=== PATIENT | male | born 1950 | race Caucasian/White ===

== ENCOUNTER 2021-12-19 10:13 | Emergency (ER) | payer MEDICARE, OTHER, SELFPAY ==
[2021-12-19 10:14] VITALS: BP 177/104; PULSE 63; RESP 18; TEMP 36.2; O2SAT 100; BMI 36.9
--- NOTE | 2021-12-19 10:24 | RAD_ITS ---
STUDY: X-RAY - RIGHT HAND REASON FOR EXAM: Male, 71 years old. Dogbite to the fifth metacarpal region. TECHNIQUE: 3 view(s) of the hand. COMPARISON: None. FINDINGS: Normal radiocarpal articulation. Normal distal radioulnar joint. Normal visualized carpal bones. Normal carpal articulations Normal carpometacarpal articulation of the thumb. Normal second through fifth carpometacarpal joints. Normal metacarpi. Normal metacarpophalangeal joint of the thumb. Normal interphalangeal joint of the thumb. Normal proximal and distal phalanges of the thumb. Normal metacarpophalangeal joints of the second through fifth fingers. Normal proximal and distal interphalangeal joints of the second through fifth fingers. Normal phalanges of the second through fifth fingers. Soft tissue laceration. No radiopaque foreign body seen. RAD/Hand Min 3 Views IMPRESSION: Soft tissue laceration. No radiopaque foreign bodies Electronically Signed: Mikael Fabian MD at 11:00 EDT ,
--- NOTE | 2021-12-19 10:25 | EX.ED.GENINJ ---
HPI History of Present Illness Chief Complaint: Bite Informant: patient Onset/Context/Timing Onset: Today Mechanism/Context: Work Related (Dog bite to right hand) Current Severity: Mild Maximum Severity: Mild Narrative Narrative: Patient present secondary to dog bite to his right hand. 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 He was at a home today and was bit by the tenants dog on the right hand. He is right-hand dominant. He is unsure of his last tetanus update. PFSH PFS Medical History High cholesterol Hypertension Home Medications amoxicillin-pot clavulanate 1 tab PO BID #14 tab 12/19/21 [Rx Last Taken Unknown] Allergy/AdvReac Type Severity Reaction Status Date / Time No Known Allergies Allergy Verified 12/19/21 10:16 Surgical History Hx of cataract surgery Social History Smoking Status: Never smoker ROS ROS ED Constitutional Constitutional ED: Denies chills or fever(s) Eyes Eyes: Denies change in vision ENT ENT ED: Denies rhinorrhea or sore throat Cardiovascular Cardiovascular: Denies chest pain Respiratory/Chest Respiratory/Chest: Denies cough or dyspnea Gastrointestinal Gastrointestinal: Denies abdominal pain or vomiting Musculoskeletal Musculoskeletal: Reports arthralgias Integumentary Reports other Details: Dog bite to right hand Neurologic Neurologic: Denies paresthesias or weakness Hematologic/Lymphatic Hematologic/Lymphatic: Denies easy bleeding or easy bruising Allergic/Immunologic Allergic/Immunologic ED: Denies urticaria EXAM Physical Exam Const Vital Signs: 12/19/21 10:14 Temperature 97.1 F L Temperature Source Temporal Pulse Rate 63 Respiratory Rate 18 Blood Pressure 177/104 H Blood Pressure Mean 128 Pulse Ox 100 Oxygen Delivery Method Room Air Positive well nourished and well developed General Appearance ED: well developed HEENT atraumatic Eyes PERRL and EOMs intact bilaterally Neck full ROM Chest Wall inspection of chest normal and palpation of chest normal Resp normal respiratory effort and clear to auscultation bilaterally Cardio regular rhythm Rate: regular rate GI non-tender Palpation: soft Back/Spine normal to inspection Extremity Extremity Narrative: Patient has laceration to the right hand from dog bite. There is a 3 cm laceration around the MTP joint of the fifth finger. There is a branching 2 cm laceration off of this. Bleeding is well controlled. He has full range of motion of all digits. Good cap refill and sensation distally. Neuro oriented x3, moves all extremities and no sensory deficits noted Sensorium / Orientation: alert Motor Exam: strength 5/5 throughout Psych mental status grossly normal Skin Skin Narrative: Hand laceration as noted above. MDM MDM MDM Narrative Medical decision making narrative: Tetanus update provided. Patient given p.o. Augmentin. Right hand x-ray ordered. Radiography Diagnostic Testing: Clinical Impression(s) from Imaging Studies Hand X-Ray 12/19/21 10:24 IMPRESSION: Soft tissue laceration. No radiopaque foreign bodies Electronically Signed: Mikael Fabian MD at 11:00 EDT , Treatment and Re-Evaluation Narrative: Right hand x-ray per my interpretation reveals no radiopaque foreign body. No bony abnormality. Right hand laceration loosely repaired with 5 simple interrupted 5-0 sutures. 7 cc 1% lidocaine is used locally. Wound is thoroughly cleansed and irrigated. Patient is to have sutures removed in 1 week. Prescription for Augmentin will be sent to the pharmacy for him. Discharge Plan Triage Chief Complaint: Bite ED Provider: Daksha Corley Dx/Rx/DC Orders Clinical Impression: Dog bite, Laceration of right hand Instructions: ED Dog Bite, ED Laceration, Hand: All Closures Prescriptions: New amoxicillin-pot clavulanate 875-125 mg tablet 1 tab PO BID Qty: 14 RF: 0 Primary Care Provider: Logan Aquino Referrals: Logan Aquino MD [Primary Care Provider] - 7 Days for suture removal Disposition Disposition: Home, Self Care
[2021-12-19] MEDS: Amox/Clavulanate 875 MG Tablet PO (10:42)
[2021-12-19] MEDS: Lidocaine 1% (20 ml mdv) 20 ML Vial INFILT (10:42)
[2021-12-19] MEDS: Diphth,Pertuss(Acell),Tet Vac 0.5 ML Vial IM (10:43)
== END 2021-12-19 12:01 | disposition home or self-care (01) ==
PROVIDERS: Emergency Provider Emergency Medicine; PCP Internal Medicine; Visit Provider Emergency Medicine
DX: S61.411A Laceration without foreign body of right hand, initial encounter (principal); W54.0XXA Bitten by dog, initial encounter; Y92.009 Unspecified place in unspecified non-institutional (private) residence as the place of occurrence of the external cause; Y99.0 Civilian activity done for income or pay; Z23 Encounter for immunization; E78.00 Pure hypercholesterolemia, unspecified; I10 Essential (primary) hypertension
CPT/HCPCS: 12002; 73130; 90715; 99283

== ENCOUNTER → 2023-07-05 | Outpatient (CLI) | payer MEDICARE, SELFPAY ==
--- NOTE | 2023-07-05 14:58 | STRESSREP ---
Stress Test Report Pharmacologic myocardial perfusion stress test. 73-year-old man with a history of chest pain and shortness of breath Resting EKG demonstrates sinus rhythm with a rate of 62 bpm. Resting blood pressure is 148/92 mmHg. 0.4 mg of regadenoson was infused per usual protocol followed by rapid intravenous saline flush injection. Continuous EKG monitoring was performed. The maximum heart rate was 82 bpm which was 56% of max impacted heart rate the maximum workload was 1 metabolic equivalent. At rest there were no ST or T wave changes noted to suggest ischemia and at peak infusion nonspecific ST changes were noted which did not meet the criteria for ischemia. No clinical angina is noted. The final blood pressure was 158/100 mmHg. Myocardial perfusion protocol. 15.0 mCi of technetium 99m sestamibi was injected at rest. 0.4 mg of regadenoson was infused per usual protocol. At peak infusion 45.0 mCi of technetium 99m sestamibi was injected stress images were obtained stress and rest images were reconstructed and compared in the short axis vertical long and horizontal long axis. Gated images were also obtained. Perfusion SPECT analysis: Review of the stress images demonstrate normal uptake of tracer noted in all areas of the myocardium. The resting images similar demonstrated normal uptake of tracer noted in all areas of the myocardium. No areas of reversibility are noted to suggest ischemia and no previous infarct is noted. Gated SPECT analysis: The gated ejection fraction is 69%. Conclusion: Normal pharmacologic myocardial perfusion stress test. Preserved ejection fraction.
== END | disposition home or self-care (01) ==
PROVIDERS: PCP Internal Medicine; Referring Provider Nurse Practitioner; Visit Provider Nurse Practitioner
DX: R94.31 Abnormal electrocardiogram [ECG] [EKG] (principal); R06.02 Shortness of breath; R07.9 Chest pain, unspecified
CPT/HCPCS: 78452; 93017; A9500; A4216; J2785

== ENCOUNTER → 2023-07-24 | Outpatient (CLI) | payer MEDICARE, SELFPAY ==
--- NOTE | 2023-07-24 10:33 | RAD_ITS ---
INDICATION: chest pain EXAMINATION/TECHNIQUE: X-RAY - XR Chest 2 Views COMPARISON: No relevant prior comparison study available FINDINGS: LINES/DEVICES: None. LUNGS: No consolidation, edema or effusion. No pneumothorax. MEDIASTINUM AND CARDIOVASCULAR STRUCTURES: Borderline cardiac silhouette. Tortuosity of the thoracic aorta. BONES AND SOFT TISSUES: Mild degenerative changes and mild dextroscoliosis of the thoracic spine. RAD/Chest PA and Lateral IMPRESSION: No radiographic evidence of acute cardiopulmonary disease. Electronically Signed: Jarvis Velasquez MD at 10:47 EST ,
[2023-07-24 11:09] LABS: Absolute Neutrophil Count 4.7 X10^3/uL (2.0-7.7); Basophil# 0.08 X10^3/uL; Eosinophil# 0.29 X10^3/uL; Eosinophils% 3.7 % (0-5); Hemoglobin 14.9 g/dL (13.0-16.5); Lymphocyte % 22.8 % (19-41); Mean Corp Hgb Conc 33.1 g/dL (32-36); Mean Corpuscular Hgb 33.1 pg (27.0-32.0); Mean Platelet Vol. 9.1 fl (6.2-12.0); Monocyte# 0.99 X10^3/uL; Monocyte% 12.5 % (0-10); NRBC Flagged by Analyzer 0 % (0-5); Neutrophil # 4.72 X10^3/uL (2.7-7.7); Neutrophil % 59.6 % (47-70); Platelet Count 233 K/mm3 (150-450); RBC Distribution Width CV 13.7 % (11.6-14.6); RBC Distribution Width SD 50.2 fl (35.1-43.9); White Blood Count 7.9 K/mm3 (4.4-11.0)
[2023-07-24 12:04] LABS: Anion Gap 3 (5-15); BUN 13 mg/dL (7-18); BUN/Creat Ratio 10.7 RATIO (10-20); Calcium,Total 9.1 mg/dL (8.5-10.1); Chloride 110 mmol/L (98-107); Creatinine, Serum 1.21 mg/dL (0.70-1.30); EST Glomerular Filtration Rate 62 mL/min (>60); Est Glom Filt Rate - Afr Amer 75 mL/min (>60); Glucose 116 mg/dL (74-106); Potassium 3.9 mmol/L (3.5-5.1); Sodium Level 141 mmol/L (136-145)
== END | disposition home or self-care (01) ==
LOC: RAD 10:31
PROVIDERS: PCP Internal Medicine; Referring Provider Internal Medicine Cardiovascular Disease; Visit Provider Internal Medicine Cardiovascular Disease
DX: R06.02 Shortness of breath (principal); R07.9 Chest pain, unspecified; I10 Essential (primary) hypertension
CPT/HCPCS: 36415; 71046; 80048; 85025

== ENCOUNTER 2023-08-02 13:48 | Observation (INO) | payer MEDICARE, SELFPAY ==
[2023-08-01 09:13] VITALS: BMI 41.0
--- OUTSIDE RECORDS SUMMARY | 2023-08-02 09:35 | XMS RPT_ITS | CCD ---
Author Name Unknown Address [address] [place] [address] Organization [facility] Care Team Providers Care Trains Dispatcher Supervisor Name Role Phone Miles AGUILERA, Logan Figueredo Primary Care Provider [phone] LOGAN VALDES Primary Care Unavailable KARYNA CORONA Referring Unavailable ANALIA REIS Attending Unavailable MILES, LOGAN Figueredo Primary Care Unavailable TESTRAKEFOUZIA Referring Unavailable TESTRAKE, FOUZIA Attending Unavailable TESTSATINDER, FOUZIA Attending Unavailable MILES, LOGAN Figueredo Primary Care Unavailable MILES, LOGAN Figueredo Primary Care Unavailable MILES, LOGAN Figueredo Referring Unavailable VALDES, LOGAN Figueredo Attending Unavailable MILES, LOGAN Figueredo Primary Care Unavailable LOGAN VALDES Referring Unavailable TESTRAKE, FOUZIA Attending Unavailable MILES, LOGAN Figueredo Primary Care Unavailable MILES, LOGAN Figueredo Referring Unavailable VALDES, LOGAN Figueredo Primary Care Unavailable TESTRAKE, FOUZIA Referring Unavailable JL HART Attending Unavailable OLDERCODI Referring Unavailable MILES, LOGAN Figueredo Primary Care Unavailable MILES, LOGAN Figueredo Primary Care Unavailable KARYNA CORONA Referring Unavailable OLDER, CODI Attending Unavailable MILES, LOGAN Figueredo Primary Care Unavailable VALDES, LOGAN Figueredo Primary Care Unavailable KARYNA CORONA Referring Unavailable MILES, LOGAN Figueredo Primary Care Unavailable TESTRAJIM, FOUZAI Attending Unavailable MILES, LOGAN Figueredo Primary Care Unavailable GUS SILVA Attending Unavailable OLDER, CODI Attending Unavailable VALDES, LOGAN Figueredo Primary Care Unavailable OLDERCODI Attending Unavailable MILES, LOGAN Figueredo Primary Care Unavailable VALDES, LOGAN Figueredo Primary Care Unavailable KARYNA CORONA Referring Unavailable KARYNA CORONA Attending Unavailable VALDES, LOGAN Figueredo Primary Care Unavailable KARYNA CORONA Attending Unavailable GUS SILVA Referring Unavailable VALDES, MARIA L Primary Care Unavailable KARYNA CORONA Attending Unavailable KARYNA CORONA Referring Unavailable OLDER, CODI Attending Unavailable VALDES, MARIA L Primary Care Unavailable OLDER, CODI Referring Unavailable VALDES, MARIA L Primary Care Unavailable VALDES, MARIA L Primary Care Unavailable JL HART Attending Unavailable LAYNE SILVA Referring Unavailable VALDES, MARIA L Primary Care Unavailable JL HART Referring Unavailable LAYNE SILVA Attending Unavailable OLDER, CODI Referring Unavailable VALDES, MARIA L Primary Care Unavailable Medications Current Medications Medication Drug Class(es) Dates Sig (Normalized) Sig (Original) cephalexin 500 mg oral capsule (1 source) Cephalosporin Antibacterial Start: 11-07-2022 End: 11-14-2022 take 1 capsule by mouth three times daily cephALEXin (KEFLEX) 500 mg capsule Take 1 capsule by mouth three times daily for 7 days. 21 capsule 0 11/07/2022 11/14/2022 Active Completed/Discontinued Medications Medication Drug Class(es) Dates Sig (Normalized) Sig (Original) atorvastatin 10 mg oral tablet (20 sources) HMG-CoA Reductase Inhibitor Start: 05-02-2021 End: 06-29-2022 take 1 tablet by mouth once daily at bedtime for hyperlipidemia atorvastatin (LIPITOR) 10 mg tablet Indications: Hyperlipidemia, unspecified hyperlipidemia type Take 1 tablet by mouth daily at bedtime. For cholesterol. 90 tablet 3 06/29/2022 Active Problems Active Problems Problem Classification Problem Date Documented Da te Episodic/Chronic Alcohol-related disorders (20 sources) Alcohol abuse; Translations: [Alcohol abuse, uncomplicated] Onset: 04-03-2012 04-03-2012 Chronic Chronic ulcer of skin (2 sources) Non-pressure chronic ulcer of unspecified part of unspecified lower leg with unspecified severity; Translations: [Non-pressure chronic ulcer of other part of left lower leg limited to breakdown of skin] Onset: 11-30-2022 Chronic Disorders of lipid metabolism (20 sources) Hyperlipidemia; Translations: [Hyperlipidemia, unspecified] Onset: 06-03-2017 06-03-2017 Chronic Essential hypertension (20 sources) Essential hypertension; Translations: [Essential (primary) hypertension] Onset: 04-21-2016 05-13-2019 Chronic Immunizations and screening for infectious disease (1 source) Needs influenza immunization; Translations: [Encounter for immunization] 04-01-2023 Episodic Malaise and fatigue (2 sources) Fatigue; Translations: [Other fatigue] Onset: 05-24-2023 05-24-2023 Episodic Mycoses (5 sources) Onychomycosis; Translations: [Tinea unguium] Episodic Nonspecific chest pain (4 sources) Chest pain; Translations: [Other chest pain] Onset: 05-24-2023 Episodic Open wounds of extremities (1 source) Dog bite of hand; Translations: [Open bite of right hand, subsequent encounter] Episodic Other aftercare (1 source) Removal of sutures done; Translations: [Encounter for removal of sutures] Episodic Other and unspecified benign neoplasm (5 sources) History of polyp of colon; Translations: [Personal history of colonic polyps] Episodic Other and unspecified benign neoplasm (1 source) Tubular adenoma ; Translations: [Benign neoplasm, unspecified site] Episodic Other circulatory disease (3 sources) Abnormal peripheral pulse; Translations: [Other specified symptoms and signs involving the circulatory and respiratory systems] Episodic Other circulatory disease (1 source) Thready pulse; Translations: [Other specified symptoms and signs involving the circulatory and respiratory systems] 01-29-2023 Episodic Other connective tissue disease (5 sources) Pain of toe of left foot; Translations: [Pain in left toe(s)] Episodic Other connective tissue disease (5 sources) Pain of toe of right foot; Translations: [Pain in right toe(s)] Episodic Other diseases of veins and lymphatics (14 sources) Chronic peripheral venous hypertension; Translations: [Chronic venous hypertension (idiopathic) with ulcer of unspecified lower extremity] Onset: 11-30-2022 Chronic Other diseases of veins and lymphatics (2 sources) Chronic acquired lymphedema; Translations: [Lymphedema, not elsewhere classified] 01-29-2023 Chronic Other diseases of veins and lymphatics (1 source) Lymphedema, not elsewhere classified; Translations: [Secondary lymphedema] Onset: 06-12-2023 Chronic Other diseases of veins and lymphatics (1 source) Chronic venous hypertension (idiopathic) with ulcer of unspecified lower extremity; Translations: [Chronic venous hypertension w ulceration (HCC)] Onset: 11-30-2022 Chronic Other diseases of veins and lymphatics (4 sources) Vascular insufficiency; Translations: [Venous insufficiency (chronic) (peripheral)] Episodic Other diseases of veins and lymphatics (3 sources) Ulcer of lower extremity; Translations: [Venous insufficiency (chronic) (peripheral)] Episodic Other diseases of veins and lymphatics (4 sources) Venous insufficiency (chronic) (peripheral); Translations: [Venous (peripheral) insufficiency, unspecified] Onset: 01-29-2023 01-29-2023 Episodic Other diseases of veins and lymphatics (1 source) Peripheral venous insufficiency; Translations: [Venous insufficiency (chronic) (peripheral)] 05-23-2023 Episodic Other ear and sense organ disorders (1 source) Impacted cerumen of bilateral ears; Translations: [Impacted cerumen, bilateral] Episodic Other lower respiratory disease (2 sources) Dyspnea; Translations: [Shortness of breath] 05-24-2023 Episodic Other lower respiratory disease (1 source) Shortness of breath; Translations: [Shortness of breath] Onset: 05-24-2023 Episodic Other nutritional; endocrine; and metabolic disorders (20 sources) Body mass index 40+ - severely obese; Translations: [Morbid (severe) obesity due to excess calories] Onset: 08-01-2010 11-13-2017 Chronic Other nutritional; endocrine; and metabolic disorders (20 sources) Body mass index 30+ - obesity; Translations: [Body mass index (BMI) 39.0-39.9, adult] Onset: 11-03-2015 11-03-2015 Chronic Other nutritional; endocrine; and metabolic disorders (1 source) Morbid (severe) obesity due to excess calories; Translations: [Obesity, Class III, BMI 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) (HCC)] Onset: 11-13-2017 Chronic Other screening for suspected conditions (not mental disorders or infectious disease) (2 sources) Patient encounter status; Translations: [Encounter for screening for malignant neoplasm of colon] Episodic Other upper respiratory disease (20 sources) Chronic rhinitis; Translations: [Chronic rhinitis] Onset: 08-01-2010 08-01-2010 Chronic Peripheral and visceral atherosclerosis (1 source) Peripheral vascular disease, unspecified; Translations: [Peripheral vascular disease, unspecified] Chronic Residual codes; unclassified (20 sources) Obstructive sleep apnea syndrome; Translations: [Obstructive sleep apnea (adult) (pediatric)] Onset: 08-01-2010 08-02-2021 Chronic Residual codes; unclassified (1 source) Edema, generalized; Translations: [Generalized edema] Episodic Skin and subcutaneous tissue infections (1 source) Cellulitis of left lower limb; Translations: [Cellulitis of left lower limb] Episodic Past or Other Problems Problem Classification Problem Date Documented Da te Episodic/Chronic Alcohol-related disorders (20 sources) 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; Translations: [Alcohol use, unspecified with alcohol-induced sleep disorder] Onset: 05-15-2018 05-15-2018 Episodic Diabetes mellitus without complication (20 sources) Impaired fasting glycemia; Translations: [Impaired fasting glucose] Onset: 12-03-2017 12-03-2017 Episodic Other and unspecified benign neoplasm (20 sources) Benign neoplasm of colon; Translations: [Benign neoplasm of colon, unspecified] Onset: 10-25-2010 10-25-2010 Episodic Other and unspecified benign neoplasm (1 source) Benign neoplasm, unspecified site; Translations: [Tubular adenoma] Onset: 07-11-2022 Episodic Other and unspecified benign neoplasm (3 sources) Personal history of colonic polyps; Translations: [History of colonic polyps] Onset: 07-02-2022 Episodic Other circulatory disease (1 source) Other specified symptoms and signs involving the circulatory and respiratory systems; Translations: [Diminished pulse] Onset: 02-27-2023 Episodic Other nervous system disorders (20 sources) Paresthesia of foot ; Translations: [Anesthesia of skin] Onset: 06-22-2021 06-22-2021 Episodic Other skin disorders (20 sources) Nail deformity; Translations: [Other nail disorders] Onset: 06-22-2021 06-22-2021 Episodic Other upper respiratory disease (20 sources) Congestion of nasal sinus; Translations: [Nasal congestion] Onset: 07-09-2018 07-09-2018 Episodic Residual codes; unclassified (20 sources) Edema; Translations: [Edema, unspecified] Onset: 08-27-2016 08-27-2016 Episodic Residual codes; unclassified (1 source) Edema, unspecified; Translations: [Edema, unspecified type] Onset: 08-27-2016 Episodic Varicose veins of lower extremity (3 sources) Varicose veins of bilateral lower limbs; Translations: [Asymptomatic varicose veins of bilateral lower extremities] Onset: 02-27-2023 Episodic Results Test Name Value Interpretation Reference Range Facil ity Vital Signs Date Time Vital Sign Value Performing Clinician Regulo alcala 05-24-2023 08:35-0500 Body temperature 98.2 [degF] Codi Older NURSES EDUCATOR.KNOCKOUT MACHINE OPERATOR Work Phone: [facility] 05-24-2023 08:35-0500 Body weight 141.52 kg Codi Older NURSES EDUCATOR.KNOCKOUT MACHINE OPERATOR Work Phone: [facility] 05-24-2023 08:35-0500 Diastolic blood pressure 82 mm[Hg] Codi Older NURSES EDUCATOR.KNOCKOUT MACHINE OPERATOR Work Phone: [facility] 05-24-2023 08:35-0500 Heart rate 126 /min Codi Older NURSES EDUCATOR.KNOCKOUT MACHINE OPERATOR Work Phone: [facility] 05-24-2023 08:35-0500 Respiratory rate 18 /min Codi Older NURSES EDUCATOR.KNOCKOUT MACHINE OPERATOR Work Phone: [facility] 05-24-2023 08:35-0500 SaO2% (BldA) [Mass fraction] 97 % Codi Older NURSES EDUCATOR.KNOCKOUT MACHINE OPERATOR Work Phone: [facility] 05-24-2023 08:35-0500 Systolic blood pressure 158 mm[Hg] Codi Older NURSES EDUCATOR.KNOCKOUT MACHINE OPERATOR Work Phone: [facility] 05-21-2023 10:18-0500 Diastolic blood pressure 98 mm[Hg] Karyna Corona DO Work Phone: [facility] 05-21-2023 10:18-0500 Heart rate 77 /min Karyna Corona DO Work Phone: [facility] 05-21-2023 10:18-0500 SaO2% (BldA) [Mass fraction] 97 % Karyna Corona DO Work Phone: [facility] 05-21-2023 10:18-0500 Systolic blood pressure 152 mm[Hg] Karyna Corona DO Work Phone: [facility] 04-01-2023 12:36-0400 Body height 182.9 cm Codi Older NURSES EDUCATOR.KNOCKOUT MACHINE OPERATOR Work Phone: [facility] 04-01-2023 12:36-0400 Body temperature 97.7 [degF] Codi Older NURSES EDUCATOR.KNOCKOUT MACHINE OPERATOR Work Phone: [facility] 04-01-2023 12:36-0400 Body weight 136.94 kg Codi Older NURSES EDUCATOR.KNOCKOUT MACHINE OPERATOR Work Phone: [facility] 04-01-2023 12:36-0400 Diastolic blood pressure 84 mm[Hg] Codi Older NURSES EDUCATOR.KNOCKOUT MACHINE OPERATOR Work Phone: [facility] 04-01-2023 12:36-0400 Heart rate 76 /min Codi Older NURSES EDUCATOR.KNOCKOUT MACHINE OPERATOR Work Phone: [facility] 04-01-2023 12:36-0400 SaO2% (BldA) [Mass fraction] 99 % Codi Older NURSES EDUCATOR.KNOCKOUT MACHINE OPERATOR Work Phone: [facility] 04-01-2023 12:36-0400 Systolic blood pressure 124 mm[Hg] Codi Older NURSES EDUCATOR.KNOCKOUT MACHINE OPERATOR Work Phone: [facility] 01-29-2023 08:36-0400 Diastolic blood pressure 78 mm[Hg] Karyna Corona DO Work Phone: [facility] 01-29-2023 08:36-0400 Heart rate 68 /min Karyna Corona DO Work Phone: [facility] 01-29-2023 08:36-0400 SaO2% (BldA) [Mass fraction] 97 % Karyna Corona DO Work Phone: [facility] 01-29-2023 08:36-0400 Systolic blood pressure 120 mm[Hg] Kayrna Corona DO Work Phone: [facility] 12-12-2022 10:03-0400 Body weight 137.44 kg Gus Ricardo NURSES EDUCATOR.KNOCKOUT MACHINE OPERATOR Work Phone: [facility] 12-12-2022 10:03-0400 Diastolic blood pressure 72 mm[Hg] Gus Ricardo NURSES EDUCATOR.KNOCKOUT MACHINE OPERATOR Work Phone: [facility] 12-12-2022 10:03-0400 Heart rate 71 /min Gus Garciar NURSES EDUCATOR.KNOCKOUT MACHINE OPERATOR Work Phone: [facility] 12-12-2022 10:03-0400 SaO2% (BldA) [Mass fraction] 98 % Gus Garciar NURSES EDUCATOR.KNOCKOUT MACHINE OPERATOR Work Phone: [facility] 12-12-2022 10:03-0400 Systolic blood pressure 108 mm[Hg] Gus Garciar NURSES EDUCATOR.KNOCKOUT MACHINE OPERATOR Work Phone: [facility] 11-07-2022 07:51-0400 Body weight 137.89 kg Codi Older NURSES EDUCATOR.KNOCKOUT MACHINE OPERATOR Work Phone: [facility] 11-07-2022 07:51-0400 Diastolic blood pressure 85 mm[Hg] Codi Older NURSES EDUCATOR.KNOCKOUT MACHINE OPERATOR Work Phone: [facility] 11-07-2022 07:51-0400 Heart rate 68 /min Codi Older NURSES EDUCATOR.KNOCKOUT MACHINE OPERATOR Work Phone: [facility] 11-07-2022 07:51-0400 Respiratory rate 18 /min Codi Older NURSES EDUCATOR.KNOCKOUT MACHINE OPERATOR Work Phone: [facility] 11-07-2022 07:51-0400 Systolic blood pressure 142 mm[Hg] Codi Older NURSES EDUCATOR.KNOCKOUT MACHINE OPERATOR Work Phone: [facility] 10-31-2022 09:03-0400 Body temperature 97.59 [degF] Codi Older NURSES EDUCATOR.KNOCKOUT MACHINE OPERATOR Work Phone: [facility] 10-31-2022 09:03-0400 Body weight 137.44 kg Codi Older NURSES EDUCATOR.KNOCKOUT MACHINE OPERATOR Work Phone: [facility] 10-31-2022 09:03-0400 Diastolic blood pressure 72 mm[Hg] Codi Older NURSES EDUCATOR.KNOCKOUT MACHINE OPERATOR Work Phone: [facility] 10-31-2022 09:03-0400 Heart rate 82 /min Codi Older NURSES EDUCATOR.KNOCKOUT MACHINE OPERATOR Work Phone: [facility] 10-31-2022 09:03-0400 Respiratory rate 20 /min Codi Older NURSES EDUCATOR.KNOCKOUT MACHINE OPERATOR Work Phone: [facility] 10-31-2022 09:03-0400 SaO2% (BldA) [Mass fraction] 96 % Codi Older NURSES EDUCATOR.KNOCKOUT MACHINE OPERATOR Work Phone: [facility] 10-31-2022 09:03-0400 Systolic blood pressure 132 mm[Hg] Codi Older NURSES EDUCATOR.KNOCKOUT MACHINE OPERATOR Work Phone: [facility] 09-20-2022 08:34-0500 Diastolic blood pressure 77 mm[Hg] Logan Valdes MD Work Phone: [facility] 09-20-2022 08:34-0500 Heart rate 73 /min Logan Valdes MD Work Phone: [facility] 09-20-2022 08:34-0500 Systolic blood pressure 136 mm[Hg] Logan Valdes MD Work Phone: [facility] 09-20-2022 08:30-0500 Body weight 140.62 kg Logan Valdes MD Work Phone: [facility] 09-20-2022 08:30-0500 Respiratory rate 24 /min Logan Valdes MD Work Phone: [facility] 07-02-2022 11:00-0500 Diastolic blood pressure 90 mm[Hg] Jl Hart MD Work Phone: [facility] 07-02-2022 11:00-0500 Heart rate 63 /min Jl Hart MD Work Phone: [facility] 07-02-2022 11:00-0500 SaO2% (BldA) [Mass fraction] 96 % Jl Hart MD Work Phone: [facility] 07-02-2022 11:00-0500 Systolic blood pressure 188 mm[Hg] Jl Hart MD Work Phone: [facility] 07-02-2022 10:50-0500 Respiratory rate 16 /min Jl Hart MD Work Phone: [facility] 07-02-2022 09:20-0500 Body temperature 98.1 [degF] Jl Hart MD Work Phone: [facility] 04-11-2022 08:32-0400 Body height 185.4 cm Layne Ricardo PA-C Work Phone: [facility] 04-11-2022 08:32-0400 Body temperature 97.81 [degF] Layne [place] PA-C Work Phone: [facility] 04-11-2022 08:32-0400 Body weight 137.98 kg Layne [place] PA-C Work Phone: [facility] 04-11-2022 08:32-0400 Diastolic blood pressure 82 mm[Hg] Layne [place] PA-C Work Phone: [facility] 04-11-2022 08:32-0400 Heart rate 78 /min Layne [place] PA-C Work Phone: [facility] 04-11-2022 08:32-0400 SaO2% (BldA) [Mass fraction] 100 % Layne [place] PA-C Work Phone: [facility] 04-11-2022 08:32-0400 Systolic blood pressure 134 mm[Hg] Layne Douglas[place] PA-C Work Phone: [facility] 03-23-2022 09:09-0400 Diastolic blood pressure 80 mm[Hg] Logan Valdes MD Work Phone: [facility] 03-23-2022 09:09-0400 Systolic blood pressure 132 mm[Hg] Logan Valdes MD Work Phone: [facility] 03-23-2022 08:37-0400 Body weight 140.16 kg Logan Valdes MD Work Phone: [facility] 03-23-2022 08:37-0400 Heart rate 64 /min Logan Valdes MD Work Phone: [facility] 03-23-2022 08:37-0400 Respiratory rate 18 /min Logan Valdes MD Work Phone: [facility] 03-23-2022 08:37-0400 SaO2% (BldA) [Mass fraction] 97 % Logan Valdes MD Work Phone: [facility] 01-26-2022 09:36-0400 Body weight 139.25 kg La Tannhof NURSES EDUCATOR.KNOCKOUT MACHINE OPERATOR Work Phone: [facility] 01-26-2022 09:36-0400 Diastolic blood pressure 92 mm[Hg] La Tannhof NURSES EDUCATOR.KNOCKOUT MACHINE OPERATOR Work Phone: [facility] 01-26-2022 09:36-0400 Heart rate 60 /min La Tannhof NURSES EDUCATOR.KNOCKOUT MACHINE OPERATOR Work Phone: [facility] 01-26-2022 09:36-0400 Respiratory rate 20 /min La Tannhof NURSES EDUCATOR.KNOCKOUT MACHINE OPERATOR Work Phone: [facility] 01-26-2022 09:36-0400 SaO2% (BldA) [Mass fraction] 100 % La Tannhof NURSES EDUCATOR.KNOCKOUT MACHINE OPERATOR Work Phone: [facility] 01-26-2022 09:36-0400 Systolic blood pressure 132 mm[Hg] La Tannhof NURSES EDUCATOR.KNOCKOUT MACHINE OPERATOR Work Phone: [facility] 12-27-2021 08:19-0400 Body weight 135.63 kg Codi Older NURSES EDUCATOR.KNOCKOUT MACHINE OPERATOR Work Phone: [facility] 12-27-2021 08:19-0400 Diastolic blood pressure 72 mm[Hg] Codi Older NURSES EDUCATOR.KNOCKOUT MACHINE OPERATOR Work Phone: [facility] 12-27-2021 08:19-0400 Heart rate 88 /min Codi Older NURSES EDUCATOR.KNOCKOUT MACHINE OPERATOR Work Phone: [facility] 12-27-2021 08:19-0400 Respiratory rate 20 /min Codi Older NURSES EDUCATOR.KNOCKOUT MACHINE OPERATOR Work Phone: [facility] 12-27-2021 08:19-0400 Systolic blood pressure 108 mm[Hg] Codi Older NURSES EDUCATOR.KNOCKOUT MACHINE OPERATOR Work Phone: [facility] Encounters Encounter Date Encounter Type Care Provider Facility Start: 06-12-2023 End: 06-12-2023 ambulatory MARIA L MILES Facility:[facility] Start: 06-11-2023 End: 06-11-2023 ambulatory LOGAN Figueredo MILES Facility:[facility] Start: 06-11-2023 End: 06-11-2023 Patient encounter procedure Fouzia Smith Work Phone: Podiatry Procedures Date Procedure Procedure Detail Performing Clinician Start: 05-24-2023 Ecg routine ecg w/le ast 12 lds i&r only [facility] Provider Start: 04-01-2023 INFLUENZA VACCINE, P RSV FREE, AGE 65+ YR, HIGH DOSE, QUADRIVALENT (FLUZONE HIGH-DOSE) Codi Older NURSES EDUCATOR.KNOCKOUT MACHINE OPERATOR Work Phone: Start: 09-18-2022 Lipid 1996 panel - S mima or Plasma Codi Older NURSES EDUCATOR.KNOCKOUT MACHINE OPERATOR Work Phone: Start: 07-02-2022 Level iv surg pathol ogy gross&microscopic exam Jl Hart MD Work Phone: Start: 07-02-2022 Colonoscopy flx dx w /collj spec when pfrmd Layne Silva PA-C Work Phone: Start: 07-02-2022 Colonoscopy Logan Doe MD Work Phone: Start: 03-23-2022 Adult depression scr eening assessment Logan Valdes MD Work Phone: Start: 12-22-2020 Adult depression scr eening assessment Fouzia Smith Work Phone: Start: 09-24-2016 Colonoscopy Fouzia Bernal Work Phone: Plan of Treatment Date Care Activity Detail Author Start: 12-20-2031 Urine microalbumin profile [facility] Start: 09-19-2027 Lipid 1996 panel - S mima or Plasma Lipid Screening [facility] Start: 09-19-2027 LIPID SCREEN LIPID SCREEN [facility] Start: 05-24-2026 Diabetes Screening Diabetes Screenin g [facility] Start: 03-31-2026 LIPID SCREEN LIPID SCREEN [facility] Start: 09-18-2025 DIABETES SCREEN DIABETES SCREEN [facility] Start: 09-18-2025 Diabetes Screening Diabetes Screenin g [facility] Start: 07-02-2025 Colonoscopy COLONOSCOPY [facility] Start: 07-02-2025 COLORECTAL CANCER SCREENING COLORECTAL CANCER SCREENING [facility] Start: 06-19-2024 DIABETES SCREEN DIABETES SCREEN [facility] Start: 05-24-2024 Annual PCP Team [employer] richard Disease Visit Annual PCP Team Chronic Disease Visit [facility] Start: 04-01-2024 Annual PCP Team [employer] Operator richard Disease Visit Annual PCP Team Chronic Disease Visit [facility] Start: 04-01-2024 Shingrix Vaccine (1 of 2) Bahena grix Vaccine (1 of 2) [facility] Immunizations Immunization Date Immunization Notes Care Provider Sara baeza 04-01-2023 influenza (HD-IIV4) vaccine, age 65+ yr, high dose, quadrivalent, PF (FLUZONE HIGH-DOSE) Codi Older NURSES EDUCATOR.[facility] Work Phone: [facility] Work Phone: 05-28-2022 influenza (HD-IIV4) vaccine, age 65+ yr, high dose, quadrivalent, PF (FLUZONE HIGH-DOSE) Gus Ricardo NURSES EDUCATOR.KNOCKOUT MACHINE OPERATOR Work Phone: [facility] Work Phone: 12-19-2021 tetanus toxoid, redu shaggy diphtheria toxoid, and acellular pertussis vaccine, adsorbed Codi Older NURSES EDUCATOR.[facility] Work Phone: [facility] Work Phone: 05-02-2021 influenza, high-dose , quadrivalent vaccine (FLUZONE HIGH DOSE QUADRIVALENT) Fouzia Smith Work Phone: [facility] Work Phone: 04-25-2020 influenza, high-dose , quadrivalent vaccine (FLUZONE HIGH DOSE QUADRIVALENT) Fouzia Smith Work Phone: [facility] Work Phone: 05-08-2019 influenza, high dose seasonal, preservative-free Fouzia Smith Work Phone: [facility] 05-23-2018 influenza, high dose seasonal, preservative-free Fouzia Smith Work Phone: [facility] Work Phone: 06-03-2017 influenza, high dose seasonal, preservative-free Fouzia Smith Work Phone: [facility] 08-27-2016 pneumococcal polysaccharide vaccine, 23 valent Fouzia Smith Work Phone: [facility] 08-10-2015 pneumococcal conjuga te vaccine, 13 valent Fouzia Smith Work Phone: [facility] 07-28-2012 influenza virus vacc ine, unspecified formulation Fouzia Smith Work Phone: [facility] Work Phone: 08-01-2010 influenza virus vacc ine, unspecified formulation Fouziaryan Smith Work Phone: [facility] 08-01-2010 tetanus toxoid, redu shaggy diphtheria toxoid, and acellular pertussis vaccine, adsorbed Fouziaryan Smith Work Phone: [facility] Payers Date Payer Category Payer Unknown [id number] 2019 Medicare [id number] 2019 Unknown MMO MMO MEDICARE SUPPLEMENT [id number] 2019-Present [phone] [address] [place] [address] Indemnity [id number] 2019 Unknown [id number] 2014 Medicare MEDICARE MEDICAR E A AND B [id number] 2014-Present [phone] [address] [address] [place] [address] Medicare [id number] 2014 Medicare [id number] 2014 Medicare [id number] Social History Date Type Detail Facility Start: 08-01-2010 End: 03-23-2022 Tobacco smoking status NHIS Ex-smoker [facility] Work Phone: Start: 09-20-2021 End: 07-02-2022 Alcohol intake Current drinker of alcohol (finding) [facility] Start: 12-22-2020 History SDOH Alcohol Frequency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 of colon (wit hout mention of hemorrhage) 10/25/2010 05/24/2016 Hypertension 09/08/2010 08/27/2016 BP (high blood pressure) 08/01/2010 documented as of this encounter (statuses as of 03/05/2023) [facility]-2016 History of Past illness Narrative* Problem Noted Date Diagnosed Date Resolved Date Mild cognitive impairment 11/03/2015 Hyperlipidemia 07/21/2015 11/03/2015 BMI 40.0-44.9, adult 04/05/2014 016 Diverticulosis of colon (wit hout mention of hemorrhage) 10/25/2010 05/24/2016 Hypertension 09/08/2010 08/27/2016 BP (high blood pressure) 08/01/2010 documented as of this encounter (statuses as of 03/21/2023) [address]21-2016 History of Past illness Narrative* Problem Noted Date Diagnosed Date Resolved Date Mild cognitive impairment 11/03/2015 Hyperlipidemia 07/21/2015 11/03/2015 BMI 40.0-44.9, adult 04/05/2014 016 Diverticulosis of colon (wit hout mention of hemorrhage) 10/25/2010 05/24/2016 Hypertension 09/08/2010 08/27/2016 BP (high blood pressure) 08/01/2010 documented as of this encounter (statuses as of 03/21/2023) [facility]-2016 History of Past illness Narrative* Problem Noted Date Diagnosed Date Resolved Date Mild cognitive impairment 11/03/2015 Hyperlipidemia 07/21/2015 11/03/2015 BMI 40.0-44.9, adult 04/05/2014 016 Diverticulosis of colon (wit hout mention of hemorrhage) 10/25/2010 05/24/2016 Hypertension 09/08/2010 08/27/2016 BP (high blood pressure) 08/01/2010 documented as of this encounter (statuses as of 04/01/2023) [facility]-2016 History of Past illness Narrative* Problem Noted Date Diagnosed Date Resolved Date Mild cognitive impairment 11/03/2015 Hyperlipidemia 07/21/2015 11/03/2015 BMI 40.0-44.9, adult 04/05/2014 016 Diverticulosis of colon (wit hout mention of hemorrhage) 10/25/2010 05/24/2016 Hypertension 09/08/2010 08/27/2016 BP (high blood pressure) 08/01/2010 documented as of this encounter (statuses as of 05/19/2023) [address]21-2016 History of Past illness Narrative* Problem Noted Date Diagnosed Date Resolved Date Mild cognitive impairment 11/03/2015 Hyperlipidemia 07/21/2015 11/03/2015 BMI 40.0-44.9, adult 04/05/2014 016 Diverticulosis of colon (wit hout mention of hemorrhage) 10/25/2010 05/24/2016 Hypertension 09/08/2010 08/27/2016 BP (high blood pressure) 08/01/2010 documented as of this encounter (statuses as of 05/23/2023) [address]21-2016 History of Past illness Narrative* Problem Noted Date Diagnosed Date Resolved Date Mild cognitive impairment 11/03/2015 Hyperlipidemia 07/21/2015 11/03/2015 BMI 40.0-44.9, adult 04/05/2014 016 Diverticulosis of colon (wit hout mention of hemorrhage) 10/25/2010 05/24/2016 Hypertension 09/08/2010 08/27/2016 BP (high blood pressure) 08/01/2010 documented as of this encounter (statuses as of 05/24/2023) [place] [address]-21-2016 History of Past illness Narrative* Problem Noted Date Diagnosed Date Resolved Date Mild cognitive impairment 11/03/2015 Hyperlipidemia 07/21/2015 11/03/2015 BMI 40.0-44.9, adult 04/05/2014 016 Diverticulosis of colon (wit hout mention of hemorrhage) 10/25/2010 05/24/2016 Hypertension 09/08/2010 08/27/2016 BP (high blood pressure) 08/01/2010 documented as of this encounter (statuses as of 05/24/2023) [address]21-2016 History of Past illness Narrative* Problem Noted Date Diagnosed Date Resolved Date Mild cognitive impairment 11/03/2015 Hyperlipidemia 07/21/2015 11/03/2015 BMI 40.0-44.9, adult 04/05/2014 016 Diverticulosis of colon (wit hout mention of hemorrhage) 10/25/2010 05/24/2016 Hypertension 09/08/2010 08/27/2016 BP (high blood pressure) 08/01/2010 documented as of this encounter (statuses as of 05/30/2023) [address]21-2016 History of Past illness Narrative* Problem Noted Date Diagnosed Date Resolved Date Mild cognitive impairment 11/03/2015 Hyperlipidemia 07/21/2015 11/03/2015 BMI 40.0-44.9, adult 04/05/2014 016 Diverticulosis of colon (wit hout mention of hemorrhage) 10/25/2010 05/24/2016 Hypertension 09/08/2010 08/27/2016 BP (high blood pressure) 08/01/2010 documented as of this encounter (statuses as of 06/11/2023) [address]21-2016 History of Past illness Narrative* Problem Noted Date Diagnosed Date Resolved Date Mild cognitive impairment 11/03/2015 Hyperlipidemia 07/21/2015 11/03/2015 BMI 40.0-44.9, adult 04/05/2014 016 Diverticulosis of colon (wit hout mention of hemorrhage) 10/25/2010 05/24/2016 Hypertension 09/08/2010 08/27/2016 BP (high blood pressure) 08/01/2010 documented as of this encounter (statuses as of 06/11/2023) [facility] Diagnosis Onychomycosis- Primary Dermatophytosis of nail Pain in toe of left foot Pain in limb Pain in toe of right foot Pain in limb [facility] Diagnosis Dog bite of right hand, subsequent encounter- Primary Visit for suture removal Encounter for removal of sutures [facility] Diagnosis Cellulitis of left lower extremity- Primary Cellulitis and abscess of leg, except foot Other chest pain [facility] Diagnosis Essential hypertension with goal blood pressure less than 130/80 [facility] Diagnosis Onychomycosis- Primary Dermatophytosis of nail Pain in toe of left foot Pain in limb Pain in toe of right foot Pain in limb Diminished pulses in lower extremity Other symptoms involving cardiovascular system Chronic venous hypertension w ulceration (HCC) Chronic venous hypertension with ulcer [facility] Diagnosis Venous insufficiency- Primary Unspecified venous (peripheral) insufficiency [facility] Diagnosis Essential hypertension with goal blood pressure less than 130/80- Primary Edema, unspecified type Hyperlipidemia, unspecified hyperlipidemia type Impaired fasting glucose ALEX (obstructive sleep apnea) not using CPAP Obstructive sleep apnea (adult) (pediatric) Benign neoplasm of colon, unspecified part of colon [facility]* Diagnosis Generalized edema- Primary Edema [facility] Diagnosis History of colonic polyps- Primary Personal history of colonic polyps Benign neoplasm of colon, unspecified part of colon Encounter for screening for malignant neoplasm of colon Special screening for malignant neoplasms, colon [facility] Diagnosis Essential hypertension with goal blood pressure less than 130/80 [facility]* Diagnosis Onychomycosis- Primary Dermatophytosis of nail Pain in toe of left foot Pain in limb Pain in toe of right foot Pain in limb Diminished pulses in lower extremity Other symptoms involving cardiovascular system [facility] Diagnosis History of colon polyps- Primary Personal history of colonic polyps [facility] Diagnosis Hyperlipidemia, unspecified hyperlipidemia type [facility] Diagnosis Tubular adenoma- Primary Benign neoplasm of unspecified site History of colonic polyps Personal history of colonic polyps [facility] Diagnosis Impaired fasting glucose- Primary Hyperlipidemia, unspecified hyperlipidemia type [facility]* Diagnosis BMI 39.0-39.9,adult- Primary Body Mass Index 39.0-39.9, adult Essential hypertension with goal blood pressure less than 130/80 Edema, unspecified type Impaired fasting glucose Hyperlipidemia, unspecified hyperlipidemia type Bilateral impacted cerumen Impacted cerumen [facility]* Diagnosis Venous stasis ulcer of other part of left lower leg limited to breakdown of skin without varicose veins (HCC)- Primary [facility]* Diagnosis Venous insufficiency- Primary Unspecified venous (peripheral) insufficiency Venous stasis ulcer of other part of left lower leg limited to breakdown of skin without varicose veins (HCC) [facility]* Diagnosis Venous insufficiency- Primary Unspecified venous (peripheral) insufficiency PAD (peripheral artery disease) (HCC) Peripheral vascular disease, unspecified Edema, unspecified type Venous stasis ulcer of other part of left lower leg limited to breakdown of skin without varicose veins (HCC) Varicose veins of both lower extremities, unspecified whether complicated Essential hypertension with goal blood pressure less than 130/80 [facility]* Diagnosis Secondary lymphedema- Primary Other lymphedema Edema, unspecified type Varicose veins of both lower extremities, unspecified whether complicated Venous insufficiency Unspecified venous (peripheral) insufficiency Venous stasis ulcer of other part of left lower leg limited to breakdown of skin without varicose veins (HCC) Diminished pulse Other symptoms involving cardiovascular system Chronic venous hypertension w ulceration (HCC) Chronic venous hypertension with ulcer Obesity, Class III, BMI 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) (HCC) Morbid obesity [facility]* Diagnosis Onychomycosis- Primary Dermatophytosis of nail Pain in toe of left foot Pain in limb Pain in toe of right foot Pain in limb [facility]* Diagnosis Essential hypertension with goal blood pressure less than 130/80 [facility]* Diagnosis Medicare annual wellness visit, subsequent- Primary Routine general medical examination at a health care facility Essential hypertension with goal blood pressure less than 130/80 Need for influenza vaccination Need for prophylactic vaccination and inoculation against influenza [facility]* Diagnosis Personal history of colonic polyps- Primary History of colon polyps Personal history of colonic polyps [facility]* Diagnosis Secondary lymphedema- Primary Other lymphedema Venous (peripheral) insufficiency Unspecified venous (peripheral) insufficiency [facility]* Diagnosis Shortness of breath- Primary Chest pain, unspecified type Fatigue, unspecified type [facility] Diagnosis Chest pain, unspecified type- Primary Shortness of breath Abnormal EKG Nonspecific abnormal electrocardiogram (ECG) (EKG) documented in this encounter [facility] note* Diagnosis Onychomycosis- Primary Dermatophytosis of nail Pain in toe of left foot Pain in limb Pain in toe of right foot Pain in limb Diminished pulses in lower extremity Other symptoms involving cardiovascular system documented in this encounter [facility] for referral (narrative)* Outpatient Procedure (Routine) - Authorized Specialty Diagnoses / Procedures Referred By Contac t Referred To Contact [facility] Diagnoses History of colon polyps Procedures COLONOSCOPY SCREENING COLONOSCOPY FLX DX W/COLLJ SPEC WHEN PFRMD Layne Silva PA-C [address] [place] [address] [facility] Disease [place] [id number] Referral ID Status Reason Start Date Expiration Date Visits Requested Visits Authorized [id number] Authorized Auto-Generat ed Referral 04/11/2022 04/11/2023 1 1 [facility] for referral (narrative)* Outpatient Procedure (Routine) - Authorized Specialty Diagnoses / Procedures [facility] Diagnoses Diminished pulse Procedures PVR ANK PRESS PAUL VAS LAB NON-INVAS PHYSIOLOGIC STD EXTREMITY ART 2 LEVEL Karyna Corona DO [address] [place] [address] [facility] [place] [address] Referral ID Status Reason Start Date Expiration Date Visits Requested Visits Authorized [id number] Authorized Auto-Generat ed Referral 01/29/2023 01/29/2024 1 1 * Outpatient Procedure (Routine) - Authorized Specialty Diagnoses / Procedures [facility] Diagnoses Varicose veins of both lower extremities, unspecified whether complicated Procedures US VENOUS INCOMPETENCY PAUL VAS LAB DUP-SCAN XTR VEINS COMPLETE BILATERAL STUDY Karyna Corona DO [address] [place] [address] [facility] [place] [place] [phone] Referral ID Status Reason Start Date Expiration Date Visits Requested Visits Authorized [id number] Authorized Auto-Generat ed Referral 01/29/2023 01/29/2024 1 1 [facility] for referral (narrative)* Outpatient Procedure (Routine) - Closed Specialty Diagnoses / Procedures Referred By Contac t Referred To Contact [facility] Diagnoses History of colon polyps Procedures COLONOSCOPY SCREENING COLONOSCOPY FLX DX W/COLLJ SPEC WHEN PFRMD Layne Silva PA-C [address] [place] [address] [place] [phone] Referral ID Status Reason Start Date Expiration Date V isits Requested Visits Authorized [id number] Closed Auto-Generate d Referral 04/11/2022 04/11/2023 1 1 [facility] for referral (narrative)* Diagnostic Procedure Only (Routine) - Pending Review Specialty Diagnoses / Procedures Referred By Contac t Referred To Contact [facility] Diagnoses Chest pain, unspecified type Shortness of breath Procedures NM CARDIAC PERF STRESS/EXERCISE MYOCARDIAL SPECT MULTIPLE STUDIES Codi Larkin APRN.CNP [address] [place] [address] [facility] [address] [place] [phone] Referral ID Status Reason Start Date Expiration Date Visits Requested Visits Authorized [id number] Pending Review Auto-Generat ed Referral 3 06/22/2024 1 1 * Outpatient Procedure (Routine) - Authorized Specialty Diagnoses / Procedures Referred By Contac t Referred To Contact [facility] Diagnoses Chest pain, unspecified type Shortness of breath Procedures ECHO ECHO TTHRC R-T 2D W/WOM-MODE COMPL SPEC&COLR D Codi Larkin APRN.KNOCKOUT MACHINE OPERATOR [address] [place] [address] [facility] [address] [place] [address] Referral ID Status Reason Start Date Expiration Date Visits Requested Visits Authorized [id number] Authorized Auto-Generat ed Referral 3 05/23/2024 1 1 * Outpatient Procedure (Routine) - Pending Review Specialty Diagnoses / Procedures Referred By Contac t Referred To Contact [facility] Diagnoses Chest pain, unspecified type Shortness of breath Procedures ECG COMPLETE ECG ROUTINE ECG W/LEAST 12 LDS W/I&R Codi Larkin APRN.KNOCKOUT MACHINE OPERATOR [address] [place] [address] [facility] [place] [address] [place] [id number] Referral ID Status Reason Start Date Expiration Date Visits Requested Visits Authorized [id number] Pending Review Auto-Generat ed Referral 3 05/23/2024 1 1 [facility] for referral (narrative)* Diagnostic Procedure Only (Routine) - Pending Review Specialty Diagnoses / Procedures Referred By Contac t Referred To Contact [facility] FUN[facility] Diagnoses Chest pain, unspecified type Shortness of breath Abnormal EKG Procedures NM CARDIAC PERF STRESS/PHARM MYOCARDIAL SPECT MULTIPLE STUDIES Codi Larkin APRN.KNOCKOUT MACHINE OPERATOR [address] [place] [address] [facility] [address] [place] [phone] Referral ID Status Reason Start Date Expiration Date Visits Requested Visits Authorized [id number] Pending Review Auto-Generat ed Referral 3 07/09/2024 1 1 [facility] for visit Narrative* Outpatient Procedure (Routine) - Closed Specialty Diagnoses / Procedures Referred By Contac t Referred To Contact [facility] Diagnoses History of colon polyps Procedures COLONOSCOPY SCREENING COLONOSCOPY FLX DX W/COLLJ SPEC WHEN PFRMD Layne Silva PA-C [address] [facility] 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 Advance Directive(s) 09/24/2016 7:59 AM Reason for Referral Specialty Diagnoses / Procedures Referred By Contac t Referred To Contact General Surgery Diagnoses Benign neoplasm of colon, unspecified part of colon Procedures CONSULT TO GENERAL SURGERY OFFICE/OUTPATIENT [facility] 60-74 MINUTES Logan Valdes MD [address] [place] [address] Referral ID Status Reason Start Date Expiration Date Visits Requested Visits Authorized [id number] Authorized PCP Requested Referral 03/23/2022 03/23/2023 1 1 Specialty Diagnoses / Procedures Referred By Contac t Referred To Contact Vascular Medicine Diagnoses Edema, unspecified type Varicose veins of both lower extremities, unspecified whether complicated Venous insufficiency Venous stasis ulcer of other part of left lower leg limited to breakdown of skin without varicose veins (HCC) Procedures CONSULT TO VASCULAR MEDICINE OFFICE/OUTPATIENT [facility] 60-74 MINUTES Gus Silva APRN.KNOCKOUT MACHINE OPERATOR [address] [place] [address] Referral ID Status Reason Start Date Expiration Date Visits Requested Visits Authorized [id number] Authorized PCP Requested Referral 12/12/2022 12/12/2023 1 1 Specialty Diagnoses / Procedures Referred By Contac t Referred To Contact [facility] Diagnoses Secondary lymphedema Procedures CONSULT TO LYMPHEDEMA THERAPY OFFICE/OUTPATIENT [facility] 60-74 MINUTES Karyna Corona, DO [address] [place] [address] [facility] [address] [place] [address] Referral ID Status Reason Start Date Expiration Date Visits Requested Visits Authorized [id number] Authorized Auto-Generat ed Referral 05/21/2023 05/20/2024 1 1 Medications Administered Section Inactive Administered Medications - up to 3 most recent administrations Medication Order MAR Action Action Date Dose Rate Site diphenhydrAMINE 12.5-50 mg injection (BENADRYL) 12.5-50 mg, INTRAVENOUS, DIRECTED, Starting on Sat07/02/22 at 1000, Until Sat07/02/22 at 1359, DOSING DIRECTED BY PHYSICIAN FOR PROCEDURAL SEDATION ONLY, Intraprocedure Given 07/02/2022 9:57 AM EST 50 mg fentaNYL 50 mcg/mL 25-100 mcg injection (SUBLIMAZE) 25-100 mcg, INTRAVENOUS, DIRECTED, Starting on Sat07/02/22 at 1000, Until Sat07/02/22 at 1359, DOSING DIRECTED BY PHYSICIAN FOR PROCEDURAL SEDATION ONLY, Intraprocedure Given 07/02/2022 10:08 AM EST 50 mcg Additional Source Comments (unrecognized sect ion and content) No Status Records FoundNo Status Records Found INFORMATION SOURCE (unrecogn ized section and content) DATE CREATED AUTHOR AUTHOR'S ORGANIZ ATION 06/15/[address] [facility] Source Comments (unrecognize d section and content) In the event this informatio n is protected by the Federal Confidentiality of Alcohol and Drug Abuse Patient Records regulations: The Federal rules restrict any use of the information to criminally investigate or prosecute any alcohol or drug abuse patient.[facility] the event this information is protected by the Federal Confidentiality of Alcohol and Drug Abuse Patient Records regulations: The Federal rules restrict any use of the information to criminally investigate or prosecute any alcohol or drug abuse patient.[facility]ighIn the event this information is protected by the Federal Confidentiality of Alcohol and Drug Abuse Patient Records regulations: The Federal rules restrict any use of the information to criminally investigate or prosecute any alcohol or drug abuse patient.[facility]ighIn the event this information is protected by the Federal Confidentiality of Alcohol and Drug Abuse Patient Records regulations: The Federal rules restrict any use of the information to criminally investigate or prosecute any alcohol or drug abuse patient.[facility]ighIn the event this information is protected by the Federal Confidentiality of Alcohol and Drug Abuse Patient Records regulations: The Federal rules restrict any use of the information to criminally investigate or prosecute any alcohol or drug abuse patient.[facility]ighIn the event this information is protected by the Federal Confidentiality of Alcohol and Drug Abuse Patient Records regulations: The Federal rules restrict any use of the information to criminally investigate or prosecute any alcohol or drug abuse patient.[facility]ighIn the event this information is protected by the Federal Confidentiality of Alcohol and Drug Abuse Patient Records regulations: The Federal rules restrict any use of the information to criminally investigate or prosecute any alcohol or drug abuse patient.[facility]ighIn the event this information is protected by the Federal Confidentiality of Alcohol and Drug Abuse Patient Records regulations: The Federal rules restrict any use of the information to criminally investigate or prosecute any alcohol or drug abuse patient.[facility]ighIn the event this information is protected by the Federal Confidentiality of Alcohol and Drug Abuse Patient Records regulations: The Federal rules restrict any use of the information to criminally investigate or prosecute any alcohol or drug abuse patient.[facility]ighIn the event this information is protected by the Federal Confidentiality of Alcohol and Drug Abuse Patient Records regulations: The Federal rules restrict any use of the information to criminally investigate or prosecute any alcohol or drug abuse patient.[facility]ighIn the event this information is protected by the Federal Confidentiality of Alcohol and Drug Abuse Patient Records regulations: The Federal rules restrict any use of the information to criminally investigate or prosecute any alcohol or drug abuse patient.[facility]ighIn the event this information is protected by the Federal Confidentiality of Alcohol and Drug Abuse Patient Records regulations: The Federal rules restrict any use of the information to criminally investigate or prosecute any alcohol or drug abuse patient.[facility]ighIn the event this information is protected by the Federal Confidentiality of Alcohol and Drug Abuse Patient Records regulations: The Federal rules restrict any use of the information to criminally investigate or prosecute any alcohol or drug abuse patient.[facility]ighIn the event this information is protected by the Federal Confidentiality of Alcohol and Drug Abuse Patient Records regulations: The Federal rules restrict any use of the information to criminally investigate or prosecute any alcohol or drug abuse patient.[facility]ighIn the event this information is protected by the Federal Confidentiality of Alcohol and Drug Abuse Patient Records regulations: The Federal rules restrict any use of the information to criminally investigate or prosecute any alcohol or drug abuse patient.[facility]ighIn the event this information is protected by the Federal Confidentiality of Alcohol and Drug Abuse Patient Records regulations: The Federal rules restrict any use of the information to criminally investigate or prosecute any alcohol or drug abuse patient.[facility]ighIn the event this information is protected by the Federal Confidentiality of Alcohol and Drug Abuse Patient Records regulations: The Federal rules restrict any use of the information to criminally investigate or prosecute any alcohol or drug abuse patient.[facility]ighIn the event this information is protected by the Federal Confidentiality of Alcohol and Drug Abuse Patient Records regulations: The Federal rules restrict any use of the information to criminally investigate or prosecute any alcohol or drug abuse patient.[facility]ighIn the event this information is protected by the Federal Confidentiality of Alcohol and Drug Abuse Patient Records regulations: The Federal rules restrict any use of the information to criminally investigate or prosecute any alcohol or drug abuse patient.[facility]ighIn the event this information is protected by the Federal Confidentiality of Alcohol and Drug Abuse Patient Records regulations: The Federal rules restrict any use of the information to criminally investigate or prosecute any alcohol or drug abuse patient.[facility]ighIn the event this information is protected by the Federal Confidentiality of Alcohol and Drug Abuse Patient Records regulations: The Federal rules restrict any use of the information to criminally investigate or prosecute any alcohol or drug abuse patient.[facility]ighIn the event this information is protected by the Federal Confidentiality of Alcohol and Drug Abuse Patient Records regulations: The Federal rules restrict any use of the information to criminally investigate or prosecute any alcohol or drug abuse patient.[facility]ighIn the event this information is protected by the Federal Confidentiality of Alcohol and Drug Abuse Patient Records regulations: The Federal rules restrict any use of the information to criminally investigate or prosecute any alcohol or drug abuse patient.[facility]ighIn the event this information is protected by the Federal Confidentiality of Alcohol and Drug Abuse Patient Records regulations: The Federal rules restrict any use of the information to criminally investigate or prosecute any alcohol or drug abuse patient.[facility]ighIn the event this information is protected by the Federal Confidentiality of Alcohol and Drug Abuse Patient Records regulations: The Federal rules restrict any use of the information to criminally investigate or prosecute any alcohol or drug abuse patient.[facility]ighIn the event this information is protected by the Federal Confidentiality of Alcohol and Drug Abuse Patient Records regulations: The Federal rules restrict any use of the information to criminally investigate or prosecute any alcohol or drug abuse patient.[facility]ighIn the event this information is protected by the Federal Confidentiality of Alcohol and Drug Abuse Patient Records regulations: The Federal rules restrict any use of the information to criminally investigate or prosecute any alcohol or drug abuse patient.[facility]ighIn the event this information is protected by the Federal Confidentiality of Alcohol and Drug Abuse Patient Records regulations: The Federal rules restrict any use of the information to criminally investigate or prosecute any alcohol or drug abuse patient.[facility]ighIn the event this information is protected by the Federal Confidentiality of Alcohol and Drug Abuse Patient Records regulations: The Federal rules restrict any use of the information to criminally investigate or prosecute any alcohol or drug abuse patient.[facility]ighIn the event this information is protected by the Federal Confidentiality of Alcohol and Drug Abuse Patient Records regulations: The Federal rules restrict any use of the information to criminally investigate or prosecute any alcohol or drug abuse patient.[facility]ighIn the event this information is protected by the Federal Confidentiality of Alcohol and Drug Abuse Patient Records regulations: The Federal rules restrict any use of the information to criminally investigate or prosecute any alcohol or drug abuse patient.[facility]ighIn the event this information is protected by the Federal Confidentiality of Alcohol and Drug Abuse Patient Records regulations: The Federal rules restrict any use of the information to criminally investigate or prosecute any alcohol or drug abuse patient.[facility]ighIn the event this information is protected by the Federal Confidentiality of Alcohol and Drug Abuse Patient Records regulations: The Federal rules restrict any use of the information to criminally investigate or prosecute any alcohol or drug abuse patient.[facility]ighIn the event this information is protected by the Federal Confidentiality of Alcohol and Drug Abuse Patient Records regulations: The Federal rules restrict any use of the information to criminally investigate or prosecute any alcohol or drug abuse patient.[facility]ighIn the event this information is protected by the Federal Confidentiality of Alcohol and Drug Abuse Patient Records regulations: The Federal rules restrict any use of the information to criminally investigate or prosecute any alcohol or drug abuse patient.[facility]ighIn the event this information is protected by the Federal Confidentiality of Alcohol and Drug Abuse Patient Records regulations: The Federal rules restrict any use of the information to criminally investigate or prosecute any alcohol or drug abuse patient.[facility] Reason for Visit (unrecogniz ed section and content) Reason Onset Date Comments Refill Request 11/27/2021 Reason Onset Date Comments Refill Request 11/29/2021 Reason Comments Suture Removal Reason Comments Acute Visit swelling, sores Reason Onset Date Comments Refill Request 01/31/2022 Reason Comments Established Patient nail care Reason Comments Established Patient Follow Up Ulcer Reason Comments F/U 6 months bp Reason Comments Incorrect Phamacy Reason Comments Compression Stocking Order Reason Comments Compression stockings Reason Comments Consult Colonoscopy consult Specialty Diagnoses / Procedures Referred By Contac t Referred To Contact General Surgery Diagnoses Benign neoplasm of colon, unspecified part of colon Procedures CONSULT TO GENERAL SURGERY OFFICE/OUTPATIENT [facility] 60-74 MINUTES Logan Valdes MD [address] [place] [place] [id number] Referral ID Status Reason Start Date Expiration Date V isits Requested Visits Authorized [id number] Closed PCP Requested Referral 03/23/2022 03/23/2023 1 1 Reason Onset Date Comments Refill Request 04/17/2022 Reason Comments Established Patient Debridement of Nail Reason Comments 05-28-[address] Hart Reason Onset Date Comments Refill Request 06/29/2022 Reason Onset Date Comments Refill Request 07/09/2022 Reason Comments Follow Up Reason Comments Orders Reason Comments F/U 6 months Reason Comments sore on left leg x 10 days Reason Comments 1 week follow up Reason Comments Edema bilateral leg swelli ng on going for awhile with itchinglower legs are red but not warm to touch Reason Comments New Patient Specialty Diagnoses / Procedures Referred By Contac t Referred To Contact Vascular Medicine Diagnoses Edema, unspecified type Varicose veins of both lower extremities, unspecified whether complicated Venous insufficiency Venous stasis ulcer of other part of left lower leg limited to breakdown of skin without varicose veins (HCC) Procedures CONSULT TO VASCULAR MEDICINE OFFICE/OUTPATIENT [facility] 60-74 MINUTES Gus Silva APRN.MELINDA [address] [place] [address] Referral ID Status Reason Start Date Expiration Date V isits Requested Visits Authorized [id number] Closed PCP Requested Referral 12/12/2022 12/12/2023 1 1 Reason Comments Established Patient Nail care Reason Onset Date Comments Refill Request 03/20/2023 Reason Onset Date Comments Medicare Wellness Exam F/U 6 months Immunizations 04/01/2023 Flu vaccination Reason Comments Established Patient Reason Comments Orders Medical solutions (l ymphedema pumps) Reason Comments Shortness of Breath Fatigue Reason Comments Forms Reason Comments Established Patient nail care Care Teams (unrecognized sec tion and content) Trains Dispatcher Supervisor Relationship Specialty Start Date End Date Logan Valdes MD [address] [place] [address] PCP - General Internal Medicine 05/24/16 Trains Dispatcher Supervisor Relationship Specialty Start Date End Date Logan Valdes MD [address] [place] [address] PCP - General Internal Medicine 05/24/16 Trains Dispatcher Supervisor Relationship Specialty Start Date End Date Logan Valdes MD [address] [place] [address] PCP - General Internal Medicine 05/24/16 Trains Dispatcher Supervisor Relationship Specialty Start Date End Date Logan Valdes MD [address] [place] [address] PCP - General Internal Medicine 05/24/16 Trains Dispatcher Supervisor Relationship Specialty Start Date End Date Logan Valdes MD [address] [place] [address] PCP - General Internal Medicine 05/24/16 Trains Dispatcher Supervisor Relationship Specialty Start Date End Date Logan Valdes MD [address] [place] [address] PCP - General Internal Medicine 05/24/16 Trains Dispatcher Supervisor Relationship Specialty Start Date End Date Logan Valdes MD [address] [place] [address] PCP - General Internal Medicine 05/24/16 Trains Dispatcher Supervisor Relationship Specialty Start Date End Date Logan Valdes MD [address] [facility] [address] PCP - General Internal Medicine 05/24/16 Trains Dispatcher Supervisor Relationship Specialty Start Date End Date Logan Valdes MD [address] [facility] [address] PCP - General Internal Medicine 05/24/16 Trains Dispatcher Supervisor Relationship Specialty Start Date End Date Logan Valdes MD [address] [facility] [address] PCP - General Internal Medicine 05/24/16 Trains Dispatcher Supervisor Relationship Specialty Start Date End Date Logan Valdes MD [address] [facility] [address] PCP - General Internal Medicine 05/24/16 Trains Dispatcher Supervisor Relationship Specialty Start Date End Date Logan Valdes MD [address] [facility] [address] PCP - General Internal Medicine 05/24/16 Trains Dispatcher Supervisor Relationship Specialty Start Date End Date Logan Valdes MD [address] [facility] [address] PCP - General Internal Medicine 05/24/16 Trains Dispatcher Supervisor Relationship Specialty Start Date End Date Logan Valdes MD [address] [facility] [address] PCP - General Internal Medicine 05/24/16 Trains Dispatcher Supervisor Relationship Specialty Start Date End Date Logan Valdes MD [address] [facility] [address] PCP - General Internal Medicine 05/24/16 Trains Dispatcher Supervisor Relationship Specialty Start Date End Date Logan Valdes MD [address] [facility] [address] PCP - General Internal Medicine 05/24/16 Trains Dispatcher Supervisor Relationship Specialty Start Date End Date Logan Valdes MD [address] [facility] [place] [address] PCP - General Internal Medicine 05/24/16 Trains Dispatcher Supervisor Relationship Specialty Start Date End Date Logan Valdes MD [address] [facility] [address] PCP - General Internal Medicine 05/24/16 Trains Dispatcher Supervisor Relationship Specialty Start Date End Date Logan Valdes MD [address] [facility] [address] PCP - General Internal Medicine 05/24/16 Trains Dispatcher Supervisor Relationship Specialty Start Date End Date Logan Valdes MD [address] [facility] [address] PCP - General Internal Medicine 05/24/16 Trains Dispatcher Supervisor Relationship Specialty Start Date End Date Logan Valdes MD [address] [facility] [address] PCP - General Internal Medicine 05/24/16 Trains Dispatcher Supervisor Relationship Specialty Start Date End Date Logan Valdes MD [address] [facility] [address] PCP - General Internal Medicine 05/24/16 Trains Dispatcher Supervisor Relationship Specialty Start Date End Date Logan Valdes MD [address] [facility] [address] PCP - General Internal Medicine 05/24/16 Trains Dispatcher Supervisor Relationship Specialty Start Date End Date Logan Valdes MD [address] [place] [address] PCP - General Internal Medicine 05/24/16 FOR RECORDS PERTAINING TO PATIENTS WHO ARE OR HAVE BEEN ENROLLED IN A CHEMICAL DEPENDENCY/SUBSTANCEABUSE PROGRAM, SOME INFORMATION MAY BE OMITTED. This clinical summary was aggregated from multiple sources. Caution should be exercised in using it in the provision of clinical care. This summary normalizes information from multiple sources, and as a consequence, information in this document may materially change the coding, format and clinical context of patient data. In addition, data may be omitted in some cases. CLINICAL DECISIONS SHOULD BE BASED ON THE PRIMARY CLINICAL RECORDS. [employer] provides no warranty or guarantee of the accuracy or completeness of information in this document.
--- NOTE | 2023-08-02 12:01 | PCIREPORT_ITS ---
PCI Cardiac Cath Report PCI Report: PCI cardiac cath report; 1. Access from right radial artery 2. Successful PCI of mid LAD 70?80%, with predilatation using 2.5 x 12 mm balloon Followed by placement of drug-eluting stent 3 x 15 mm GARRET Thorofare frontier with reduction of stenosis to 0% Pre and post GI-3 flow maintained 3. Placement of TR band to close the right radial artery arteriotomy site. Consent; Risk and benefit of procedure explained in detail, informed consent obtained and placed in chart Procedure in detail; 73-year-old patient with history of hypertension and peripheral edema he was seen and evaluated by his lace cutter Dr. Hines he had chest tightness with exercise and climbing stairs with occasional palpitation and shortness of breath with activity. He underwent an echocardiographic evaluation which demonstrated ejection fraction 57% and normal right ventricular size and function. He had a cardiac catheterization today which showed mid LAD lesion of around 70-80% stenosis the left main is normal angiographically Left circumflex and RCA has no obstructive atherosclerosis. Interventional equipment used 1. 6 [place] JL 4 guide catheter 2. 0.014 180 cm run-through extra floppy straight guide wire 3. 0.035 to 60 cm exchange glide wire 0.035 to 60 cm J exchange wire Four 2.5 x 12 mm manage balloon 5. 3 x 15 mm drug-eluting stent/Thorofare frontier resolute Medication used in the Registered Safety Engineer #1 heparin with acceptable ACT 2. Brilinta 180 mg 3. Aspirin 4. IC nitroglycerin x 2. Procedure in detail; Under fluoroscopic guidance we will proceed with a 6 [place] JL 4 advancing over the cannulated the left main and angiographic view was obtained by the guide catheter Then we will proceed with guidewire across the lesion in the mid LAD placed a wire in the distal part of the left anterior descending artery which is a large vessel Then we will proceed with predilatation using 2.5 x 12 mm balloon And we followed by placement of drug-eluting stent 3 x 15 mm up to 16 [place]. Nitroglycerin was used there was no proximal or distal dissection noted And GI-3 flow was maintained in the LAD Patient remained stable does not have any symptoms of chest pain and hemodynamically the EKG and his blood pressure is stable. Conclusion recommendation 1. Successful PCI of mid LAD as described 2. Patient to continue on Brilinta 90 mg twice daily in addition to low-dose aspirin for 1 year 3. Patient will be scheduled for cardiac rehab program at [facility] 4. Patient to follow-up with her primary lace cutter Dr. Hines for continuation of cardiac care. No complication in the Registered Safety Engineer. I discussed the finding of the cardiac catheterization and PCI with the family his and daughter. Patient will be admitted over the night for observation with the plan of discharge in the morning on medical treatment Adriano Bowling MD,FACC,[facility]
--- NOTE | 2023-08-02 12:59 | CRPHASE1 ---
Patient Communication Patient Information Former Patient:: Phase I and Phase II PHII Cardiac Rehab Discussed with Patient:: Yes Guide to Cardiac Rehab Given to Patient:: Yes Cardiac Rehab Facility Choice List Given to Patient:: Yes Communication to Cardiac Rehab Electric Motorman:: Adriano Bowling Refer Phase II Cardiac Rehab:: Yes Sessions:: 36 sessions - 3 days/wk, 12 weeks Cardiac Rehabilitation Info Program Information Cardiac Rehabilitation Program Information: Cardiac Rehab The cardiac rehab team at [facility] consists of highly skilled exercise physiologists, nurses, respiratory therapists and physicians working together with you. Our purpose is to help you have a full recovery and achieve the goals you set for yourself. Over the years many of our patients have returned to activities they assumed they would never do again! We can help restore your confidence and motivation to make lifestyle changes that can have a significant impact on your health and quality of life! We can help answer questions and concerns you may have about exercise, lifestyle, medications, diet, stress and anxiety which are common following a hospitalization. WE monitor ECG and vital signs during exercise and discuss your progress with you and report to your physician(s). Cardiac Rehab is proven to help reduce readmissions, improve functional capacity and lower recurrence of problems with your heart. Our Cardiac Rehab program is Certified by the [place] [employer] ([employer]ACVPR) and Accredited by the [place] [employer] through our [facility]. You can contact us at . We invite you to call us with your questions or to get started in our program. If you have other questions or concerns be sure to ask your physician/provider during your follow-up visit. WE look forward to seeing you!
--- NOTE | 2023-08-02 13:00 | CRPH1.INSTRU ---
General Education Discussed with Patient CAD and cardiac anatomy and function:: Patient communicates acknowledgment Explanation of diagnoses and procedures:: Patient communicates acknowledgment Sign/Symptoms of NC:: Patient communicates acknowledgment Antiplatelet therapy: Patient communicates acknowledgment Proper use of NTG-SL: Patient communicates acknowledgment Emergency procedures and activation of EMS: Patient communicates acknowledgment Compliance of all prescribed medications: Patient communicates acknowledgment Smoking Recommendations Recommendations Include:: Second-hand smoke recommendation Response Code Nicotine/Smoking Response Code:: Patient communicates acknowledgment Dyslipidemia Recommendations Recommendations Include:: Lipid profile not available Response Code Dyslipidemia Response Code:: Patient communicates acknowledgment Overweight/Obesity Risk Factors Patient Overweight/Obesity Risk Factors Are:: Obesity - > or = 30 Recommendations Recommendations Include:: Weight loss of 5-10%, Reduced calorie diet and Exercise 5-7 times/week Response Code Overweight/Obesity:: Patient communicates acknowledgment Hypertension Recommendations Recommendations Include:: Maintain BP <130/85 Response Code Hypertension:: Patient communicates acknowledgment Heart Disease Recommendations Recommendations Include:: Educated family members of their risk Response Code Heart Disease Response Code:: Patient communicates acknowledgment Diabetes Risk Factors Patient Diabetes Risk Factors Are:: No documented hx of diabetes Metabolic Syndrome Recommendations Recommendations Include:: Does not meet criteria Sedentary Risk Factors Patient Sedentary Risk Factors Are:: Lack of regular exercise Recommendations Recommendations Include:: Aerobic exercise 5-7 times/week for 20-30 minutes continuously, Benefits of regular exercise, Discussed home walking program and Monitored Outpatient Cardiac Rehab Response Code Sedentary Response Code:: Patient communicates acknowledgment Stress Recommendations Recommendations Include:: Identification of stressors, and assessment of coping skills and Stress management techniques Response Code Stress Response Code:: Patient communicates acknowledgment
--- NOTE | 2023-08-02 13:19 | CL.D_ITS ---
Patient Name: KIMBERLY CHAN Study Date: 08/02/2023 Performing: Doug Hines MD Ht: 73 inches 185.42 cm : 1950 Wt: 311.01 lbs 141.07 kg Age: 73 Gender: male BSA: 2.6 PROCEDURE(S) PERFORMED DC02-([id number])LHC/COR IC12-([id number])GARRET W/WO PTCA, SINGLE CORONARY ARTERY CLINICAL PROFILE AND INDICATIONS Indications: Suspected CAD Heart Failure: None Stress/Imaging Date: 06/06/23Stress Test with SPECT MPI: Negative CAD Presentations: Stable angina. CONCLUSIONS High grade LAD mid segment lesion. RECOMMENDATIONS Referred for immediate PCI DESCRIPTION OF PROCEDURE The patient arrived to the procedure lab. The risks and benefits of the procedure as well as a full description of our services here and current unavailability of surgical backup were fully explained to the patient and/or their significant other prior to the catheterization. The Timeout was completed, verifying the correct patient and procedure. The patient's procedural site was prepped and draped in the usual fashion. Local anesthetic was given subcutaneously to right radial region with Lidocaine 2%. Using a modified Seldinger technique, arterial access was obtained via the right radial artery, a 6Fr sheath was inserted. Left Coronary Artery selective angiography was performed in multiple views using a 5 Fr. 4.0 [place] catheter. Right Coronary Artery selective angiography was then performed in multiple views using a 5 Fr. JR 5 catheter.The arterial sheath was pulled and a TR Band was applied for hemostasis 10 ML OF AIR CORONARY ANGIOGRAPHY DOMINANCE: Right Dominant LEFT HEART ASSESSMENT Left Ventricular Ejection Fraction: by LV Gram 60 % Normal LV wall motion Normal Left Ventricular systolic function LEFT MAIN: Angiographically normal LEFT ANTERIOR DESCENDING ARTERY: MID LAD: 80 % Stenosis CIRCUMFLEX ARTERY: Angiographically normal RIGHT CORONARY ARTERY: Angiographically normal COMPLICATIONS No Complications PROCEDURE MEDICATIONS Fentanyl 50 mcg IV Versed 1 mg IV Oxygen: 2 L/min via nasal cannula Brilinta 180 mg PO @ 08/02/2023 11:11:39 Heparin given IA 08/02/2023 10:44:16 Heparin 7000 unit(s) IV 08/02/2023 11:21:24 Nitro 200 mcg IC 08/02/2023 11:36:00 Nitro 150 mcg IC 08/02/2023 11:38:33 Verapamil 2.5mg, Ntg 100mcgs, 3000 units of Heparin given IA 08/02/2023 10:44:16 SUMMARY OF HEMODYNAMIC DATA Time AIR REST ECG 09:32:23 AO 141/85 (110) SA 11:01:07 AO 141/85 (112) 11:05:18 AO 137/77 (102) 11:23:28 Signed By Doug Hines MD On 08/02/2023 13:18:46 Doug Hines MD
[2023-08-02 13:57] LABS: ACT Activated Clotting Time 282 sec (74-137)
[2023-08-02 14:30] VITALS: BP 147/85; PULSE 73; RESP 16; TEMP 35.7; O2SAT 100
--- OUTSIDE RECORDS SUMMARY | 2023-08-02 14:39 | XMS RPT_ITS | CCD ---
Author Name Unknown Address [address] [place] [address] Organization [facility] Care Team Providers Care Shoe Planner Name Role Phone Miles AGUILERA, Logan Figueredo Primary Care Provider LOGAN VALDES Primary Care Unavailable KARYNA CORONA [...] JL HART Attending Unavailable OLDERCODI Referring Unavailable IMLES, LOGAN Figueredo Primary Care Unavailable MILES, LOGAN Figueredo Primary Care Unavailable KARYNA CORONA Referring Unavailable OLDER, CODI Attending Unavailable MILES, LOGAN Figueredo Primary Care Unavailable VALDES, LOGAN Figueredo Primary Care Unavailable KARYNA CORONA Referring Unavailable MILES, LOGAN Figueredo Primary Care Unavailable TESTRAJIM, FOUZIA Attending Unavailable MILES, LOGAN Figueredo Primary Care Unavailable GUS SILVA Attending Unavailable OLDER, CODI Attending Unavailable VALDES, LOGAN Figueredo Primary Care Unavailable OLDERCODI Attending Unavailable MILES, LOGAN Figueredo Primary Care Unavailable VALDES, OLGAN Figueredo Primary Care Unavailable KARYNA CORONA Referring [...] 08:35-0500 Body temperature 98.2 [degF] Codi Older PROFESSOR OF COMMUNICATION AND WRITING.FINAL ASSEMBLY INSPECTOR Work Phone: [facility] 05-24-2023 08:35-0500 Body weight 141.52 kg Codi Older PROFESSOR OF COMMUNICATION AND WRITING.FINAL ASSEMBLY INSPECTOR Work Phone: [facility] 05-24-2023 08:35-0500 Diastolic blood pressure 82 mm[Hg] Codi Older PROFESSOR OF COMMUNICATION AND WRITING.FINAL ASSEMBLY INSPECTOR Work Phone: [facility] 05-24-2023 08:35-0500 Heart rate 126 /min Codi Older PROFESSOR OF COMMUNICATION AND WRITING.FINAL ASSEMBLY INSPECTOR Work Phone: [facility] 05-24-2023 08:35-0500 Respiratory rate 18 /min Codi Older PROFESSOR OF COMMUNICATION AND WRITING.FINAL ASSEMBLY INSPECTOR Work Phone: [facility] 05-24-2023 08:35-0500 SaO2% (BldA) [Mass fraction] 97 % Codi Older PROFESSOR OF COMMUNICATION AND WRITING.FINAL ASSEMBLY INSPECTOR Work Phone: [facility] 05-24-2023 08:35-0500 Systolic blood pressure 158 mm[Hg] Codi Older PROFESSOR OF COMMUNICATION AND WRITING.FINAL ASSEMBLY INSPECTOR Work Phone: [facility] 05-21-2023 10:18-0500 Diastolic blood pressure 98 mm[Hg] Karyna Corona DO Work Phone: [facility] 05-21-2023 10:18-0500 Heart rate 77 /min Karyna Corona DO Work Phone: [facility] 05-21-2023 10:18-0500 SaO2% (BldA) [Mass fraction] 97 % Karyna Corona DO Work Phone: [facility] 05-21-2023 10:18-0500 Systolic blood pressure 152 mm[Hg] Karyna Corona DO Work Phone: [facility] 04-01-2023 12:36-0400 Body height 182.9 cm Codi Older PROFESSOR OF COMMUNICATION AND WRITING.FINAL ASSEMBLY INSPECTOR Work Phone: [facility] 04-01-2023 12:36-0400 Body temperature 97.7 [degF] Codi Older PROFESSOR OF COMMUNICATION AND WRITING.FINAL ASSEMBLY INSPECTOR Work Phone: [facility] 04-01-2023 12:36-0400 Body weight 136.94 kg Codi Older PROFESSOR OF COMMUNICATION AND WRITING.FINAL ASSEMBLY INSPECTOR Work Phone: [facility] 04-01-2023 12:36-0400 Diastolic blood pressure 84 mm[Hg] Codi Older PROFESSOR OF COMMUNICATION AND WRITING.FINAL ASSEMBLY INSPECTOR Work Phone: [facility] 04-01-2023 12:36-0400 Heart rate 76 /min Codi Older PROFESSOR OF COMMUNICATION AND WRITING.FINAL ASSEMBLY INSPECTOR Work Phone: [facility] 04-01-2023 12:36-0400 SaO2% (BldA) [Mass fraction] 99 % Codi Older PROFESSOR OF COMMUNICATION AND WRITING.FINAL ASSEMBLY INSPECTOR Work Phone: [facility] 04-01-2023 12:36-0400 Systolic blood pressure 124 mm[Hg] Codi Older PROFESSOR OF COMMUNICATION AND WRITING.FINAL ASSEMBLY INSPECTOR Work Phone: [facility] 01-29-2023 08:36-0400 Diastolic blood pressure 78 mm[Hg] Karyna Corona DO Work Phone: [facility] 01-29-2023 08:36-0400 Heart rate 68 /min Karyna Corona DO Work Phone: [facility] 01-29-2023 08:36-0400 SaO2% (BldA) [Mass fraction] 97 % Karyna Corona DO Work Phone: [facility] 01-29-2023 08:36-0400 Systolic blood pressure 120 mm[Hg] Karyna Corona DO Work Phone: [facility] 12-12-2022 10:03-0400 Body weight 137.44 kg Gus Ricardo PROFESSOR OF COMMUNICATION AND WRITING.FINAL ASSEMBLY INSPECTOR Work Phone: [facility] 12-12-2022 10:03-0400 Diastolic blood pressure 72 mm[Hg] Gus Ricardo PROFESSOR OF COMMUNICATION AND WRITING.FINAL ASSEMBLY INSPECTOR Work Phone: [facility] 12-12-2022 10:03-0400 Heart rate 71 /min Gus Garciar PROFESSOR OF COMMUNICATION AND WRITING.FINAL ASSEMBLY INSPECTOR Work Phone: [facility] 12-12-2022 10:03-0400 SaO2% (BldA) [Mass fraction] 98 % Gus Garciar PROFESSOR OF COMMUNICATION AND WRITING.FINAL ASSEMBLY INSPECTOR Work Phone: [facility] 12-12-2022 10:03-0400 Systolic blood pressure 108 mm[Hg] Gus Garciar PROFESSOR OF COMMUNICATION AND WRITING.FINAL ASSEMBLY INSPECTOR Work Phone: [facility] 11-07-2022 07:51-0400 Body weight 137.89 kg Codi Older PROFESSOR OF COMMUNICATION AND WRITING.FINAL ASSEMBLY INSPECTOR Work Phone: [facility] 11-07-2022 07:51-0400 Diastolic blood pressure 85 mm[Hg] Codi Older PROFESSOR OF COMMUNICATION AND WRITING.FINAL ASSEMBLY INSPECTOR Work Phone: [facility] 11-07-2022 07:51-0400 Heart rate 68 /min Codi Older PROFESSOR OF COMMUNICATION AND WRITING.FINAL ASSEMBLY INSPECTOR Work Phone: [facility] 11-07-2022 07:51-0400 Respiratory rate 18 /min Codi Older PROFESSOR OF COMMUNICATION AND WRITING.FINAL ASSEMBLY INSPECTOR Work Phone: [facility] 11-07-2022 07:51-0400 Systolic blood pressure 142 mm[Hg] Codi Older PROFESSOR OF COMMUNICATION AND WRITING.FINAL ASSEMBLY INSPECTOR Work Phone: [facility] 10-31-2022 09:03-0400 Body temperature 97.59 [degF] Codi Older PROFESSOR OF COMMUNICATION AND WRITING.FINAL ASSEMBLY INSPECTOR Work Phone: [facility] 10-31-2022 09:03-0400 Body weight 137.44 kg Codi Older PROFESSOR OF COMMUNICATION AND WRITING.FINAL ASSEMBLY INSPECTOR Work Phone: [facility] 10-31-2022 09:03-0400 Diastolic blood pressure 72 mm[Hg] Codi Older PROFESSOR OF COMMUNICATION AND WRITING.FINAL ASSEMBLY INSPECTOR Work Phone: [facility] 10-31-2022 09:03-0400 Heart rate 82 /min Codi Older PROFESSOR OF COMMUNICATION AND WRITING.FINAL ASSEMBLY INSPECTOR Work Phone: [facility] 10-31-2022 09:03-0400 Respiratory rate 20 /min Codi Older PROFESSOR OF COMMUNICATION AND WRITING.FINAL ASSEMBLY INSPECTOR Work Phone: [facility] 10-31-2022 09:03-0400 SaO2% (BldA) [Mass fraction] 96 % Codi Older PROFESSOR OF COMMUNICATION AND WRITING.FINAL ASSEMBLY INSPECTOR Work Phone: [facility] 10-31-2022 09:03-0400 Systolic blood pressure 132 mm[Hg] Codi Older PROFESSOR OF COMMUNICATION AND WRITING.FINAL ASSEMBLY INSPECTOR Work Phone: [facility] 09-20-2022 08:34-0500 Diastolic blood pressure 77 mm[Hg] Logan Valdes MD Work Phone: [facility] 09-20-2022 08:34-0500 Heart rate 73 /min Logan Valdes MD Work Phone: [facility] 09-20-2022 08:34-0500 Systolic blood pressure 136 mm[Hg] Logan Valdes MD Work Phone: [facility] 09-20-2022 08:30-0500 Body weight 140.62 kg Logan Valdes MD Work Phone: [facility] 09-20-2022 08:30-0500 Respiratory rate 24 /min Logan Valdes MD Work Phone: [facility] 07-02-2022 11:00-0500 Diastolic blood pressure 90 mm[Hg] Jl Hart MD Work Phone: [facility] 07-02-2022 11:00-0500 Heart rate 63 /min Jl Hart MD Work Phone: [facility] 07-02-2022 11:00-0500 SaO2% (BldA) [Mass fraction] 96 % Jl Hart MD Work Phone: [facility] 07-02-2022 11:00-0500 Systolic blood pressure 188 mm[Hg] Jl Hart MD Work Phone: [facility] 07-02-2022 10:50-0500 Respiratory rate 16 /min Jl Hart MD Work Phone: [facility] 07-02-2022 09:20-0500 Body temperature 98.1 [degF] Jl Hart MD Work Phone: [facility] 04-11-2022 08:32-0400 Body height 185.4 cm Layne Ricardo PA-C Work Phone: [facility] 04-11-2022 08:32-0400 Body temperature 97.81 [degF] Layne Sanger PA-C Work Phone: [facility] 04-11-2022 08:32-0400 Body weight 137.98 kg Layne Sanger PA-C Work Phone: [facility] 04-11-2022 08:32-0400 Diastolic blood pressure 82 mm[Hg] Layne Sanger PA-C Work Phone: [facility] 04-11-2022 08:32-0400 Heart rate 78 /min Layne Sanger PA-C Work Phone: [facility] 04-11-2022 08:32-0400 SaO2% (BldA) [Mass fraction] 100 % Layne Sanger PA-C Work Phone: [facility] 04-11-2022 08:32-0400 Systolic blood pressure 134 mm[Hg] Layne Sanger PA-C Work Phone: [facility] 03-23-2022 09:09-0400 Diastolic blood pressure 80 mm[Hg] Logan Valdes MD Work Phone: [facility] 03-23-2022 09:09-0400 Systolic blood pressure 132 mm[Hg] Logan Valdes MD Work Phone: [facility] 03-23-2022 08:37-0400 Body weight 140.16 kg Logan Valdes MD Work Phone: [facility] 03-23-2022 08:37-0400 Heart rate 64 /min Logan Valdes MD Work Phone: [facility] 03-23-2022 08:37-0400 Respiratory rate 18 /min Logan Valdes MD Work Phone: [facility] 03-23-2022 08:37-0400 SaO2% (BldA) [Mass fraction] 97 % Logan Valdes MD Work Phone: [facility] 01-26-2022 09:36-0400 Body weight 139.25 kg La Tannhof PROFESSOR OF COMMUNICATION AND WRITING.FINAL ASSEMBLY INSPECTOR Work Phone: [facility] 01-26-2022 09:36-0400 Diastolic blood pressure 92 mm[Hg] La Tannhof PROFESSOR OF COMMUNICATION AND WRITING.FINAL ASSEMBLY INSPECTOR Work Phone: [facility] 01-26-2022 09:36-0400 Heart rate 60 /min La Tannhof PROFESSOR OF COMMUNICATION AND WRITING.FINAL ASSEMBLY INSPECTOR Work Phone: [facility] 01-26-2022 09:36-0400 Respiratory rate 20 /min La Tannhof PROFESSOR OF COMMUNICATION AND WRITING.FINAL ASSEMBLY INSPECTOR Work Phone: [facility] 01-26-2022 09:36-0400 SaO2% (BldA) [Mass fraction] 100 % La Tannhof PROFESSOR OF COMMUNICATION AND WRITING.FINAL ASSEMBLY INSPECTOR Work Phone: [facility] 01-26-2022 09:36-0400 Systolic blood pressure 132 mm[Hg] La Tannhof PROFESSOR OF COMMUNICATION AND WRITING.FINAL ASSEMBLY INSPECTOR Work Phone: [facility] 12-27-2021 08:19-0400 Body weight 135.63 kg Codi Older PROFESSOR OF COMMUNICATION AND WRITING.FINAL ASSEMBLY INSPECTOR Work Phone: [facility] 12-27-2021 08:19-0400 Diastolic blood pressure 72 mm[Hg] Codi Older PROFESSOR OF COMMUNICATION AND WRITING.FINAL ASSEMBLY INSPECTOR Work Phone: [facility] 12-27-2021 08:19-0400 Heart rate 88 /min Codi Older PROFESSOR OF COMMUNICATION AND WRITING.FINAL ASSEMBLY INSPECTOR Work Phone: [facility] 12-27-2021 08:19-0400 Respiratory rate 20 /min Codi Older PROFESSOR OF COMMUNICATION AND WRITING.FINAL ASSEMBLY INSPECTOR Work Phone: [facility] 12-27-2021 08:19-0400 Systolic blood pressure 108 mm[Hg] Codi Older PROFESSOR OF COMMUNICATION AND WRITING.FINAL ASSEMBLY INSPECTOR Work Phone: [facility] Encounters Encounter Date Encounter Type Care Provider Facility Start: 06-12-2023 End: 06-12-2023 ambulatory MARIA L MILES Facility:[facility] Start: 06-11-2023 End: 06-11-2023 ambulatory LOGAN Figueredo MILES Facility:[facility] Start: 06-11-2023 End: 06-11-2023 Patient encounter procedure Fouzia Smith Work Phone: Podiatry Procedures Date Procedure Procedure Detail Performing Clinician Start: 05-24-2023 Ecg routine ecg w/le ast 12 lds i&r only [facility] Provider Start: 04-01-2023 INFLUENZA VACCINE, P RSV FREE, AGE 65+ YR, HIGH DOSE, QUADRIVALENT (FLUZONE HIGH-DOSE) Codi Older PROFESSOR OF COMMUNICATION AND WRITING.FINAL ASSEMBLY INSPECTOR Work Phone: Start: 09-18-2022 Lipid 1996 panel - S mima or Plasma Codi Older PROFESSOR OF COMMUNICATION AND WRITING.FINAL ASSEMBLY INSPECTOR Work Phone: Start: 07-02-2022 Level iv surg [...] Detail Author Start: 12-20-2031 Urine microalbumin profile [facility] Start: 09-19-2027 Lipid 1996 panel - S mima or Plasma Lipid Screening [facility] Start: 09-19-2027 LIPID SCREEN LIPID SCREEN [facility] Start: 05-24-2026 Diabetes Screening Diabetes Screenin g [facility] Start: 03-31-2026 LIPID SCREEN LIPID SCREEN [facility] Start: 09-18-2025 DIABETES SCREEN DIABETES SCREEN [facility] Start: 09-18-2025 Diabetes Screening Diabetes Screenin g [facility] Start: 07-02-2025 Colonoscopy COLONOSCOPY [facility] Start: 07-02-2025 COLORECTAL CANCER SCREENING COLORECTAL CANCER SCREENING [facility] Start: 06-19-2024 DIABETES SCREEN DIABETES SCREEN [facility] Start: 05-24-2024 Annual PCP Team Freezer Laboratory Technician richard Disease Visit Annual PCP Team Chronic Disease Visit [facility] Start: 04-01-2024 Annual PCP Team Freezer Laboratory Technician richard Disease Visit Annual PCP Team Chronic Disease Visit [facility] Start: 04-01-2024 Shingrix Vaccine (1 of 2) Bahena grix Vaccine (1 of 2) [facility] Immunizations Immunization Date Immunization Notes Care Provider Sara baeza 04-01-2023 influenza (HD-IIV4) vaccine, age 65+ yr, high dose, quadrivalent, PF (FLUZONE HIGH-DOSE) Codi Older PROFESSOR OF COMMUNICATION AND WRITING.[employer] Work Phone: [facility] Work Phone: 05-28-2022 influenza (HD-IIV4) vaccine, age 65+ yr, high dose, quadrivalent, PF (FLUZONE HIGH-DOSE) Gus Ricardo PROFESSOR OF COMMUNICATION AND WRITING.FINAL ASSEMBLY INSPECTOR Work Phone: [facility] Work Phone: 12-19-2021 tetanus toxoid, redu shaggy diphtheria toxoid, and acellular pertussis vaccine, adsorbed Codi Older PROFESSOR OF COMMUNICATION AND WRITING.[employer] Work Phone: [facility] Work Phone: 05-02-2021 influenza, high-dose , quadrivalent vaccine (FLUZONE HIGH DOSE QUADRIVALENT) Fouzia Smith Work Phone: [facility] Work Phone: 04-25-2020 influenza, high-dose , quadrivalent vaccine (FLUZONE HIGH DOSE QUADRIVALENT) Fouzia Smith Work Phone: [facility] Work Phone: 05-08-2019 influenza, high dose seasonal, preservative-free Fouzia Smith Work Phone: [facility] 05-23-2018 influenza, high dose seasonal, preservative-free Fouzia Smith Work Phone: [facility] Work Phone: 06-03-2017 influenza, high dose seasonal, preservative-free Fouzia Smith Work Phone: [facility] 08-27-2016 pneumococcal polysaccharide vaccine, 23 valent Fouzia Smith Work Phone: [facility] 08-10-2015 pneumococcal conjuga te vaccine, 13 valent Fouzia Smith Work Phone: [facility] 07-28-2012 influenza virus vacc ine, unspecified formulation Fouzia Smith Work Phone: [facility] Work Phone: 08-01-2010 influenza virus vacc ine, unspecified formulation Fouziaryan Smith Work Phone: [facility] 08-01-2010 tetanus toxoid, redu shaggy diphtheria toxoid, and acellular pertussis vaccine, adsorbed Fouziaryan Smith Work Phone: [facility] Payers Date Payer Category Payer Unknown [id number] 2019 Medicare [id number] 2019 Unknown MMO MMO MEDICARE SUPPLEMENT [id number] 2019-Present [phone] [address] [place] [address] Indemnity [id number] 2019 Unknown [id number] 2014 Medicare MEDICARE MEDICAR E A AND B [id number] 2014-Present [phone] [address] [address] [place] [address] Medicare [id number] 2014 Medicare [id number] 2014 Medicare [id number] Social History Date Type Detail Facility Start: 08-01-2010 End: 03-23-2022 Tobacco smoking status NHIS Ex-smoker [facility] Work Phone: Start: 09-20-2021 End: 07-02-2022 Alcohol intake Current drinker of alcohol (finding) [facility] Start: 12-22-2020 History SDOH Alcohol Frequency 98 [facility] Start: 12-22-2020 History SDOH Alcohol Binge 1 [facility] Start: 08-02-2021 History SDOH Alcohol Comment monthly [facility] Start: 12-22-2020 History SDOH Social Connections Phone 3 [facility] Start: 12-22-2020 History SDOH Social Connections Confucianism 2 [facility] Start: 12-22-2020 History SDOH Physica l Activity DPW 0 [facility] Start: 12-22-2020 History SDOH Financial 5 [facility] Start: 12-22-2020 Education 16 [facility] Start: 08-01-2010 End: 03-23-2022 Tobacco Comment 40 + years ago - quit pipe for 6 mo [facility] Start: 1950 Sex Assigned At Not on file [facility] Start: 10-23-2021 End: 05-11-2022 Exposure to SARS-CoV-2 (event) Not sure [facility] Work Phone: Start: 12-11-2021 End: 12-21-2021 Exposure to SARS-CoV-2 (event) Unable to assess [facility] Work Phone: History of tobacco use Current smoker [facility] Start: 08-01-2010 End: 04-11-2022 Tobacco use and exposure Smokeless tobacco non-user [facility] Start: 04-11-2022 Tobacco smoking stat us NHIS Never smoked tobacco [facility] Start: 08-27-2022 End: 06-11-2023 Alcohol intake Ex-drinker (finding) [facility] Start: 12-22-2020 End: 11-30-2022 [facility] Start: 12-22-2020 End: 11-30-2022 Social connection and isolation panel [facility] Do you belong to any clubs or organizations such as jew groups, unions, fraternal or athletic groups, or school groups? Yes [facility] Are you now , , , , never or living with a partner? [facility] How often to you hav e a drink containing alcohol? Patient refused [facility] How often do you hav e 6 or more drinks on 1 occasion? Never [facility] Do you feel stress - tense, restless, nervous, or anxious, or unable to sleep at night because your mind is troubled all the time - these days [OSQ] Only a little [facility] (I/We) worried bebe er (my/our) food would run out before (I/we) got money to buy more. Never true [facility] In the past 12 month s, was there a time when you were not able to pay the mortgage or rent on time? No [facility] Clinical Notes 11-03-2015 to 06-12-2023 Fouzia Smith - 06/11/2023 8:10 AM Marguerite Ryan LPN - 06/11/2023 8:07 AM ESTTelephone Encounter - Jose Miguel Hernandez Ma - 06/10/2023 1:45 PM Codi Soni APRN.CNP - 05/24/2023 8:38 AM EST Note Date & Type Note Facility 06-12-2023 Note HNO ID: [id number] Author: Analia Reis, PT Service: ? 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 [facility] 06-11-2023 Note HNO ID: [id number] Author: Jl Hart MD Service: ? Author [...] entered by the nurse and reviewed by nj Nursing Notes: Mary Peña LPN 06/11/2023 8:35 [...] denies diarrhea, denies (more content not included)... [facility] 06-11-2023 Note HNO ID: [id number] Author: Fouzia Smith Service: ? Author Type: [...] RTC in 3-4 months. Fouzia Smith DPM [facility] 06-11-2023 Note HNO ID: [id number] Author: Marguerite Geronimo LPN Service: ? Author [...] nail care , Established Patient Marguerite GeronimoEVELYN [facility] 06-11-2023 History of Presen t illness Narrative [...] Marguerite Geronimo LPN documented in this encounter [facility] 06-10-2023 Miscellaneous Notes Faxed to [facility] as requested. External referral placed. Please fax orders for stress test to [facility]. Will hold off on canceling stress test with [facility] until he is scheduled at [facility]. Codi Larkin APRN.FINAL ASSEMBLY INSPECTOR documented in this encounter [facility] 05-30-2023 Miscellaneous Notes Forms signed and faxed to Daksha at [employer] at [phone]. Transmission complete. Encounter closed. GARY Dubon Type of form: [employer] Prescription Form received via fax When form is completed, Fax form to [employer] at [phone] Form has been forwarded to GARY Mendoza documented in this encounter [facility] 05-24-2023 Note HNO ID: [id number] Author: Dia Tran RT(R) Service: Radiology Author [...] RT Fartun(R) May 24, 2023 9:17 AM [facility] 05-24-2023 Note HNO ID: [id number] Author: Codi Larkin APRN.FINAL ASSEMBLY INSPECTOR Service: ? Author Type: Nurse Practitioner Type: Progress Notes Filed: 05/24/2023 9:14 AM Note Text: CC: Patient presents with: Shortness of Breath Fatigue HPI Kimbelry Chan is a 73 year old male [...] (FLUSH) INJECTION SYRINGE (more content not included)... [facility] 05-24-2023 History of Presen t illness Narrative [...] NM CARDIAC PERF STRESS/EXERCISE - INSERT IV (ME,ND) - IV DISCONTINUE - COMP METABOLIC PANEL [...] NM CARDIAC PERF STRESS/EXERCISE - INSERT IV (ME,ND) - IV DISCONTINUE - COMP METABOLIC PANEL [...] Codi Larkin APRN.CNP documented in this encounter [facility] 05-23-2023 Miscellaneous Notes Orders with clinical documents faxed to [employer] Transmission completed documented in this encounter [facility] 05-21-2023 Note HNO ID: [id number] Author: Karyna Corona, DO Service: ? Author Type: Physician Type: Progress Notes Filed: 05/23/2023 9:05 AM Note Text: [facility] [place] DEPARTMENT OF VASCULAR SURGERY OUTPATIENT VISIT DATE [...] DATE: May 21, 2023 TIME: 10:56 AM [facility] 05-21-2023 History of Presen t illness Narrative Images from the original note were not included. [facility] [place] DEPARTMENT OF VASCULAR SURGERY OUTPATIENT VISIT DATE [...] TIME: 10:56 AM documented in this encounter [facility] 04-09-2023 Note HNO ID: [id number] Author: Karyna Corona DO Service: ? Author Type: Physician Type: Progress Notes Filed: 04/09/2023 2:25 PM Note Text: This office note has been dictated. Karyna Corona DO [facility] 04-09-2023 Note HNO ID: [id number] Author: Karyna Corona DO Service: Vascular Surgery Author Type: Physician Type: Progress Notes Filed: 04/17/2023 10:38 AM Note Text: NAME: KIMBERLY CHAN CLINIC NO: [id number] DATE OF SERVICE: 04/09/2023 Subjective: Mr. Chan [...] concerns. Karyna Corona D.O. KB/[id number] Audio #: [id number] Date Dictated: 04/09/2023 12:14:38 Date Typed: 04/11/2023 12:46:13 Date Revised: [facility] 04-01-2023 Note HNO ID: [id number] Author: Codi Larkin APRN.FINAL ASSEMBLY INSPECTOR Service: ? Author Type: Nurse Practitioner Type: Progress Notes Filed: 04/01/2023 1:12 PM Note Text: Kimberly Chan is a 73 year old male here for a Medicare wellness visit. Health Risk Assessment In general, health is: Very good Concerns with balance:rarely Concerns with teeth or dentures:Not at all Concerns with sexual function:Not at all [place] anxious, stressed, angry, irritable, lonely, isolated, or [...] [facility]- Dr. Smith Outside specialists seen: [facility] Medical/Family history review Reviewed and [...] - Substance use screening Codi Larkin APRN.CNP [facility] 04-01-2023 Instructions Codi Larkin APRN.CNP - 04/01/2023 [...] review all the medicines you take, even qqut-[id number]-[id number] medicines. As you get older, the way [...] certain medical conditions. documented in this encounter [facility] 04-01-2023 History of Presen t illness Narrative Kimberly Chan is a 73 year old male here for a Medicare wellness visit. Health Risk Assessment In general, health is: Very good Concerns with balance:rarely Concerns with teeth or dentures:Not at all Concerns with sexual function:Not at all [place] anxious, stressed, angry, irritable, lonely, isolated, or [...] [facility]- Dr. Smith Outside specialists seen: [facility] Medical/Family history review Reviewed and [...] screening - Substance use screening Codi Larkin APRN.FINAL ASSEMBLY INSPECTOR documented in this encounter [facility] 03-20-2023 Miscellaneous Notes Last office visit: 12/12/22 Next appointment scheduled: 04/01/23 Last labs: 09/18/22 Patient phones requesting refills as follows: Requested Prescriptions Pending Prescriptions Disp Refills losartan (COZAAR) 100 mg tablet 90 tablet 3 Sig: Take 1 tablet by mouth once daily. Please review and advise. Lilli Vickers LPN documented in this encounter [facility] 03-20-2023 Miscellaneous Notes Last office visit: 12/12/22 Next appointment scheduled: 04/01/23 Last labs: 09/18/22 Patient phones requesting refills as follows: Requested Prescriptions Pending Prescriptions Disp Refills ibuprofen (MOTRIN) 600 mg tablet 30 tablet 5 Sig: Take 1 tablet by mouth every 8 hours as needed for pain. Lilli Vickers LPN documented in this encounter [facility] 03-05-2023 Note HNO ID: [id number] Author: Fouzia Smith Service: ? Author Type: [...] RTC in 3-4 months. Fouzia Smith DPM [facility] 03-05-2023 Note HNO ID: [id number] Author: Daksha Feliciano Service: ? Author Type: ? Type: Progress Notes Filed: 03/05/2023 10:13 AM Note Text: Patient presents with: Left Foot - Established Patient: Nail care Right Foot - Established Patient: Nail care Patient reports no pain at this time. He states his feet are still swelling. [facility] 03-05-2023 History of Presen t illness Narrative [...] are still swelling. documented in this encounter [facility] 01-29-2023 Note HNO ID: [id number] Author: Karyna Corona, DO Service: ? Author Type: Physician Type: Progress Notes Filed: 02/25/2023 3:12 PM Note Text: [facility] [place] DEPARTMENT OF VASCULAR SURGERY OUTPATIENT VISIT DATE January 29, 2023 OUTPATIENT VISIT TYPE CONSULTATION SERVICE DATE: 01/29/2023 SERVICE TIME: 8:36 AM PRIMARY CARE PHYSICIAN: Logan Valdes MD REFERRING PROVIDER: Gus Silva [address] [place] [address] Consult requested for an opinion regarding the [...] motor skills. Vasc (more content not included)... [facility] 01-29-2023 History of Presen t illness Narrative Images from the original note were not included. [facility] [place] DEPARTMENT OF VASCULAR SURGERY OUTPATIENT VISIT DATE January 29, 2023 OUTPATIENT VISIT TYPE CONSULTATION SERVICE DATE: 01/29/2023 SERVICE TIME: 8:36 AM PRIMARY CARE PHYSICIAN: Logan Valdes MD REFERRING PROVIDER: Gus Silva [address] [place] [address] Consult requested for an opinion regarding the [...] TIME: 8:36 AM documented in this encounter [facility] 12-12-2022 Note HNO ID: [id number] Author: Gus Silva APRN.MELINDA Service: ? Author [...] PROBLEM LIST Chronic Venous Hypertension W Ulceration ([facility]) - 11/30/2022 Numbness and Tingling of Both Feet - 06/22/2021 Toenail Deformity - 06/22/2021 Nasal sinus congestion, nocturnal - 07/09/2018 Alcohol-Induced Insomnia ([facility]) - 05/15/2018 Impaired Fasting Glucose - 12/03/2017 Hyperlipidemia - 06/03/2017 Edema - 08/27/2016 Essential Hypertension With Goal Blood Pressure Less Than 130/80 - 11/03/2015 Bmi 39.0-39.9,Adult - 11/03/2015 Alcohol Abuse - 04/03/2012 Benign Neoplasm of Colon - 10/25/2010 ALEX (obstructive sleep apnea) not using CPAP - 08/01/2010 Comment: CLAUDIA Muir # [phone]------FAX# [phone] Chronic Rhinitis - 08/01/2010 Obesity, Class Iii, Bmi 40-49.9 (Morbid Obesity) ([facility]) - 08/01/2010 Social History Tobacco Use Smoking [...] (primary diagnosis) Certa (more content not included)... [facility] 12-12-2022 History of Presen t illness Narrative [...] PROBLEM LIST Chronic Venous Hypertension W Ulceration ([facility]) - 11/30/2022 Numbness and Tingling of Both Feet - 06/22/2021 Toenail Deformity - 06/22/2021 Nasal sinus congestion, nocturnal - 07/09/2018 Alcohol-Induced Insomnia ([facility]) - 05/15/2018 Impaired Fasting Glucose - 12/03/2017 Hyperlipidemia - 06/03/2017 Edema - 08/27/2016 Essential Hypertension With Goal Blood Pressure Less Than 130/80 - 11/03/2015 Bmi 39.0-39.9,Adult - 11/03/2015 Alcohol Abuse - 04/03/2012 Benign Neoplasm of Colon - 10/25/2010 ALEX (obstructive sleep apnea) not using CPAP - 08/01/2010 Comment: CLAUDIA Muir # [phone]------FAX# [phone] Chronic Rhinitis - 08/01/2010 Obesity, Class Iii, Bmi 40-49.9 (Morbid Obesity) ([facility]) - 08/01/2010 Social History Tobacco Use Smoking [...] Gus Silva APRN-MELINDA documented in this encounter [facility] 11-30-2022 Note HNO ID: [id number] Author: Fouzia Smith Service: ? Author Type: [...] Objective: Patient presents to clinic ambulating in [facility] Vasc: DP and PT pulses are [...] RTC in 3-4 months. Fouzia Smith DPM [facility] 11-30-2022 Note HNO ID: [id number] Author: Layne Álvarez RN Service: ? Author [...] lower leg from golf cart wheel yesterday. [facility] 11-07-2022 Note HNO ID: [id number] Author: Codi Larkin APRN.CNP Service: ? Author [...] agreeable to treatment plan. Codi Larkin APRN.CNP [facility] 11-07-2022 Instructions Codi Larkin APRN.CNP - 11/07/2022 8:05 AM EDT Follow-up in 1-2 weeks if no improvement or sooner if there is any worsening documented in this encounter [facility] 11-07-2022 History of Presen t illness Narrative [...] Codi Larkin APRN.CNP documented in this encounter [facility] 10-31-2022 Note HNO ID: [id number] Author: Codi Larkin APRN.CNP Service: ? Author [...] agreeable to treatment plan. Codi Larkin APRN.CNP [facility] 10-31-2022 Instructions Codi Larkin APRN.CNP - 10/31/2022 9:21 AM EDT Wash with soap and water followed by SMALL AMOUNT antibiotic ointment and a clean dry gauze dressing Recheck wound as scheduled with office. If any unusual pain, swelling, red streaks, pus, fever or other signs of worsening infection, call immediately. documented in this encounter [facility] 10-31-2022 History of Presen t illness Narrative [...] Codi Larkin APRN.CNP documented in this encounter [facility] 09-20-2022 Note HNO ID: [id number] Author: Dipti Ascencio LPN Service: ? Author Type: ? Type: Progress Notes Filed: 09/20/2022 9:22 AM Note Text: Ambulatory Ear Lavage Pre-treatment: Warm water Treatment: Both ears Equipment and Irrigation solution and Volume used: Single use syringe with single use irrigation tip Return flow appearance: Brown, large amount Patient tolerated procedure: yes Post-treatment: Post Irrigation Post-treatment: Ear Canal/Tympanic membrane assessed by REBECCA Valdes [facility] 09-20-2022 Note HNO ID: [id number] Author: Logan Valdes MD Service: ? Author Type: Physician Type: Progress Notes Filed: 09/20/2022 9:22 AM Note Text: This note was created using Rangespanriter. Subjective Kimberly Chan is a 72 year [...] - Continue cur (more content not included)... [facility] 09-20-2022 History of Presen t illness Narrative Ambulatory Ear Lavage Pre-treatment: Warm water Treatment: Both ears Equipment and Irrigation solution and Volume used: Single use syringe with single use irrigation tip Return flow appearance: Brown, large amount Patient tolerated procedure: yes Post-treatment: Post Irrigation Post-treatment: Ear Canal/Tympanic membrane assessed by LIP Dr. Valdes This note was created using [employer]. Subjective Kimberly Chan is a 72 year [...] Logan Valdes MD documented in this encounter [facility] 09-20-2022 Instructions Logan Valdes MD - 09/20/2022 9:05 AM EST Fasting blood work in 6 months. documented in this encounter [facility] 09-17-2022 Miscellaneous Notes Detailed message left for patient advising of fasting labs. Ordered, fasting. Patient calls to report that he was going to have blood work done prior to appointment on 09/20/2022 but orders have . Patient reports orders were from appointment in March and in May 2022. Pended orders in OV note from 03/23/2022 with diagnosis. Patient requests a call back at [phone] once orders are placed. Please review and advise, Peri Anna RN documented in this encounter [facility] 08-27-2022 Note HNO ID: [id number] Author: Fouzia Smith Service: ? Author Type: [...] RTC in 3-4 months. Fouzia Smith DPM [facility] 08-27-2022 Note HNO ID: [id number] Author: Layne Álvarez RN Service: ? Author Type: Registered Nurse Type: Progress Notes Filed: 08/27/2022 9:52 AM Note Text: Patient presents with: Left Foot - Established Patient, Follow Up, nail care Right Foot - Established Patient, Follow Up, nail care Patient presents for 3 month nail care. Denies any pain in feet, just his normal swelling. [facility] 07-11-2022 Note HNO ID: [id number] Author: Layne Silva PA-C Service: ? Author Type: Physician Blast Furnace Tender Type: Progress Notes Filed: 07/23/2022 2:54 AM [...] - ENDOSCOPY NAME: Kimberly Chan CLINIC NO.: [id number] DATE OF SERVICE: 07/11/2022 : 1950 REFERRING [...] results to the patient/family/caregiver. Layne Silva PA-C [facility] 07-11-2022 History of Presen t illness Narrative In lieu of an in-person visit due to COVID-19 concerns, a distance visit was performed on the patient. Patient is aware that I am not fully able to assess symptoms and do a full physical examination including vital signs assessment at this time. Patient consents to this encounter. FOLLOW UP VISIT - ENDOSCOPY NAME: Kimberly Chan [facility] NO.: [id number] DATE OF SERVICE: 07/11/2022 : 1950 REFERRING [...] Layne Silva PA-C documented in this encounter [facility] 07-10-2022 Miscellaneous Notes Patient has been identified [...] Dipti Ascencio LPN documented in this encounter [facility] 07-02-2022 Nurse Note Return from restroom, not [...] rectally as able. documented in this encounter [facility] 07-02-2022 History and physical note Images from [...] entered by the nurse and reviewed by nj Nursing Notes: Yuko Meraz RN 04/11/2022 8:44 [...] patient was offered a surgery/procedure at a [facility] facility. I have counseled the patient regarding [...] TIME: 10:29 AM documented in this encounter [facility] 06-29-2022 Miscellaneous Notes Last office visit: 03/23/22 Next appointment scheduled: 09/20/22 Last labs: 03/31/21 Patient phones requesting refills as follows: Requested Prescriptions Pending Prescriptions Disp Refills atorvastatin (LIPITOR) 10 mg tablet 90 tablet 3 Sig: Take 1 tablet by mouth daily at bedtime. For cholesterol. Please review and advise. Lilli Vickers LPN documented in this encounter [facility] 05-21-2022 Miscellaneous Notes Per patient called and would like procedure moved from 05/28 to 07/02. Denied anything sooner Patient called in to reschedule procedure with Dr. Hart in [facility] on 05/28. Left voicemail to contact me directly at [phone] if wishes to proceed. Steff Acosta [place] [facility] 05-28-[address] Hart [facility] documented in this encounter [facility] 05-11-2022 History of Presen t illness Narrative [...] Fouzia Smith DPM documented in this encounter [facility] 04-17-2022 Miscellaneous Notes Patient has been identified [...] Colette Dean LPN documented in this encounter [facility] 04-11-2022 History of Presen t illness Narrative [...] entered by the nurse and reviewed by nj Nursing Notes: Yuko Meraz RN 04/11/2022 8:44 [...] patient was offered a surgery/procedure at a [facility]. I have counseled the patient regarding the [...] Layne Silva PA-C documented in this encounter [facility] 04-11-2022 Nurse Note REVIEW OF SYSTEMS: General: [...] Yuko Meraz RN documented in this encounter [facility] 04-03-2022 Miscellaneous Notes Order faxed to below number. Dipti Ascencio LPN DDM reports they received order for the additional information on the compression stockings, but it was not signed. Asking provider to sign and fax to them [phone] documented in this encounter [facility] 04-02-2022 Miscellaneous Notes [facility] calling to state they received compression stocking order for patient and they need additional information: Specify knee high, thigh high, or leggings. Specify what compression. Demographic info This information was faxed as requested tp FAX #: [phone]. Ynes Yuan RN documented in this encounter [facility] 04-02-2022 Miscellaneous Notes Printed and faxed. Pt notified Rosalinda Astudillo Cma Print order from 03/23 and fax please, does not need signature Codi Larkin APRN.MELINDA Rx for compression stockings were sent to [facility], they don't carry this type of supply. Pt asking for new Rx to go to [facility]. Pt asking to be called when Rx has been sent to pharm. Gwen Edmonds LPN documented in this encounter [facility] 03-23-2022 History of Presen t illness Narrative This note was created using Rangespanriter. Subjective Kimberly Chan is a 72 year [...] Logan Valdes MD documented in this encounter [facility] 02-20-2022 Instructions Fouzia Smith - 02/20/2022 8:15 AM EDT Your ulceration is healed Continue with compression stocking Follow-up as scheduled documented in this encounter [facility] 02-20-2022 History of Presen t illness Narrative [...] (H) 4.3 - 5.6 % Final Comment: [place] [employer] guidelines indicate that patients with [...] prescribed for leg at drug store or [facility]. Marguerite Geronimo LPN documented in this encounter [facility] 02-06-2022 Instructions Fouzia Luis - 02/06/2022 9:25 AM EDT Recommend aquacel to left leg daily. When wound becomes very tiny, you can switch to topical antibiotic. Recommend bill compression from toes to knee during the day. Can remove at night. documented in this encounter [facility] 02-06-2022 History of Presen t illness Narrative [...] Objective: Patient presents to clinic ambulating [place] [facility] Vasc: DP and PT pulses are palpable [...] Fouzia Smith DPM documented in this encounter [facility] 01-31-2022 Miscellaneous Notes Patient has been identified [...] Dipti Ascencio LPN documented in this encounter [facility] 01-26-2022 Instructions La Mcgee APRN.FINAL ASSEMBLY INSPECTOR - 01/26/2022 10:02 AM EDT 1.) Start Clindamycin, take with food. 2.) Elevate the legs, continue to take Lasix. 3.) Watch for worsening symptoms, increased redness, warm, fever, or chills, go to ER. 4.) If you develop any chest pain go to ER. 5.) Follow up as needed. Apply Bactroban cream to wound documented in this encounter [facility] 01-26-2022 History of Presen t illness Narrative [...] APRN.MELINDA This note was partially generated using Prosper voice recognition system. Note was reviewed for accuracy. There may be minor misspellings or grammar miscues with Prosper voice recognition. documented in this encounter [facility] 12-27-2021 History of Presen t illness Narrative [...] all digits DATA REVIEWED: Outside chart from [facility] ER reviewed. ASSESSMENT/PLAN: 1. Dog bite [...] Codi Larkin APRN.CNP documented in this encounter [facility] 12-27-2021 Instructions Codi Larkin APRN.CNP - 12/27/2021 8:42 AM EDT If any unusual pain, swelling, red streaks, pus, fever or other signs of worsening infection, call immediately. documented in this encounter [facility] 11-29-2021 Miscellaneous Notes Patient has been identified [...] Dipti Ascencio LPN documented in this encounter [facility] 11-27-2021 Miscellaneous Notes Patient has been identified [...] Dipti Ascencio LPN documented in this encounter [facility] 11-02-2021 History of Presen t illness Narrative [...] Fouzia Smith DPM documented in this encounter [facility] documented as of this encounter (statuses as of 11/02/2021) [facility] History of Past illness Narrative* Problem Noted Date Resolved Date Mild cognitive impairment 11/03/20152017 Hyperlipidemia 07/21/2015 11/03/2015 BMI 40.0-44.9, adult 04/05/2014 11/03/2015 Diverticulosis of colon (without mention of hemo rrhage) 10/25/2010 05/24/2016 Hypertension 09/08/2010 08/27/2016 BP (high blood pressure) 08/01/2010 016 documented as of this encounter (statuses as of 11/28/2021) [facility] History of Past illness Narrative* Problem Noted Date Resolved Date Mild cognitive impairment 11/03/20152017 Hyperlipidemia 07/21/2015 11/03/2015 BMI 40.0-44.9, adult 04/05/2014 11/03/2015 Diverticulosis of colon (without mention of hemo rrhage) 10/25/2010 05/24/2016 Hypertension 09/08/2010 08/27/2016 BP (high blood pressure) 08/01/2010 016 documented as of this encounter (statuses as of 12/01/2021) [address]-2016 History of Past illness Narrative* Problem Noted Date Resolved Date Mild cognitive impairment 11/03/20152017 Hyperlipidemia 07/21/2015 11/03/2015 BMI 40.0-44.9, adult 04/05/2014 11/03/2015 Diverticulosis of colon (without mention of hemo rrhage) 10/25/2010 05/24/2016 Hypertension 09/08/2010 08/27/2016 BP (high blood pressure) 08/01/2010 016 documented as of this encounter (statuses as of 12/27/2021) [address]2016 History of Past illness Narrative* Problem Noted Date Resolved Date Mild cognitive impairment 11/03/20152017 Hyperlipidemia 07/21/2015 11/03/2015 BMI 40.0-44.9, adult 04/05/2014 11/03/2015 Diverticulosis of colon (without mention of hemo rrhage) 10/25/2010 05/24/2016 Hypertension 09/08/2010 08/27/2016 BP (high blood pressure) 08/01/2010 016 documented as of this encounter (statuses as of 01/26/2022) [facility] History of Past illness Narrative* Problem Noted Date Resolved Date Mild cognitive impairment 11/03/20152017 Hyperlipidemia 07/21/2015 11/03/2015 BMI 40.0-44.9, adult 04/05/2014 11/03/2015 Diverticulosis of colon (without mention of hemo rrhage) 10/25/2010 05/24/2016 Hypertension 09/08/2010 08/27/2016 BP (high blood pressure) 08/01/2010 016 documented as of this encounter (statuses as of 01/31/2022) [place] [id number] History of Past illness Narrative* Problem Noted Date Resolved Date Mild cognitive impairment 11/03/20152017 Hyperlipidemia 07/21/2015 11/03/2015 BMI 40.0-44.9, adult 04/05/2014 11/03/2015 Diverticulosis of colon (without mention of hemo rrhage) 10/25/2010 05/24/2016 Hypertension 09/08/2010 08/27/2016 BP (high blood pressure) 08/01/2010 016 documented as of this encounter (statuses as of 02/06/2022) [address]2016 History of Past illness Narrative* Problem Noted Date Resolved Date Mild cognitive impairment 11/03/20152017 Hyperlipidemia 07/21/2015 11/03/2015 BMI 40.0-44.9, adult 04/05/2014 11/03/2015 Diverticulosis of colon (without mention of hemo rrhage) 10/25/2010 05/24/2016 Hypertension 09/08/2010 08/27/2016 BP (high blood pressure) 08/01/2010 016 documented as of this encounter (statuses as of 02/20/2022) [address]2016 History of Past illness Narrative* Problem Noted Date Resolved Date Mild cognitive impairment 11/03/20152017 Hyperlipidemia 07/21/2015 11/03/2015 BMI 40.0-44.9, adult 04/05/2014 11/03/2015 Diverticulosis of colon (without mention of hemo rrhage) 10/25/2010 05/24/2016 Hypertension 09/08/2010 08/27/2016 BP (high blood pressure) 08/01/2010 016 documented as of this encounter (statuses as of 03/23/2022) [address]2016 History of Past illness Narrative* Problem Noted Date Resolved Date Mild cognitive impairment 11/03/20152017 Hyperlipidemia 07/21/2015 11/03/2015 BMI 40.0-44.9, adult 04/05/2014 11/03/2015 Diverticulosis of colon (without mention of hemo rrhage) 10/25/2010 05/24/2016 Hypertension 09/08/2010 08/27/2016 BP (high blood pressure) 08/01/2010 016 documented as of this encounter (statuses as of 04/02/2022) [place] [address]21-2016 History of Past illness Narrative* Problem Noted Date Resolved Date Mild cognitive impairment 11/03/20152017 Hyperlipidemia 07/21/2015 11/03/2015 BMI 40.0-44.9, adult 04/05/2014 11/03/2015 Diverticulosis of colon (without mention of hemo rrhage) 10/25/2010 05/24/2016 Hypertension 09/08/2010 08/27/2016 BP (high blood pressure) 08/01/2010 016 documented as of this encounter (statuses as of 04/02/2022) [address]2016 History of Past illness Narrative* Problem Noted Date Resolved Date Mild cognitive impairment 11/03/20152017 Hyperlipidemia 07/21/2015 11/03/2015 BMI 40.0-44.9, adult 04/05/2014 11/03/2015 Diverticulosis of colon (without mention of hemo rrhage) 10/25/2010 05/24/2016 Hypertension 09/08/2010 08/27/2016 BP (high blood pressure) 08/01/2010 016 documented as of this encounter (statuses as of 04/03/2022) [address]2016 History of Past illness Narrative* Problem Noted Date Resolved Date Mild cognitive impairment 11/03/20152017 Hyperlipidemia 07/21/2015 11/03/2015 BMI 40.0-44.9, adult 04/05/2014 11/03/2015 Diverticulosis of colon (without mention of hemo rrhage) 10/25/2010 05/24/2016 Hypertension 09/08/2010 08/27/2016 BP (high blood pressure) 08/01/2010 016 documented as of this encounter (statuses as of 04/17/2022) [address]2016 History of Past illness Narrative* Problem Noted Date Resolved Date Mild cognitive impairment 11/03/20152017 Hyperlipidemia 07/21/2015 11/03/2015 BMI 40.0-44.9, adult 04/05/2014 11/03/2015 Diverticulosis of colon (without mention of hemo rrhage) 10/25/2010 05/24/2016 Hypertension 09/08/2010 08/27/2016 BP (high blood pressure) 08/01/2010 016 documented as of this encounter (statuses as of 04/17/2022) [address]2016 History of Past illness Narrative* Problem Noted Date Resolved Date Mild cognitive impairment 11/03/20152017 Hyperlipidemia 07/21/2015 11/03/2015 BMI 40.0-44.9, adult 04/05/2014 11/03/2015 Diverticulosis of colon (without mention of hemo rrhage) 10/25/2010 05/24/2016 Hypertension 09/08/2010 08/27/2016 BP (high blood pressure) 08/01/2010 016 documented as of this encounter (statuses as of 05/11/2022) [address]21-2016 History of Past illness Narrative* Problem Noted Date Resolved Date Mild cognitive impairment 11/03/20152017 Hyperlipidemia 07/21/2015 11/03/2015 BMI 40.0-44.9, adult 04/05/2014 11/03/2015 Diverticulosis of colon (without mention of hemo rrhage) 10/25/2010 05/24/2016 Hypertension 09/08/2010 08/27/2016 BP (high blood pressure) 08/01/2010 016 documented as of this encounter (statuses as of 06/11/2022) [address]-2016 History of Past illness Narrative* Problem Noted Date Resolved Date Mild cognitive impairment 11/03/20152017 Hyperlipidemia 07/21/2015 11/03/2015 BMI 40.0-44.9, adult 04/05/2014 11/03/2015 Diverticulosis of colon (without mention of hemo rrhage) 10/25/2010 05/24/2016 Hypertension 09/08/2010 08/27/2016 BP (high blood pressure) 08/01/2010 016 documented as of this encounter (statuses as of 06/29/2022) [address]-2016 History of Past illness Narrative* Problem Noted Date Resolved Date Mild cognitive impairment 11/03/20152017 Hyperlipidemia 07/21/2015 11/03/2015 BMI 40.0-44.9, adult 04/05/2014 11/03/2015 Diverticulosis of colon (without mention of hemo rrhage) 10/25/2010 05/24/2016 Hypertension 09/08/2010 08/27/2016 BP (high blood pressure) 08/01/2010 016 documented as of this encounter (statuses as of 07/17/2022) [facility]-21-2016 History of Past illness Narrative* Problem Noted Date Resolved Date Mild cognitive impairment 11/03/20152017 Hyperlipidemia 07/21/2015 11/03/2015 BMI 40.0-44.9, adult 04/05/2014 11/03/2015 Diverticulosis of colon (without mention of hemo rrhage) 10/25/2010 05/24/2016 Hypertension 09/08/2010 08/27/2016 BP (high blood pressure) 08/01/2010 016 documented as of this encounter (statuses as of 07/23/2022) [facility] History of Past illness Narrative* Problem Noted Date Resolved Date Mild cognitive impairment 11/03/20152017 Hyperlipidemia 07/21/2015 11/03/2015 BMI 40.0-44.9, adult 04/05/2014 11/03/2015 Diverticulosis of colon (without mention of hemo rrhage) 10/25/2010 05/24/2016 Hypertension 09/08/2010 08/27/2016 BP (high blood pressure) 08/01/2010 016 documented as of this encounter (statuses as of 09/17/2022) [facility] History of Past illness Narrative* Problem Noted Date Resolved Date Mild cognitive impairment 11/03/20152017 Hyperlipidemia 07/21/2015 11/03/2015 BMI 40.0-44.9, adult 04/05/2014 11/03/2015 Diverticulosis of colon (without mention of hemo rrhage) 10/25/2010 05/24/2016 Hypertension 09/08/2010 08/27/2016 BP (high blood pressure) 08/01/2010 016 documented as of this encounter (statuses as of 09/20/2022) [facility] History of Past illness Narrative* Problem Noted Date Resolved Date Mild cognitive impairment 11/03/20152017 Hyperlipidemia 07/21/2015 11/03/2015 BMI 40.0-44.9, adult 04/05/2014 11/03/2015 Diverticulosis of colon (without mention of hemo rrhage) 10/25/2010 05/24/2016 Hypertension 09/08/2010 08/27/2016 BP (high blood pressure) 08/01/2010 016 documented as of this encounter (statuses as of 10/31/2022) [address]-2016 History of Past illness Narrative* Problem Noted Date Resolved Date Mild cognitive impairment 11/03/20152017 Hyperlipidemia 07/21/2015 11/03/2015 BMI 40.0-44.9, adult 04/05/2014 11/03/2015 Diverticulosis of colon (without mention of hemo rrhage) 10/25/2010 05/24/2016 Hypertension 09/08/2010 08/27/2016 BP (high blood pressure) 08/01/2010 016 documented as of this encounter (statuses as of 11/07/2022) [address]-2016 History of Past illness Narrative* Problem Noted Date Resolved Date Mild cognitive impairment 11/03/20152017 Hyperlipidemia 07/21/2015 11/03/2015 BMI 40.0-44.9, adult 04/05/2014 11/03/2015 Diverticulosis of colon (without mention of hemo rrhage) 10/25/2010 05/24/2016 Hypertension 09/08/2010 08/27/2016 BP (high blood pressure) 08/01/2010 016 documented as of this encounter (statuses as of 12/12/2022) [address]-2016 History of Past illness Narrative* Problem Noted Date Diagnosed Date Resolved Date Mild cognitive impairment 11/03/2015 Hyperlipidemia 07/21/2015 11/03/2015 BMI 40.0-44.9, adult 04/05/2014 016 Diverticulosis of colon (wit hout mention of hemorrhage) 10/25/2010 05/24/2016 Hypertension 09/08/2010 08/27/2016 BP (high blood pressure) 08/01/2010 documented as of this encounter (statuses as of 02/26/2023) [address]21-2016 History of Past illness Narrative* Problem Noted Date Diagnosed Date Resolved Date Mild cognitive impairment 11/03/2015 Hyperlipidemia 07/21/2015 11/03/2015 BMI 40.0-44.9, adult 04/05/2014 016 Diverticulosis of colon (wit hout mention of hemorrhage) 10/25/2010 05/24/2016 Hypertension 09/08/2010 08/27/2016 BP (high blood pressure) 08/01/2010 documented as of this encounter (statuses as of 03/05/2023) [facility] History of Past illness Narrative* Problem Noted Date Diagnosed Date Resolved Date Mild cognitive impairment 11/03/2015 Hyperlipidemia 07/21/2015 11/03/2015 BMI 40.0-44.9, adult 04/05/2014 016 Diverticulosis of colon (wit hout mention of hemorrhage) 10/25/2010 05/24/2016 Hypertension 09/08/2010 08/27/2016 BP (high blood pressure) 08/01/2010 documented as of this encounter (statuses as of 03/21/2023) [address]-2016 History of Past illness Narrative* Problem Noted Date Diagnosed Date Resolved Date Mild cognitive impairment 11/03/2015 Hyperlipidemia 07/21/2015 11/03/2015 BMI 40.0-44.9, adult 04/05/2014 016 Diverticulosis of colon (wit hout mention of hemorrhage) 10/25/2010 05/24/2016 Hypertension 09/08/2010 08/27/2016 BP (high blood pressure) 08/01/2010 documented as of this encounter (statuses as of 03/21/2023) [facility] History of Past illness Narrative* Problem Noted Date Diagnosed Date Resolved Date Mild cognitive impairment 11/03/2015 Hyperlipidemia 07/21/2015 11/03/2015 BMI 40.0-44.9, adult 04/05/2014 016 Diverticulosis of colon (wit hout mention of hemorrhage) 10/25/2010 05/24/2016 Hypertension 09/08/2010 08/27/2016 BP (high blood pressure) 08/01/2010 documented as of this encounter (statuses as of 04/01/2023) [facility] History of Past illness Narrative* Problem Noted Date Diagnosed Date Resolved Date Mild cognitive impairment 11/03/2015 Hyperlipidemia 07/21/2015 11/03/2015 BMI 40.0-44.9, adult 04/05/2014 016 Diverticulosis of colon (wit hout mention of hemorrhage) 10/25/2010 05/24/2016 Hypertension 09/08/2010 08/27/2016 BP (high blood pressure) 08/01/2010 documented as of this encounter (statuses as of 05/19/2023) [address]21-2016 History of Past illness Narrative* Problem Noted Date Diagnosed Date Resolved Date Mild cognitive impairment 11/03/2015 Hyperlipidemia 07/21/2015 11/03/2015 BMI 40.0-44.9, adult 04/05/2014 016 Diverticulosis of colon (wit hout mention of hemorrhage) 10/25/2010 05/24/2016 Hypertension 09/08/2010 08/27/2016 BP (high blood pressure) 08/01/2010 documented as of this encounter (statuses as of 05/23/2023) [address]21-2016 History of Past illness Narrative* Problem Noted Date Diagnosed Date Resolved Date Mild cognitive impairment 11/03/2015 Hyperlipidemia 07/21/2015 11/03/2015 BMI 40.0-44.9, adult 04/05/2014 016 Diverticulosis of colon (wit hout mention of hemorrhage) 10/25/2010 05/24/2016 Hypertension 09/08/2010 08/27/2016 BP (high blood pressure) 08/01/2010 documented as of this encounter (statuses as of 05/24/2023) [place] [address]-21-2016 History of Past illness Narrative* Problem Noted Date Diagnosed Date Resolved Date Mild cognitive impairment 11/03/2015 Hyperlipidemia 07/21/2015 11/03/2015 BMI 40.0-44.9, adult 04/05/2014 016 Diverticulosis of colon (wit hout mention of hemorrhage) 10/25/2010 05/24/2016 Hypertension 09/08/2010 08/27/2016 BP (high blood pressure) 08/01/2010 documented as of this encounter (statuses as of 05/24/2023) [address]21-2016 History of Past illness Narrative* Problem Noted Date Diagnosed Date Resolved Date Mild cognitive impairment 11/03/2015 Hyperlipidemia 07/21/2015 11/03/2015 BMI 40.0-44.9, adult 04/05/2014 016 Diverticulosis of colon (wit hout mention of hemorrhage) 10/25/2010 05/24/2016 Hypertension 09/08/2010 08/27/2016 BP (high blood pressure) 08/01/2010 documented as of this encounter (statuses as of 05/30/2023) [address]21-2016 History of Past illness Narrative* Problem Noted Date Diagnosed Date Resolved Date Mild cognitive impairment 11/03/2015 Hyperlipidemia 07/21/2015 11/03/2015 BMI 40.0-44.9, adult 04/05/2014 016 Diverticulosis of colon (wit hout mention of hemorrhage) 10/25/2010 05/24/2016 Hypertension 09/08/2010 08/27/2016 BP (high blood pressure) 08/01/2010 documented as of this encounter (statuses as of 06/11/2023) [address]21-2016 History of Past illness Narrative* Problem Noted Date Diagnosed Date Resolved Date Mild cognitive impairment 11/03/2015 Hyperlipidemia 07/21/2015 11/03/2015 BMI 40.0-44.9, adult 04/05/2014 016 Diverticulosis of colon (wit hout mention of hemorrhage) 10/25/2010 05/24/2016 Hypertension 09/08/2010 08/27/2016 BP (high blood pressure) 08/01/2010 documented as of this encounter (statuses as of 06/11/2023) [facility] Onychomycosis- Primary Dermatophytosis of nail Pain in toe of left foot Pain in limb Pain in toe of right foot Pain in limb [facility] Diagnosis Dog bite of right hand, subsequent encounter- Primary Visit for suture removal Encounter for removal of sutures [facility] Diagnosis Cellulitis of left lower extremity- Primary Cellulitis and abscess of leg, except foot Other chest pain [facility] Diagnosis Essential hypertension with goal blood pressure less than 130/80 [facility] Diagnosis Onychomycosis- Primary Dermatophytosis of nail Pain in toe of left foot Pain in limb Pain in toe of right foot Pain in limb Diminished pulses in lower extremity Other symptoms involving cardiovascular system Chronic venous hypertension w ulceration (HCC) Chronic venous hypertension with ulcer [facility] Diagnosis Venous insufficiency- Primary Unspecified venous (peripheral) insufficiency [facility] Diagnosis Essential hypertension with goal blood pressure less than 130/80- Primary Edema, unspecified type Hyperlipidemia, unspecified hyperlipidemia type Impaired fasting glucose ALEX (obstructive sleep apnea) not using CPAP Obstructive sleep apnea (adult) (pediatric) Benign neoplasm of colon, unspecified part of colon [facility] Diagnosis Generalized edema- Primary Edema [facility] Diagnosis History of colonic polyps- Primary Personal history of colonic polyps Benign neoplasm of colon, unspecified part of colon Encounter for screening for malignant neoplasm of colon Special screening for malignant neoplasms, colon [facility] Diagnosis Essential hypertension with goal blood pressure less than 130/80 [facility] Diagnosis Onychomycosis- Primary Dermatophytosis of nail Pain in toe of left foot Pain in limb Pain in toe of right foot Pain in limb Diminished pulses in lower extremity Other symptoms involving cardiovascular system [facility] Diagnosis History of colon polyps- Primary Personal history of colonic polyps [facility] Diagnosis Hyperlipidemia, unspecified hyperlipidemia type [facility] Diagnosis Tubular adenoma- Primary Benign neoplasm of unspecified site History of colonic polyps Personal history of colonic polyps [facility] Diagnosis Impaired fasting glucose- Primary Hyperlipidemia, unspecified hyperlipidemia type [facility] Diagnosis BMI 39.0-39.9,adult- Primary Body Mass [...] veins (HCC)- Primary [facility] Diagnosis Venous insufficiency- Primary Unspecified venous (peripheral) insufficiency Venous stasis ulcer of other part of left lower leg limited to breakdown of skin without varicose veins (HCC) [facility] Diagnosis Venous insufficiency- Primary Unspecified venous (peripheral) insufficiency PAD (peripheral artery disease) (HCC) Peripheral vascular disease, unspecified Edema, unspecified type Venous stasis ulcer of other part of left lower leg limited to breakdown of skin without varicose veins (HCC) Varicose veins of both lower extremities, unspecified whether complicated Essential hypertension with goal blood pressure less than 130/80 [facility]* Diagnosis Secondary lymphedema- Primary Other [...] (HCC) Morbid obesity [facility]* Diagnosis Onychomycosis- Primary Dermatophytosis of nail Pain in toe of left foot Pain in limb Pain in toe of right foot Pain in limb [facility] Diagnosis Essential hypertension with goal blood pressure less than 130/80 [facility]* Diagnosis Medicare annual wellness visit, subsequent- Primary Routine general medical examination at a health care facility Essential hypertension with goal blood pressure less than 130/80 Need for influenza vaccination Need for prophylactic vaccination and inoculation against influenza [facility]* Diagnosis Personal history of colonic polyps- Primary History of colon polyps Personal history of colonic polyps [facility] Diagnosis Secondary lymphedema- Primary Other lymphedema Venous (peripheral) insufficiency Unspecified venous (peripheral) insufficiency [facility] Diagnosis Shortness of breath- Primary Chest pain, unspecified type Fatigue, unspecified type [facility] Chest pain, unspecified type- Primary Shortness of breath Abnormal EKG Nonspecific abnormal electrocardiogram (ECG) (EKG) documented in this encounter [facility] note* Diagnosis Onychomycosis- Primary Dermatophytosis of nail Pain in toe of left foot Pain in limb Pain in toe of right foot Pain in limb Diminished pulses in lower extremity Other symptoms involving cardiovascular system documented in this encounter [facility] for referral (narrative)* Outpatient Procedure (Routine) - Authorized Specialty Diagnoses / Procedures Referred By Contac t Referred To Contact [facility] [place] Diagnoses History of colon polyps Procedures COLONOSCOPY SCREENING COLONOSCOPY FLX DX W/COLLJ SPEC WHEN PFRMD Layne Silva PA-C [address] [place] [address] [facility] Disease [place] [phone] Referral ID Status Reason Start Date Expiration Date Visits Requested Visits Authorized [id number] Authorized Auto-Generat ed Referral 04/11/2022 04/11/2023 1 1 [facility] for referral (narrative)* Outpatient Procedure (Routine) - Authorized Specialty Diagnoses / Procedures [facility] [place] Diagnoses Diminished pulse Procedures PVR ANK PRESS [facility] NON-INVAS PHYSIOLOGIC STD EXTREMITY ART 2 LEVEL Karyna Corona DO [address] [place] [address] [facility] [place] [address] Referral ID Status Reason Start Date Expiration Date Visits Requested Visits Authorized [id number] Authorized Auto-Generat ed Referral 01/29/2023 01/29/2024 1 1 * Outpatient Procedure (Routine) - Authorized Specialty Diagnoses / Procedures [facility] [place] Diagnoses Varicose veins of both lower extremities, unspecified whether complicated Procedures US VENOUS INCOMPETENCY [facility] DUP-SCAN XTR VEINS COMPLETE BILATERAL STUDY Karyna Corona DO [address] [place] [address] [facility] [place] [address] [place] [id number] Referral ID Status Reason Start Date Expiration Date Visits Requested Visits Authorized [id number] Authorized Auto-Generat ed Referral 01/29/2023 01/29/2024 1 1 [facility] for referral (narrative)* Outpatient Procedure (Routine) - Closed Specialty Diagnoses / Procedures Referred By Contac t Referred To Contact [facility] Diagnoses History of colon polyps Procedures COLONOSCOPY SCREENING COLONOSCOPY FLX DX W/COLLJ SPEC WHEN PFRMD Layne Silva PA-C [address] [place] [address] [place] [id number] Referral ID Status Reason Start Date Expiration Date V isits Requested Visits Authorized [id number] Closed Auto-Generate d Referral 04/11/2022 04/11/2023 1 1 [facility] for referral (narrative)* Diagnostic Procedure Only (Routine) - Pending Review Specialty Diagnoses / Procedures Referred By Contac t Referred To Contact [facility] Diagnoses Chest pain, unspecified type Shortness of breath Procedures NM CARDIAC PERF STRESS/EXERCISE MYOCARDIAL SPECT MULTIPLE STUDIES Codi Larkin APRN.CNP [address] [place] [address] [facility] [address] [place] [phone] Referral ID Status Reason Start Date Expiration Date Visits Requested Visits Authorized [id number] Pending Review Auto-Generat ed Referral 3 06/22/2024 1 1 * Outpatient Procedure (Routine) - Authorized Specialty Diagnoses / Procedures Referred By Contac t Referred To Contact [facility] Diagnoses Chest pain, unspecified type Shortness of breath Procedures ECHO ECHO TTHRC R-T 2D W/WOM-MODE COMPL SPEC&COLR D Codi Larkin APRN.FINAL ASSEMBLY INSPECTOR [address] [place] [address] [facility] [address] [place] [address] Referral ID Status Reason Start Date Expiration Date Visits Requested Visits Authorized [id number] Authorized Auto-Generat ed Referral 3 05/23/2024 1 1 * Outpatient Procedure (Routine) - Pending Review Specialty Diagnoses / Procedures Referred By Contac t Referred To Contact [facility] Diagnoses Chest pain, unspecified type Shortness of breath Procedures ECG COMPLETE ECG ROUTINE ECG W/LEAST 12 LDS W/I&R Codi Larkin APRN.FINAL ASSEMBLY INSPECTOR [address] [place] [address] [facility] [place] [address] [place] [id number] Referral ID Status Reason Start Date Expiration Date Visits Requested Visits Authorized [id number] Pending Review Auto-Generat ed Referral 3 05/23/2024 1 1 [facility] for referral (narrative)* Diagnostic Procedure Only (Routine) - Pending Review Specialty Diagnoses / Procedures Referred By Contac t Referred To Contact [facility] Diagnoses Chest pain, unspecified type Shortness of breath Abnormal EKG Procedures NM CARDIAC PERF STRESS/PHARM MYOCARDIAL SPECT MULTIPLE STUDIES Codi Larkin APRN.FINAL ASSEMBLY INSPECTOR [address] [place] [address] [facility] [address] [place] [phone] Referral ID Status Reason Start Date Expiration Date Visits Requested Visits Authorized [id number] Pending Review Auto-Generat ed Referral 3 07/09/2024 1 1 [facility] for visit Narrative* Outpatient Procedure (Routine) - Closed Specialty Diagnoses / Procedures Referred By Contac t Referred To Contact [facility] Diagnoses History of colon polyps Procedures COLONOSCOPY SCREENING COLONOSCOPY FLX DX W/COLLJ SPEC WHEN PFRMD Layne Silva PA-C [address] [facility] [place] [address] [facility] [place] [address] [place] [address] Referral ID Status Reason Start Date Expiration Date V isits Requested Visits Authorized [id number] Closed Auto-Generate d Referral 04/11/2022 04/11/2023 1 1 [facility] Summary Purpose Family History No Family History Records FoundNo Family History Records Found Advance Directives No Advanced Directives Records FoundDocuments on File Type Date Recorded Patient [employer] Expl anation Advance Directive(s) 09/24/2016 7:59 AM Reason for Referral Specialty Diagnoses / Procedures Referred By Contac t Referred To Contact General Surgery Diagnoses Benign neoplasm of colon, unspecified part of colon Procedures CONSULT TO GENERAL SURGERY OFFICE/OUTPATIENT [facility] 60-74 MINUTES Logan Valdes MD [address] [place] [address] Referral ID Status Reason Start Date Expiration Date Visits Requested Visits Authorized [id number] Authorized PCP Requested Referral 03/23/2022 03/23/2023 1 1 Specialty Diagnoses / Procedures Referred By Contac t Referred To Contact Vascular Medicine Diagnoses Edema, unspecified type Varicose veins of both lower extremities, unspecified whether complicated Venous insufficiency Venous stasis ulcer of other part of left lower leg limited to breakdown of skin without varicose veins (HCC) Procedures CONSULT TO VASCULAR MEDICINE OFFICE/OUTPATIENT [facility] 60-74 MINUTES Gus Silva APRN.FINAL ASSEMBLY INSPECTOR [address] [place] [address] Referral ID Status Reason Start Date Expiration Date Visits Requested Visits Authorized [id number] Authorized PCP Requested Referral 12/12/2022 12/12/2023 1 1 Specialty Diagnoses / Procedures Referred By Contac t Referred To Contact [facility] Diagnoses Secondary lymphedema Procedures CONSULT TO LYMPHEDEMA THERAPY OFFICE/OUTPATIENT [facility] 60-74 MINUTES Karyna Corona, DO [address] [place] [address] [facility] [place] [address] [place] [address] Referral ID Status Reason Start Date Expiration Date Visits Requested Visits Authorized [id number] Authorized Auto-Generat ed Referral 05/21/2023 05/20/2024 1 [...] DATE CREATED AUTHOR AUTHOR'S ORGANIZ ATION 06/15/2023 [facility] Source Comments (unrecognize d section and content) In the event this informatio n is protected by the Federal Confidentiality of Alcohol and Drug Abuse Patient Records regulations: The Federal rules restrict any use of the information to criminally investigate or prosecute any alcohol or drug abuse patient.[facility] the event this information is protected by the Federal Confidentiality of Alcohol and Drug Abuse Patient Records regulations: The Federal rules restrict any use of the information to criminally investigate or prosecute any alcohol or drug abuse patient.[facility] the event this information is protected by the Federal Confidentiality of Alcohol and Drug Abuse Patient Records regulations: The Federal rules restrict any use of the information to criminally investigate or prosecute any alcohol or drug abuse patient.[facility] the event this information is protected by the Federal Confidentiality of Alcohol and Drug Abuse Patient Records regulations: The Federal rules restrict any use of the information to criminally investigate or prosecute any alcohol or drug abuse patient.[facility] CenterIn the event this information is protected by the Federal Confidentiality of Alcohol and Drug Abuse Patient Records regulations: The Federal rules restrict any use of the information to criminally investigate or prosecute any alcohol or drug abuse patient.[facility] CenterIn the event this information is protected by the Federal Confidentiality of Alcohol and Drug Abuse Patient Records regulations: The Federal rules restrict any use of the information to criminally investigate or prosecute any alcohol or drug abuse patient.[facility] CenterIn the event this information is protected by the Federal Confidentiality of Alcohol and Drug Abuse Patient Records regulations: The Federal rules restrict any use of the information to criminally investigate or prosecute any alcohol or drug abuse patient.[facility] CenterIn the event this information is protected by the Federal Confidentiality of Alcohol and Drug Abuse Patient Records regulations: The Federal rules restrict any use of the information to criminally investigate or prosecute any alcohol or drug abuse patient.[facility] CenterIn the event this information is protected by the Federal Confidentiality of Alcohol and Drug Abuse Patient Records regulations: The Federal rules restrict any use of the information to criminally investigate or prosecute any alcohol or drug abuse patient.[facility] CenterIn the event this information is protected by the Federal Confidentiality of Alcohol and Drug Abuse Patient Records regulations: The Federal rules restrict any use of the information to criminally investigate or prosecute any alcohol or drug abuse patient.[facility] CenterIn the event this information is protected by the Federal Confidentiality of Alcohol and Drug Abuse Patient Records regulations: The Federal rules restrict any use of the information to criminally investigate or prosecute any alcohol or drug abuse patient.[facility] CenterIn the event this information is protected by the Federal Confidentiality of Alcohol and Drug Abuse Patient Records regulations: The Federal rules restrict any use of the information to criminally investigate or prosecute any alcohol or drug abuse patient.[facility] CenterIn the event this information is protected by the Federal Confidentiality of Alcohol and Drug Abuse Patient Records regulations: The Federal rules restrict any use of the information to criminally investigate or prosecute any alcohol or drug abuse patient.[facility] CenterIn the event this information is protected by the Federal Confidentiality of Alcohol and Drug Abuse Patient Records regulations: The Federal rules restrict any use of the information to criminally investigate or prosecute any alcohol or drug abuse patient.[facility] CenterIn the event this information is protected by the Federal Confidentiality of Alcohol and Drug Abuse Patient Records regulations: The Federal rules restrict any use of the information to criminally investigate or prosecute any alcohol or drug abuse patient.[facility] CenterIn the event this information is protected by the Federal Confidentiality of Alcohol and Drug Abuse Patient Records regulations: The Federal rules restrict any use of the information to criminally investigate or prosecute any alcohol or drug abuse patient.[facility] CenterIn the event this information is protected by the Federal Confidentiality of Alcohol and Drug Abuse Patient Records regulations: The Federal rules restrict any use of the information to criminally investigate or prosecute any alcohol or drug abuse patient.[facility] CenterIn the event this information is protected by the Federal Confidentiality of Alcohol and Drug Abuse Patient Records regulations: The Federal rules restrict any use of the information to criminally investigate or prosecute any alcohol or drug abuse patient.[facility] CenterIn the event this information is protected by the Federal Confidentiality of Alcohol and Drug Abuse Patient Records regulations: The Federal rules restrict any use of the information to criminally investigate or prosecute any alcohol or drug abuse patient.[facility] CenterIn the event this information is protected by the Federal Confidentiality of Alcohol and Drug Abuse Patient Records regulations: The Federal rules restrict any use of the information to criminally investigate or prosecute any alcohol or drug abuse patient.[facility] CenterIn the event this information is protected by the Federal Confidentiality of Alcohol and Drug Abuse Patient Records regulations: The Federal rules restrict any use of the information to criminally investigate or prosecute any alcohol or drug abuse patient.[facility] CenterIn the event this information is protected by the Federal Confidentiality of Alcohol and Drug Abuse Patient Records regulations: The Federal rules restrict any use of the information to criminally investigate or prosecute any alcohol or drug abuse patient.[facility] CenterIn the event this information is protected by the Federal Confidentiality of Alcohol and Drug Abuse Patient Records regulations: The Federal rules restrict any use of the information to criminally investigate or prosecute any alcohol or drug abuse patient.[facility] CenterIn the event this information is protected by the Federal Confidentiality of Alcohol and Drug Abuse Patient Records regulations: The Federal rules restrict any use of the information to criminally investigate or prosecute any alcohol or drug abuse patient.[facility] CenterIn the event this information is protected by the Federal Confidentiality of Alcohol and Drug Abuse Patient Records regulations: The Federal rules restrict any use of the information to criminally investigate or prosecute any alcohol or drug abuse patient.[facility] CenterIn the event this information is protected by the Federal Confidentiality of Alcohol and Drug Abuse Patient Records regulations: The Federal rules restrict any use of the information to criminally investigate or prosecute any alcohol or drug abuse patient.[facility] CenterIn the event this information is protected by the Federal Confidentiality of Alcohol and Drug Abuse Patient Records regulations: The Federal rules restrict any use of the information to criminally investigate or prosecute any alcohol or drug abuse patient.[facility] CenterIn the event this information is protected by the Federal Confidentiality of Alcohol and Drug Abuse Patient Records regulations: The Federal rules restrict any use of the information to criminally investigate or prosecute any alcohol or drug abuse patient.[facility] CenterIn the event this information is protected by the Federal Confidentiality of Alcohol and Drug Abuse Patient Records regulations: The Federal rules restrict any use of the information to criminally investigate or prosecute any alcohol or drug abuse patient.[facility] CenterIn the event this information is protected by the Federal Confidentiality of Alcohol and Drug Abuse Patient Records regulations: The Federal rules restrict any use of the information to criminally investigate or prosecute any alcohol or drug abuse patient.[facility] CenterIn the event this information is protected by the Federal Confidentiality of Alcohol and Drug Abuse Patient Records regulations: The Federal rules restrict any use of the information to criminally investigate or prosecute any alcohol or drug abuse patient.[facility] CenterIn the event this information is protected by the Federal Confidentiality of Alcohol and Drug Abuse Patient Records regulations: The Federal rules restrict any use of the information to criminally investigate or prosecute any alcohol or drug abuse patient.[facility] CenterIn the event this information is protected by the Federal Confidentiality of Alcohol and Drug Abuse Patient Records regulations: The Federal rules restrict any use of the information to criminally investigate or prosecute any alcohol or drug abuse patient.[facility] CenterIn the event this information is protected by the Federal Confidentiality of Alcohol and Drug Abuse Patient Records regulations: The Federal rules restrict any use of the information to criminally investigate or prosecute any alcohol or drug abuse patient.[facility] CenterIn the event this information is protected by the Federal Confidentiality of Alcohol and Drug Abuse Patient Records regulations: The Federal rules restrict any use of the information to criminally investigate or prosecute any alcohol or drug abuse patient.[facility] CenterIn the event this information is protected by the Federal Confidentiality of Alcohol and Drug Abuse Patient Records regulations: The Federal rules restrict any use of the information to criminally investigate or prosecute any alcohol or drug abuse patient.[facility] Reason for Visit (unrecogniz ed section and [...] colon Procedures CONSULT TO GENERAL SURGERY OFFICE/OUTPATIENT [facility] 60-74 MINUTES Logan Valdes MD [address] [place] [id number] Referral ID Status Reason Start Date Expiration Date V isits Requested Visits Authorized [id number] Closed PCP Requested Referral 03/23/2022 03/23/2023 1 [...] (HCC) Procedures CONSULT TO VASCULAR MEDICINE OFFICE/OUTPATIENT [facility] 60-74 MINUTES Gus Silva APRN.MELINDA [address] [place] [address] Referral ID Status Reason Start Date Expiration Date V isits Requested Visits Authorized [id number] Closed PCP Requested Referral 12/12/2022 12/12/2023 1 [...] Care Teams (unrecognized sec tion and content) Shoe Planner Relationship Specialty Start Date End Date Logan Valdes MD [address] [place] [address] PCP - General Internal Medicine 05/24/16 Shoe Planner Relationship Specialty Start Date End Date Logan Valdes MD [address] [place] [address] PCP - General Internal Medicine 05/24/16 Shoe Planner Relationship Specialty Start Date End Date Logan Valdes MD [address] [place] [address] PCP - General Internal Medicine 05/24/16 Shoe Planner Relationship Specialty Start Date End Date Logan Valdes MD [address] [place] [address] PCP - General Internal Medicine 05/24/16 Shoe Planner Relationship Specialty Start Date End Date Logan Valdes MD [address] [place] [address] PCP - General Internal Medicine 05/24/16 Shoe Planner Relationship Specialty Start Date End Date Logan Valdes MD [address] [place] [address] PCP - General Internal Medicine 05/24/16 Shoe Planner Relationship Specialty Start Date End Date Logan Valdes MD [address] [place] [address] PCP - General Internal Medicine 05/24/16 Shoe Planner Relationship Specialty Start Date End Date Logan Valdes MD [address] [facility] [place] [address] PCP - General Internal Medicine 05/24/16 Shoe Planner Relationship Specialty Start Date End Date Logan Valdes MD [address] [facility] [place] [address] PCP - General Internal Medicine 05/24/16 Shoe Planner Relationship Specialty Start Date End Date Logan Valdes MD [address] [facility] [place] [address] PCP - General Internal Medicine 05/24/16 Shoe Planner Relationship Specialty Start Date End Date Logan Valdes MD [address] [facility] [place] [address] PCP - General Internal Medicine 05/24/16 Shoe Planner Relationship Specialty Start Date End Date Logan Valdes MD [address] [facility] [place] [address] PCP - General Internal Medicine 05/24/16 Shoe Planner Relationship Specialty Start Date End Date Logan Valdes MD [address] [facility] [place] [address] PCP - General Internal Medicine 05/24/16 Shoe Planner Relationship Specialty Start Date End Date Logan Valdes MD [address] [facility] [place] [address] PCP - General Internal Medicine 05/24/16 Shoe Planner Relationship Specialty Start Date End Date Logan Valdes MD [address] [facility] [place] [address] PCP - General Internal Medicine 05/24/16 Shoe Planner Relationship Specialty Start Date End Date Logan Valdse MD [address] [facility] [place] [address] PCP - General Internal Medicine 05/24/16 Shoe Planner Relationship Specialty Start Date End Date Logan Valdes MD [address] [place] [address] PCP - General Internal Medicine 05/24/16 Shoe Planner Relationship Specialty Start Date End Date Logan Valdes MD [address] [facility] [place] [address] PCP - General Internal Medicine 05/24/16 Shoe Planner Relationship Specialty Start Date End Date Logan Valdes MD [address] [facility] [place] [address] PCP - General Internal Medicine 05/24/16 Shoe Planner Relationship Specialty Start Date End Date Logan Valdes MD [address] [facility] [place] [address] PCP - General Internal Medicine 05/24/16 Shoe Planner Relationship Specialty Start Date End Date Logan Valdes MD [address] [facility] [place] [address] PCP - General Internal Medicine 05/24/16 Shoe Planner Relationship Specialty Start Date End Date Logan Valdes MD [address] [facility] [place] [address] PCP - General Internal Medicine 05/24/16 Shoe Planner Relationship Specialty Start Date End Date Logan Valdse MD [address] [facility] [place] [address] PCP - General Internal Medicine 05/24/16 Shoe Planner Relationship Specialty Start Date End Date Logan Valdes MD [address] [place] [address] PCP - General Internal Medicine 05/24/16 FOR [...] BE BASED ON THE PRIMARY CLINICAL RECORDS. [employer] provides no warranty or guarantee of the accuracy or completeness of information in this document.
--- NOTE | 2023-08-02 16:48 | DCINST_ITS ---
Discharge Instructions Diet Discharge Diet: Low fat / Low cholesterol Activity Discharge Activity: Return to Normal Activity Dressing / Incision Call your doctor if your incision/area has: Continuous Slow Oozing, Sudden Increased Bleeding, Increased Pain/ Swelling, Increased Redness, Foul Smelling Discharge and Swelling at the incision site Follow Up Care Test Results: Test results from this visit will be discussed in further detail at your follow- up appointment, if applicable. Discharge Plan Admission Admit Date/Time: 08/02/23 13:48 Primary Reason for Your Visit: PCI Attending Provider: Doug Hines Primary Care Provider: Logan Aquino Instructions Additional Instructions / Restrictions: do not lift anything greater than 10 pounds for 3 days. You will be referred to cardiac rehab. You were started on Brilinta. This is an antiplatelet to keep your stent open. You cannot stop this for any reason for at least 1 year. If Brilinta is too expensive please call our office and let us know before your Brilinta prescription runs out. We then can consider a different prescription. You should be able to use a 30-day free card for the Brilinta this time. Our office will be calling you for a follow-up appointment next week your appointment will be scheduled within a month. Discharge Orders/Prescriptions Prescriptions: New Brilinta 90 mg Tablet 90 mg PO BID Qty: 60 11RF potassium chloride 20 mEq tablet extended release 20 meq PO DAILY Qty: 30 0RF Continued carvedilol 25 mg tablet 25 mg PO BID Patient Comments: take 1 tablet by mouth twice a day ibuprofen 600 mg tablet 600 mg PO Q8H PRN (Reason: pain) Patient Comments: take 1 tablet by mouth every 8 hours NEEDED FOR PAIN losartan 100 mg tablet 100 mg PO DAILY ipratropium bromide 42 mcg (0.06 %) spray,non-aerosol 2 spray intranasal TID PRN (Reason: allergy symptoms) Patient Comments: instill 2 sprays three times a day if needed for nasal congestion atorvastatin 10 mg tablet 10 mg PO DAILY furosemide 40 mg tablet 40 mg PO BID Qty: 180 3RF aspirin [Adult Aspirin Regimen] 81 mg tablet,delayed release (DR/EC) 81 mg PO DAILY Qty: 90 3RF Referrals / Follow Up: Doug Hines MD [Med Staff - Active Staff] - Within 2 Weeks Logan Aquino MD [Primary Care Provider] - Disposition Disposition (needs filled in before D/C Order can be placed): Home, Self Care
[2023-08-02] MEDS: Furosemide 40 MG Tablet PO (17:39)
[2023-08-02 20:30] VITALS: BP 136/76; PULSE 70; RESP 16; TEMP 36.5; O2SAT 99
[2023-08-02 22:12] VITALS: BP 132/78; PULSE 69; RESP 16; TEMP 36.7; O2SAT 97
[2023-08-02] MEDS: Carvedilol 25 MG Tablet PO (22:15)
[2023-08-02] MEDS: Atorvastatin Calcium 10 MG Tablet PO (22:15)
[2023-08-03 03:51] VITALS: BP 127/80; PULSE 69; RESP 16; TEMP 36.7; O2SAT 96
[2023-08-03 06:43] LABS: Hematocrit 41.7 % (40-54); Hemoglobin 13.9 g/dL (13.0-16.5); Mean Corp Hgb Conc 33.3 g/dL (32-36); Mean Corpuscular Hgb 32.5 pg (27.0-32.0); Mean Corpuscular Volume 97.4 fL (80-94); Mean Platelet Vol. 9.2 fl (6.2-12.0); Platelet Count 215 K/mm3 (150-450); RBC Distribution Width CV 13.1 % (11.6-14.6); Red Blood Count 4.28 M/mm3 (4.6-6.2); White Blood Count 8.4 K/mm3 (4.4-11.0)
[2023-08-03 07:16] LABS: ALB/GLOB Ratio 0.8 RATIO (0.9-2.4); AST(SGOT) 25 U/L (15-37); Alanine Aminotransfer ALT/SGPT 25 U/L (16-61); Albumin, Serum 3.3 g/dL (3.2-5.0); Alkaline Phosphatase 93 U/L (45-117); Anion Gap 7 (5-15); BUN 22 mg/dL (7-18); BUN/Creat Ratio 16.8 RATIO (10-20); Calcium,Total 9.3 mg/dL (8.5-10.1); Chloride 106 mmol/L (98-107); Creatinine, Serum 1.31 mg/dL (0.70-1.30); EST Glomerular Filtration Rate 57 mL/min (>60); Est Glom Filt Rate - Afr Amer 69 mL/min (>60); Estimated Creatinine Clearance 73.03 ml/min; Globulin 3.9 g/dL (2.2-4.2); Glucose 138 mg/dL (74-106); Potassium 3.1 mmol/L (3.5-5.1); Protein, Total 7.2 g/dL (6.4-8.2); Sodium Level 139 mmol/L (136-145)
[2023-08-03 07:40] VITALS: O2SAT 96
[2023-08-03 09:10] VITALS: BP 122/81; PULSE 66; RESP 18; TEMP 36.5; O2SAT 99
[2023-08-03] MEDS: Furosemide 40 MG Tablet PO (09:11)
[2023-08-03] MEDS: Aspirin E.C. 81 MG Tablet PO (09:11)
[2023-08-03] MEDS: Carvedilol 25 MG Tablet PO (09:11)
[2023-08-03] MEDS: Losartan Potassium 100 MG Tablet PO (09:11)
[2023-08-03] MEDS: Potassium Chloride Oral Tablet 20 MEQ 40 MEQ PO (10:55)
[2023-08-03 14:59] VITALS: BP 110/65; PULSE 65; RESP 18; TEMP 36.6; O2SAT 98
--- NOTE | 2023-08-03 15:14 | CASEMGMT ---
GURVINDER BELTRÁN in to complete ALVARADO Form. RN JEREL explained ALVARADO Form, patient voiced understanding. Patient signed ALVARADO Form and filed in chart. Patient provided copy of signed ALVARADO Form. Patient had no further questions or concerns.
== END 2023-08-03 14:51 | disposition home or self-care (01) ==
LOC: PCU 14:30
PROVIDERS: Internal Medicine Interventional Cardiology; Admitting Provider Internal Medicine Cardiovascular Disease; PCP Internal Medicine; Referring Provider Internal Medicine Cardiovascular Disease; Visit Provider Internal Medicine Cardiovascular Disease
DX: I25.119 Atherosclerotic heart disease of native coronary artery with unspecified angina pectoris (principal); I10 Essential (primary) hypertension; R60.0 Localized edema; Z79.899 Other long term (current) drug therapy; G47.33 Obstructive sleep apnea (adult) (pediatric); E78.5 Hyperlipidemia, unspecified
CPT/HCPCS: 36415; 80053; 85027; 85347; 92928; 93005; 93454; 99152; 99153; 99221; J7040; Q9967; C1725; C1769; C1874; C1887; C1894; C9600; G0378

== ENCOUNTER → 2023-08-21 | Outpatient (CLI) | payer MEDICARE, SELFPAY ==
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
--- NOTE | 2023-08-21 13:01 | CR.ITP_ITS ---
Diagnosis General Information Admitting Diagnosis: PCI with stent Personal Learning Style:: Audio/Visual Stage of change r/t lifestyle modifications:: Contemplation Gave educational material for:: Treating Heart Disease, How The Heart Works, What it means to have Heart Disease, How Coronary Artery Disease is Diagnosed, Heart Procedures, What Heart Medications Do, Risk Factors & Modifications, Living an Active Life, Nutrition, Emotions & Heart Disease, Stress Management & Relaxation and Sleep Disorders & Heart Disease Diagnosis & Disease Process Outcomes/Goals: Pt IDs own risk factors & lifestyle modifications by Session 10, Verbalizes symptoms of angina & response by session 3., Pt independently manages and Other Additional Outcomes/Goals: Plan/Interventions: Assist Pt to ID & engage in lifestyle modification to reduce CVD risk, Instruct on individual risk factors, Review symptoms of angina & emergency actions, Review secondary diagnosis & identify educational needs. and Other see comment 30 day Reassessments:: Not Met 30 day Reassessments:: Not Met 30 day Reassessments:: Not Met 30 day Reassessments:: Not Met Final Reassessments:: Not Met Safety Referral to Physical Therapy: No Referral to [facility] [place] Case Management: No Fall Risk Assessed:: Yes Assistive Devices:: None Exercise - Initial Assessment Visit Date of Eval: 08/21/23 (initial eval ) Mets: Pre-: >3 METS for 30 minutes by discharge, >5 METS for 30 minutes by disch arge, >7 METS for 30 minutes by discharge and Unable to meet goal due to: (see comment below) Physician Prescribed Exercise Modalities: Treadmill, Rower, Airdyne, NuStep, SciFit and Lateral [place] Frequency: 3x/week for 12 weeks [36 sessions] Intensity: 60-80% of age predicted maximum heart rate reserve Duration: 30 - 45 minutes Current METSs:: 3 Target Heart Rate:: 87-102 Resting Blood Pressure: 114/74 EKG Type: NSR with 1st degree AV block Outcomes & Goals Goals:: Verbalizes understanding of THR, RPE & goal METS by session 6, Documents in home exercise log/reports 30 min aerobic 5 day/wk by DC, Demonstrates accurate pulse taking by DC and Other additional outcome/goals: see below Intervention & Plan Exercise Program Goals: Instruct on personal THR & RPE, Instruct on MET level & personal MET goal, Show patient to take own pulse /validate performance until accurate, Instruct on home exercise and Other additional plan/int Physical Activity Home Exercise Physical Activity - Home Exercise: Safe Exercise, Warm-up, Self-monitoring, Cool-Down, Home Exercise > 30 min Daily and Sitting Time <3 hours/daily Outcomes & Goals Outcomes/Goals: Demonstrates correct Warm-up/exercise Cool-Down (S3) if = 2.5 METs, Verbalizes symptoms of exercise intolerance by Session 3 (S3), Demonstrate safe equipment use (S3) & follows exercise prescrition (6) and Other: See below Intervention & Plan Plan/Intervention: Instruct warm-up & cool-down if exercising at > 2 METs, Instruct on symptoms of exercise intolerance & actions to take, Instruct & monitor on saf, Assess intial functional capacity & safety risk and Other See below Nutrition - Initial Assessment Program Goals Nutrition Program Goals Patient has diagnosis of Hyperlipidemia (ICD E78)?: Yes Visit Date of Eval: 08/21/23 (initial eval ) Cholesterol/Lipids (Other Core Measures) Determine presence & major risk factors that modify LDL goal: Cigarette smoking, Hypertension or hypertensive medication, Low HDL cholesterol <40 mg/dL*, Family history of premature CHD in Male < 55 years: female <65 yearsFa and Age men > 45 years; women >/= 55 years Outcomes/Goals: Pt IDs own risk factors & lifestyle modifications by Session 10, Verbalizes symptoms of angina & response by session 3., Pt independently manages and Other Additional Outcomes/Goals: Intervention/Plan: Advocate for lipid panel cholesterol medication if applicable, Instruct on personal lipid levels & lipid goals/NCEP guidelines, Instruct on cholesterol and Other additional plan/int Referral to dietitian:: No Diabetes (Other Core Measures) Diabetes Type: Not Applicable Weight Mgt (Other Care) Height: 6 ft 1 in Weight:: 291 lb BMI: 38.4 Diagnosis Overweight/Obesity BMI> 30% ICD-10 E66: Yes Diagnosis High BMI/Morbid Obesity BMI> 35% ICD-10 Z68: Yes Outcomes/Goals: Pt sets, maintains & shows weight loss goal & trend during rehab and Other additional outcomes/goals Intervention/Plan: Instruct on ideal BMI & set weight loss goal w/patient, Assist pt to ID & incorporate diet changes for weight loss by S9, Refer to Structured Weight Loss program as appropriate, Encourage goal of using 250- 300dcal per session for weight loss and Other additional plan/interventions Healthy Eating Habits Will attend diet classes:: Yes Outcomes/Goals:: Consume diet rich in vegs,fruits,whole grain/high fiber,fish,lean meat, Limit sat/trans fats,cholesterol & added salts & sugars and Other additional outcome/goals: Intervention/Plan:: Assess current eating habits and Other Additional plan/interventions Education Gave educational materials for:: Signs & symptoms of hypoglycemia, Signs & symptoms of hyperglycemia, Relate diabetes to coronary artery disease and Healt hy eating Core - Initial Assessment Visit Date of Eval: 08/21/23 (initial eval ) Medication Compliance Preventative Medication(s):: Aspirin, Ticagrelor/P2Y12 inhibitor, Statin/lipid and Beta tamera H/O mental health issues: depression, anxiety, or addiction?: No Doesn?t believe in the benefits of treatment?: No Believes medications are unnecessary or harmful?: No Has a concern about medication side effects?: No Expresses concern over the cost of medications?: No Outcomes/Goals: Verbalizes medications,desired effect & common side effects @ DC, Pt self-reports following medication regimen, Keeps card in wallet w/medications listed by DC and Other additional outcome/goals: Interventions/plans: Instruct on medication effects & side effects, Review medication list w/patient every two weeks, Instruct importance of taking meds as ordered & assist problem solving and Other additional Tobacco Use Tobacco Use: Non-smoker Hypertension Hypertension Diagnosis:: Hypertension ICD-10 I10 Resting Blood Pressure:: 114/74 [place] [employer] Hypertension Guidelines Outcomes/Goals: Able to verbalize/achieve optimal blood pressure <130/80, Incorporates diet changes & exercise for blood pressure control by DC and Other additional outcomes/goals Interventions/plan: Instruct on optimal blood pressure, hypertension & medications, Instruct on effects of sodium, alcohol, stress, exercise &hypertension and Other additional plan/interventions Tobacco Cessation Referral Smoking Cessation Referral:: No Individual Education/Counseling:: No Education Schedule Given:: Yes Psychosocial - Initial Assess VIsit Date of Eval: 08/21/23 (initial eval ) History of previous Mental disease:: No Target Goals Target Goals Outcomes/Goals: See list Psychosocial Outcomes/Goals:: ID's personal stressors & 2 strategies to manage stress by discharge and Other Additional outcome/goals: Intervention/Plan: See List Interventions/Plan:: Assess stressors,coping strategies & signs of derpression on admission, Instruct/assist pt to develop coping & personal stress Mgt strategies, Refer to Behavioral Health if appropriate, Refer to Physician if appropriate, Instruct patient to recognize signs & symptoms of depression, Instruct patient to recog and Other additional plan/intervention Patient Health Questionnaire PHQ-9 Screening Initial Assessment: 1. Little interest or pleasure in doing things: Not at all 2. Feeling down, depressed, or hopeless: Not at all 3. Trouble falling or staying asleep, or sleeping too much: Not at all 4. Feeling tired or having little energy: Not at all 5. Poor appetite or overeating: Not at all 6. Feeling bad about yourself -- or that you are a failure or have let yourself or your family down: Not at all 7. Trouble concentrating on things, such as reading the newspaper or watching television: Not at all 8. Moving or speaking so slowly that other people could have noticed. Or the opposite - being so fidgety or restless that you have been moving around a lot more than usual: Not at all 9. Thoughts that you would be better off , or of hurting yourself in some way: Not at all How difficult have these problems made it for you to do your work, take care of things at home, or get along with other people?: Not difficult at all Total Score: 0 XI-Q SV Test Statements CAD is a disease of the arteries in the heart: False Examples of risk factors for heart disease: True Angina is chest pain or discomfort: I Don't Know The benefits of resistance training include: True Eating more meat and dairy products: I Don't Know Anti-platelet medications such as aspirin are important: I Don't Know The only effective way to manage stress: False An exercise warm-up slowly increases heart rate: I Don't Know Prepared, processed foods usually have high sodium: True Depression is common after a heart attack: I Don't Know The statin medications lower cholesterol: True To control blood pressure, lower the amount of sodium: I Don't Know If someone gets chest discomfort during walking: False Transfats are partially hydrogenated vegetable oils: True Sleep apnea that is not treated increases the risk: I Don't Know To control cholesterol, one should become a vegetarian: False Someone knows if he/she is exercising at the right level: I Don't Know Diabetes cannot be prevented with exercise & health eating: True Stress is a large risk for heart attack: True A diet that can help lower blood pressure is rich in: I Don't Know Total Score Total Correct Responses: 10 Self-Efficacy 6-Item Scale Initial Assessment: We would like to know how confident you are in doing certain activities. Please select your confidence level for: Fatigue Select Number: 9 Physical Discomfort or Pain Select Number: 9 Emotional Distress Select Number: 9 Other Symptoms or Health Problems Select Number: 9 Different Tasks and Activities Select Number: 8 Medication Select Number: 9 Total Score:: 8 Nutrition Survey Nutrition Survey Instructions Scoring Instructions Nutrition Survey Initial: Have you lost >10 lbs over the past 2 months without trying?: Yes Are you following a special diet at home for diabetes, low fat, or low salt?: No Are you interested in meeting with a dietitian for help understanding your diet?: No Do you eat less than 3 meals a day?: No Do you eat fatty meats (garces, sausage, ribs, etc), fried foods, desserts, large amounts of salad dressings, margarine, butter, or cheese most days?: Yes Do you have food allergies? [Enter types in comment field]: No Do you eat in restaurants more than 3 times a week?: No Do you season food with salt, seasoning salt, or garlic salt?: No Do you used canned, boxed, frozen meals, or soups, seasoning packets?: No Total Score:: 2 Exercise - Final/Discharge Physician Prescribed Exercise Modalities: Treadmill, Rower, Airdyne, NuStep, SciFit and Lateral [place] Frequency: 3x/week for 12 weeks [36 sessions] Intensity: 60-80% of age predicted maximum heart rate reserve Current METSs:: 3 Target Heart Rate:: 87-102 Nutrition - 30-Day Assessment Weight Mgt (Other Care) Height: 6 ft 1 in Weight:: 291 lb BMI: 38.4 Nutrition - 60-Day Assessment Weight Mgt (Other Care) Height: 6 ft 1 in Weight:: 291 lb BMI: 38.4 Core - Final Assessment Hypertension Resting Blood Pressure:: 114/74 [place] [employer] Hypertension Guidelines Core - 60-Day Assessment Hypertension Resting Blood Pressure:: 114/74 [place] [employer] Hypertension Guidelines Psychosocial - 30-Day Assess Target Goals Target Goals Psychosocial - 60-Day Assess Target Goals Target Goals Psychosocial - 90-Day Assess Target Goals Target Goals Psychosocial - Final Assessmen Target Goals Target Goals Nutrition - 90-Day Assessment Weight Mgt (Other Care) Height: 6 ft 1 in Weight:: 291 lb BMI: 38.4 Nutrition - Final Assessment Program Goals Patient has diagnosis of Hyperlipidemia (ICD E78)?: Yes Weight Mgt (Other Care) Height: 6 ft 1 in Weight:: 291 lb BMI: 38.4
[2023-08-21 13:20] VITALS: PULSE 68; O2SAT 96
[2023-08-21 13:24] VITALS: BP 114/74; BMI 38.4
[2023-08-21 13:50] VITALS: BP 114/74
[2023-08-21 13:51] VITALS: BMI 38.4
== END | disposition home or self-care (01) ==
LOC: CR 12:49
PROVIDERS: PCP Internal Medicine; Referring Provider Internal Medicine Cardiovascular Disease; Visit Provider Internal Medicine Cardiovascular Disease
DX: Z95.5 Presence of coronary angioplasty implant and graft (principal)

== ENCOUNTER → 2023-08-26 | Outpatient (CLI) | payer MEDICARE, SELFPAY ==
[2023-08-21 13:24] VITALS: BMI 38.4
[2023-08-26 10:50] LABS: Anion Gap 6 (5-15); BUN 49 mg/dL (7-18); BUN/Creat Ratio 27.7 RATIO (10-20); Calcium,Total 9.3 mg/dL (8.5-10.1); Chloride 109 mmol/L (98-107); Creatinine, Serum 1.77 mg/dL (0.70-1.30); EST Glomerular Filtration Rate 40 mL/min (>60); Est Glom Filt Rate - Afr Amer 49 mL/min (>60); Glucose 129 mg/dL (74-106); Potassium 4.6 mmol/L (3.5-5.1); Sodium Level 140 mmol/L (136-145)
== END | disposition home or self-care (01) ==
PROVIDERS: PCP Internal Medicine; Referring Provider Physician Assistant Medical; Visit Provider Physician Assistant Medical
DX: I10 Essential (primary) hypertension (principal)
CPT/HCPCS: 36415; 80048

== ENCOUNTER → 2023-09-23 | Outpatient (CLI) | payer MEDICARE, SELFPAY ==
[2023-08-21 13:24] VITALS: BMI 38.4
--- OUTSIDE RECORDS SUMMARY | 2023-09-23 07:46 | XMS RPT_ITS | CCD ---
Author Name Unknown Address [address] [place] [address] Organization [facility] Care Team Providers Care Language Arts Teacher Name Role Phone Keisha AGUILERA, Logan Figueredo Primary Care Provider LOGAN VALDES Primary Care Unavailable CODI RIVERA Referring Unavailable LOGAN VALDES Primary Care Unavailable LOGAN VALDES Referring Unavailable LOGAN VALDES Primary Care Unavailable LOGAN VALDES Referring Unavailable LOGAN VALDES Attending Unavailable LOGAN VALDES Primary Care Unavailable CODI RIVERA Attending Unavailable CODI RIVERA Attending Unavailable LOGAN VALDES Primary Care Unavailable LOGAN VALDES Primary Care Unavailable CODI RIVERA Referring Unavailable LOGAN VALDES Primary Care Unavailable TESTFOUZIA RAJAN Referring Unavailable TESTSATINDER, FOUZIA Attending Unavailable CODI RIVERA Attending Unavailable LOGAN VALDES Primary Care Unavailable LOGAN VALDES Primary Care Unavailable KAM REIS Attending Unavailable KARYNA CORONA Referring Unavailable KEISHA, LOGAN Figueredo Primary Care Unavailable KARYNA CORONA Referring Unavailable KARYNA CORONA Attending Unavailable LOGAN VALDES Primary Care Unavailable KARYNA CORONA Referring Unavailable KARYNA CORONA Attending Unavailable LOGAN VALDES Primary Care Unavailable LOGAN VALDES Attending Unavailable LOGAN VALDES Primary Care Unavailable TESTFOUZIA RAJAN Referring Unavailable TESTSATINDER, FOUZIA Attending Unavailable LOGAN VALDES Primary Care Unavailable TESTFOUZIA RAJAN Referring Unavailable JL HART Attending Unavailable KEISHA, LOGAN Figueredo Primary Care Unavailable KARYNA CORONA Attending Unavailable GUS SILVA Referring Unavailable CODI RIVERA Attending Unavailable LOGAN VALDES Primary Care Unavailable LOGAN VALDES Primary Care Unavailable FOUZIA CORREIA Attending Unavailable KEISHA, MARIA L Primary Care Unavailable GUS SILVA Attending Unavailable KEISHA, MARIA L Primary Care Unavailable CODI RIVERA Referring Unavailable KEISHA, LOGAN Figueredo Primary Care Unavailable KARYNA CORONA Referring Unavailable KEISHA, LOGAN Figueredo Primary Care Unavailable KARYNA CORONA Referring Unavailable KEISHA, MARIA L Primary Care Unavailable FOUZIA CORREIA Attending Unavailable Medications Current Medications Medication Drug Class(es) [...] Drug Class(es) Dates Sig (Normalized) Sig (Original) aspirin 81 mg oral tablet (1 source) Platelet Aggregation Inhibitor, Nonsteroidal Anti-inflammatory Drug take 81 mg by mouth once daily ASPIRIN ORAL Take 81 mg by mouth once daily. 0 Active Problems Active Problems Problem Classification Problem [...] to breakdown of skin] Onset: 11-30-2022 Chronic Coronary atherosclerosis and other heart disease (1 source) Coronary arteriosclerosis; Translations: [Atherosclerotic heart disease of [place] coronary artery without angina pectoris] Onset: 08-02-2023 08-08-2023 Chronic Coronary atherosclerosis and other heart disease (1 source) Stented coronary artery; Translations: [Presence of coronary angioplasty implant and graft] Onset: 08-02-2023 08-08-2023 Episodic Disorders of lipid metabolism (20 sources) Hyperlipidemia; Translations: [Hyperlipidemia, unspecified] Onset: 06-03-2017 06-03-2017 Chronic Essential hypertension (20 sources) Essential hypertension; Translations: [Essential (primary) hypertension] Onset: 11-03-2015 11-24-2018 Chronic Immunizations and screening for infectious disease (1 source) Needs influenza immunization; Translations: [Encounter for immunization] 04-01-2023 Episodic Mycoses (6 sources) Onychomycosis; Translations: [Tinea unguium] Episodic Open wounds of extremities (1 source) [...] systems] 01-29-2023 Episodic Other connective tissue disease (6 sources) Pain of toe of left foot; Translations: [Pain in left toe(s)] Episodic Other connective tissue disease (6 sources) Pain of toe of right foot; Translations: [Pain in right toe(s)] Episodic Other diseases of veins and lymphatics (15 sources) Chronic peripheral venous hypertension; Translations: [Chronic venous hypertension (idiopathic) with ulcer of unspecified lower extremity] Onset: 11-30-2022 Chronic Other diseases of veins and lymphatics (3 sources) Chronic acquired lymphedema; Translations: [Lymphedema, not elsewhere classified] Onset: 06-12-2023 01-29-2023 Chronic Other diseases of veins and [...] Translations: [Shortness of breath] 05-24-2023 Episodic Other nutritional; endocrine; and metabolic [...] Other Problems Problem Classification Problem Date Documented Date Episodic/Chronic Alcohol-related disorders (20 sources) 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; Translations: [Alcohol use, unspecified with alcohol-induced sleep disorder] Onset: 05-15-2018 05-15-2018 Episodic Diabetes mellitus without complication (20 sources) Impaired fasting glycemia; Translations: [Impaired fasting glucose] Onset: 12-03-2017 12-03-2017 Episodic Malaise and fatigue (2 sources) Fatigue; Translations: [Other fatigue] Onset: 05-24-2023 05-24-2023 Episodic Nonspecific chest pain (4 sources) Chest pain; Translations: [Other chest pain] Onset: 05-24-2023 Episodic Other and unspecified benign neoplasm (20 sources) Benign neoplasm of colon; Translations: [Benign neoplasm of colon, unspecified] Onset: 10-25-2010 10-25-2010 Episodic Other circulatory disease (1 source) Other specified symptoms and signs involving the circulatory and respiratory systems; Translations: [Diminished pulse] Onset: 02-27-2023 Episodic Other diseases of veins and lymphatics (4 sources) Venous insufficiency (chronic) (peripheral); Translations: [Venous (peripheral) insufficiency, unspecified] Onset: 01-29-2023 01-29-2023 Episodic Other lower respiratory disease (1 source) Shortness of breath; Translations: [Shortness of breath] Onset: 05-24-2023 Episodic Other nervous system disorders (20 sources) [...] varicose veins of bilateral lower extremities] Onset: 01-29-2023 Episodic Results Test Name Value Interpretation Reference Range Facil ity Vital Signs Date Time Vital Sign Value Performing Clinician Faci lity 05-24-2023 08:35-0500 Body temperature 98.2 [degF] Codi Older CHIEF ADMINISTRATIVE OFFICER.LICENSE EXAMINER Work Phone: [facility] 05-24-2023 08:35-0500 Body weight 141.52 kg Codi Older CHIEF ADMINISTRATIVE OFFICER.LICENSE EXAMINER Work Phone: [facility] 05-24-2023 08:35-0500 Diastolic blood pressure 82 mm[Hg] Codi Older CHIEF ADMINISTRATIVE OFFICER.LICENSE EXAMINER Work Phone: [facility] 05-24-2023 08:35-0500 Heart rate 126 /min Codi Older CHIEF ADMINISTRATIVE OFFICER.LICENSE EXAMINER Work Phone: [facility] 05-24-2023 08:35-0500 Respiratory rate 18 /min Codi Older CHIEF ADMINISTRATIVE OFFICER.LICENSE EXAMINER Work Phone: [facility] 05-24-2023 08:35-0500 SaO2% (BldA) [Mass fraction] 97 % Codi Older CHIEF ADMINISTRATIVE OFFICER.LICENSE EXAMINER Work Phone: [facility] 05-24-2023 08:35-0500 Systolic blood pressure 158 mm[Hg] Codi Older CHIEF ADMINISTRATIVE OFFICER.LICENSE EXAMINER Work Phone: [facility] 05-21-2023 10:18-0500 Diastolic blood pressure 98 mm[Hg] Karyna Corona DO Work Phone: [facility] 05-21-2023 10:18-0500 Heart rate 77 /min Karyna Corona DO Work Phone: [facility] 05-21-2023 10:18-0500 SaO2% (BldA) [Mass fraction] 97 % Karyna Corona DO Work Phone: [facility] 05-21-2023 10:18-0500 Systolic blood pressure 152 mm[Hg] Karyna Corona DO Work Phone: [facility] 04-01-2023 12:36-0400 Body height 182.9 cm Codi Older CHIEF ADMINISTRATIVE OFFICER.LICENSE EXAMINER Work Phone: [facility] 04-01-2023 12:36-0400 Body temperature 97.7 [degF] Codi Older CHIEF ADMINISTRATIVE OFFICER.LICENSE EXAMINER Work Phone: [facility] 04-01-2023 12:36-0400 Body weight 136.94 kg Codi Older CHIEF ADMINISTRATIVE OFFICER.LICENSE EXAMINER Work Phone: [facility] 04-01-2023 12:36-0400 Diastolic blood pressure 84 mm[Hg] Codi Older CHIEF ADMINISTRATIVE OFFICER.LICENSE EXAMINER Work Phone: [facility] 04-01-2023 12:36-0400 Heart rate 76 /min Codi Older CHIEF ADMINISTRATIVE OFFICER.LICENSE EXAMINER Work Phone: [facility] 04-01-2023 12:36-0400 SaO2% (BldA) [Mass fraction] 99 % Codi Older CHIEF ADMINISTRATIVE OFFICER.LICENSE EXAMINER Work Phone: [facility] 04-01-2023 12:36-0400 Systolic blood pressure 124 mm[Hg] Codi Older CHIEF ADMINISTRATIVE OFFICER.LICENSE EXAMINER Work Phone: [facility] 01-29-2023 08:36-0400 Diastolic blood pressure 78 mm[Hg] Karyna Corona DO Work Phone: [facility] 01-29-2023 08:36-0400 Heart rate 68 /min Karyna Corona DO Work Phone: [facility] 01-29-2023 08:36-0400 SaO2% (BldA) [Mass fraction] 97 % Karyna Corona DO Work Phone: [facility] 01-29-2023 08:36-0400 Systolic blood pressure 120 mm[Hg] Karyna Corona DO Work Phone: [facility] 12-12-2022 10:03-0400 Body weight 137.44 kg Gus Ricardo CHIEF ADMINISTRATIVE OFFICER.LICENSE EXAMINER Work Phone: [facility] 12-12-2022 10:03-0400 Diastolic blood pressure 72 mm[Hg] Gus Ricardo CHIEF ADMINISTRATIVE OFFICER.LICENSE EXAMINER Work Phone: [facility] 12-12-2022 10:03-0400 Heart rate 71 /min Gus Ricardo CHIEF ADMINISTRATIVE OFFICER.LICENSE EXAMINER Work Phone: [facility] 12-12-2022 10:03-0400 SaO2% (BldA) [Mass fraction] 98 % Gus Garciar CHIEF ADMINISTRATIVE OFFICER.LICENSE EXAMINER Work Phone: [facility] 12-12-2022 10:03-0400 Systolic blood pressure 108 mm[Hg] Gus Garciar CHIEF ADMINISTRATIVE OFFICER.LICENSE EXAMINER Work Phone: [facility] 11-07-2022 07:51-0400 Body weight 137.89 kg Codi Older CHIEF ADMINISTRATIVE OFFICER.LICENSE EXAMINER Work Phone: [facility] 11-07-2022 07:51-0400 Diastolic blood pressure 85 mm[Hg] Codi Older CHIEF ADMINISTRATIVE OFFICER.LICENSE EXAMINER Work Phone: [facility] 11-07-2022 07:51-0400 Heart rate 68 /min Codi Older CHIEF ADMINISTRATIVE OFFICER.LICENSE EXAMINER Work Phone: [facility] 11-07-2022 07:51-0400 Respiratory rate 18 /min Codi Older CHIEF ADMINISTRATIVE OFFICER.LICENSE EXAMINER Work Phone: [facility] 11-07-2022 07:51-0400 Systolic blood pressure 142 mm[Hg] Codi Older CHIEF ADMINISTRATIVE OFFICER.LICENSE EXAMINER Work Phone: [facility] 10-31-2022 09:03-0400 Body temperature 97.59 [degF] Codi Older CHIEF ADMINISTRATIVE OFFICER.LICENSE EXAMINER Work Phone: [facility] 10-31-2022 09:03-0400 Body weight 137.44 kg Codi Older CHIEF ADMINISTRATIVE OFFICER.LICENSE EXAMINER Work Phone: [facility] 10-31-2022 09:03-0400 Diastolic blood pressure 72 mm[Hg] Codi Older CHIEF ADMINISTRATIVE OFFICER.LICENSE EXAMINER Work Phone: [facility] 10-31-2022 09:03-0400 Heart rate 82 /min Codi Older CHIEF ADMINISTRATIVE OFFICER.LICENSE EXAMINER Work Phone: [facility] 10-31-2022 09:03-0400 Respiratory rate 20 /min Codi Older CHIEF ADMINISTRATIVE OFFICER.LICENSE EXAMINER Work Phone: [facility] 10-31-2022 09:03-0400 SaO2% (BldA) [Mass fraction] 96 % Codi Older CHIEF ADMINISTRATIVE OFFICER.LICENSE EXAMINER Work Phone: [facility] 10-31-2022 09:03-0400 Systolic blood pressure 132 mm[Hg] Codi Older CHIEF ADMINISTRATIVE OFFICER.LICENSE EXAMINER Work Phone: [facility] 09-20-2022 08:34-0500 Diastolic blood pressure 77 mm[Hg] Logan Valdes MD Work Phone: [facility] 09-20-2022 08:34-0500 Heart rate 73 /min Logan Valdes MD Work Phone: [facility] 09-20-2022 08:34-0500 Systolic blood pressure 136 mm[Hg] Logan Valdes MD Work Phone: [facility] 09-20-2022 08:30-0500 Body weight 140.62 kg Logan Valdes MD Work Phone: [facility] 09-20-2022 08:30-0500 Respiratory rate 24 /min Logan Valdes MD Work Phone: [facility] 07-02-2022 11:00-0500 Diastolic blood pressure 90 mm[Hg] Jl Hart MD Work Phone: [facility] 07-02-2022 11:00-0500 Heart rate 63 /min Jl Hart MD Work Phone: [facility] 07-02-2022 11:00-0500 SaO2% (BldA) [Mass fraction] 96 % Jl Hart MD Work Phone: [facility] 07-02-2022 11:00-0500 Systolic blood pressure 188 mm[Hg] Jl Hart MD Work Phone: [facility] 07-02-2022 10:50-0500 Respiratory rate 16 /min Jl Hart MD Work Phone: [facility] 07-02-2022 09:20-0500 Body temperature 98.1 [degF] Jl Hart MD Work Phone: [facility] 04-11-2022 08:32-0400 Body height 185.4 cm Layne Lyles PA-C Work Phone: [facility] 04-11-2022 08:32-0400 Body temperature 97.81 [degF] Layne Ricardo PA-C Work Phone: [facility] 04-11-2022 08:32-0400 Body weight 137.98 kg Layne Ricardo PA-C Work Phone: [facility] 04-11-2022 08:32-0400 Diastolic blood pressure 82 mm[Hg] Layne Lyles PA-C Work Phone: [facility] 04-11-2022 08:32-0400 Heart rate 78 /min Layne Lyles PA-C Work Phone: [facility] 04-11-2022 08:32-0400 SaO2% (BldA) [Mass fraction] 100 % Layne Lyles PA-C Work Phone: [facility] 04-11-2022 08:32-0400 Systolic blood pressure 134 mm[Hg] Layne Ricardo PA-C Work Phone: [facility] 03-23-2022 09:09-0400 Diastolic blood pressure 80 mm[Hg] Logan Valdes MD Work Phone: [facility] 03-23-2022 09:09-0400 Systolic blood pressure 132 mm[Hg] Logan Valdes MD Work Phone: [facility] 03-23-2022 08:37-0400 Body weight 140.16 kg Logan Valdes MD Work Phone: [facility] 03-23-2022 08:37-0400 Heart rate 64 /min Logan Valdes MD Work Phone: [facility] 03-23-2022 08:37-0400 Respiratory rate 18 /min Logan Valdes MD Work Phone: [facility] 03-23-2022 08:37-0400 SaO2% (BldA) [Mass fraction] 97 % Logan Valdes MD Work Phone: [facility] 01-26-2022 09:36-0400 Body weight 139.25 kg La Tannhof CHIEF ADMINISTRATIVE OFFICER.LICENSE EXAMINER Work Phone: [facility] 01-26-2022 09:36-0400 Diastolic blood pressure 92 mm[Hg] La Tannhof CHIEF ADMINISTRATIVE OFFICER.LICENSE EXAMINER Work Phone: [facility] 01-26-2022 09:36-0400 Heart rate 60 /min La Tannhof CHIEF ADMINISTRATIVE OFFICER.LICENSE EXAMINER Work Phone: [facility] 01-26-2022 09:36-0400 Respiratory rate 20 /min La Tannhof CHIEF ADMINISTRATIVE OFFICER.LICENSE EXAMINER Work Phone: [facility] 01-26-2022 09:36-0400 SaO2% (BldA) [Mass fraction] 100 % La Tannhof CHIEF ADMINISTRATIVE OFFICER.LICENSE EXAMINER Work Phone: [facility] 01-26-2022 09:36-0400 Systolic blood pressure 132 mm[Hg] La Tannhof CHIEF ADMINISTRATIVE OFFICER.LICENSE EXAMINER Work Phone: [facility] 12-27-2021 08:19-0400 Body weight 135.63 kg Codi Older CHIEF ADMINISTRATIVE OFFICER.LICENSE EXAMINER Work Phone: [facility] 12-27-2021 08:19-0400 Diastolic blood pressure 72 mm[Hg] Ocdi Older CHIEF ADMINISTRATIVE OFFICER.LICENSE EXAMINER Work Phone: [facility] 12-27-2021 08:19-0400 Heart rate 88 /min Codi Older CHIEF ADMINISTRATIVE OFFICER.LICENSE EXAMINER Work Phone: [facility] 12-27-2021 08:19-0400 Respiratory rate 20 /min Codi Older CHIEF ADMINISTRATIVE OFFICER.LICENSE EXAMINER Work Phone: [facility] 12-27-2021 08:19-0400 Systolic blood pressure 108 mm[Hg] Codi Older CHIEF ADMINISTRATIVE OFFICER.LICENSE EXAMINER Work Phone: [facility] Encounters Encounter Date Encounter Type Care Provider Facility Start: 09-16-2023 End: 09-16-2023 ambulatory LOGAN VALDES Facility:[facility] Start: 09-16-2023 End: 09-16-2023 Patient encounter procedure Fouzia Correia Work Phone: Podiatry Procedures Date Procedure Procedure Detail Performing Clinician Start: 05-24-2023 Ecg routine ecg w/le ast 12 lds i&r only [facility] Provider Start: 04-01-2023 INFLUENZA VACCINE, P RSV FREE, AGE 65+ YR, HIGH DOSE, QUADRIVALENT (FLUZONE HIGH-DOSE) Codi Older CHIEF ADMINISTRATIVE OFFICER.LICENSE EXAMINER Work Phone: Start: 09-18-2022 Lipid 1996 panel - S mima or Plasma Codi Older CHIEF ADMINISTRATIVE OFFICER.LICENSE EXAMINER Work Phone: Start: 07-02-2022 Level iv surg pathol ogy gross&microscopic exam Jl Hart MD Work Phone: Start: 07-02-2022 Colonoscopy flx dx w /collj spec when pfrmd Layne Silva PA-C Work Phone: Start: 07-02-2022 Colonoscopy Logan Doe MD Work Phone: Start: 03-23-2022 Adult depression scr eening assessment Logan Valdes MD Work Phone: Start: 12-22-2020 Adult depression scr eening assessment Fouzia Correia Work Phone: Start: 09-24-2016 Colonoscopy Fouzia Bernal Work Phone: Plan of Treatment Date Care Activity Detail Author Start: 12-20-2031 Urine microalbumin profile [facility] Start: 09-19-2027 Lipid 1996 panel - S mima or Plasma Lipid Screening [facility] Start: 09-19-2027 Lipid panel Lipid Screening [facility] Start: 09-19-2027 LIPID SCREEN LIPID SCREEN [facility] Start: 05-24-2026 Diabetes Screening Diabetes Screenin g [facility] Start: 03-31-2026 LIPID SCREEN LIPID SCREEN [facility] Start: 09-18-2025 DIABETES SCREEN DIABETES SCREEN [facility] Start: 09-18-2025 Diabetes Screening Diabetes Screenin g [facility] Start: 07-02-2025 Colonoscopy COLONOSCOPY [facility] Start: 07-02-2025 COLORECTAL CANCER SCREENING COLORECTAL CANCER SCREENING [facility] Start: 08-08-2024 Annual PCP Team Customer Support Associate richard Disease Visit Annual PCP Team Chronic Disease Visit [facility] Start: 08-08-2024 BP Controlled (<130/80) BP Controlle d (<130/80) [facility] Start: 08-08-2024 Covid-19 Vaccine ( season) Covid-19 Vaccine ( season) [facility] Immunizations Immunization Date Immunization Notes Care Provider Fa felisha 04-01-2023 influenza (HD-IIV4) vaccine, age 65+ yr, high dose, quadrivalent, PF (FLUZONE HIGH-DOSE) Codi Older CHIEF ADMINISTRATIVE OFFICER.[facility] Work Phone: [facility] Work Phone: 05-28-2022 influenza (HD-IIV4) vaccine, age 65+ yr, high dose, quadrivalent, PF (FLUZONE HIGH-DOSE) Gus Ricardo CHIEF ADMINISTRATIVE OFFICER.LICENSE EXAMINER Work Phone: [facility] Work Phone: 12-19-2021 tetanus toxoid, redu shaggy diphtheria toxoid, and acellular pertussis vaccine, adsorbed Codi Older CHIEF ADMINISTRATIVE OFFICER.[facility] Work Phone: [facility] Work Phone: 05-02-2021 influenza, high-dose , quadrivalent vaccine (FLUZONE HIGH DOSE QUADRIVALENT) Fouzia Correia Work Phone: [facility] Work Phone: 04-25-2020 influenza, high-dose , quadrivalent vaccine (FLUZONE HIGH DOSE QUADRIVALENT) Fouziaryan Correia Work Phone: [facility] Work Phone: 05-08-2019 influenza, high dose seasonal, preservative-free Fouzia Testsatinder Work Phone: [facility] 05-23-2018 influenza, high dose seasonal, preservative-free Fouziaryan [employer] Work Phone: [facility] Work Phone: 06-03-2017 influenza, high dose seasonal, preservative-free Fouzia Correia Work Phone: [facility] 08-27-2016 pneumococcal polysaccharide vaccine, 23 valent Fouzia Correia Work Phone: [facility] 08-10-2015 pneumococcal conjuga te vaccine, 13 valent Fouzia Correia Work Phone: [facility] 07-28-2012 influenza virus vacc ine, unspecified formulation Fouzia Correia Work Phone: [facility] Work Phone: 08-01-2010 influenza virus vacc ine, unspecified formulation Fouzia Correia Work Phone: [facility] 08-01-2010 tetanus toxoid, redu shaggy diphtheria toxoid, and acellular pertussis vaccine, adsorbed Fouzia Correia Work Phone: [facility] Payers Date Payer Category Payer Unknown [id number] 2019 Unknown MMO MMO MEDICARE SUPPLEMENT [id number] 2019-Present [phone] [address] [place] [address] Indemnity [id number] 2019 Unknown [id number] 2014 Medicare MEDICARE MEDICAR E A AND B [id number] 2014-Present [phone] [address] [address] [place] [address] Medicare [id number] 2014 Medicare [id number] Social History Date Type Detail Facility Start: 08-01-2010 End: 03-23-2022 Tobacco smoking status NHIS Ex-smoker [facility] Work Phone: Start: 09-20-2021 End: 07-02-2022 Alcohol intake Current drinker of alcohol (finding) [facility] Start: 12-22-2020 History SDOH Alcohol Frequency 98 [facility] Start: 12-22-2020 History SDOH Alcohol Binge 1 [facility] Start: 08-02-2021 History SDOH Alcohol Comment monthly [facility] Start: 12-22-2020 History SDOH Social Connections Phone 3 [facility] Start: 12-22-2020 History SDOH Social Connections Congregational 2 [facility] Start: 12-22-2020 History SDOH Physica l Activity DPW 0 [facility] Start: 12-22-2020 History SDOH Financial 5 [facility] Start: 12-22-2020 Education 16 [facility] Start: 08-01-2010 End: 03-23-2022 Tobacco Comment 40 + years ago - quit pipe for 6 mo [facility] Start: 1950 Sex Assigned At Not on file C [facility] Start: 10-23-2021 End: 05-11-2022 Exposure to SARS-CoV-2 (event) Not sure [facility] Work Phone: Start: 12-11-2021 End: 12-21-2021 Exposure to SARS-CoV-2 (event) Unable to assess [facility] Work Phone: History of tobacco use Current smoker [facility] Start: 08-01-2010 End: 04-11-2022 Tobacco use and exposure Smokeless tobacco non-user [facility] Start: 04-11-2022 Tobacco smoking stat us NHIS Never smoked tobacco [facility] Start: 08-27-2022 End: 09-16-2023 Alcohol intake Ex-drinker (finding) [facility] Start: 12-22-2020 End: 11-30-2022 History of Social function [place] [facility] Start: 12-22-2020 End: 11-30-2022 Social connection and isolation panel [facility] Do you belong to any clubs or organizations such as spiritism groups, unions, fraternal or athletic groups, or school groups? Yes [facility] Are you now , , , , never or living with a partner? [facility] How often to you hav e a drink containing alcohol? Patient refused [facility] How often do you hav e 6 or more drinks on 1 occasion? Never [facility] Do you feel stress - tense, restless, nervous, or anxious, or unable to sleep at night because your mind is troubled all the time - these days [OSQ] Only a little [facility] (I/We) worried wheth er (my/our) food would run out before (I/we) got money to buy more. Never true [facility] In the past 12 month s, was there a time when you were not able to pay the mortgage or rent on time? No [facility] Clinical Notes 11-03-2015 to 09-16-2023 Fouzia Correia - 09/16/2023 8:12 AM Arminda Thomas RN - 09/16/2023 8:06 AM Fouzia Sparks - 06/11/2023 8:10 AM Marguerite Ryan LPN - 06/11/2023 8:07 AM ESTPatient Instructions Note Date & Type Note Facility 09-16-2023 Note HNO ID: [id number] Author: FOUZIA CORREIA, ? Service: ? Author Type: Physician Type: Progress Notes Filed: 09/16/2023 08:22 Note Text: Subjective: Patient presents to clinic c/o painful toenails. They state that the nails are especially painful with shoe gear and pressure. Patient states that nails b/l hallux are painful. No other pedal complaints at this time. Patient states no change in medications or medical history since last visit. Objective: Patient presents to clinic ambulating in [facility] Vasc: DP and PT pulses are [...] is to RTC in 3-4 months. Fouzia Correia DPM [facility] 09-16-2023 Note HNO ID: [id number] Author: ARMINDA CROSS RN Service: ? Author Type: Registered Nurse Type: Progress Notes Filed: 09/16/2023 08:22 Note Text: Patient presents with: Left Foot - Established Patient, Debridement of Nail Right Foot - Established Patient, Debridement of Nail [facility] 09-16-2023 History of Presen t illness Narrative Subjective: Patient presents to clinic c/o painful toenails. They state that the nails are especially painful with shoe gear and pressure. Patient states that nails b/l hallux are painful. No other pedal complaints at this time. Patient states no change in medications or medical history since last visit. Objective: Patient presents to clinic ambulating in [facility] Vasc: DP and PT pulses are [...] is to RTC in 3-4 months. Fouzia Correia DPM Patient presents with: Left Foot - Established Patient, Debridement of Nail Right Foot - Established Patient, Debridement of Nail documented in this encounter [facility] 08-08-2023 Note HNO ID: [id number] Author: LOGAN VALDES MD Service: ? Author Type: Physician Type: Progress Notes Filed: 08/08/2023 15:02 Note Text: This note was created using Movabler[employer]. Subjective Kimberly Chan is a 73 year old male here with his . He had progressive dyspnea on exertion, chest heaviness, and edema. Stress test was negative but symptoms persisted. He was referred to Dr. Hines who set up cardiac cath showing mild LAD stenosis, s/p PCI and GARRET by Dr. Bowling. His furosemide was doubled temporarily and edema was much better. Cardiac rehab was scheduled. Review of Systems Constitutional: Negative for fatigue and unexpected weight change. Respiratory: Negative for chest tightness and shortness of breath. Cardiovascular: Negative for chest pain and palpitations. Gastrointestinal: Negative. Neurological: Negative for dizziness and light-headedness. 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) Benign Neoplasm of Colon Alcohol Abuse Essential Hypertension With Goal Blood Pressure Less Than 130/80 Bmi 39.0-39.9,Adult Edema Hyperlipidemia Impaired Fasting Glucose Alcohol-Induced Insomnia (Hcc) Nasal sinus congestion, nocturnal Numbness and Tingling of Both Feet Toenail Deformity Chronic Venous Hypertension W Ulceration (Hcc) Secondary Lymphedema Stented Coronary Artery Coronary Artery Disease Involving [place] Coronary Artery of [place] Heart Without Angina Pectoris PAST SURGICAL HISTORY Procedure Laterality Date CC CORONARY STENT 08/02/2023 PCI mid LAD, GARRET [place] COLONOSCOPY FLX DX W/COLLJ SPEC WHEN PFRMD 10/25/2010 Colonoscopy COLONOSCOPY FLX DX W/COLLJ SPEC WHEN PFRMD N/A 09/24/2016 COLONOSCOPY SCREENING 07/02/2022 multiple adenomatous polyps, repeat in 1 year EYE SURGERY HX SEPTOPLASTY/SUBMUCOUS RESECJ W/WO CARTILAGE GRF 1998 Septoplasty - Dr Magana Social History Tobacco Use Smoking status: Never Smokeless tobacco: Never Vaping Use Vaping Use: Never used Substance Use Topics Alcohol use: Not Currently Comment: monthly Drug use: No Current Outpatient Medications Medication Sig ASPIRIN ORAL Take 81 mg by mouth once daily. ticagrelor (BRILINTA) 90 mg tablet Take 90 mg by mouth two times a day. ipratropium bromide (ATROVENT) 42 mcg (0.06 %) nasal spray Use 2 Sprays in the nose three times a day as needed (nasal congestion). carvedilol (COREG) 25 mg tablet Take 1 tablet by mouth twice daily. ibuprofen (MOTRIN) 600 mg tablet Take 1 tablet by mouth every 8 hours as needed for pain. losartan (COZAAR) 100 mg tablet Take 1 tablet by mouth once daily. furosemide (LASIX) 40 mg tablet Take 1 tablet by mouth every afternoon. atorvastatin (LIPITOR) 10 mg tablet Take 1 tablet by mouth daily at bedtime. For cholesterol. potassium chloride ER (KLOR-CON) 20 mEq tablet Take 1 tablet by mouth every afternoon. CPAP Pressure changed in office (6-13 cm H2O) Mask (per patient preference), send filters, optional chin strap (if indicated), filters, tubing / heated tubing, heated humidity and lifetime supplies. Dx. ALEX G47.33 327.23 DME [employer] (Patient not taking: Reported on 08/08/2023) No current facility-administered medications for this visit. Objective BP (P) 110/70 (BP Site: Left Arm, BP Position: Sitting, BP Cuff Size: Large Adult) Pulse (P) 68 Temp (P) 37.1 ?C (98.7 ?F) (Temporal) Wt (P) 132.5 kg (292 lb) BMI (P) 39.60 kg/m? Physical Exam Constitutional: General: He is not in acute distress. HENT: Head: Normocephalic. Cardiovascular: Rate and Rhythm: Normal rate and regular rhythm. Heart sounds: No murmur heard. No gallop. Pulmonary: Effort: No respiratory distress. Breath sounds: No wheezing or rales. Musculoskeletal: Right lower le+ Pitting Edema present. Left lower le+ Pitting Edema present. Neurological: General: No focal deficit present. Mental Status: He is alert. Reports reviewed. Assessment and Plan 1. Coronary artery disease involving [place] coronary artery of [place] heart without angina pectoris - ICD9: 414.01, ICD10: I25.10 (primary diagnosis) New diagnosis. Continue current management per [facility]. 2. Essential hypertension with goal blood pressure less than 130/80 - ICD9: 401.9, ICD10: I10 - Controlled 3. Hyperlipidemia, unspecified hyperlipidemia type - ICD9: 272.4, ICD10: E78.5 Shared medical decision making was done. I recommended further LDL lowering due to new diagnosis. Patient indicated understanding and willingness to follow recommendations. - ATORVASTATIN 20 MG TABLET. Dose increased. - Call for labs if none done by his next visit in September. 4. Stented coronary artery - ICD9: V45.82, ICD10: Z95.5 Brillinta and baby ASA x 1 year. I assume ASA daily after one year. Logan Valdes MD [facility] 06-12-2023 Note HNO ID: [id number] Author: Kam Reis, PT Service: ? 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 [facility] 06-11-2023 Note HNO ID: [id number] Author: Jl Hart MD Service: ? Author Type: Physician Type: Progress Notes Filed: 06/11/2023 8:52 AM Note Text: HISTORY AND PHYSICAL Kimberly Quintero Sj 1950 REFERRING PHYSICIAN: Fouzia Correia DPM CHIEF COMPLAINT: Consult (colonoscopy) HPI: The [...] me today at the request of Dr. Correia for my opinion and advice regarding Tubular [...] Dx. ALEX G47.33 327.23 DME [employer] sod sulf-pot chloride-mag sulf (SUTAB) 1.479-0.188- 0.225 [...] entered by the nurse and reviewed by me Nursing Notes: Mary Peña LPN 06/11/2023 8:35 [...] denies diarrhea, denies (more content not included)... [facility] 06-11-2023 Note HNO ID: [id number] Author: Fouzia Correia Service: ? Author Type: Physician Type: Progress [...] is to RTC in 3-4 months. Fouzia Correia DPM [facility] 06-11-2023 Note HNO ID: [id number] Author: Marguerite Geronimo LPN Service: ? Author [...] nail care , Established Patient Marguerite GeronimoEVELYN [facility] 06-11-2023 History of Presen t illness [...] is to RTC in 3-4 months. Fouzia Correia DPM AMB ROOMING INTAKE FLOWSHEET DATA Pain Pain Level: 4 Pain Location: Toe Description: Aching Duration Amount of Time: 1 Duration Units: Weeks Frequency: Intermittent Intervention/Comfort measure: Reposition, Relaxation Patient presents with: Left Foot - Established Patient, nail care Right Foot - nail care , Established Patient Marguerite Geronimo LPN documented in this encounter [facility] 06-10-2023 Miscellaneous Notes Faxed to [facility] as requested. External referral placed. Please fax orders for stress test to [facility]. Will hold off on canceling stress test with [facility] until he is scheduled at [facility]. Codi Larkin APRN.LICENSE EXAMINER documented in this encounter [facility] 05-30-2023 Miscellaneous Notes Forms signed and faxed to Daksha at [employer] at [phone]. Transmission complete. Encounter closed. GARY Dubon Type of form: [employer] Prescription Form received via fax When form is completed, Fax form to [employer] at [phone] Form has been forwarded to GARY Mendoza documented in this encounter [facility] 05-24-2023 Note HNO ID: [id number] Author: Dia Tran RT(R) Service: Radiology Author [...] PERIPHERAL IV DATA: Not applicable SIGNED BY: Dia Tran RT(R) May 24, 2023 9:17 AM [facility] 05-24-2023 Note HNO ID: [id number] Author: Codi Larkin APRN.LICENSE EXAMINER Service: ? Author Type: Nurse Practitioner Type: [...] lifetime supplies. Dx. ALEX G47.33 327.23 DME [employer] [facility] FAMILY HISTORY Problem Relation Age of Onset [...] (FLUSH) INJECTION SYRINGE (more content not included)... [facility] 05-24-2023 History of Presen t illness [...] Codi Larkin APRN.CNP documented in this encounter [facility] 05-23-2023 Miscellaneous Notes Orders with clinical documents faxed to [employer] Transmission completed documented in this encounter [facility] 05-21-2023 Note HNO ID: [id number] Author: Karyna Corona, DO Service: ? Author Type: Physician Type: Progress Notes Filed: 05/23/2023 9:05 AM Note Text: [facility] [place] DEPARTMENT OF VASCULAR SURGERY OUTPATIENT VISIT DATE [...] SURGERY HX SEPTOPLASTY/SUBMUCOUS RESECJ W/WO CARTILAGE GRF 1999 Septoplasty - Dr Magana SOCIAL HISTORY Social [...] DATE: May 21, 2023 TIME: 10:56 AM [facility] 05-21-2023 History of Presen t illness Narrative Images from the original note were not included. [facility] [place] DEPARTMENT OF VASCULAR SURGERY OUTPATIENT VISIT DATE [...] TIME: 10:56 AM documented in this encounter [facility] 04-09-2023 Note HNO ID: [id number] Author: Karyna Corona DO Service: ? Author Type: Physician Type: Progress Notes Filed: 04/09/2023 2:25 PM Note Text: This office note has been dictated. Karyna Corona DO [facility] 04-09-2023 Note HNO ID: [id number] Author: Karyna Corona DO Service: Vascular Surgery Author Type: Physician Type: Progress Notes Filed: 04/17/2023 10:38 AM Note Text: NAME: KIMBERLY CHAN CLINIC NO: [id number] DATE OF SERVICE: 04/09/2023 Subjective: Mr. Chan [...] concerns. Karyna Corona D.O. KB/089 Audio #: [id number] Date Dictated: 04/09/2023 12:14:38 Date Typed: 04/11/2023 12:46:13 Date Revised: [facility] 04-01-2023 Note HNO ID: [id number] Author: Codi Larkin APRN.LICENSE EXAMINER Service: ? Author Type: Nurse Practitioner Type: Progress Notes Filed: 04/01/2023 1:12 PM Note Text: Kimberly Chan is a 73 year old male here for a Medicare wellness visit. Health Risk Assessment In general, health is: Very good Concerns with balance:rarely Concerns with teeth or dentures:Not at all Concerns with sexual function:Not at all [place] anxious, stressed, angry, irritable, lonely, isolated, or [...] (Internal Medicine) Vascular- Dr. Corona Podiatry- Dr. Testrake Outside specialists seen: [facility] Medical/Family history review Reviewed and [...] - Substance use screening Codi Larkin APRN.CNP [facility] 04-01-2023 Instructions Codi Larkin APRN.CNP - [...] review all the medicines you take, even yvmx-iow-kcbwrco medicines. As you get older, the way [...] certain medical conditions. documented in this encounter [facility] 04-01-2023 History of Presen t illness Narrative Kimberly Chan is a 73 year old male here for a Medicare wellness visit. Health Risk Assessment In general, health is: Very good Concerns with balance:rarely Concerns with teeth or dentures:Not at all Concerns with sexual function:Not at all [place] anxious, stressed, angry, irritable, lonely, isolated, or [...] (Internal Medicine) Vascular- Dr. Corona Podiatry- Dr. Correia Outside specialists seen: [facility] Medical/Family history review Reviewed and [...] screening - Substance use screening Codi Larkin APRN.MELINDA documented in this encounter [facility] 03-20-2023 Miscellaneous Notes Last office visit: 12/12/22 Next appointment scheduled: 04/01/23 Last labs: 09/18/22 Patient phones requesting refills as follows: Requested Prescriptions Pending Prescriptions Disp Refills losartan (COZAAR) 100 mg tablet 90 tablet 3 Sig: Take 1 tablet by mouth once daily. Please review and advise. Lilli Vickers LPN documented in this encounter [facility] 03-20-2023 Miscellaneous Notes Last office visit: 12/12/22 Next appointment scheduled: 04/01/23 Last labs: 09/18/22 Patient phones requesting refills as follows: Requested Prescriptions Pending Prescriptions Disp Refills ibuprofen (MOTRIN) 600 mg tablet 30 tablet 5 Sig: Take 1 tablet by mouth every 8 hours as needed for pain. Lilli Vickers LPN documented in this encounter [facility] 03-05-2023 Note HNO ID: [id number] Author: Fouzia Correia Service: ? Author Type: Physician Type: Progress [...] is to RTC in 3-4 months. Fouzia Correia DPM [facility] 03-05-2023 Note HNO ID: [id number] Author: Daksha Feliciano Service: ? Author Type: ? Type: Progress Notes Filed: 03/05/2023 10:13 AM Note Text: Patient presents with: Left Foot - Established Patient: Nail care Right Foot - Established Patient: Nail care Patient reports no pain at this time. He states his feet are still swelling. [facility] 03-05-2023 History of Presen t illness [...] is to RTC in 3-4 months. Fouzia Correia DPM Patient presents with: Left Foot - Established Patient: Nail care Right Foot - Established Patient: Nail care Patient reports no pain at this time. He states his feet are still swelling. documented in this encounter [facility] 01-29-2023 Note HNO ID: [id number] Author: Karyna Corona, DO Service: ? Author Type: Physician Type: Progress Notes Filed: 02/25/2023 3:12 PM Note Text: [facility] [place] DEPARTMENT OF VASCULAR SURGERY OUTPATIENT VISIT DATE January 29, 2023 OUTPATIENT VISIT TYPE CONSULTATION SERVICE DATE: 01/29/2023 SERVICE TIME: 8:36 AM PRIMARY CARE PHYSICIAN: Logan Valdes MD REFERRING PROVIDER: Gus Silva [facility] [address] Consult requested for an opinion regarding the [...] lifetime supplies. Dx. ALEX G47.33 327.23 DME [employer] ALLERGIES: ALLERGIES No Known Allergies REVIEW of [...] motor skills. Vasc (more content not included)... [facility] 01-29-2023 History of Presen t illness Narrative Images from the original note were not included. [facility] [place] DEPARTMENT OF VASCULAR SURGERY OUTPATIENT VISIT DATE January 29, 2023 OUTPATIENT VISIT TYPE CONSULTATION SERVICE DATE: 01/29/2023 SERVICE TIME: 8:36 AM PRIMARY CARE PHYSICIAN: Logan Valdes MD REFERRING PROVIDER: Gus Silva [address] [place] [address] Consult requested for an opinion regarding the [...] TIME: 8:36 AM documented in this encounter [facility] 12-12-2022 Note HNO ID: [id number] Author: Gus Silva APRN.LICENSE EXAMINER Service: ? Author Type: Nurse Practitioner Type: [...] Dx. ALEX G47.33 327.23 DME [employer] No current facility-administered medications for this visit. ALLERGIES No Known Allergies ACTIVE PROBLEM LIST Chronic Venous Hypertension W Ulceration (Hcc) - 11/30/2022 Numbness and Tingling of Both Feet - 06/22/2021 Toenail Deformity - 06/22/2021 Nasal sinus congestion, nocturnal - 07/09/2018 Alcohol-Induced Insomnia ([facility]) - 05/15/2018 Impaired Fasting Glucose - 12/03/2017 Hyperlipidemia - 06/03/2017 Edema - 08/27/2016 Essential Hypertension With Goal Blood Pressure Less Than 130/80 - 11/03/2015 Bmi 39.0-39.9,Adult - 11/03/2015 Alcohol Abuse - 04/03/2012 Benign Neoplasm of Colon - 10/25/2010 ALEX (obstructive sleep apnea) not using CPAP - 08/01/2010 Comment: CLAUDIA Muir # [phone]------FAX# [phone] Chronic Rhinitis - 08/01/2010 Obesity, Class Iii, Bmi 40-49.9 (Morbid Obesity) ([facility]) - 08/01/2010 Social History Tobacco Use [...] (primary diagnosis) Certa (more content not included)... [facility] 12-12-2022 History of Presen t illness [...] PROBLEM LIST Chronic Venous Hypertension W Ulceration ([facility]) - 11/30/2022 Numbness and Tingling of Both Feet - 06/22/2021 Toenail Deformity - 06/22/2021 Nasal sinus congestion, nocturnal - 07/09/2018 Alcohol-Induced Insomnia ([facility]) - 05/15/2018 Impaired Fasting Glucose - 12/03/2017 Hyperlipidemia - 06/03/2017 Edema - 08/27/2016 Essential Hypertension With Goal Blood Pressure Less Than 130/80 - 11/03/2015 Bmi 39.0-39.9,Adult - 11/03/2015 Alcohol Abuse - 04/03/2012 Benign Neoplasm of Colon - 10/25/2010 ALEX (obstructive sleep apnea) not using CPAP - 08/01/2010 Comment: CLAUDIA Muir # [phone]------FAX# [phone] Chronic Rhinitis - 08/01/2010 Obesity, Class Iii, Bmi 40-49.9 (Morbid Obesity) ([facility]) - 08/01/2010 Social History Tobacco Use [...] Gus Silva APRN-MELINDA documented in this encounter [facility] 11-30-2022 Note HNO ID: [id number] Author: Fouzia Correia Service: ? Author Type: Physician Type: Progress [...] is to RTC in 3-4 months. Fouzia Correia DPM [facility] 11-30-2022 Note HNO ID: [id number] Author: Layne Álvarez RN Service: ? Author [...] lower leg from golf cart wheel yesterday. [facility] 11-07-2022 Note HNO ID: [id number] Author: Codi Larkin APRN.CNP Service: ? Author [...] agreeable to treatment plan. Codi Larkin APRN.CNP [facility] 11-07-2022 Instructions Codi Larkin APRN.CNP - 11/07/2022 8:05 AM EDT Follow-up in 1-2 weeks if no improvement or sooner if there is any worsening documented in this encounter [facility] 11-07-2022 History of Presen t illness [...] Codi Larkin APRN.CNP documented in this encounter [facility] 10-31-2022 Note HNO ID: [id number] Author: Codi Larkin APRN.CNP Service: ? Author Type: Nurse Practitioner Type: Progress Notes Filed: 10/31/2022 10:59 AM Note Text: CC: Patient presents with: sore on left leg x 10 days HPI Kimbelry Chan is a 72 year old male [...] care discussed, see patient instructions - wear FRANK wraps for compression until able to wear compression socks - follow-up in one week or sooner for any worsening Prescription instructions reviewed with patient as applicable. Potential red flag symptoms discussed with the patient. Reviewed appropriate action plan to take if red flag symptoms occur. Patient agreeable to treatment plan. Codi Larkin APRN.CNP [facility] 10-31-2022 Instructions Codi Larkin APRN.CNP - 10/31/2022 9:21 AM EDT Wash with soap and water followed by SMALL AMOUNT antibiotic ointment and a clean dry gauze dressing Recheck wound as scheduled with office. If any unusual pain, swelling, red streaks, pus, fever or other signs of worsening infection, call immediately. documented in this encounter [facility] 10-31-2022 History of Presen t illness [...] care discussed, see patient instructions - wear FRANK wraps for compression until able to wear compression socks - follow-up in one week or sooner for any worsening Prescription instructions reviewed with patient as applicable. Potential red flag symptoms discussed with the patient. Reviewed appropriate action plan to take if red flag symptoms occur. Patient agreeable to treatment plan. Codi Larkin APRN.MELINDA documented in this encounter [facility] 09-20-2022 Note HNO ID: [id number] Author: Dipti Ascencio LPN Service: ? Author [...] Canal/Tympanic membrane assessed by LIP Dr. Valdes [facility] 09-20-2022 Note HNO ID: [id number] Author: Logan Valdes MD Service: ? Author Type: Physician Type: Progress Notes Filed: 09/20/2022 9:22 AM Note Text: This note was created using [employer]. Subjective Kimberly Chan is a 72 year [...] - Continue cur (more content not included)... [facility] 09-20-2022 History of Presen t illness Narrative Ambulatory Ear Lavage Pre-treatment: Warm water Treatment: Both ears Equipment and Irrigation solution and Volume used: Single use syringe with single use irrigation tip Return flow appearance: Brown, large amount Patient tolerated procedure: yes Post-treatment: Post Irrigation Post-treatment: Ear Canal/Tympanic membrane assessed by LIP Dr. Valdes This note was created using [employer]. Subjective Kimberly Chan is a 72 year [...] Logan Valdes MD documented in this encounter [facility] 09-20-2022 Instructions Logan Valdes MD - 09/20/2022 9:05 AM EST Fasting blood work in 6 months. documented in this encounter [facility] 09-17-2022 Miscellaneous Notes Detailed message left [...] diagnosis. Patient requests a call back at [phone] once orders are placed. Please review and advise, Peri Anna RN documented in this encounter [facility] 07-11-2022 History of Presen t illness Narrative In lieu of an in-person visit due to COVID-19 concerns, a distance visit was performed on the patient. Patient is aware that I am not fully able to assess symptoms and do a full physical examination including vital signs assessment at this time. Patient consents to this encounter. FOLLOW UP VISIT - ENDOSCOPY NAME: Kimberly Quintero [facility] NO.: [id number] DATE OF SERVICE: 07/11/2022 : 1950 REFERRING [...] Layne Silva PA-C documented in this encounter [facility] 07-10-2022 Miscellaneous Notes Patient has been [...] Dipti Ascencio LPN documented in this encounter [facility] 07-02-2022 Nurse Note Return from restroom, [...] rectally as able. documented in this encounter [facility] 07-02-2022 History and physical note Images [...] entered by the nurse and reviewed by la Nursing Notes: Yuko Meraz RN 04/11/2022 8:44 [...] patient was offered a surgery/procedure at a [facility] facility. I have counseled the patient [...] TIME: 10:29 AM documented in this encounter [facility] 06-29-2022 Miscellaneous Notes Last office visit: 03/23/22 Next appointment scheduled: 09/20/22 Last labs: 03/31/21 Patient phones requesting refills as follows: Requested Prescriptions Pending Prescriptions Disp Refills atorvastatin (LIPITOR) 10 mg tablet 90 tablet 3 Sig: Take 1 tablet by mouth daily at bedtime. For cholesterol. Please review and advise. Lilli Vickers LPN documented in this encounter [facility] 05-21-2022 Miscellaneous Notes Per patient called and would like procedure moved from 05/28 to 07/02. Denied anything sooner Patient called in to reschedule procedure with Dr. Hart in [facility] on 05/28. Left voicemail to contact me directly at [phone] if wishes to proceed. [facility] 05-28-[address] Hart [facility] documented in this encounter [facility] 05-11-2022 History of Presen t illness Narrative Subjective: Patient presents to clinic c/o painful toenails. They state that the nails are especially painful with shoe gear and pressure. Patient states that nails b/l hallux are painful. No other pedal complaints at this time. Patient states no change in medications or medical history since last visit. Objective: [facility] DP and PT pulses [...] is to RTC in 3-4 months. Fouzia Correia DPM documented in this encounter [facility] 04-17-2022 Miscellaneous Notes Patient has been [...] Colette Dean LPN documented in this encounter [facility] 04-11-2022 History of Presen t illness [...] entered by the nurse and reviewed by me Nursing Notes: Yuko Meraz RN 04/11/2022 8:44 [...] patient was offered a surgery/procedure at a [facility] facility. I have counseled the patient [...] Layne Silva PA-C documented in this encounter [facility] 04-11-2022 Nurse Note REVIEW OF SYSTEMS: [...] Yuko Meraz RN documented in this encounter [facility] 09-20-2022 Miscellaneous Notes Order faxed to below number. Dipti Ascencio LPN DDM reports they received order for the additional information on the compression stockings, but it was not signed. Asking provider to sign and fax to them [phone] documented in this encounter [facility] 04-02-2022 Miscellaneous Notes [facility] calling to state they received compression stocking order for patient and they need additional information: Specify knee high, thigh high, or leggings. Specify what compression. Demographic info This information was faxed as requested tp FAX #: [phone]. Ynes Yuan RN documented in this encounter [facility] 04-02-2022 Miscellaneous Notes Printed and faxed. Pt notified Rosalinda Astudillo Cma Print order from 03/23 and fax please, does not need signature Codi Larkin APRN.MELINDA Rx for compression stockings were sent to [facility], they don't carry this type of supply. Pt asking for new Rx to go to [facility]. Pt asking to be called when Rx has been sent to pharm. Gwen Edmonds LPN documented in this encounter [facility] 03-23-2022 History of Presen t illness Narrative This note was created using Movableriter. Subjective Kimberly Chan is a 72 year [...] Logan Valdes MD documented in this encounter [facility] 02-20-2022 Instructions Fouzia Correia - 02/20/2022 8:15 AM EDT Your ulceration is healed Continue with compression stocking Follow-up as scheduled documented in this encounter [facility] 02-20-2022 History of Presen t illness [...] (H) 4.3 - 5.6 % Final Comment: [place] [employer] guidelines indicate that patients with [...] of compression stockings which he owns. Fouzia Correia DPM AMB ROOMING INTAKE FLOWSHEET DATA Risk Screening Do you have concerns about personal safety or safety in the home?: No Patient presents with: Left Ankle - Established Patient, Follow Up, Ulcer Pt states he could not find what was prescribed for leg at drug store or [facility]. Marguerite Geronimo LPN documented in this encounter [facility] 02-06-2022 Instructions Fouzia Correia - 02/06/2022 9:25 AM EDT Recommend aquacel to left leg daily. When wound becomes very tiny, you can switch to topical antibiotic. Recommend frank compression from toes to knee during the day. Can remove at night. documented in this encounter [facility] 02-06-2022 History of Presen t illness [...] reducing swelling. F/u in 2 weeks Fouzia Correia DPM documented in this encounter [facility] 01-31-2022 Miscellaneous Notes Patient has been [...] Dipti Ascencio LPN documented in this encounter [facility] 01-26-2022 Instructions La Mcgee APRN.MELINDA - 01/26/2022 10:02 AM EDT 1.) Start Clindamycin, take with food. 2.) Elevate the legs, continue to take Lasix. 3.) Watch for worsening symptoms, increased redness, warm, fever, or chills, go to ER. 4.) If you develop any chest pain go to ER. 5.) Follow up as needed. Apply Bactroban cream to wound documented in this encounter [facility] 01-26-2022 History of Presen t illness [...] wound 1x1 cm noted on the left harris, healing. No seeping or discharge. Head: Normocephalic, [...] APRN.MELINDA This note was partially generated using Trellie voice recognition system. Note was reviewed for accuracy. There may be minor misspellings or grammar miscues with Trellie voice recognition. documented in this encounter [facility] 12-27-2021 History of Presen t illness [...] all digits DATA REVIEWED: Outside chart from [facility] ER reviewed. ASSESSMENT/PLAN: 1. Dog bite of [...] Codi Larkin APRN.CNP documented in this encounter [facility] 12-27-2021 Instructions Codi Larkin APRN.CNP - 12/27/2021 8:42 AM EDT If any unusual pain, swelling, red streaks, pus, fever or other signs of worsening infection, call immediately. documented in this encounter [facility] 11-29-2021 Miscellaneous Notes Patient has been [...] Dipti Ascencio LPN documented in this encounter [facility] 11-27-2021 Miscellaneous Notes Patient has been [...] Dipti Ascencio LPN documented in this encounter [facility] 11-02-2021 History of Presen t illness [...] Objective: [facility]: DP and PT pulses are faintly [...] is to RTC in 3-4 months. Fouzia Correia DPM documented in this encounter [facility] documented as of this encounter (statuses as of 11/02/2021) [facility] History of Past illness Narrative* Problem Noted Date Resolved Date Mild cognitive impairment 11/03/20152017 Hyperlipidemia 07/21/2015 11/03/2015 BMI 40.0-44.9, adult 04/05/2014 11/03/2015 Diverticulosis of colon (without mention of hemo rrhage) 10/25/2010 05/24/2016 Hypertension 09/08/2010 08/27/2016 BP (high blood pressure) 08/01/2010 016 documented as of this encounter (statuses as of 11/28/2021) [facility] History of Past illness Narrative* Problem Noted Date Resolved Date Mild cognitive impairment 11/03/20152017 Hyperlipidemia 07/21/2015 11/03/2015 BMI 40.0-44.9, adult 04/05/2014 11/03/2015 Diverticulosis of colon (without mention of hemo rrhage) 10/25/2010 05/24/2016 Hypertension 09/08/2010 08/27/2016 BP (high blood pressure) 08/01/2010 016 documented as of this encounter (statuses as of 12/01/2021) [facility] History of Past illness Narrative* Problem Noted Date Resolved Date Mild cognitive impairment 11/03/20152017 Hyperlipidemia 07/21/2015 11/03/2015 BMI 40.0-44.9, adult 04/05/2014 11/03/2015 Diverticulosis of colon (without mention of hemo rrhage) 10/25/2010 05/24/2016 Hypertension 09/08/2010 08/27/2016 BP (high blood pressure) 08/01/2010 016 documented as of this encounter (statuses as of 12/27/2021) [facility] History of Past illness Narrative* Problem Noted Date Resolved Date Mild cognitive impairment 11/03/20152017 Hyperlipidemia 07/21/2015 11/03/2015 BMI 40.0-44.9, adult 04/05/2014 11/03/2015 Diverticulosis of colon (without mention of hemo rrhage) 10/25/2010 05/24/2016 Hypertension 09/08/2010 08/27/2016 BP (high blood pressure) 08/01/2010 016 documented as of this encounter (statuses as of 01/26/2022) [place] [id number] History of Past illness Narrative* Problem Noted Date Resolved Date Mild cognitive impairment 11/03/20152017 Hyperlipidemia 07/21/2015 11/03/2015 BMI 40.0-44.9, adult 04/05/2014 11/03/2015 Diverticulosis of colon (without mention of hemo rrhage) 10/25/2010 05/24/2016 Hypertension 09/08/2010 08/27/2016 BP (high blood pressure) 08/01/2010 016 documented as of this encounter (statuses as of 01/31/2022) [address]-2016 History of Past illness Narrative* Problem Noted Date Resolved Date Mild cognitive impairment 11/03/20152017 Hyperlipidemia 07/21/2015 11/03/2015 BMI 40.0-44.9, adult 04/05/2014 11/03/2015 Diverticulosis of colon (without mention of hemo rrhage) 10/25/2010 05/24/2016 Hypertension 09/08/2010 08/27/2016 BP (high blood pressure) 08/01/2010 016 documented as of this encounter (statuses as of 02/06/2022) [address]2016 History of Past illness Narrative* Problem Noted Date Resolved Date Mild cognitive impairment 11/03/20152017 Hyperlipidemia 07/21/2015 11/03/2015 BMI 40.0-44.9, adult 04/05/2014 11/03/2015 Diverticulosis of colon (without mention of hemo rrhage) 10/25/2010 05/24/2016 Hypertension 09/08/2010 08/27/2016 BP (high blood pressure) 08/01/2010 016 documented as of this encounter (statuses as of 02/20/2022) [facility] History of Past illness Narrative* Problem Noted Date Resolved Date Mild cognitive impairment 11/03/20152017 Hyperlipidemia 07/21/2015 11/03/2015 BMI 40.0-44.9, adult 04/05/2014 11/03/2015 Diverticulosis of colon (without mention of hemo rrhage) 10/25/2010 05/24/2016 Hypertension 09/08/2010 08/27/2016 BP (high blood pressure) 08/01/2010 016 documented as of this encounter (statuses as of 03/23/2022) [facility] History of Past illness Narrative* Problem Noted Date Resolved Date Mild cognitive impairment 11/03/20152017 Hyperlipidemia 07/21/2015 11/03/2015 BMI 40.0-44.9, adult 04/05/2014 11/03/2015 Diverticulosis of colon (without mention of hemo rrhage) 10/25/2010 05/24/2016 Hypertension 09/08/2010 08/27/2016 BP (high blood pressure) 08/01/2010 016 documented as of this encounter (statuses as of 04/02/2022) [facility] History of Past illness Narrative* Problem Noted Date Resolved Date Mild cognitive impairment 11/03/20152017 Hyperlipidemia 07/21/2015 11/03/2015 BMI 40.0-44.9, adult 04/05/2014 11/03/2015 Diverticulosis of colon (without mention of hemo rrhage) 10/25/2010 05/24/2016 Hypertension 09/08/2010 08/27/2016 BP (high blood pressure) 08/01/2010 016 documented as of this encounter (statuses as of 04/02/2022) [facility] History of Past illness Narrative* Problem Noted Date Resolved Date Mild cognitive impairment 11/03/20152017 Hyperlipidemia 07/21/2015 11/03/2015 BMI 40.0-44.9, adult 04/05/2014 11/03/2015 Diverticulosis of colon (without mention of hemo rrhage) 10/25/2010 05/24/2016 Hypertension 09/08/2010 08/27/2016 BP (high blood pressure) 08/01/2010 016 documented as of this encounter (statuses as of 04/03/2022) [address]2016 History of Past illness Narrative* Problem Noted Date Resolved Date Mild cognitive impairment 11/03/20152017 Hyperlipidemia 07/21/2015 11/03/2015 BMI 40.0-44.9, adult 04/05/2014 11/03/2015 Diverticulosis of colon (without mention of hemo rrhage) 10/25/2010 05/24/2016 Hypertension 09/08/2010 08/27/2016 BP (high blood pressure) 08/01/2010 016 documented as of this encounter (statuses as of 04/17/2022) [address]2016 History of Past illness Narrative* Problem Noted Date Resolved Date Mild cognitive impairment 11/03/20152017 Hyperlipidemia 07/21/2015 11/03/2015 BMI 40.0-44.9, adult 04/05/2014 11/03/2015 Diverticulosis of colon (without mention of hemo rrhage) 10/25/2010 05/24/2016 Hypertension 09/08/2010 08/27/2016 BP (high blood pressure) 08/01/2010 016 documented as of this encounter (statuses as of 04/17/2022) [address]2016 History of Past illness Narrative* Problem Noted Date Resolved Date Mild cognitive impairment 11/03/20152017 Hyperlipidemia 07/21/2015 11/03/2015 BMI 40.0-44.9, adult 04/05/2014 11/03/2015 Diverticulosis of colon (without mention of hemo rrhage) 10/25/2010 05/24/2016 Hypertension 09/08/2010 08/27/2016 BP (high blood pressure) 08/01/2010 016 documented as of this encounter (statuses as of 05/11/2022) [address]2016 History of Past illness Narrative* Problem Noted Date Resolved Date Mild cognitive impairment 11/03/20152017 Hyperlipidemia 07/21/2015 11/03/2015 BMI 40.0-44.9, adult 04/05/2014 11/03/2015 Diverticulosis of colon (without mention of hemo rrhage) 10/25/2010 05/24/2016 Hypertension 09/08/2010 08/27/2016 BP (high blood pressure) 08/01/2010 016 documented as of this encounter (statuses as of 06/11/2022) [place] [id number] History of Past illness Narrative* Problem Noted Date Resolved Date Mild cognitive impairment 11/03/20152017 Hyperlipidemia 07/21/2015 11/03/2015 BMI 40.0-44.9, adult 04/05/2014 11/03/2015 Diverticulosis of colon (without mention of hemo rrhage) 10/25/2010 05/24/2016 Hypertension 09/08/2010 08/27/2016 BP (high blood pressure) 08/01/2010 016 documented as of this encounter (statuses as of 06/29/2022) [address]2016 History of Past illness Narrative* Problem Noted Date Resolved Date Mild cognitive impairment 11/03/20152017 Hyperlipidemia 07/21/2015 11/03/2015 BMI 40.0-44.9, adult 04/05/2014 11/03/2015 Diverticulosis of colon (without mention of hemo rrhage) 10/25/2010 05/24/2016 Hypertension 09/08/2010 08/27/2016 BP (high blood pressure) 08/01/2010 016 documented as of this encounter (statuses as of 07/17/2022) [address]2016 History of Past illness Narrative* Problem Noted Date Resolved Date Mild cognitive impairment 11/03/20152017 Hyperlipidemia 07/21/2015 11/03/2015 BMI 40.0-44.9, adult 04/05/2014 11/03/2015 Diverticulosis of colon (without mention of hemo rrhage) 10/25/2010 05/24/2016 Hypertension 09/08/2010 08/27/2016 BP (high blood pressure) 08/01/2010 016 documented as of this encounter (statuses as of 07/23/2022) [place] [id number] History of Past illness Narrative* Problem Noted Date Resolved Date Mild cognitive impairment 11/03/20152017 Hyperlipidemia 07/21/2015 11/03/2015 BMI 40.0-44.9, adult 04/05/2014 11/03/2015 Diverticulosis of colon (without mention of hemo rrhage) 10/25/2010 05/24/2016 Hypertension 09/08/2010 08/27/2016 BP (high blood pressure) 08/01/2010 016 documented as of this encounter (statuses as of 09/17/2022) [address]2016 History of Past illness Narrative* Problem Noted Date Resolved Date Mild cognitive impairment 11/03/20152017 Hyperlipidemia 07/21/2015 11/03/2015 BMI 40.0-44.9, adult 04/05/2014 11/03/2015 Diverticulosis of colon (without mention of hemo rrhage) 10/25/2010 05/24/2016 Hypertension 09/08/2010 08/27/2016 BP (high blood pressure) 08/01/2010 016 documented as of this encounter (statuses as of 09/20/2022) [address]2016 History of Past illness Narrative* Problem Noted Date Resolved Date Mild cognitive impairment 11/03/20152017 Hyperlipidemia 07/21/2015 11/03/2015 BMI 40.0-44.9, adult 04/05/2014 11/03/2015 Diverticulosis of colon (without mention of hemo rrhage) 10/25/2010 05/24/2016 Hypertension 09/08/2010 08/27/2016 BP (high blood pressure) 08/01/2010 016 documented as of this encounter (statuses as of 10/31/2022) [place] [id number] History of Past illness Narrative* Problem Noted Date Resolved Date Mild cognitive impairment 11/03/20152017 Hyperlipidemia 07/21/2015 11/03/2015 BMI 40.0-44.9, adult 04/05/2014 11/03/2015 Diverticulosis of colon (without mention of hemo rrhage) 10/25/2010 05/24/2016 Hypertension 09/08/2010 08/27/2016 BP (high blood pressure) 08/01/2010 016 documented as of this encounter (statuses as of 11/07/2022) [address]2016 History of Past illness Narrative* Problem Noted Date Resolved Date Mild cognitive impairment 11/03/20152017 Hyperlipidemia 07/21/2015 11/03/2015 BMI 40.0-44.9, adult 04/05/2014 11/03/2015 Diverticulosis of colon (without mention of hemo rrhage) 10/25/2010 05/24/2016 Hypertension 09/08/2010 08/27/2016 BP (high blood pressure) 08/01/2010 016 documented as of this encounter (statuses as of 12/12/2022) [place] [id number] History of Past illness Narrative* Problem Noted Date Diagnosed Date Resolved Date Mild cognitive impairment 11/03/2015 Hyperlipidemia 07/21/2015 11/03/2015 BMI 40.0-44.9, adult 04/05/2014 016 Diverticulosis of colon (wit hout mention of hemorrhage) 10/25/2010 05/24/2016 Hypertension 09/08/2010 08/27/2016 BP (high blood pressure) 08/01/2010 documented as of this encounter (statuses as of 02/26/2023) [facility] History of Past illness Narrative* Problem Noted Date Diagnosed Date Resolved Date Mild cognitive impairment 11/03/2015 Hyperlipidemia 07/21/2015 11/03/2015 BMI 40.0-44.9, adult 04/05/2014 016 Diverticulosis of colon (wit hout mention of hemorrhage) 10/25/2010 05/24/2016 Hypertension 09/08/2010 08/27/2016 BP (high blood pressure) 08/01/2010 documented as of this encounter (statuses as of 03/05/2023) [address] History of Past illness Narrative* Problem Noted Date Diagnosed Date Resolved Date Mild cognitive impairment 11/03/2015 Hyperlipidemia 07/21/2015 11/03/2015 BMI 40.0-44.9, adult 04/05/2014 016 Diverticulosis of colon (wit hout mention of hemorrhage) 10/25/2010 05/24/2016 Hypertension 09/08/2010 08/27/2016 BP (high blood pressure) 08/01/2010 documented as of this encounter (statuses as of 03/21/2023) [facility] History of Past illness Narrative* Problem Noted Date Diagnosed Date Resolved Date Mild cognitive impairment 11/03/2015 Hyperlipidemia 07/21/2015 11/03/2015 BMI 40.0-44.9, adult 04/05/2014 016 Diverticulosis of colon (wit hout mention of hemorrhage) 10/25/2010 05/24/2016 Hypertension 09/08/2010 08/27/2016 BP (high blood pressure) 08/01/2010 documented as of this encounter (statuses as of 03/21/2023) [facility] History of Past illness Narrative* Problem Noted Date Diagnosed Date Resolved Date Mild cognitive impairment 11/03/2015 Hyperlipidemia 07/21/2015 11/03/2015 BMI 40.0-44.9, adult 04/05/2014 016 Diverticulosis of colon (wit hout mention of hemorrhage) 10/25/2010 05/24/2016 Hypertension 09/08/2010 08/27/2016 BP (high blood pressure) 08/01/2010 documented as of this encounter (statuses as of 04/01/2023) [facility] of Past illness Narrative* Problem Noted Date Diagnosed Date Resolved Date Mild cognitive impairment 11/03/2015 Hyperlipidemia 07/21/2015 11/03/2015 BMI 40.0-44.9, adult 04/05/2014 016 Diverticulosis of colon (wit hout mention of hemorrhage) 10/25/2010 05/24/2016 Hypertension 09/08/2010 08/27/2016 BP (high blood pressure) 08/01/2010 documented as of this encounter (statuses as of 05/19/2023) [facility] History of Past illness Narrative* Problem Noted Date Diagnosed Date Resolved Date Mild cognitive impairment 11/03/2015 Hyperlipidemia 07/21/2015 11/03/2015 BMI 40.0-44.9, adult 04/05/2014 016 Diverticulosis of colon (wit hout mention of hemorrhage) 10/25/2010 05/24/2016 Hypertension 09/08/2010 08/27/2016 BP (high blood pressure) 08/01/2010 documented as of this encounter (statuses as of 05/23/2023) [facility] History of Past illness Narrative* Problem Noted Date Diagnosed Date Resolved Date Mild cognitive impairment 11/03/2015 Hyperlipidemia 07/21/2015 11/03/2015 BMI 40.0-44.9, adult 04/05/2014 016 Diverticulosis of colon (wit hout mention of hemorrhage) 10/25/2010 05/24/2016 Hypertension 09/08/2010 08/27/2016 BP (high blood pressure) 08/01/2010 documented as of this encounter (statuses as of 05/24/2023) [address]2016 History of Past illness Narrative* Problem Noted Date Diagnosed Date Resolved Date Mild cognitive impairment 11/03/2015 Hyperlipidemia 07/21/2015 11/03/2015 BMI 40.0-44.9, adult 04/05/2014 016 Diverticulosis of colon (wit hout mention of hemorrhage) 10/25/2010 05/24/2016 Hypertension 09/08/2010 08/27/2016 BP (high blood pressure) 08/01/2010 documented as of this encounter (statuses as of 05/24/2023) [facility] of Past illness Narrative* Problem Noted Date Diagnosed Date Resolved Date Mild cognitive impairment 11/03/2015 Hyperlipidemia 07/21/2015 11/03/2015 BMI 40.0-44.9, adult 04/05/2014 016 Diverticulosis of colon (wit hout mention of hemorrhage) 10/25/2010 05/24/2016 Hypertension 09/08/2010 08/27/2016 BP (high blood pressure) 08/01/2010 documented as of this encounter (statuses as of 05/30/2023) [place] [id number] History of Past illness Narrative* Problem Noted Date Diagnosed Date Resolved Date Mild cognitive impairment 11/03/2015 Hyperlipidemia 07/21/2015 11/03/2015 BMI 40.0-44.9, adult 04/05/2014 016 Diverticulosis of colon (wit hout mention of hemorrhage) 10/25/2010 05/24/2016 Hypertension 09/08/2010 08/27/2016 BP (high blood pressure) 08/01/2010 documented as of this encounter (statuses as of 06/11/2023) [facility] of Past illness Narrative* Problem Noted Date Diagnosed Date Resolved Date Mild cognitive impairment 11/03/2015 Hyperlipidemia 07/21/2015 11/03/2015 BMI 40.0-44.9, adult 04/05/2014 016 Diverticulosis of colon (wit hout mention of hemorrhage) 10/25/2010 05/24/2016 Hypertension 09/08/2010 08/27/2016 BP (high blood pressure) 08/01/2010 documented as of this encounter (statuses as of 06/11/2023) [facility] illness Narrative* Problem Noted Date Diagnosed Date Resolved Date Mild cognitive impairment 11/03/2015 Hyperlipidemia 07/21/2015 11/03/2015 BMI 40.0-44.9, adult 04/05/2014 016 Diverticulosis of colon (wit hout mention of hemorrhage) 10/25/2010 05/24/2016 Hypertension 09/08/2010 08/27/2016 BP (high blood pressure) 08/01/2010 documented as of this encounter (statuses as of 09/16/2023) [facility] Onychomycosis- Primary Dermatophytosis of nail Pain in toe of left foot Pain in limb Pain in toe of right foot Pain in limb [facility] Dog bite of right hand, subsequent encounter- Primary Visit for suture removal Encounter for removal of sutures [facility] Diagnosis Cellulitis of left lower extremity- Primary Cellulitis and abscess of leg, except foot Other chest pain [facility] Diagnosis Essential hypertension with goal blood pressure less than 130/80 [facility] Diagnosis Onychomycosis- Primary Dermatophytosis of nail Pain in toe of left foot Pain in limb Pain in toe of right foot Pain in limb Diminished pulses in lower extremity Other symptoms involving cardiovascular system Chronic venous hypertension w ulceration (HCC) Chronic venous hypertension with ulcer [facility] Diagnosis Venous insufficiency- Primary Unspecified venous (peripheral) insufficiency [facility] Diagnosis Essential hypertension with goal blood pressure less than 130/80- Primary Edema, unspecified type Hyperlipidemia, unspecified hyperlipidemia type Impaired fasting glucose ALEX (obstructive sleep apnea) not using CPAP Obstructive sleep apnea (adult) (pediatric) Benign neoplasm of colon, unspecified part of colon [facility] Diagnosis Generalized edema- Primary Edema [facility] Diagnosis History of colonic polyps- Primary Personal history of colonic polyps Benign neoplasm of colon, unspecified part of colon Encounter for screening for malignant neoplasm of colon Special screening for malignant neoplasms, colon [facility] Diagnosis Essential hypertension with goal blood pressure less than 130/80 [facility] Diagnosis Onychomycosis- Primary Dermatophytosis of nail Pain in toe of left foot Pain in limb Pain in toe of right foot Pain in limb Diminished pulses in lower extremity Other symptoms involving cardiovascular system [facility] Diagnosis History of colon polyps- Primary Personal history of colonic polyps [facility] Diagnosis Hyperlipidemia, unspecified hyperlipidemia type [facility] Diagnosis Tubular adenoma- Primary Benign neoplasm of unspecified site History of colonic polyps Personal history of colonic polyps [facility] Diagnosis Impaired fasting glucose- Primary Hyperlipidemia, unspecified hyperlipidemia type [facility] Diagnosis BMI 39.0-39.9,adult- Primary Body Mass Index 39.0-39.9, adult Essential hypertension with goal blood pressure less than 130/80 Edema, unspecified type Impaired fasting glucose Hyperlipidemia, unspecified hyperlipidemia type Bilateral impacted cerumen Impacted cerumen [facility] Diagnosis Venous stasis ulcer of other part of left lower leg limited to breakdown of skin without varicose veins (HCC)- Primary [facility] Diagnosis Venous insufficiency- Primary Unspecified venous (peripheral) insufficiency Venous stasis ulcer of other part of left lower leg limited to breakdown of skin without varicose veins (HCC) [facility] Diagnosis Venous insufficiency- Primary Unspecified venous (peripheral) insufficiency PAD (peripheral artery disease) (HCC) Peripheral vascular disease, unspecified Edema, unspecified type Venous stasis ulcer of other part of left lower leg limited to breakdown of skin without varicose veins (HCC) Varicose veins of both lower extremities, unspecified whether complicated Essential hypertension with goal blood pressure less than 130/80 [facility] Diagnosis Secondary lymphedema- Primary Other lymphedema [...] (HCC) Morbid obesity [facility] Diagnosis Onychomycosis- Primary Dermatophytosis of nail Pain in toe of left foot Pain in limb Pain in toe of right foot Pain in limb [facility] Diagnosis Essential hypertension with goal blood pressure less than 130/80 [facility] Diagnosis Medicare annual wellness visit, subsequent- Primary Routine general medical examination at a health care facility Essential hypertension with goal blood pressure less than 130/80 Need for influenza vaccination Need for prophylactic vaccination and inoculation against influenza [facility] Diagnosis Personal history of colonic polyps- Primary History of colon polyps Personal history of colonic polyps [facility] Diagnosis Secondary lymphedema- Primary Other lymphedema Venous (peripheral) insufficiency Unspecified venous (peripheral) insufficiency [facility] Diagnosis Shortness of breath- Primary Chest pain, unspecified type Fatigue, unspecified type [facility] Chest pain, unspecified type- Primary Shortness of breath Abnormal EKG Nonspecific abnormal electrocardiogram (ECG) (EKG) documented [facility] this [facility] Diagnosis Onychomycosis- Primary Dermatophytosis of nail Pain in toe of left foot Pain in limb Pain in toe of right foot Pain in limb Diminished pulses in lower extremity Other symptoms involving cardiovascular system [facility] Diagnosis Onychomycosis- Primary Dermatophytosis of nail Pain in toe of left foot Pain in limb Pain in toe of right foot Pain in limb documented in this encounter [facility] for [facility] (narrative)* Outpatient Procedure (Routine) - Authorized Specialty Diagnoses / Procedures Referred By Contac t Referred To Contact [facility] Diagnoses History of colon polyps Procedures COLONOSCOPY SCREENING COLONOSCOPY FLX DX W/COLLJ SPEC WHEN PFRMD Layne Silva PA-C [address] [place] [address] [facility] [place] [phone] Referral ID Status Reason Start Date Expiration Date Visits Requested Visits Authorized [id number] Authorized Auto-Generat ed Referral 04/11/2022 04/11/2023 1 1 [facility] for [facility] (narrative)* Outpatient Procedure (Routine) - Authorized Specialty Diagnoses / Procedures [facility] To Contact [facility] Diagnoses Diminished pulse Procedures PVR ANK PRESS PAUL VAS LAB NON-INVAS PHYSIOLOGIC STD EXTREMITY ART 2 LEVEL Karyna Corona DO [address] [place] [address] [facility] [place] [phone] Referral ID Status Reason Start Date Expiration Date Visits Requested Visits Authorized [id number] Authorized Auto-Generat ed Referral 01/29/2023 01/29/2024 1 1 * Outpatient Procedure (Routine) - Authorized Specialty Diagnoses / Procedures [facility] To Contact [facility] Diagnoses Varicose veins of both lower extremities, unspecified whether complicated Procedures US VENOUS INCOMPETENCY PAUL VAS LAB DUP-SCAN XTR VEINS COMPLETE BILATERAL STUDY Karyna Corona DO [address] [place] [address] [facility] [place] [address] [place] [address] Referral ID Status Reason Start Date Expiration Date Visits Requested Visits Authorized [id number] Authorized Auto-Generat ed Referral 01/29/2023 01/29/2024 1 1 [facility] for [facility] (narrative)* Outpatient Procedure (Routine) - Closed Specialty Diagnoses / Procedures Referred By Contac t Referred To Contact [facility] Diagnoses History of colon polyps Procedures COLONOSCOPY SCREENING COLONOSCOPY FLX DX W/COLLJ SPEC WHEN PFRMD Layne Silva PA-C [address] [facility] [place] [address] [facility] [place] [address] [place], [place] [id number] Referral ID Status Reason Start Date Expiration Date V isits Requested Visits Authorized [id number] Closed Auto-Generate d Referral 04/11/2022 04/11/2023 1 1 [facility] for [facility] (narrative)* Diagnostic Procedure Only (Routine) - Pending Review Specialty Diagnoses / Procedures Referred By Contac t Referred To Contact [facility] Diagnoses Chest pain, unspecified type Shortness of breath Procedures NM CARDIAC PERF STRESS/EXERCISE MYOCARDIAL SPECT MULTIPLE STUDIES Codi Larkin APRN.CNP [address] [place] [address] [facility] [address] [place] [address] Referral ID Status Reason Start Date Expiration Date Visits Requested Visits Authorized [id number] Pending Review Auto-Generat ed Referral 3 06/22/2024 1 1 * Outpatient Procedure (Routine) - Authorized Specialty Diagnoses / Procedures Referred By Contac t Referred To Contact [facility] Diagnoses Chest pain, unspecified type Shortness of breath Procedures ECHO ECHO TTHRC R-T 2D W/WOM-MODE COMPL SPEC&COLR D Codi Larkin APRN.LICENSE EXAMINER [address] [place] [address] [facility] [place] [address] [place] [address] Referral ID Status Reason Start Date Expiration Date Visits Requested Visits Authorized [id number] Authorized Auto-Generat ed Referral 3 05/23/2024 1 1 * Outpatient Procedure (Routine) - Pending Review Specialty Diagnoses / Procedures Referred By Contac t Referred To Contact [facility] Diagnoses Chest pain, unspecified type Shortness of breath Procedures ECG COMPLETE ECG ROUTINE ECG W/LEAST 12 LDS W/I&R Codi Larkin APRN.LICENSE EXAMINER [address] [place] [address] [facility] [place] [address] [place] [address] Referral ID Status Reason Start Date Expiration Date Visits Requested Visits Authorized [id number] Pending Review Auto-Generat ed Referral 3 05/23/2024 1 1 [facility] Diagnostic Procedure Only (Routine) - Pending Review Specialty Diagnoses / Procedures Referred By Contac t Referred To Contact [facility] Diagnoses Chest pain, unspecified type Shortness of breath Abnormal EKG Procedures NM CARDIAC PERF STRESS/PHARM MYOCARDIAL SPECT MULTIPLE STUDIES Codi Larkin APRN.LICENSE EXAMINER [address] [place] [address] [facility] [address] [place] [phone] Referral ID Status Reason Start Date Expiration Date Visits Requested Visits Authorized [id number] Pending Review Auto-Generat ed Referral 3 07/09/2024 1 1 [facility] for visit Narrative* Outpatient Procedure (Routine) - Closed Specialty Diagnoses / Procedures Referred By Contac t Referred To Contact [facility] Diagnoses History of colon polyps Procedures COLONOSCOPY SCREENING COLONOSCOPY FLX DX W/COLLJ SPEC WHEN PFRMD Layne Silva PA-C [address] [place] [phone] [facility] [place] [address] [place] [address] Referral ID Status Reason Start Date Expiration Date V isits Requested Visits Authorized [id number] Closed Auto-Generate d Referral 04/11/2022 04/11/2023 1 1 [facility] Summary Purpose Family History No Family History Records FoundNo Family History Records Found Advance Directives No Advanced Directives Records FoundDocuments on File 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 Date 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 Advance Directive(s) 09/24/2016 7:59 AM Reason for Referral Specialty Diagnoses / Procedures Referred By Contac t Referred To Contact General Surgery Diagnoses Benign neoplasm of colon, unspecified part of colon Procedures CONSULT TO GENERAL SURGERY OFFICE/OUTPATIENT [facility] 60-74 MINUTES Logan Valdes MD [address] [place], [place] [phone] Referral ID Status Reason Start Date Expiration Date Visits Requested Visits Authorized [id number] Authorized PCP Requested Referral 03/23/2022 03/23/2023 1 1 Specialty Diagnoses / Procedures Referred By Contac t Referred To Contact [facility] Diagnoses Edema, unspecified type Varicose veins of both lower extremities, unspecified whether complicated Venous insufficiency Venous stasis ulcer of other part of left lower leg limited to breakdown of skin without varicose veins (HCC) Procedures CONSULT TO VASCULAR MEDICINE OFFICE/OUTPATIENT [facility] 60-74 MINUTES Gus Silva APRN.CNP [address] [place] [address] Referral ID Status Reason Start Date Expiration Date Visits Requested Visits Authorized [id number] Authorized PCP Requested Referral 12/12/2022 12/12/2023 1 1 Specialty Diagnoses / Procedures Referred By Contac t Referred To Contact [facility] Diagnoses Secondary lymphedema Procedures CONSULT TO LYMPHEDEMA THERAPY OFFICE/OUTPATIENT [facility] 60-74 MINUTES Karyna Corona DO [address] [facility] [place] [address] [facility] [place] [address] [place] [address] Referral ID Status Reason Start Date Expiration Date Visits Requested Visits Authorized [id number] Authorized Auto-Generat ed Referral 05/21/2023 05/20/2024 1 [...] content) DATE CREATED AUTHOR AUTHOR'S ORGANIZ ATION 09/16/2023 [facility] Comments (unrecognize d section and content) In the event this informatio n is protected by the Federal Confidentiality of Alcohol and Drug Abuse Patient Records regulations: The Federal rules restrict any use of the information to criminally investigate or prosecute any alcohol or drug abuse patient.[facility] the event this information is protected by the Federal Confidentiality of Alcohol and Drug Abuse Patient Records regulations: The Federal rules restrict any use of the information to criminally investigate or prosecute any alcohol or drug abuse patient.[facility] the event this information is protected by the Federal Confidentiality of Alcohol and Drug Abuse Patient Records regulations: The Federal rules restrict any use of the information to criminally investigate or prosecute any alcohol or drug abuse patient.[facility] the event this information is protected by the Federal Confidentiality of Alcohol and Drug Abuse Patient Records regulations: The Federal rules restrict any use of the information to criminally investigate or prosecute any alcohol or drug abuse patient.[facility] the event this information is protected by the Federal Confidentiality of Alcohol and Drug Abuse Patient Records regulations: The Federal rules restrict any use of the information to criminally investigate or prosecute any alcohol or drug abuse patient.[facility] the event this information is protected by the Federal Confidentiality of Alcohol and Drug Abuse Patient Records regulations: The Federal rules restrict any use of the information to criminally investigate or prosecute any alcohol or drug abuse patient.[facility] the event this information is protected by the Federal Confidentiality of Alcohol and Drug Abuse Patient Records regulations: The Federal rules restrict any use of the information to criminally investigate or prosecute any alcohol or drug abuse patient.[facility] the event this information is protected by the Federal Confidentiality of Alcohol and Drug Abuse Patient Records regulations: The Federal rules restrict any use of the information to criminally investigate or prosecute any alcohol or drug abuse patient.[facility] the event this information is protected by the Federal Confidentiality of Alcohol and Drug Abuse Patient Records regulations: The Federal rules restrict any use of the information to criminally investigate or prosecute any alcohol or drug abuse patient.[facility] the event this information is protected by the Federal Confidentiality of Alcohol and Drug Abuse Patient Records regulations: The Federal rules restrict any use of the information to criminally investigate or prosecute any alcohol or drug abuse patient.[facility] Center[facility] the event this information is protected by the Federal Confidentiality of Alcohol and Drug Abuse Patient Records regulations: The Federal rules restrict any use of the information to criminally investigate or prosecute any alcohol or drug abuse patient.[facility] the event this information is protected by the Federal Confidentiality of Alcohol and Drug Abuse Patient Records regulations: The Federal rules restrict any use of the information to criminally investigate or prosecute any alcohol or drug abuse patient.[facility] the event this information is protected by the Federal Confidentiality of Alcohol and Drug Abuse Patient Records regulations: The Federal rules restrict any use of the information to criminally investigate or prosecute any alcohol or drug abuse patient.[facility] Center[facility] the event this information is protected by the Federal Confidentiality of Alcohol and Drug Abuse Patient Records regulations: The Federal rules restrict any use of the information to criminally investigate or prosecute any alcohol or drug abuse patient.[facility] Center[facility] the event this information is protected by the Federal Confidentiality of Alcohol and Drug Abuse Patient Records regulations: The Federal rules restrict any use of the information to criminally investigate or prosecute any alcohol or drug abuse patient.[facility] Center[facility] the event this information is protected by the Federal Confidentiality of Alcohol and Drug Abuse Patient Records regulations: The Federal rules restrict any use of the information to criminally investigate or prosecute any alcohol or drug abuse patient.[facility] Center[facility] the event this information is protected by the Federal Confidentiality of Alcohol and Drug Abuse Patient Records regulations: The Federal rules restrict any use of the information to criminally investigate or prosecute any alcohol or drug abuse patient.[facility] Center[facility] the event this information is protected by the Federal Confidentiality of Alcohol and Drug Abuse Patient Records regulations: The Federal rules restrict any use of the information to criminally investigate or prosecute any alcohol or drug abuse patient.[facility] Center[facility] the event this information is protected by the Federal Confidentiality of Alcohol and Drug Abuse Patient Records regulations: The Federal rules restrict any use of the information to criminally investigate or prosecute any alcohol or drug abuse patient.[facility] Center[facility] the event this information is protected by the Federal Confidentiality of Alcohol and Drug Abuse Patient Records regulations: The Federal rules restrict any use of the information to criminally investigate or prosecute any alcohol or drug abuse patient.[facility] Center[facility] the event this information is protected by the Federal Confidentiality of Alcohol and Drug Abuse Patient Records regulations: The Federal rules restrict any use of the information to criminally investigate or prosecute any alcohol or drug abuse patient.[facility] Center[facility] the event this information is protected by the Federal Confidentiality of Alcohol and Drug Abuse Patient Records regulations: The Federal rules restrict any use of the information to criminally investigate or prosecute any alcohol or drug abuse patient.[facility] CenterIn the event this information is protected by the Federal Confidentiality of Alcohol and Drug Abuse Patient Records regulations: The Federal rules restrict any use of the information to criminally investigate or prosecute any alcohol or drug abuse patient.[facility] CenterIn the event this information is protected by the Federal Confidentiality of Alcohol and Drug Abuse Patient Records regulations: The Federal rules restrict any use of the information to criminally investigate or prosecute any alcohol or drug abuse patient.[facility] Center[facility] the event this information is protected by the Federal Confidentiality of Alcohol and Drug Abuse Patient Records regulations: The Federal rules restrict any use of the information to criminally investigate or prosecute any alcohol or drug abuse patient.[facility] Center[facility] the event this information is protected by the Federal Confidentiality of Alcohol and Drug Abuse Patient Records regulations: The Federal rules restrict any use of the information to criminally investigate or prosecute any alcohol or drug abuse patient.[facility] CenterIn the event this information is protected by the Federal Confidentiality of Alcohol and Drug Abuse Patient Records regulations: The Federal rules restrict any use of the information to criminally investigate or prosecute any alcohol or drug abuse patient.[facility] CenterIn the event this information is protected by the Federal Confidentiality of Alcohol and Drug Abuse Patient Records regulations: The Federal rules restrict any use of the information to criminally investigate or prosecute any alcohol or drug abuse patient.[facility] CenterIn the event this information is protected by the Federal Confidentiality of Alcohol and Drug Abuse Patient Records regulations: The Federal rules restrict any use of the information to criminally investigate or prosecute any alcohol or drug abuse patient.[facility] CenterIn the event this information is protected by the Federal Confidentiality of Alcohol and Drug Abuse Patient Records regulations: The Federal rules restrict any use of the information to criminally investigate or prosecute any alcohol or drug abuse patient.[facility] CenterIn the event this information is protected by the Federal Confidentiality of Alcohol and Drug Abuse Patient Records regulations: The Federal rules restrict any use of the information to criminally investigate or prosecute any alcohol or drug abuse patient.[facility] CenterIn the event this information is protected by the Federal Confidentiality of Alcohol and Drug Abuse Patient Records regulations: The Federal rules restrict any use of the information to criminally investigate or prosecute any alcohol or drug abuse patient.[facility] CenterIn the event this information is protected by the Federal Confidentiality of Alcohol and Drug Abuse Patient Records regulations: The Federal rules restrict any use of the information to criminally investigate or prosecute any alcohol or drug abuse patient.[facility] CenterIn the event this information is protected by the Federal Confidentiality of Alcohol and Drug Abuse Patient Records regulations: The Federal rules restrict any use of the information to criminally investigate or prosecute any alcohol or drug abuse patient.[facility] CenterIn the event this information is protected by the Federal Confidentiality of Alcohol and Drug Abuse Patient Records regulations: The Federal rules restrict any use of the information to criminally investigate or prosecute any alcohol or drug abuse patient.[facility] CenterIn the event this information is protected by the Federal Confidentiality of Alcohol and Drug Abuse Patient Records regulations: The Federal rules restrict any use of the information to criminally investigate or prosecute any alcohol or drug abuse patient.[facility] CenterIn the event this information is protected by the Federal Confidentiality of Alcohol and Drug Abuse Patient Records regulations: The Federal rules restrict any use of the information to criminally investigate or prosecute any alcohol or drug abuse patient.[facility] Reason for Visit (unrecogniz ed section [...] consult Specialty Diagnoses / Procedures Referred By Mookie contreras Referred To Contact General Surgery Diagnoses Benign neoplasm of colon, unspecified part of colon Procedures CONSULT TO GENERAL SURGERY OFFICE/OUTPATIENT [facility] 60-74 MINUTES Logan Valdes MD [address] [place] [address] Referral ID Status Reason Start Date Expiration Date V isits Requested Visits Authorized [id number] Closed PCP Requested Referral 03/23/2022 03/23/2023 1 [...] (HCC) Procedures CONSULT TO VASCULAR MEDICINE OFFICE/OUTPATIENT [facility] 60-74 MINUTES Gus Silva APRN.LICENSE EXAMINER [address] [place] [address] Referral ID Status Reason Start Date Expiration Date V isits Requested Visits Authorized [id number] Closed PCP Requested Referral 12/12/2022 12/12/2023 1 [...] Care Teams (unrecognized sec tion and content) Language Arts Teacher Relationship Specialty Start Date End Date Logan Valdes MD [address] [place] [address] PCP - General Internal Medicine 05/24/16 Language Arts Teacher Relationship Specialty Start Date End Date Logan Valdes MD [address] [place] [address] PCP - General Internal Medicine 05/24/16 Language Arts Teacher Relationship Specialty Start Date End Date Logan Valdes MD [address] [place] [address] PCP - General Internal Medicine 05/24/16 Language Arts Teacher Relationship Specialty Start Date End Date Logan Valdes MD [address] [place], [place] [address] [phone] PCP - General Internal Medicine 05/24/16 Language Arts Teacher Relationship Specialty Start Date End Date Logan Valdes MD [address] [place], [place] [phone] PCP - General Internal Medicine 05/24/16 Language Arts Teacher Relationship Specialty Start Date End Date Logan Valdes MD [address] [facility] – [place] [address] PCP - General Internal Medicine 05/24/16 Language Arts Teacher Relationship Specialty Start Date End Date Logan Valdes MD [address] [facility] [place] [address] PCP - General Internal Medicine 05/24/16 Language Arts Teacher Relationship Specialty Start Date End Date Logan Valdes MD [address] [facility] [place] [address] PCP - General Internal Medicine 05/24/16 Language Arts Teacher Relationship Specialty Start Date End Date Logan Valdes MD [address] [facility] [place] [address] PCP - General Internal Medicine 05/24/16 Language Arts Teacher Relationship Specialty Start Date End Date Logan Valdes MD [address] [facility] [place] [address] PCP - General Internal Medicine 05/24/16 Language Arts Teacher Relationship Specialty Start Date End Date Logan Valdes MD [address] [facility] [place] [address] PCP - General Internal Medicine 05/24/16 Language Arts Teacher Relationship Specialty Start Date End Date Logan Valdes MD [address] [facility] [place] [address] PCP - General Internal Medicine 05/24/16 Language Arts Teacher Relationship Specialty Start Date End Date Logan Valdes MD [address] [facility] [place] [address] PCP - General Internal Medicine 05/24/16 Language Arts Teacher Relationship Specialty Start Date End Date Logan Valdes MD [address] [facility] [place] [address] PCP - General Internal Medicine 05/24/16 Language Arts Teacher Relationship Specialty Start Date End Date Logan Valdes MD [address] [place] [address] PCP - General Internal Medicine 05/24/16 Language Arts Teacher Relationship Specialty Start Date End Date Logan Valdes MD [address] [facility] [place] [address] PCP - General Internal Medicine 05/24/16 Language Arts Teacher Relationship Specialty Start Date End Date Logan Valdes MD [address] [facility] [place] [address] PCP - General Internal Medicine 05/24/16 Language Arts Teacher Relationship Specialty Start Date End Date Logan Valdes MD [address] [facility] [place] [address] PCP - General Internal Medicine 05/24/16 Language Arts Teacher Relationship Specialty Start Date End Date Logan Valdes MD [address] [facility] [place] [address] PCP - General Internal Medicine 05/24/16 Language Arts Teacher Relationship Specialty Start Date End Date Logan Valdes MD [address] [facility] [place] [address] PCP - General Internal Medicine 05/24/16 Language Arts Teacher Relationship Specialty Start Date End Date Logan Valdes MD [address] [facility] [place] [address] PCP - General Internal Medicine 05/24/16 Language Arts Teacher Relationship Specialty Start Date End Date Logan Valdes MD [address] [place], [place] [address] PCP - General Internal Medicine 05/24/16 Language Arts Teacher Relationship Specialty Start Date End Date Logan Valdes MD [address] [place], [place] [address] PCP - General Internal Medicine 05/24/16 Language Arts Teacher Relationship Specialty Start Date End Date Logan Valdes MD [address] [place], [place] [address] PCP - General Internal Medicine 05/24/16 Language Arts Teacher Relationship Specialty Start Date End Date Logan Valdes MD [address] [place], [place] [address] PCP - General Internal Medicine 05/24/16 FOR [...] BE BASED ON THE PRIMARY CLINICAL RECORDS. [facility] [employer] [facility]. provides no warranty or guarantee of the accuracy or completeness of information in this document.
[2023-09-23 08:45] LABS: Anion Gap 8 (5-15); BUN 43 mg/dL (7-18); BUN/Creat Ratio 16.3 RATIO (10-20); Calcium,Total 8.7 mg/dL (8.5-10.1); Chloride 107 mmol/L (98-107); Creatinine, Serum 2.63 mg/dL (0.70-1.30); EST Glomerular Filtration Rate 25 mL/min (>60); Est Glom Filt Rate - Afr Amer 31 mL/min (>60); Glucose 139 mg/dL (74-106); Potassium 3.7 mmol/L (3.5-5.1); Sodium Level 139 mmol/L (136-145)
== END | disposition home or self-care (01) ==
LOC: LAB 07:35
PROVIDERS: PCP Internal Medicine; Visit Provider Physician Assistant Medical
DX: I25.10 Atherosclerotic heart disease of native coronary artery without angina pectoris (principal)
CPT/HCPCS: 36415; 80048

== ENCOUNTER → 2023-09-30 | Outpatient (CLI) | payer MEDICARE, SELFPAY ==
[2023-08-21 13:24] VITALS: BMI 38.4
--- OUTSIDE RECORDS SUMMARY | 2023-09-30 07:36 | XMS RPT_ITS | CCD ---
Author Name Unknown Address [address] [place] [address] Organization [facility] Care Team Providers Care Lehr Cutter Name Role Phone Keisha AGUILERA, Logan Figueredo [...] KEISHA, MARIA L Primary Care Unavailable GUS SIVLA Attending Unavailable KEISHA, MARIA L Primary Care [...] Coronary arteriosclerosis; Translations: [Atherosclerotic heart disease of moapa coronary artery without angina pectoris] Onset: 08-02-2023 [...] 08:35-0500 Body temperature 98.2 [degF] Codi Older JOB ORDER CLERK.[employer] Work Phone: [facility] 05-24-2023 08:35-0500 Body weight 141.52 kg Codi Older JOB ORDER CLERK.[employer] Work Phone: [facility] 05-24-2023 08:35-0500 Diastolic blood pressure 82 mm[Hg] Codi Older JOB ORDER CLERK.[employer] Work Phone: [facility] 05-24-2023 08:35-0500 Heart rate 126 /min Codi Older JOB ORDER CLERK.[employer] Work Phone: [facility] 05-24-2023 08:35-0500 Respiratory rate 18 /min Codi Older JOB ORDER CLERK.[employer] Work Phone: [facility] 05-24-2023 08:35-0500 SaO2% (BldA) [Mass fraction] 97 % Codi Older JOB ORDER CLERK.[employer] Work Phone: [facility] 05-24-2023 08:35-0500 Systolic blood pressure 158 mm[Hg] Codi Older JOB ORDER CLERK.[employer] Work Phone: [facility] 05-21-2023 10:18-0500 Diastolic blood pressure 98 mm[Hg] Karyna Corona DO Work Phone: [facility] 05-21-2023 10:18-0500 Heart rate 77 /min Karyna Corona DO Work Phone: [facility] 05-21-2023 10:18-0500 SaO2% (BldA) [Mass fraction] 97 % Karyna Corona DO Work Phone: [facility] 05-21-2023 10:18-0500 Systolic blood pressure 152 mm[Hg] Karyna Corona DO Work Phone: [facility] 04-01-2023 12:36-0400 Body height 182.9 cm Codi Older JOB ORDER CLERK.[employer] Work Phone: [facility] 04-01-2023 12:36-0400 Body temperature 97.7 [degF] Codi Older JOB ORDER CLERK.[employer] Work Phone: [facility] 04-01-2023 12:36-0400 Body weight 136.94 kg Codi Older JOB ORDER CLERK.[employer] Work Phone: [facility] 04-01-2023 12:36-0400 Diastolic blood pressure 84 mm[Hg] Codi Older JOB ORDER CLERK.[employer] Work Phone: [facility] 04-01-2023 12:36-0400 Heart rate 76 /min Codi Older JOB ORDER CLERK.[employer] Work Phone: [facility] 04-01-2023 12:36-0400 SaO2% (BldA) [Mass fraction] 99 % Codi Older JOB ORDER CLERK.[employer] Work Phone: [facility] 04-01-2023 12:36-0400 Systolic blood pressure 124 mm[Hg] Codi Older JOB ORDER CLERK.[employer] Work Phone: [facility] 01-29-2023 08:36-0400 Diastolic blood pressure 78 mm[Hg] Karyna Corona DO Work Phone: [facility] 01-29-2023 08:36-0400 Heart rate 68 /min Karyna Corona DO Work Phone: [facility] 01-29-2023 08:36-0400 SaO2% (BldA) [Mass fraction] 97 % Karyna Corona DO Work Phone: [facility] 01-29-2023 08:36-0400 Systolic blood pressure 120 mm[Hg] Karyna Corona DO Work Phone: [facility] 12-12-2022 10:03-0400 Body weight 137.44 kg Gus Ricardo JOB ORDER CLERK.[employer] Work Phone: [facility] 12-12-2022 10:03-0400 Diastolic blood pressure 72 mm[Hg] Gus Ricardo JOB ORDER CLERK.[employer] Work Phone: [facility] 12-12-2022 10:03-0400 Heart rate 71 /min Gus Ricardo JOB ORDER CLERK.[employer] Work Phone: [facility] 12-12-2022 10:03-0400 SaO2% (BldA) [Mass fraction] 98 % Gus Garciar JOB ORDER CLERK.[employer] Work Phone: [facility] 12-12-2022 10:03-0400 Systolic blood pressure 108 mm[Hg] Gus Garciar JOB ORDER CLERK.[employer] Work Phone: [facility] 11-07-2022 07:51-0400 Body weight 137.89 kg Codi Older JOB ORDER CLERK.[employer] Work Phone: [facility] 11-07-2022 07:51-0400 Diastolic blood pressure 85 mm[Hg] Codi Older JOB ORDER CLERK.[employer] Work Phone: [facility] 11-07-2022 07:51-0400 Heart rate 68 /min Codi Older JOB ORDER CLERK.[employer] Work Phone: [facility] 11-07-2022 07:51-0400 Respiratory rate 18 /min Codi Older JOB ORDER CLERK.[employer] Work Phone: [facility] 11-07-2022 07:51-0400 Systolic blood pressure 142 mm[Hg] Codi Older JOB ORDER CLERK.[employer] Work Phone: [facility] 10-31-2022 09:03-0400 Body temperature 97.59 [degF] Codi Older JOB ORDER CLERK.[employer] Work Phone: [facility] 10-31-2022 09:03-0400 Body weight 137.44 kg Codi Older JOB ORDER CLERK.[employer] Work Phone: [facility] 10-31-2022 09:03-0400 Diastolic blood pressure 72 mm[Hg] Codi Older JOB ORDER CLERK.[employer] Work Phone: [facility] 10-31-2022 09:03-0400 Heart rate 82 /min Codi Older JOB ORDER CLERK.[employer] Work Phone: [facility] 10-31-2022 09:03-0400 Respiratory rate 20 /min Codi Older JOB ORDER CLERK.[employer] Work Phone: [facility] 10-31-2022 09:03-0400 SaO2% (BldA) [Mass fraction] 96 % Codi Older JOB ORDER CLERK.[employer] Work Phone: [facility] 10-31-2022 09:03-0400 Systolic blood pressure 132 mm[Hg] Codi Older JOB ORDER CLERK.[employer] Work Phone: [facility] 09-20-2022 08:34-0500 Diastolic blood pressure 77 mm[Hg] Logan Valdes MD Work Phone: [facility] 09-20-2022 08:34-0500 Heart rate 73 /min Logan Valdes MD Work Phone: [facility] 09-20-2022 08:34-0500 Systolic blood pressure 136 mm[Hg] Logan Valdes MD Work Phone: [facility] 09-20-2022 08:30-0500 Body weight 140.62 kg Logan Valdes MD Work Phone: [facility] 09-20-2022 08:30-0500 Respiratory rate 24 /min Logan Valdes MD Work Phone: [facility] 07-02-2022 11:00-0500 Diastolic blood pressure 90 mm[Hg] Jl Hart MD Work Phone: [facility] 07-02-2022 11:00-0500 Heart rate 63 /min Jl Hart MD Work Phone: [facility] 07-02-2022 11:00-0500 SaO2% (BldA) [Mass fraction] 96 % Jl Hart MD Work Phone: [facility] 07-02-2022 11:00-0500 Systolic blood pressure 188 mm[Hg] Jl Hart MD Work Phone: [facility] 07-02-2022 10:50-0500 Respiratory rate 16 /min Jl Hart MD Work Phone: [facility] 07-02-2022 09:20-0500 Body temperature 98.1 [degF] Jl Hart MD Work Phone: [facility] 04-11-2022 08:32-0400 Body height 185.4 cm Layne Granton PA-C Work Phone: [facility] 04-11-2022 08:32-0400 Body temperature 97.81 [degF] Layne Ricardo PA-C Work Phone: [facility] 04-11-2022 08:32-0400 Body weight 137.98 kg Layne Ricardo PA-C Work Phone: [facility] 04-11-2022 08:32-0400 Diastolic blood pressure 82 mm[Hg] Layne Granton PA-C Work Phone: [facility] 04-11-2022 08:32-0400 Heart rate 78 /min Layne Granton PA-C Work Phone: [facility] 04-11-2022 08:32-0400 SaO2% (BldA) [Mass fraction] 100 % Layne Granton PA-C Work Phone: [facility] 04-11-2022 08:32-0400 Systolic blood pressure 134 mm[Hg] Layne Ricardo PA-C Work Phone: [facility] 03-23-2022 09:09-0400 Diastolic blood pressure 80 mm[Hg] Logan Valdes MD Work Phone: [facility] 03-23-2022 09:09-0400 Systolic blood pressure 132 mm[Hg] Logan Valdes MD Work Phone: [facility] 03-23-2022 08:37-0400 Body weight 140.16 kg Logan Valdes MD Work Phone: [facility] 03-23-2022 08:37-0400 Heart rate 64 /min Logan Valdes MD Work Phone: [facility] 03-23-2022 08:37-0400 Respiratory rate 18 /min Logan Valdes MD Work Phone: [facility] 03-23-2022 08:37-0400 SaO2% (BldA) [Mass fraction] 97 % Logna Valdes MD Work Phone: [facility] 01-26-2022 09:36-0400 Body weight 139.25 kg La Tannhof JOB ORDER CLERK.[employer] Work Phone: [facility] 01-26-2022 09:36-0400 Diastolic blood pressure 92 mm[Hg] La Tannhof JOB ORDER CLERK.[employer] Work Phone: [facility] 01-26-2022 09:36-0400 Heart rate 60 /min La Tannhof JOB ORDER CLERK.[employer] Work Phone: [facility] 01-26-2022 09:36-0400 Respiratory rate 20 /min La Tannhof JOB ORDER CLERK.[employer] Work Phone: [facility] 01-26-2022 09:36-0400 SaO2% (BldA) [Mass fraction] 100 % La Tannhof JOB ORDER CLERK.[employer] Work Phone: [facility] 01-26-2022 09:36-0400 Systolic blood pressure 132 mm[Hg] La Tannhof JOB ORDER CLERK.[employer] Work Phone: [facility] 12-27-2021 08:19-0400 Body weight 135.63 kg Codi Older JOB ORDER CLERK.[employer] Work Phone: [facility] 12-27-2021 08:19-0400 Diastolic blood pressure 72 mm[Hg] Codi Older JOB ORDER CLERK.[employer] Work Phone: [facility] 12-27-2021 08:19-0400 Heart rate 88 /min Codi Older JOB ORDER CLERK.[employer] Work Phone: [facility] 12-27-2021 08:19-0400 Respiratory rate 20 /min Codi Older JOB ORDER CLERK.[employer] Work Phone: [facility] 12-27-2021 08:19-0400 Systolic blood pressure 108 mm[Hg] Codi Older JOB ORDER CLERK.[employer] Work Phone: [facility] Encounters Encounter Date Encounter Type Care Provider Facility Start: 09-16-2023 End: 09-16-2023 ambulatory LOGAN VALDES Facility:[facility] Start: 09-16-2023 End: 09-16-2023 Patient encounter procedure Fouzia Correia Work Phone: Podiatry Procedures Date Procedure Procedure Detail Performing Clinician Start: 05-24-2023 Ecg routine ecg w/le ast 12 lds i&r only [facility] Provider Start: 04-01-2023 INFLUENZA VACCINE, P RSV FREE, AGE 65+ YR, HIGH DOSE, QUADRIVALENT (FLUZONE HIGH-DOSE) Codi Older JOB ORDER CLERK.[employer] Work Phone: Start: 09-18-2022 Lipid 1996 panel - S mima or Plasma Codi Older JOB ORDER CLERK.[employer] Work Phone: Start: 07-02-2022 Level iv surg [...] Detail Author Start: 12-20-2031 Urine microalbumin profile [facility] Start: 09-19-2027 Lipid 1996 panel - S mima or Plasma Lipid Screening [facility] Start: 09-19-2027 Lipid panel Lipid Screening [facility] Start: 09-19-2027 LIPID SCREEN LIPID SCREEN [facility] Start: 05-24-2026 Diabetes Screening Diabetes Screenin g [facility] Start: 03-31-2026 LIPID SCREEN LIPID SCREEN [facility] Start: 09-18-2025 DIABETES SCREEN DIABETES SCREEN [facility] Start: 09-18-2025 Diabetes Screening Diabetes Screenin g [facility] Start: 07-02-2025 Colonoscopy COLONOSCOPY [facility] Start: 07-02-2025 COLORECTAL CANCER SCREENING COLORECTAL CANCER SCREENING [facility] Start: 08-08-2024 Annual PCP Team Naphthalene Operator Helper richard Disease Visit Annual PCP Team Chronic Disease Visit [facility] Start: 08-08-2024 BP Controlled (<130/80) BP Controlle d (<130/80) [facility] Start: 08-08-2024 Covid-19 Vaccine ( season) Covid-19 Vaccine ( season) [facility] Immunizations Immunization Date Immunization Notes Care Provider Fa felisha 04-01-2023 influenza (HD-IIV4) vaccine, age 65+ yr, high dose, quadrivalent, PF (FLUZONE HIGH-DOSE) Codi Older JOB ORDER CLERK.[facility] Work Phone: [facility] Work Phone: 05-28-2022 influenza (HD-IIV4) vaccine, age 65+ yr, high dose, quadrivalent, PF (FLUZONE HIGH-DOSE) Gus Ricardo JOB ORDER CLERK.[employer] Work Phone: [facility] Work Phone: 12-19-2021 tetanus toxoid, redu shaggy diphtheria toxoid, and acellular pertussis vaccine, adsorbed Codi Older JOB ORDER CLERK.[facility] Work Phone: [facility] Work Phone: 05-02-2021 influenza, high-dose , quadrivalent vaccine (FLUZONE HIGH DOSE QUADRIVALENT) Fouzia Correia Work Phone: [facility] Work Phone: 04-25-2020 influenza, high-dose , quadrivalent vaccine (FLUZONE HIGH DOSE QUADRIVALENT) Fouziaryan Correia Work Phone: [facility] Work Phone: 05-08-2019 influenza, high dose seasonal, preservative-free Fouzia Testsatinder Work Phone: [facility] 05-23-2018 influenza, high dose seasonal, preservative-free Fouziaryan CaballeroVivorte Work Phone: [facility] Work Phone: 06-03-2017 influenza, high dose seasonal, preservative-free Fouzia Correia Work Phone: [facility] 08-27-2016 pneumococcal polysaccharide vaccine, 23 valent Fouzia Correia Work Phone: [facility] 08-10-2015 pneumococcal conjuga te vaccine, 13 valent Fouzia Correia Work Phone: [facility] 07-28-2012 influenza virus vacc ine, unspecified formulation Fouzia Correia Work Phone: [facility] Work Phone: 08-01-2010 influenza virus vacc ine, unspecified formulation Fouzia Correia Work Phone: [facility] 08-01-2010 tetanus toxoid, redu shaggy diphtheria toxoid, and acellular pertussis vaccine, adsorbed Fouzia Correia Work Phone: [facility] Payers Date Payer Category Payer Unknown [id number] 2019 Unknown MMO MMO MEDICARE SUPPLEMENT [id number] 2019-Present [phone] [address] [place] [address] Indemnity [id number] 2019 Unknown [id number] 2014 Medicare MEDICARE MEDICAR E A AND B [id number] 2014-Present [phone] [address] [address] [place] [address] Medicare [id number] 2014 Medicare [id number] Social History Date Type Detail Facility Start: 08-01-2010 End: 03-23-2022 Tobacco smoking status NHIS Ex-smoker [facility] Work Phone: Start: 09-20-2021 End: 07-02-2022 Alcohol intake Current drinker of alcohol (finding) [facility] Start: 12-22-2020 History SDOH Alcohol Frequency 98 [facility] Start: 12-22-2020 History SDOH Alcohol Binge 1 [facility] Start: 08-02-2021 History SDOH Alcohol Comment monthly [facility] Start: 12-22-2020 History SDOH Social Connections Phone 3 [facility] Start: 12-22-2020 History SDOH Social Connections Sabianist 2 [facility] Start: 12-22-2020 History SDOH Physica l Activity DPW 0 [facility] Start: 12-22-2020 History SDOH Financial 5 [facility] Start: 12-22-2020 Education 16 [facility] Start: 08-01-2010 End: 03-23-2022 Tobacco Comment 40 + years ago - quit pipe for 6 mo [facility] Start: 1950 Sex Assigned At Not on file [facility] Start: 10-23-2021 End: 05-11-2022 Exposure to SARS-CoV-2 (event) Not sure [facility] Work Phone: Start: 12-11-2021 End: 12-21-2021 Exposure to SARS-CoV-2 (event) Unable to assess [facility] Work Phone: History of tobacco use Current smoker [facility] Start: 08-01-2010 End: 04-11-2022 Tobacco use and exposure Smokeless tobacco non-user [facility] Start: 04-11-2022 Tobacco smoking stat us NHIS Never smoked tobacco [facility] Start: 08-27-2022 End: 09-16-2023 Alcohol intake Ex-drinker (finding) [facility] Start: 12-22-2020 End: 11-30-2022 History of Social function [facility] Start: 12-22-2020 End: 11-30-2022 Social connection and isolation panel [facility] Do you belong to any clubs or organizations such as rastafarian groups, unions, fraternal or athletic groups, or school groups? Yes [facility] Are you now , , , , never or living with a partner? [facility] How often to you hav e a drink containing alcohol? Patient refused [facility] How often do you hav e 6 or more drinks on 1 occasion? Never [facility] Do you feel stress - tense, restless, nervous, or anxious, or unable to sleep at night because your mind is troubled all the time - these days [OSQ] Only a little [facility] (I/We) worried wheth er (my/our) food would run out before (I/we) got money to buy more. Never true [facility] In the past 12 month s, was there a time when you were not able to pay the mortgage or rent on time? No [facility] Clinical Notes 11-03-2015 to 09-16-2023 Fouzia Correia - 09/16/2023 8:12 AM Arminda Thomas RN - 09/16/2023 8:06 AM Fouzia Sparks - 06/11/2023 8:10 AM Marguerite Ryan LPN - 06/11/2023 8:07 AM ESTPatient Instructions Note Date & Type Note Facility 09-16-2023 Note HNO ID: [id number] Author: FOUZIA CORREIA, ? Service: ? Author [...] Objective: Patient presents to clinic ambulating in [facility] Vasc: DP and PT pulses are [...] RTC in 3-4 months. Fouzia Correia DPM [facility] 09-16-2023 Note HNO ID: [id number] Author: ARMINDA CROSS RN Service: ? Author Type: Registered Nurse Type: Progress Notes Filed: 09/16/2023 08:22 Note Text: Patient presents with: Left Foot - Established Patient, Debridement of Nail Right Foot - Established Patient, Debridement of Nail [facility] 09-16-2023 History of Presen t illness Narrative Subjective: Patient presents to clinic c/o painful toenails. They state that the nails are especially painful with shoe gear and pressure. Patient states that nails b/l hallux are painful. No other pedal complaints at this time. Patient states no change in medications or medical history since last visit. Objective: Patient presents to clinic ambulating in [facility] Vasc: DP and PT pulses are [...] Debridement of Nail documented in this encounter [facility] 08-08-2023 Note HNO ID: [id number] Author: LOGAN VALDES MD Service: ? Author Type: Physician Type: Progress Notes Filed: 08/08/2023 15:02 Note Text: This note was created using [employer]. Subjective Kimberly Chan is a 73 year [...] Stented Coronary Artery Coronary Artery Disease Involving [place] Coronary Artery of [place] Heart Without Angina Pectoris PAST SURGICAL HISTORY Procedure Laterality Date CC CORONARY STENT 08/02/2023 PCI mid LAD, GAR[place] COLONOSCOPY FLX DX W/COLLJ SPEC WHEN [...] and Plan 1. Coronary artery disease involving mo[place] coronary artery of [place] heart without angina pectoris - ICD9: 414.01, [...] daily after one year. Logan Valdes MD [facility] 06-12-2023 Note HNO ID: [id number] Author: Kam Reis, PT Service: ? 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 [facility] 06-11-2023 Note HNO ID: [id number] Author: Jl Hart MD Service: ? Author [...] denies diarrhea, denies (more content not included)... [facility] 06-11-2023 Note HNO ID: [id number] Author: Fouzia Correia Service: ? Author Type: [...] RTC in 3-4 months. Fouzia Correia DPM [facility] 06-11-2023 Note HNO ID: [id number] Author: Marguerite Geronimo LPN Service: ? Author [...] nail care , Established Patient Marguerite GeronimoEVELYN [facility] 06-11-2023 History of Presen t illness [...] Marguerite Geronimo LPN documented in this encounter [facility] 06-10-2023 Miscellaneous Notes Faxed to [facility] as requested. External referral placed. Please fax orders for stress test to [facility]. Will hold off on canceling stress test with [facility] until he is scheduled at [facility]. Codi Larkin APRN.[employer] documented in this encounter [facility] 05-30-2023 Miscellaneous Notes Forms signed and faxed to Dkasha at [employer] at [phone]. Transmission complete. Encounter closed. GARY Dubon Type of form: [employer] Prescription Form received via fax When form is completed, Fax form to [employer] at [phone] Form has been forwarded to GARY Mendoza documented in this encounter [facility] 05-24-2023 Note HNO ID: [id number] Author: Dia Tran RT(R) Service: Radiology Author [...] Tran RT(R) May 24, 2023 9:17 AM [facility] 05-24-2023 Note HNO ID: [id number] Author: Codi Larkin APRN.[employer] Service: ? Author Type: Nurse Practitioner Type: [...] (FLUSH) INJECTION SYRINGE (more content not included)... [facility] 05-24-2023 History of Presen t illness [...] Codi Larkin APRN.CNP documented in this encounter [facility] 05-23-2023 Miscellaneous Notes Orders with clinical documents faxed to [employer] Transmission completed documented in this encounter [facility] 05-21-2023 Note HNO ID: [id number] Author: Karyna Corona, DO Service: ? Author Type: Physician Type: Progress Notes Filed: 05/23/2023 9:05 AM Note Text: Heart , Vascular and Thoracic [place] DEPARTMENT OF VASCULAR SURGERY OUTPATIENT VISIT DATE [...] DATE: May 21, 2023 TIME: 10:56 AM [facility] 05-21-2023 History of Presen t illness Narrative Images from the original note were not included. Heart , V[facility] Thor[facility] [place] DEPARTMENT OF VASCULAR SURGERY OUTPATIENT VISIT DATE [...] TIME: 10:56 AM documented in this encounter [facility] 04-09-2023 Note HNO ID: [id number] Author: Karyna Corona DO Service: ? Author Type: Physician Type: Progress Notes Filed: 04/09/2023 2:25 PM Note Text: This office note has been dictated. Karyna Corona DO [facility] 04-09-2023 Note HNO ID: [id number] Author: Karyna Corona DO Service: Vascular Surgery Author Type: Physician Type: Progress Notes Filed: 04/17/2023 10:38 AM Note Text: NAME: KIMBERLY CHAN CLINIC NO: [id number] DATE OF SERVICE: 04/09/2023 Subjective: Mr. Chan [...] concerns. Karyna Corona D.O. KB/089 Audio #: [id number] Date Dictated: 04/09/2023 12:14:38 Date Typed: 04/11/2023 12:46:13 Date Revised: [facility] 04-01-2023 Note HNO ID: [id number] Author: Codi Larkin APRN.[employer]OL[employer] Service: ? Author Type: Nurse Practitioner Type: Progress Notes Filed: 04/01/2023 1:12 PM Note Text: Kimberly Chan is a 73 year old male here for a Medicare wellness visit. Health Risk Assessment In general, health is: Very good Concerns with balance:rarely Concerns with teeth or dentures:Not at all Concerns with sexual function:Not at all [place] anxious, stressed, angry, irritable, lonely, isolated, or [...] [facility]iat[facility]- Dr. Testrake Outside specialists seen: [facility] Medical/Family history review Reviewed and updated problem [...] - Substance use screening Codi Larkin APRN.CNP [facility] 04-01-2023 Instructions Codi Larkin APRN.CNP - [...] review all the medicines you take, even [id number] medicines. As you get older, the way [...] certain medical conditions. documented in this encounter [facility] 04-01-2023 History of Presen t illness Narrative Kimberly Chan is a 73 year old male here for a Medicare wellness visit. Health Risk Assessment In general, health is: Very good Concerns with balance:rarely Concerns with teeth or dentures:Not at all Concerns with sexual function:Not at all [place] anxious, stressed, angry, irritable, lonely, isolated, or [...] [facility]iat[facility]- Dr. Correia Outside specialists seen: [facility] Medical/Family history review Reviewed and updated problem [...] Codi Larkin APRN.MELINDA documented in this encounter [facility] 03-20-2023 Miscellaneous Notes Last office visit: 12/12/22 Next appointment scheduled: 04/01/23 Last labs: 09/18/22 Patient phones requesting refills as follows: Requested Prescriptions Pending Prescriptions Disp Refills losartan (COZAAR) 100 mg tablet 90 tablet 3 Sig: Take 1 tablet by mouth once daily. Please review and advise. Lilli Vickers LPN documented in this encounter [facility] 03-20-2023 Miscellaneous Notes Last office visit: 12/12/22 Next appointment scheduled: 04/01/23 Last labs: 09/18/22 Patient phones requesting refills as follows: Requested Prescriptions Pending Prescriptions Disp Refills ibuprofen (MOTRIN) 600 mg tablet 30 tablet 5 Sig: Take 1 tablet by mouth every 8 hours as needed for pain. Lilli Vickers LPN documented in this encounter [facility] 03-05-2023 Note HNO ID: [id number] Author: Fouzia Correia Service: ? Author Type: [...] RTC in 3-4 months. Fouzia Correia DPM [facility] 03-05-2023 Note HNO ID: [id number] Author: Daksha Feliciano Service: ? Author Type: ? Type: Progress Notes Filed: 03/05/2023 10:13 AM Note Text: Patient presents with: Left Foot - Established Patient: Nail care Right Foot - Established Patient: Nail care Patient reports no pain at this time. He states his feet are still swelling. [facility] 03-05-2023 History of Presen t illness [...] are still swelling. documented in this encounter [facility] 01-29-2023 Note HNO ID: [id number] Author: Karyna Corona, DO Service: ? Author Type: Physician Type: Progress Notes Filed: 02/25/2023 3:12 PM Note Text: Heart, Vascular and Thoracic [place] DEPARTMENT OF VASCULAR SURGERY OUTPATIENT VISIT DATE January 29, 2023 OUTPATIENT VISIT TYPE CONSULTATION SERVICE DATE: 01/29/2023 SERVICE TIME: 8:36 AM PRIMARY CARE PHYSICIAN: Logan Valdes MD REFERRING PROVIDER: Gus Silva [facility] [address] Consult requested for an opinion regarding the [...] motor skills. Vasc (more content not included)... [facility] 01-29-2023 History of Presen t illness Narrative Images from the original note were not included. Heart, Vascular [facility] Thor[facility] [place] DEPARTMENT OF VASCULAR SURGERY OUTPATIENT VISIT DATE January 29, 2023 OUTPATIENT VISIT TYPE CONSULTATION SERVICE DATE: 01/29/2023 SERVICE TIME: 8:36 AM PRIMARY CARE PHYSICIAN: Logan Valdes MD REFERRING PROVIDER: Gus Silva [address] [place] [address] Consult requested for an opinion regarding the [...] TIME: 8:36 AM documented in this encounter [facility] 12-12-2022 Note HNO ID: [id number] Author: Gus Silva APRN.[employer] Service: ? 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) - 08/01/2010 Social History Tobacco [...] (primary diagnosis) Certa (more content not included)... [facility] 12-12-2022 History of Presen t illness [...] PROBLEM LIST Chronic Venous Hypertension W Ulceration ([facility]) - 11/30/2022 Numbness and Tingling of Both Feet - 06/22/2021 Toenail Deformity - 06/22/2021 Nasal sinus congestion, nocturnal - 07/09/2018 Alcohol-Induced Insomnia (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) - 08/01/2010 Social History Tobacco [...] Gus Silva APRN-MELINDA documented in this encounter [facility] 11-30-2022 Note HNO ID: [id number] Author: Fouzia Correia Service: ? Author Type: [...] RTC in 3-4 months. Fouzia Correia DPM [facility] 11-30-2022 Note HNO ID: [id number] Author: Lyane Álvarez RN Service: ? Author Type: Registered Nurse Type: Progress Notes Filed: 11/30/2022 2:08 PM Note Text: Patient presents with: Left Foot - Established Patient, Follow Up, nail care Right Foot - Established Patient, Follow Up, nail care Patient presents for 3 month follow up nail care. Denies any new pain. Has abrasion to right lower leg from golf cart wheel yesterday. [facility] 11-07-2022 Note HNO ID: [id number] Author: Codi Larkin APRN.CNP Service: ? Author [...] agreeable to treatment plan. Codi Larkin APRN.CNP [facility] 11-07-2022 Instructions Codi Larkin APRN.CNP - 11/07/2022 8:05 AM EDT Follow-up in 1-2 weeks if no improvement or sooner if there is any worsening documented in this encounter [facility] 11-07-2022 History of Presen t [...] Codi Larkin APRN.CNP documented in this encounter [facility] 10-31-2022 Note HNO ID: [id number] Author: Codi Larkin APRN.CNP Service: ? Author [...] agreeable to treatment plan. Codi Larkin APRN.CNP [facility] 10-31-2022 Instructions Codi Larkin APRN.CNP - 10/31/2022 9:21 AM EDT Wash with soap and water followed by SMALL AMOUNT antibiotic ointment and a clean dry gauze dressing Recheck wound as scheduled with office. If any unusual pain, swelling, red streaks, pus, fever or other signs of worsening infection, call immediately. documented in this encounter [facility] 10-31-2022 History of Presen t [...] Codi Larkin APRN.MELINDA documented in this encounter [facility] 09-20-2022 Note HNO ID: [id number] Author: Dipti Ascencio LPN Service: ? Author [...] Canal/Tympanic membrane assessed by LIP Dr. Valdes [facility] 09-20-2022 Note HNO ID: [id number] Author: Logan Valdes MD Service: ? Author Type: Physician Type: Progress Notes Filed: 09/20/2022 9:22 AM Note Text: This note was created using [employer]. Subjective Kimberly Chan is a 72 year [...] - Continue cur (more content not included)... [facility] 09-20-2022 History of Presen t illness Narrative Ambulatory Ear Lavage Pre-treatment: Warm water Treatment: Both ears Equipment and Irrigation solution and Volume used: Single use syringe with single use irrigation tip Return flow appearance: Brown, large amount Patient tolerated procedure: yes Post-treatment: Post Irrigation Post-treatment: Ear Canal/Tympanic membrane assessed by LIP Dr. Valdes This note was created using [employer]. Subjective Kimberly Chan is a 72 year [...] Logan Valdes MD documented in this encounter [facility] 09-20-2022 Instructions Logan Valdes MD - 09/20/2022 9:05 AM EST Fasting blood work in 6 months. documented in this encounter [facility] 09-17-2022 Miscellaneous Notes Detailed message [...] diagnosis. Patient requests a call back at [phone] once orders are placed. Please review and advise, Peri Anna RN documented in this encounter [facility] 07-11-2022 History of Presen t [...] UP VISIT - ENDOSCOPY NAME: Kimberly Quintero [facility] NO.: [id number] DATE OF SERVICE: 07/11/2022 : 1950 REFERRING [...] Layne Silva PA-C documented in this encounter [facility] 07-10-2022 Miscellaneous Notes Patient has [...] Dipti Ascencio LPN documented in this encounter [facility] 07-02-2022 Nurse Note Return from [...] rectally as able. documented in this encounter [facility] 07-02-2022 History and physical note [...] entered by the nurse and reviewed by ut Nursing Notes: Yuko Meraz RN 04/11/2022 8:44 [...] patient was offered a surgery/procedure at a [facility] facility. I have counseled the [...] TIME: 10:29 AM documented in this encounter [facility] 06-29-2022 Miscellaneous Notes Last office visit: 03/23/22 Next appointment scheduled: 09/20/22 Last labs: 03/31/21 Patient phones requesting refills as follows: Requested Prescriptions Pending Prescriptions Disp Refills atorvastatin (LIPITOR) 10 mg tablet 90 tablet 3 Sig: Take 1 tablet by mouth daily at bedtime. For cholesterol. Please review and advise. Lilli Vickers LPN documented in this encounter [facility] 05-21-2022 Miscellaneous Notes Per patient called and would like procedure moved from 05/28 to 07/02. Denied anything sooner Patient called in to reschedule procedure with Dr. Hart in [facility] on 05/28. Left voicemail to contact me directly at [phone] if wishes to proceed. Steff Acosta [employer] [facility] 05-28-[address] Hart AEC documented in this encounter [facility] 05-11-2022 History of Presen t [...] Fouzia Correia DPM documented in this encounter [facility] 04-17-2022 Miscellaneous Notes Patient has [...] Colette Dean LPN documented in this encounter [facility] 04-11-2022 History of Presen t [...] patient was offered a surgery/procedure at a [facility] facility. I have counseled the [...] Layne Silva PA-C documented in this encounter [facility] 04-11-2022 Nurse Note REVIEW OF [...] Yuko Meraz RN documented in this encounter [facility] 09-20-2022 Miscellaneous Notes Order faxed to below number. Dipti Ascencio LPN DDM reports they received order for the additional information on the compression stockings, but it was not signed. Asking provider to sign and fax to them [phone] documented in this encounter [facility] 04-02-2022 Miscellaneous Notes [facility] calling to state they received compression stocking order for patient and they need additional information: Specify knee high, thigh high, or leggings. Specify what compression. Demographic info This information was faxed as requested tp FAX #: [phone]. Ynes Yuan RN documented in this encounter [facility] 04-02-2022 Miscellaneous Notes Printed and faxed. Pt notified Rosalinda Astudillo Cma Print order from 03/23 and fax please, does not need signature Codi Larkin APRN.MELINDA Rx for compression stockings were sent to [facility], they don't carry this type of supply. Pt asking for new Rx to go to [facility]. Pt asking to be called when Rx has been sent to pharm. Gwen Edmonds LPN documented in this encounter [facility] 03-23-2022 History of Presen t illness Narrative This note was created using [employer]. Subjective Kimberly Chan is a 72 year [...] Logan Valdes MD documented in this encounter [facility] 02-20-2022 Instructions Fouzia Correia - 02/20/2022 8:15 AM EDT Your ulceration is healed Continue with compression stocking Follow-up as scheduled documented in this encounter [facility] 02-20-2022 History of Presen t [...] (H) 4.3 - 5.6 % Final Comment: [place] [employer] guidelines indicate that patients with [...] prescribed for leg at drug store or [facility]. Marguerite Geronimo LPN documented in this encounter [facility] 02-06-2022 Instructions Fouzia Correia - 02/06/2022 9:25 AM EDT Recommend aquacel to left leg daily. When wound becomes very tiny, you can switch to topical antibiotic. Recommend frank compression from toes to knee during the day. Can remove at night. documented in this encounter [facility] 02-06-2022 History of Presen t [...] Fouzia Correia DPM documented in this encounter [facility] 01-31-2022 Miscellaneous Notes Patient has [...] Dipti Ascencio LPN documented in this encounter [facility] 01-26-2022 Instructions La Mcgee APRN.MELINDA [...] cream to wound documented in this encounter [facility] 01-26-2022 History of Presen t [...] APRN.MELINDA This note was partially generated using [employer] voice recognition system. Note was reviewed for accuracy. There may be minor misspellings or grammar miscues with [employer] voice recognition. documented in this encounter [facility] 12-27-2021 History of Presen t [...] all digits DATA REVIEWED: Outside chart from [facility] ER reviewed. ASSESSMENT/PLAN: 1. Dog [...] Codi Larkin APRN.CNP documented in this encounter [facility] 12-27-2021 Instructions Codi Larkin APRN.CNP - 12/27/2021 8:42 AM EDT If any unusual pain, swelling, red streaks, pus, fever or other signs of worsening infection, call immediately. documented in this encounter [facility] 11-29-2021 Miscellaneous Notes Patient has [...] Dipti Ascencio LPN documented in this encounter [facility] 11-27-2021 Miscellaneous Notes Patient has [...] Dipti Ascencio LPN documented in this encounter [facility] 11-02-2021 History of Presen t [...] Fouzia Correia DPM documented in this encounter [facility] documented as of this encounter (statuses as of 11/02/2021) [facility] History of Past illness Narrative* Problem Noted Date Resolved Date Mild cognitive impairment 11/03/20152017 Hyperlipidemia 07/21/2015 11/03/2015 BMI 40.0-44.9, adult 04/05/2014 11/03/2015 Diverticulosis of colon (without mention of hemo rrhage) 10/25/2010 05/24/2016 Hypertension 09/08/2010 08/27/2016 BP (high blood pressure) 08/01/2010 016 documented as of this encounter (statuses as of 11/28/2021) [facility] History of Past illness Narrative* Problem Noted Date Resolved Date Mild cognitive impairment 11/03/20152017 Hyperlipidemia 07/21/2015 11/03/2015 BMI 40.0-44.9, adult 04/05/2014 11/03/2015 Diverticulosis of colon (without mention of hemo rrhage) 10/25/2010 05/24/2016 Hypertension 09/08/2010 08/27/2016 BP (high blood pressure) 08/01/2010 016 documented as of this encounter (statuses as of 12/01/2021) [facility] History of Past illness Narrative* Problem Noted Date Resolved Date Mild cognitive impairment 11/03/20152017 Hyperlipidemia 07/21/2015 11/03/2015 BMI 40.0-44.9, adult 04/05/2014 11/03/2015 Diverticulosis of colon (without mention of hemo rrhage) 10/25/2010 05/24/2016 Hypertension 09/08/2010 08/27/2016 BP (high blood pressure) 08/01/2010 016 documented as of this encounter (statuses as of 12/27/2021) [facility] History of Past illness Narrative* Problem Noted Date Resolved Date Mild cognitive impairment 11/03/20152017 Hyperlipidemia 07/21/2015 11/03/2015 BMI 40.0-44.9, adult 04/05/2014 11/03/2015 Diverticulosis of colon (without mention of hemo rrhage) 10/25/2010 05/24/2016 Hypertension 09/08/2010 08/27/2016 BP (high blood pressure) 08/01/2010 016 documented as of this encounter (statuses as of 01/26/2022) [place] [id number] History of Past illness Narrative* Problem Noted Date Resolved Date Mild cognitive impairment 11/03/20152017 Hyperlipidemia 07/21/2015 11/03/2015 BMI 40.0-44.9, adult 04/05/2014 11/03/2015 Diverticulosis of colon (without mention of hemo rrhage) 10/25/2010 05/24/2016 Hypertension 09/08/2010 08/27/2016 BP (high blood pressure) 08/01/2010 016 documented as of this encounter (statuses as of 01/31/2022) [address]21[address]2016 History of Past illness Narrative* Problem Noted Date Resolved Date Mild cognitive impairment 11/03/20152017 Hyperlipidemia 07/21/2015 11/03/2015 BMI 40.0-44.9, adult 04/05/2014 11/03/2015 Diverticulosis of colon (without mention of hemo rrhage) 10/25/2010 05/24/2016 Hypertension 09/08/2010 08/27/2016 BP (high blood pressure) 08/01/2010 016 documented as of this encounter (statuses as of 02/06/2022) [address]2016 History of Past illness Narrative* Problem Noted Date Resolved Date Mild cognitive impairment 11/03/20152017 Hyperlipidemia 07/21/2015 11/03/2015 BMI 40.0-44.9, adult 04/05/2014 11/03/2015 Diverticulosis of colon (without mention of hemo rrhage) 10/25/2010 05/24/2016 Hypertension 09/08/2010 08/27/2016 BP (high blood pressure) 08/01/2010 016 documented as of this encounter (statuses as of 02/20/2022) [facility] History of Past illness Narrative* Problem Noted Date Resolved Date Mild cognitive impairment 11/03/20152017 Hyperlipidemia 07/21/2015 11/03/2015 BMI 40.0-44.9, adult 04/05/2014 11/03/2015 Diverticulosis of colon (without mention of hemo rrhage) 10/25/2010 05/24/2016 Hypertension 09/08/2010 08/27/2016 BP (high blood pressure) 08/01/2010 016 documented as of this encounter (statuses as of 03/23/2022) [facility] History of Past illness Narrative* Problem Noted Date Resolved Date Mild cognitive impairment 11/03/20152017 Hyperlipidemia 07/21/2015 11/03/2015 BMI 40.0-44.9, adult 04/05/2014 11/03/2015 Diverticulosis of colon (without mention of hemo rrhage) 10/25/2010 05/24/2016 Hypertension 09/08/2010 08/27/2016 BP (high blood pressure) 08/01/2010 016 documented as of this encounter (statuses as of 04/02/2022) [facility] History of Past illness Narrative* Problem Noted Date Resolved Date Mild cognitive impairment 11/03/20152017 Hyperlipidemia 07/21/2015 11/03/2015 BMI 40.0-44.9, adult 04/05/2014 11/03/2015 Diverticulosis of colon (without mention of hemo rrhage) 10/25/2010 05/24/2016 Hypertension 09/08/2010 08/27/2016 BP (high blood pressure) 08/01/2010 016 documented as of this encounter (statuses as of 04/02/2022) [facility] History of Past illness Narrative* Problem Noted Date Resolved Date Mild cognitive impairment 11/03/20152017 Hyperlipidemia 07/21/2015 11/03/2015 BMI 40.0-44.9, adult 04/05/2014 11/03/2015 Diverticulosis of colon (without mention of hemo rrhage) 10/25/2010 05/24/2016 Hypertension 09/08/2010 08/27/2016 BP (high blood pressure) 08/01/2010 016 documented as of this encounter (statuses as of 04/03/2022) [address]2016 History of Past illness Narrative* Problem Noted Date Resolved Date Mild cognitive impairment 11/03/20152017 Hyperlipidemia 07/21/2015 11/03/2015 BMI 40.0-44.9, adult 04/05/2014 11/03/2015 Diverticulosis of colon (without mention of hemo rrhage) 10/25/2010 05/24/2016 Hypertension 09/08/2010 08/27/2016 BP (high blood pressure) 08/01/2010 016 documented as of this encounter (statuses as of 04/17/2022) [address]2016 History of Past illness Narrative* Problem Noted Date Resolved Date Mild cognitive impairment 11/03/20152017 Hyperlipidemia 07/21/2015 11/03/2015 BMI 40.0-44.9, adult 04/05/2014 11/03/2015 Diverticulosis of colon (without mention of hemo rrhage) 10/25/2010 05/24/2016 Hypertension 09/08/2010 08/27/2016 BP (high blood pressure) 08/01/2010 016 documented as of this encounter (statuses as of 04/17/2022) [address]2016 History of Past illness Narrative* Problem Noted Date Resolved Date Mild cognitive impairment 11/03/20152017 Hyperlipidemia 07/21/2015 11/03/2015 BMI 40.0-44.9, adult 04/05/2014 11/03/2015 Diverticulosis of colon (without mention of hemo rrhage) 10/25/2010 05/24/2016 Hypertension 09/08/2010 08/27/2016 BP (high blood pressure) 08/01/2010 016 documented as of this encounter (statuses as of 05/11/2022) [address]2016 History of Past illness Narrative* Problem Noted Date Resolved Date Mild cognitive impairment 11/03/20152017 Hyperlipidemia 07/21/2015 11/03/2015 BMI 40.0-44.9, adult 04/05/2014 11/03/2015 Diverticulosis of colon (without mention of hemo rrhage) 10/25/2010 05/24/2016 Hypertension 09/08/2010 08/27/2016 BP (high blood pressure) 08/01/2010 016 documented as of this encounter (statuses as of 06/11/2022) [place] [address]21-2016 History of Past illness Narrative* Problem Noted Date Resolved Date Mild cognitive impairment 11/03/20152017 Hyperlipidemia 07/21/2015 11/03/2015 BMI 40.0-44.9, adult 04/05/2014 11/03/2015 Diverticulosis of colon (without mention of hemo rrhage) 10/25/2010 05/24/2016 Hypertension 09/08/2010 08/27/2016 BP (high blood pressure) 08/01/2010 016 documented as of this encounter (statuses as of 06/29/2022) [address]2016 History of Past illness Narrative* Problem Noted Date Resolved Date Mild cognitive impairment 11/03/20152017 Hyperlipidemia 07/21/2015 11/03/2015 BMI 40.0-44.9, adult 04/05/2014 11/03/2015 Diverticulosis of colon (without mention of hemo rrhage) 10/25/2010 05/24/2016 Hypertension 09/08/2010 08/27/2016 BP (high blood pressure) 08/01/2010 016 documented as of this encounter (statuses as of 07/17/2022) [address]21-2016 History of Past illness Narrative* Problem Noted Date Resolved Date Mild cognitive impairment 11/03/20152017 Hyperlipidemia 07/21/2015 11/03/2015 BMI 40.0-44.9, adult 04/05/2014 11/03/2015 Diverticulosis of colon (without mention of hemo rrhage) 10/25/2010 05/24/2016 Hypertension 09/08/2010 08/27/2016 BP (high blood pressure) 08/01/2010 016 documented as of this encounter (statuses as of 07/23/2022) [place] [id number] History of Past illness Narrative* Problem Noted Date Resolved Date Mild cognitive impairment 11/03/20152017 Hyperlipidemia 07/21/2015 11/03/2015 BMI 40.0-44.9, adult 04/05/2014 11/03/2015 Diverticulosis of colon (without mention of hemo rrhage) 10/25/2010 05/24/2016 Hypertension 09/08/2010 08/27/2016 BP (high blood pressure) 08/01/2010 016 documented as of this encounter (statuses as of 09/17/2022) [address]21-2016 History of Past illness Narrative* Problem Noted Date Resolved Date Mild cognitive impairment 11/03/20152017 Hyperlipidemia 07/21/2015 11/03/2015 BMI 40.0-44.9, adult 04/05/2014 11/03/2015 Diverticulosis of colon (without mention of hemo rrhage) 10/25/2010 05/24/2016 Hypertension 09/08/2010 08/27/2016 BP (high blood pressure) 08/01/2010 016 documented as of this encounter (statuses as of 09/20/2022) [address]21-2016 History of Past illness Narrative* Problem Noted Date Resolved Date Mild cognitive impairment 11/03/20152017 Hyperlipidemia 07/21/2015 11/03/2015 BMI 40.0-44.9, adult 04/05/2014 11/03/2015 Diverticulosis of colon (without mention of hemo rrhage) 10/25/2010 05/24/2016 Hypertension 09/08/2010 08/27/2016 BP (high blood pressure) 08/01/2010 016 documented as of this encounter (statuses as of 10/31/2022) [place] [id number] History of Past illness Narrative* Problem Noted Date Resolved Date Mild cognitive impairment 11/03/20152017 Hyperlipidemia 07/21/2015 11/03/2015 BMI 40.0-44.9, adult 04/05/2014 11/03/2015 Diverticulosis of colon (without mention of hemo rrhage) 10/25/2010 05/24/2016 Hypertension 09/08/2010 08/27/2016 BP (high blood pressure) 08/01/2010 016 documented as of this encounter (statuses as of 11/07/2022) [address]21-2016 History of Past illness Narrative* Problem Noted Date Resolved Date Mild cognitive impairment 11/03/20152017 Hyperlipidemia 07/21/2015 11/03/2015 BMI 40.0-44.9, adult 04/05/2014 11/03/2015 Diverticulosis of colon (without mention of hemo rrhage) 10/25/2010 05/24/2016 Hypertension 09/08/2010 08/27/2016 BP (high blood pressure) 08/01/2010 016 documented as of this encounter (statuses as of 12/12/2022) [place] [address]2016 History of Past illness Narrative* Problem Noted Date Diagnosed Date Resolved Date Mild cognitive impairment 11/03/2015 Hyperlipidemia 07/21/2015 11/03/2015 BMI 40.0-44.9, adult 04/05/2014 016 Diverticulosis of colon (wit hout mention of hemorrhage) 10/25/2010 05/24/2016 Hypertension 09/08/2010 08/27/2016 BP (high blood pressure) 08/01/2010 documented as of this encounter (statuses as of 02/26/2023) [facility]-21-2016 History of Past illness Narrative* Problem Noted Date Diagnosed Date Resolved Date Mild cognitive impairment 11/03/2015 Hyperlipidemia 07/21/2015 11/03/2015 BMI 40.0-44.9, adult 04/05/2014 016 Diverticulosis of colon (wit hout mention of hemorrhage) 10/25/2010 05/24/2016 Hypertension 09/08/2010 08/27/2016 BP (high blood pressure) 08/01/2010 documented as of this encounter (statuses as of 03/05/2023) [address]21-2016 History of Past illness Narrative* Problem Noted Date Diagnosed Date Resolved Date Mild cognitive impairment 11/03/2015 Hyperlipidemia 07/21/2015 11/03/2015 BMI 40.0-44.9, adult 04/05/2014 016 Diverticulosis of colon (wit hout mention of hemorrhage) 10/25/2010 05/24/2016 Hypertension 09/08/2010 08/27/2016 BP (high blood pressure) 08/01/2010 documented as of this encounter (statuses as of 03/21/2023) [facility]2016 History of Past illness Narrative* Problem Noted Date Diagnosed Date Resolved Date Mild cognitive impairment 11/03/2015 Hyperlipidemia 07/21/2015 11/03/2015 BMI 40.0-44.9, adult 04/05/2014 016 Diverticulosis of colon (wit hout mention of hemorrhage) 10/25/2010 05/24/2016 Hypertension 09/08/2010 08/27/2016 BP (high blood pressure) 08/01/2010 documented as of this encounter (statuses as of 03/21/2023) [facility]2016 History of Past illness Narrative* Problem Noted Date Diagnosed Date Resolved Date Mild cognitive impairment 11/03/2015 Hyperlipidemia 07/21/2015 11/03/2015 BMI 40.0-44.9, adult 04/05/2014 016 Diverticulosis of colon (wit hout mention of hemorrhage) 10/25/2010 05/24/2016 Hypertension 09/08/2010 08/27/2016 BP (high blood pressure) 08/01/2010 documented as of this encounter (statuses as of 04/01/2023) [facility] History of Past illness Narrative* Problem Noted Date Diagnosed Date Resolved Date Mild cognitive impairment 11/03/2015 Hyperlipidemia 07/21/2015 11/03/2015 BMI 40.0-44.9, adult 04/05/2014 016 Diverticulosis of colon (wit hout mention of hemorrhage) 10/25/2010 05/24/2016 Hypertension 09/08/2010 08/27/2016 BP (high blood pressure) 08/01/2010 documented as of this encounter (statuses as of 05/19/2023) [facility]2016 History of Past illness Narrative* Problem Noted Date Diagnosed Date Resolved Date Mild cognitive impairment 11/03/2015 Hyperlipidemia 07/21/2015 11/03/2015 BMI 40.0-44.9, adult 04/05/2014 016 Diverticulosis of colon (wit hout mention of hemorrhage) 10/25/2010 05/24/2016 Hypertension 09/08/2010 08/27/2016 BP (high blood pressure) 08/01/2010 documented as of this encounter (statuses as of 05/23/2023) [facility]-2016 History of Past illness Narrative* Problem Noted Date Diagnosed Date Resolved Date Mild cognitive impairment 11/03/2015 Hyperlipidemia 07/21/2015 11/03/2015 BMI 40.0-44.9, adult 04/05/2014 016 Diverticulosis of colon (wit hout mention of hemorrhage) 10/25/2010 05/24/2016 Hypertension 09/08/2010 08/27/2016 BP (high blood pressure) 08/01/2010 documented as of this encounter (statuses as of 05/24/2023) [address]-2016 History of Past illness Narrative* Problem Noted Date Diagnosed Date Resolved Date Mild cognitive impairment 11/03/2015 Hyperlipidemia 07/21/2015 11/03/2015 BMI 40.0-44.9, adult 04/05/2014 016 Diverticulosis of colon (wit hout mention of hemorrhage) 10/25/2010 05/24/2016 Hypertension 09/08/2010 08/27/2016 BP (high blood pressure) 08/01/2010 documented as of this encounter (statuses as of 05/24/2023) [facility]2016 History of Past illness Narrative* Problem Noted Date Diagnosed Date Resolved Date Mild cognitive impairment 11/03/2015 Hyperlipidemia 07/21/2015 11/03/2015 BMI 40.0-44.9, adult 04/05/2014 016 Diverticulosis of colon (wit hout mention of hemorrhage) 10/25/2010 05/24/2016 Hypertension 09/08/2010 08/27/2016 BP (high blood pressure) 08/01/2010 documented as of this encounter (statuses as of 05/30/2023) [place] [address] History of Past illness Narrative* Problem Noted Date Diagnosed Date Resolved Date Mild cognitive impairment 11/03/2015 Hyperlipidemia 07/21/2015 11/03/2015 BMI 40.0-44.9, adult 04/05/2014 016 Diverticulosis of colon (wit hout mention of hemorrhage) 10/25/2010 05/24/2016 Hypertension 09/08/2010 08/27/2016 BP (high blood pressure) 08/01/2010 documented as of this encounter (statuses as of 06/11/2023) [facility]-2016 History of Past illness Narrative* Problem Noted Date Diagnosed Date Resolved Date Mild cognitive impairment 11/03/2015 Hyperlipidemia 07/21/2015 11/03/2015 BMI 40.0-44.9, adult 04/05/2014 016 Diverticulosis of colon (wit hout mention of hemorrhage) 10/25/2010 05/24/2016 Hypertension 09/08/2010 08/27/2016 BP (high blood pressure) 08/01/2010 documented as of this encounter (statuses as of 06/11/2023) [facility]2016 History of Past illness Narrative* Problem Noted Date Diagnosed Date Resolved Date Mild cognitive impairment 11/03/2015 Hyperlipidemia 07/21/2015 11/03/2015 BMI 40.0-44.9, adult 04/05/2014 016 Diverticulosis of colon (wit hout mention of hemorrhage) 10/25/2010 05/24/2016 Hypertension 09/08/2010 08/27/2016 BP (high blood pressure) 08/01/2010 documented as of this encounter (statuses as of 09/16/2023) [facility] Diagnosis Onychomycosis- Primary Dermatophytosis [...] hypertension with ulcer [facility] Diagnosis Venous insufficiency- Primary Unspecified venous (peripheral) insufficiency [facility] Diagnosis Essential hypertension with goal blood pressure less than 130/80- Primary Edema, unspecified type Hyperlipidemia, unspecified hyperlipidemia type Impaired fasting glucose ALEX (obstructive sleep apnea) not using CPAP Obstructive sleep apnea (adult) (pediatric) Benign neoplasm of colon, unspecified part of colon documented [facility] Diagnosis Generalized edema- Primary Edema [facility] Diagnosis History of colonic polyps- Primary Personal history of colonic polyps Benign neoplasm of colon, unspecified part of colon Encounter for screening for malignant neoplasm of colon Special screening for malignant neoplasms, colon documented [facility] this [facility] Diagnosis Essential hypertension with goal blood pressure less than 130/80 [facility] Diagnosis Onychomycosis- Primary Dermatophytosis of nail Pain in toe of left foot Pain in limb Pain in toe of right foot Pain in limb Diminished pulses in lower extremity Other symptoms involving cardiovascular system [facility] Diagnosis History of colon polyps- Primary Personal history of colonic polyps [facility] Diagnosis Hyperlipidemia, unspecified hyperlipidemia type [facility] Diagnosis Tubular adenoma- Primary Benign neoplasm of unspecified site History of colonic polyps Personal history of colonic polyps documented [facility] Diagnosis Impaired fasting glucose- Primary Hyperlipidemia, unspecified hyperlipidemia type [facility] Diagnosis BMI 39.0-39.9,adult- Primary Body Mass Index 39.0-39.9, adult Essential hypertension with goal blood pressure less than 130/80 Edema, unspecified type Impaired fasting glucose Hyperlipidemia, unspecified hyperlipidemia type Bilateral impacted cerumen Impacted cerumen [facility] Diagnosis Venous stasis ulcer of other part of left lower leg limited to breakdown of skin without varicose veins (HCC)- Primary [facility] Diagnosis Venous insufficiency- Primary Unspecified venous (peripheral) insufficiency Venous stasis ulcer of other part of left lower leg limited to breakdown of skin without varicose veins (HCC) documented [facility] Diagnosis Venous insufficiency- Primary [...] less than 130/80 [facility] Diagnosis Secondary lymphedema- Primary [...] (HCC) Morbid obesity [facility] Diagnosis Onychomycosis- Primary Dermatophytosis of nail Pain in toe of left foot Pain in limb Pain in toe of right foot Pain in limb [facility] Diagnosis Essential hypertension with goal blood pressure less than 130/80 [facility]* Diagnosis Medicare annual wellness visit, subsequent- Primary Routine general medical examination at a health care facility Essential hypertension with goal blood pressure less than 130/80 Need for influenza vaccination Need for prophylactic vaccination and inoculation against influenza [facility] Diagnosis Personal history of colonic polyps- Primary History of colon polyps Personal history of colonic polyps [facility] Diagnosis Secondary lymphedema- Primary Other lymphedema Venous (peripheral) insufficiency Unspecified venous (peripheral) insufficiency [facility] Diagnosis Shortness of breath- Primary Chest pain, unspecified type Fatigue, unspecified type [facility] Diagnosis Chest pain, unspecified type- Primary Shortness of breath Abnormal EKG Nonspecific abnormal electrocardiogram (ECG) (EKG) documented [facility] this [facility]* Diagnosis Onychomycosis- Primary Dermatophytosis of nail Pain in toe of left foot Pain in limb Pain in toe of right foot Pain in limb Diminished pulses in lower extremity Other symptoms involving cardiovascular system [facility] Diagnosis Onychomycosis- Primary Dermatophytosis of nail Pain in toe of left foot Pain in limb Pain in toe of right foot Pain in limb documented in this encounter [facility] for referral (narrative)* Outpatient Procedure (Routine) - Authorized Specialty Diagnoses / Procedures Referred By Contac t Referred To Contact [facility] Diagnoses History of colon polyps Procedures COLONOSCOPY SCREENING COLONOSCOPY FLX DX W/COLLJ SPEC WHEN PFRMD Layne Silva PA-C [address] [place] [address] [facility] [place] [phone] Referral ID Status Reason Start Date Expiration Date Visits Requested Visits Authorized [id number] Authorized Auto-Generat ed Referral 04/11/2022 04/11/2023 1 1 [facility] for referral (narrative)* Outpatient Procedure (Routine) - Authorized Specialty Diagnoses / [facility] Diagnoses Diminished pulse Procedures PVR ANK PRESS [facility] NON-INVAS PHYSIOLOGIC STD EXTREMITY ART 2 LEVEL Karyna Corona DO [address] [place] [address] [facility] [place] [phone] Referral ID Status Reason Start Date Expiration Date Visits Requested Visits Authorized [id number] Authorized Auto-Generat ed Referral 01/29/2023 01/29/2024 1 1 * Outpatient Procedure (Routine) - Authorized Specialty Diagnoses / Procedures [facility] Diagnoses Varicose veins of both lower extremities, unspecified whether complicated Procedures US VENOUS INCOMPETENCY [facility] DUP-SCAN XTR VEINS COMPLETE BILATERAL STUDY Karyna Corona DO [address] [place] [address] [facility] [place] [address] [place] [id number] Referral ID Status Reason Start Date Expiration Date Visits Requested Visits Authorized [id number] Authorized Auto-Generat ed Referral 01/29/2023 01/29/2024 1 1 [facility] for referral (narrative)* Outpatient Procedure (Routine) - Closed Specialty Diagnoses / Procedures Referred By Contac t Referred To Contact [facility] Diagnoses History of colon polyps Procedures COLONOSCOPY SCREENING COLONOSCOPY FLX DX W/COLLJ SPEC WHEN PFRMD Layne Silva PA-C [address] [facility] [place] [address] [facility] [place] [address] [place], [place] [id number] Referral ID Status Reason Start Date Expiration Date V isits Requested Visits Authorized [id number] Closed Auto-Generate d Referral 04/11/2022 04/11/2023 1 1 [facility] for referral (narrative)* Diagnostic Procedure Only (Routine) - Pending Review Specialty Diagnoses / Procedures Referred By Contac t Referred To Contact [facility] Diagnoses Chest pain, unspecified type Shortness of breath Procedures NM CARDIAC PERF STRESS/EXERCISE MYOCARDIAL SPECT MULTIPLE STUDIES Codi Larkin APRN.CNP [address] [place] [address] [facility] [address] [place] [address] Referral ID Status Reason Start Date Expiration Date Visits Requested Visits Authorized [id number] Pending Review Auto-Generat ed Referral 3 06/22/2024 1 1 * Outpatient Procedure (Routine) - Authorized Specialty Diagnoses / Procedures Referred By Contac t Referred To Contact [facility] Diagnoses Chest pain, unspecified type Shortness of breath Procedures ECHO ECHO TTHRC R-T 2D W/WOM-MODE COMPL SPEC&COLR D Codi Larkin APRN.[employer] UPHOL[employer]ER [address] [place] [address] [facility] [place] [address] [place] [address] Referral ID Status Reason Start Date Expiration Date Visits Requested Visits Authorized [id number] Authorized Auto-Generat ed Referral 3 05/23/2024 1 1 * Outpatient Procedure (Routine) - Pending Review Specialty Diagnoses / Procedures Referred By Contac t Referred To Contact [facility] Diagnoses Chest pain, unspecified type Shortness of breath Procedures ECG COMPLETE ECG ROUTINE ECG W/LEAST 12 LDS W/I&R Codi Larkin APRN.[employer] [address] [place] [address] [facility] [place] [address] [place] [address] Referral ID Status Reason Start Date Expiration Date Visits Requested Visits Authorized [id number] Pending Review Auto-Generat ed Referral 3 05/23/2024 1 1 [facility] Diagnostic Procedure Only (Routine) - Pending Review Specialty Diagnoses / Procedures Referred By Contac t Referred To Contact [facility] Diagnoses Chest pain, unspecified type Shortness of breath Abnormal EKG Procedures NM CARDIAC PERF STRESS/PHARM MYOCARDIAL SPECT MULTIPLE STUDIES Codi Larkin APRN.[employer]PH[employer] [address] [place] [address] [facility] [address] [place] [phone] Referral ID Status Reason Start Date Expiration Date Visits Requested Visits Authorized [id number] Pending Review Auto-Generat ed Referral 3 07/09/2024 1 1 [facility] for visit Narrative* Outpatient Procedure (Routine) - Closed Specialty Diagnoses / Procedures Referred By Contac t Referred To Contact [facility] Diagnoses History of colon polyps Procedures COLONOSCOPY SCREENING COLONOSCOPY FLX DX W/COLLJ SPEC WHEN PFRMD Layne Silva PA-C [address] [place] [phone] [facility] [place] [address] [place] [address] Referral ID Status Reason Start Date Expiration Date V isits Requested Visits Authorized [id number] Closed Auto-Generate d Referral 04/11/2022 04/11/2023 1 1 [facility] Summary Purpose Family History No Family History Records FoundNo Family History Records Found Advance Directives No Advanced Directives Records FoundDocuments on File Type Date Recorded 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 Advance Directive(s) 09/24/2016 7:59 AM Reason for Referral Specialty Diagnoses / Procedures Referred By Contac t Referred To Contact General Surgery Diagnoses Benign neoplasm of colon, unspecified part of colon Procedures CONSULT TO GENERAL SURGERY OFFICE/OUTPATIENT [facility] 60-74 MINUTES Logan Valdes MD [address] [place], [place] [id number] Referral ID Status Reason Start Date Expiration Date Visits Requested Visits Authorized [id number] Authorized PCP Requested Referral 03/23/2022 03/23/2023 1 [...] MEDICINE OFFICE/OUTPATIENT [facility] 60-74 MINUTES Gus Silva APRN.CNP [address] [place] [address] Referral ID Status Reason Start Date Expiration Date Visits Requested Visits Authorized [id number] Authorized PCP Requested Referral 12/12/2022 12/12/2023 1 1 Specialty Diagnoses / Procedures Referred By Contac t Referred To Contact [facility] Diagnoses Secondary lymphedema Procedures CONSULT TO LYMPHEDEMA THERAPY OFFICE/OUTPATIENT [facility] 60-74 MINUTES Karyna Corona DO [address] [place] [address] [facility] [place] [address] [place] [address] Referral ID Status Reason Start Date Expiration Date Visits Requested Visits Authorized [id number] Authorized Auto-Generat ed Referral 05/21/2023 05/20/2024 1 [...] DATE CREATED AUTHOR AUTHOR'S ORGANIZ ATION 09/16/2023 [facility] Source Comments (unrecognize d section and content) In the event this informatio n is protected by the Federal Confidentiality of Alcohol and Drug Abuse Patient Records regulations: The Federal rules restrict any use of the information to criminally investigate or prosecute any alcohol or drug abuse patient.[facility] the event this information is protected by the Federal Confidentiality of Alcohol and Drug Abuse Patient Records regulations: The Federal rules restrict any use of the information to criminally investigate or prosecute any alcohol or drug abuse patient.[facility] the event this information is protected by the Federal Confidentiality of Alcohol and Drug Abuse Patient Records regulations: The Federal rules restrict any use of the information to criminally investigate or prosecute any alcohol or drug abuse patient.[facility] the event this information is protected by the Federal Confidentiality of Alcohol and Drug Abuse Patient Records regulations: The Federal rules restrict any use of the information to criminally investigate or prosecute any alcohol or drug abuse patient.[facility] the event this information is protected by the Federal Confidentiality of Alcohol and Drug Abuse Patient Records regulations: The Federal rules restrict any use of the information to criminally investigate or prosecute any alcohol or drug abuse patient.[facility] the event this information is protected by the Federal Confidentiality of Alcohol and Drug Abuse Patient Records regulations: The Federal rules restrict any use of the information to criminally investigate or prosecute any alcohol or drug abuse patient.[facility] the event this information is protected by the Federal Confidentiality of Alcohol and Drug Abuse Patient Records regulations: The Federal rules restrict any use of the information to criminally investigate or prosecute any alcohol or drug abuse patient.[facility] Center[facility] the event this information is protected by the Federal Confidentiality of Alcohol and Drug Abuse Patient Records regulations: The Federal rules restrict any use of the information to criminally investigate or prosecute any alcohol or drug abuse patient.[facility] Center[facility] the event this information is protected by the Federal Confidentiality of Alcohol and Drug Abuse Patient Records regulations: The Federal rules restrict any use of the information to criminally investigate or prosecute any alcohol or drug abuse patient.[facility] CenterIn the event this information is protected by the Federal Confidentiality of Alcohol and Drug Abuse Patient Records regulations: The Federal rules restrict any use of the information to criminally investigate or prosecute any alcohol or drug abuse patient.[facility] CenterIn the event this information is protected by the Federal Confidentiality of Alcohol and Drug Abuse Patient Records regulations: The Federal rules restrict any use of the information to criminally investigate or prosecute any alcohol or drug abuse patient.[facility] CenterIn the event this information is protected by the Federal Confidentiality of Alcohol and Drug Abuse Patient Records regulations: The Federal rules restrict any use of the information to criminally investigate or prosecute any alcohol or drug abuse patient.[facility] CenterIn the event this information is protected by the Federal Confidentiality of Alcohol and Drug Abuse Patient Records regulations: The Federal rules restrict any use of the information to criminally investigate or prosecute any alcohol or drug abuse patient.[facility] CenterIn the event this information is protected by the Federal Confidentiality of Alcohol and Drug Abuse Patient Records regulations: The Federal rules restrict any use of the information to criminally investigate or prosecute any alcohol or drug abuse patient.[facility] CenterIn the event this information is protected by the Federal Confidentiality of Alcohol and Drug Abuse Patient Records regulations: The Federal rules restrict any use of the information to criminally investigate or prosecute any alcohol or drug abuse patient.[facility] CenterIn the event this information is protected by the Federal Confidentiality of Alcohol and Drug Abuse Patient Records regulations: The Federal rules restrict any use of the information to criminally investigate or prosecute any alcohol or drug abuse patient.[facility] CenterIn the event this information is protected by the Federal Confidentiality of Alcohol and Drug Abuse Patient Records regulations: The Federal rules restrict any use of the information to criminally investigate or prosecute any alcohol or drug abuse patient.[facility] CenterIn the event this information is protected by the Federal Confidentiality of Alcohol and Drug Abuse Patient Records regulations: The Federal rules restrict any use of the information to criminally investigate or prosecute any alcohol or drug abuse patient.[facility] CenterIn the event this information is protected by the Federal Confidentiality of Alcohol and Drug Abuse Patient Records regulations: The Federal rules restrict any use of the information to criminally investigate or prosecute any alcohol or drug abuse patient.[facility] CenterIn the event this information is protected by the Federal Confidentiality of Alcohol and Drug Abuse Patient Records regulations: The Federal rules restrict any use of the information to criminally investigate or prosecute any alcohol or drug abuse patient.[facility] CenterIn the event this information is protected by the Federal Confidentiality of Alcohol and Drug Abuse Patient Records regulations: The Federal rules restrict any use of the information to criminally investigate or prosecute any alcohol or drug abuse patient.[facility] CenterIn the event this information is protected by the Federal Confidentiality of Alcohol and Drug Abuse Patient Records regulations: The Federal rules restrict any use of the information to criminally investigate or prosecute any alcohol or drug abuse patient.[facility] CenterIn the event this information is protected by the Federal Confidentiality of Alcohol and Drug Abuse Patient Records regulations: The Federal rules restrict any use of the information to criminally investigate or prosecute any alcohol or drug abuse patient.[facility] CenterIn the event this information is protected by the Federal Confidentiality of Alcohol and Drug Abuse Patient Records regulations: The Federal rules restrict any use of the information to criminally investigate or prosecute any alcohol or drug abuse patient.[facility] CenterIn the event this information is protected by the Federal Confidentiality of Alcohol and Drug Abuse Patient Records regulations: The Federal rules restrict any use of the information to criminally investigate or prosecute any alcohol or drug abuse patient.[facility] CenterIn the event this information is protected by the Federal Confidentiality of Alcohol and Drug Abuse Patient Records regulations: The Federal rules restrict any use of the information to criminally investigate or prosecute any alcohol or drug abuse patient.[facility] CenterIn the event this information is protected by the Federal Confidentiality of Alcohol and Drug Abuse Patient Records regulations: The Federal rules restrict any use of the information to criminally investigate or prosecute any alcohol or drug abuse patient.[facility] CenterIn the event this information is protected by the Federal Confidentiality of Alcohol and Drug Abuse Patient Records regulations: The Federal rules restrict any use of the information to criminally investigate or prosecute any alcohol or drug abuse patient.[facility] CenterIn the event this information is protected by the Federal Confidentiality of Alcohol and Drug Abuse Patient Records regulations: The Federal rules restrict any use of the information to criminally investigate or prosecute any alcohol or drug abuse patient.[facility] CenterIn the event this information is protected by the Federal Confidentiality of Alcohol and Drug Abuse Patient Records regulations: The Federal rules restrict any use of the information to criminally investigate or prosecute any alcohol or drug abuse patient.[facility] CenterIn the event this information is protected by the Federal Confidentiality of Alcohol and Drug Abuse Patient Records regulations: The Federal rules restrict any use of the information to criminally investigate or prosecute any alcohol or drug abuse patient.[facility] CenterIn the event this information is protected by the Federal Confidentiality of Alcohol and Drug Abuse Patient Records regulations: The Federal rules restrict any use of the information to criminally investigate or prosecute any alcohol or drug abuse patient.[facility] CenterIn the event this information is protected by the Federal Confidentiality of Alcohol and Drug Abuse Patient Records regulations: The Federal rules restrict any use of the information to criminally investigate or prosecute any alcohol or drug abuse patient.[facility] CenterIn the event this information is protected by the Federal Confidentiality of Alcohol and Drug Abuse Patient Records regulations: The Federal rules restrict any use of the information to criminally investigate or prosecute any alcohol or drug abuse patient.[facility] CenterIn the event this information is protected by the Federal Confidentiality of Alcohol and Drug Abuse Patient Records regulations: The Federal rules restrict any use of the information to criminally investigate or prosecute any alcohol or drug abuse patient.[facility] CenterIn the event this information is protected by the Federal Confidentiality of Alcohol and Drug Abuse Patient Records regulations: The Federal rules restrict any use of the information to criminally investigate or prosecute any alcohol or drug abuse patient.[facility] CenterIn the event this information is protected by the Federal Confidentiality of Alcohol and Drug Abuse Patient Records regulations: The Federal rules restrict any use of the information to criminally investigate or prosecute any alcohol or drug abuse patient.[facility] Reason for Visit (unrecogniz ed [...] HIGH MDM 60-74 MINUTES Logan Valdes MD [address] [place] [address] Referral ID Status Reason Start Date Expiration Date V isits Requested Visits Authorized [id number] Closed PCP Requested Referral 03/23/2022 03/23/2023 1 [...] MEDICINE OFFICE/OUTPATIENT [facility] 60-74 MINUTES Gus Silva APRN.[employer] [address] [place] [address] Referral ID Status Reason Start Date Expiration Date V isits Requested Visits Authorized [id number] Closed PCP Requested Referral 12/12/2022 12/12/2023 1 [...] Care Teams (unrecognized sec tion and content) Lehr Cutter Relationship Specialty Start Date End Date Logan Valdes MD [address] [place] [address] PCP - General Internal Medicine 05/24/16 Lehr Cutter Relationship Specialty Start Date End Date Logan Valdes MD [address] [place] [address] PCP - General Internal Medicine 05/24/16 Lehr Cutter Relationship Specialty Start Date End Date Logan Valdes MD [address] [place] [address] PCP - General Internal Medicine 05/24/16 Lehr Cutter Relationship Specialty Start Date End Date Logan Valdes MD [address] [place], [place] [address] [phone] PCP - General Internal Medicine 05/24/16 Lehr Cutter Relationship Specialty Start Date End Date Logan Valdes MD [address] [place], [place] [address] PCP - General Internal Medicine 05/24/16 Lehr Cutter Relationship Specialty Start Date End Date Logan Valdes MD [address] [facility] [place] [address] PCP - General Internal Medicine 05/24/16 Lehr Cutter Relationship Specialty Start Date End Date Logan Valdes MD [address] [facility] [place] [address] PCP - General Internal Medicine 05/24/16 Lehr Cutter Relationship Specialty Start Date End Date Logan Valdes MD [address] [facility] [place] [address] PCP - General Internal Medicine 05/24/16 Lehr Cutter Relationship Specialty Start Date End Date Logan Valdse MD [address] [facility] [place] [address] PCP - General Internal Medicine 05/24/16 Lehr Cutter Relationship Specialty Start Date End Date Logan Valdes MD [address] [facility] [place] [address] PCP - General Internal Medicine 05/24/16 Lehr Cutter Relationship Specialty Start Date End Date Logan Valdes MD [address] [facility] [place] [address] PCP - General Internal Medicine 05/24/16 Lehr Cutter Relationship Specialty Start Date End Date Logan Valdes MD [address] [facility] [place] [address] PCP - General Internal Medicine 05/24/16 Lehr Cutter Relationship Specialty Start Date End Date Logan Valdes MD [address] [facility] [place] [address] PCP - General Internal Medicine 05/24/16 Lehr Cutter Relationship Specialty Start Date End Date Logan Valdes MD [address] [facility] [place] [address] PCP - General Internal Medicine 05/24/16 Lehr Cutter Relationship Specialty Start Date End Date Logan Valdes MD [address] [place] [address] PCP - General Internal Medicine 05/24/16 Lehr Cutter Relationship Specialty Start Date End Date Logan Valdes MD [address] [facility] [place] [address] PCP - General Internal Medicine 05/24/16 Lehr Cutter Relationship Specialty Start Date End Date Logan Valdes MD [address] [facility] [place] [address] PCP - General Internal Medicine 05/24/16 Lehr Cutter Relationship Specialty Start Date End Date Logan Valdes MD [address] [facility] [place] [address] PCP - General Internal Medicine 05/24/16 Lehr Cutter Relationship Specialty Start Date End Date Logan Valdes MD [address] [facility] [place] [address] PCP - General Internal Medicine 05/24/16 Lehr Cutter Relationship Specialty Start Date End Date Logan Valdes MD [address] [facility] [place] [address] PCP - General Internal Medicine 05/24/16 Lehr Cutter Relationship Specialty Start Date End Date Logan Valdes MD [address] [facility] [place] [address] PCP - General Internal Medicine 05/24/16 Lehr Cutter Relationship Specialty Start Date End Date Logan Valdes MD [address] [place], [place] [address] PCP - General Internal Medicine 05/24/16 Lehr Cutter Relationship Specialty Start Date End Date Logan Valdes MD [address] [place], [place] [address] PCP - General Internal Medicine 05/24/16 Lehr Cutter Relationship Specialty Start Date End Date Logan Valdes MD [address] [place], [place] [address] PCP - General Internal Medicine 05/24/16 Lehr Cutter Relationship Specialty Start Date End Date Logan Valdes MD [address] [place], [place] [address] PCP - General Internal Medicine 05/24/16 FOR [...] BE BASED ON THE PRIMARY CLINICAL RECORDS. [facility] [employer] [facility]. provides no warranty or guarantee of the accuracy or completeness of information in this document.
[2023-09-30 08:55] LABS: Anion Gap 7 (5-15); BUN 40 mg/dL (7-18); BUN/Creat Ratio 22.2 RATIO (10-20); Calcium,Total 9.1 mg/dL (8.5-10.1); Chloride 107 mmol/L (98-107); EST Glomerular Filtration Rate 39 mL/min (>60); Est Glom Filt Rate - Afr Amer 48 mL/min (>60); Glucose 153 mg/dL (74-106); Potassium 3.9 mmol/L (3.5-5.1); Sodium Level 140 mmol/L (136-145)
== END | disposition home or self-care (01) ==
LOC: LAB 07:18
PROVIDERS: PCP Internal Medicine; Referring Provider Physician Assistant Medical; Visit Provider Physician Assistant Medical
DX: N28.9 Disorder of kidney and ureter, unspecified (principal)
CPT/HCPCS: 36415; 80048

== ENCOUNTER 2023-10-11 09:15 | Outpatient (RCR) | payer MEDICARE, SELFPAY ==
[2023-08-21 13:24] VITALS: BMI 38.4
== END 2023-10-13 23:59 ==
LOC: CR 09:15
PROVIDERS: PCP Internal Medicine; Referring Provider Internal Medicine Cardiovascular Disease; Visit Provider Internal Medicine Cardiovascular Disease
DX: I25.10 Atherosclerotic heart disease of native coronary artery without angina pectoris (principal); Z95.5 Presence of coronary angioplasty implant and graft
CPT/HCPCS: 93798

== ENCOUNTER → 2023-10-23 | Outpatient (CLI) | payer MEDICARE, SELFPAY ==
[2023-10-21 09:49] VITALS: BMI 38.8
[2023-10-23 11:38] LABS: Anion Gap 7 (5-15); BUN 67 mg/dL (7-18); BUN/Creat Ratio 28.6 RATIO (10-20); Calcium,Total 8.6 mg/dL (8.5-10.1); Chloride 111 mmol/L (98-107); Creatinine, Serum 2.34 mg/dL (0.70-1.30); EST Glomerular Filtration Rate 29 mL/min (>60); Est Glom Filt Rate - Afr Amer 35 mL/min (>60); Glucose 116 mg/dL (74-106); Potassium 4.6 mmol/L (3.5-5.1); Sodium Level 137 mmol/L (136-145)
== END | disposition home or self-care (01) ==
LOC: LAB 09:52
PROVIDERS: PCP Internal Medicine; Referring Provider Physician Assistant Medical; Visit Provider Physician Assistant Medical
DX: N28.9 Disorder of kidney and ureter, unspecified (principal)
CPT/HCPCS: 36415; 80048

== ENCOUNTER → 2023-10-30 | Outpatient (CLI) | payer MEDICARE, SELFPAY ==
[2023-10-21 09:49] VITALS: BMI 38.8
[2023-10-30 11:46] LABS: Anion Gap 8 (5-15); BUN 36 mg/dL (7-18); BUN/Creat Ratio 19.5 RATIO (10-20); Calcium,Total 9.4 mg/dL (8.5-10.1); Chloride 109 mmol/L (98-107); Creatinine, Serum 1.85 mg/dL (0.70-1.30); EST Glomerular Filtration Rate 38 mL/min (>60); Est Glom Filt Rate - Afr Amer 46 mL/min (>60); Glucose 112 mg/dL (74-106); Potassium 4.5 mmol/L (3.5-5.1); Sodium Level 137 mmol/L (136-145)
== END | disposition home or self-care (01) ==
LOC: LAB 09:49
PROVIDERS: PCP Internal Medicine; Referring Provider Physician Assistant Medical; Visit Provider Physician Assistant Medical
DX: N28.9 Disorder of kidney and ureter, unspecified (principal); Z95.5 Presence of coronary angioplasty implant and graft
CPT/HCPCS: 36415; 80048

== ENCOUNTER 2023-11-08 09:15 | Outpatient (RCR) | payer MEDICARE, SELFPAY ==
[2023-08-21 13:24] VITALS: BMI 38.4
--- NOTE | 2023-10-21 09:36 | CR.ITP_ITS ---
Exercise - Initial Assessment Visit Session #:: 5 Nutrition - Initial Assessment Weight Mgt (Other Care) Height: 6 ft 1 in Weight:: 294 lb 8 oz BMI: 38.8 Psychosocial - Initial Assess Target Goals Target Goals Patient Health Questionnaire PHQ-9 Screening 30-Day Re-eval Assessment: 1. Little interest or pleasure in doing things: Not at all 2. Feeling down, depressed, or hopeless: Not at all 3. Trouble falling or staying asleep, or sleeping too much: Not at all 4. Feeling tired or having little energy: Not at all 5. Poor appetite or overeating: Not at all 6. Feeling bad about yourself -- or that you are a failure or have let yourself or your family down: Not at all 7. Trouble concentrating on things, such as reading the newspaper or watching television: Not at all 8. Moving or speaking so slowly that other people could have noticed. Or the opposite - being so fidgety or restless that you have been moving around a lot more than usual: Not at all 9. Thoughts that you would be better off , or of hurting yourself in some way: Not at all How difficult have these problems made it for you to do your work, take care of things at home, or get along with other people?: Not difficult at all Total Score: 0 Self-Efficacy 6-Item Scale 30-Day Re-eval Assessment: We would like to know how confident you are in doing certain activities. Please select your confidence level for: Fatigue Select Number: 9 Physical Discomfort or Pain Select Number: 9 Emotional Distress Select Number: 9 Other Symptoms or Health Problems Select Number: 9 Different Tasks and Activities Select Number: 9 Medication Select Number: 9 Total Score:: 9 Nutrition Survey Nutrition Survey Instructions Scoring Instructions Exercise - 30-day Assessment Visit Date of Eval: 10/21/23 (30 day ITP due to delayed start) Session #:: 5 Physician Prescribed Exercise Modalities: Treadmill, Airdyne, NuStep and SciFit Frequency: 3x/week for 12 weeks [36 sessions] Intensity: 60-80% of age predicted maximum heart rate reserve Duration: 30 - 45 minutes Current METSs:: 3.5 Target Heart Rate:: 87-102 Current RPE:: 12-13 Maximum Excercise HR:: 95 Resting Blood Pressure: 112/76 Maximum Exercise Blood Pressure: 138/84 EKG Type: NSR with occas pac and pvc Outcomes & Goals Goals:: Verbalizes understanding of THR, RPE & goal METS by session 6, Documents in home exercise log/reports 30 min aerobic 5 day/wk by DC, Demonstrates accurate pulse taking by DC and Other additional outcome/goals: see below Intervention & Plan Exercise Program Goals: Instruct on personal THR & RPE, Instruct on MET level & personal MET goal, Show patient to take own pulse /validate performance until accurate, Instruct on home exercise and Other additional plan/int 30-day Reassessments 30 day Reassessments:: Progressing Reassessment Notes & Comments:: RPE expalined Physical Activity Home Exercise Physical Activity - Home Exercise: Safe Exercise, Warm-up, Self-monitoring, Cool-Down, Home Exercise > 30 min Daily and Sitting Time <3 hours/daily Outcomes & Goals Outcomes/Goals: Demonstrates correct Warm-up/exercise Cool-Down (S3) if = 2.5 METs, Verbalizes symptoms of exercise intolerance by Session 3 (S3), Demonstrate safe equipment use (S3) & follows exercise prescrition (6) and Other: See below Intervention & Plan Plan/Intervention: Instruct warm-up & cool-down if exercising at > 2 METs, Instruct on symptoms of exercise intolerance & actions to take, Instruct & monitor on saf, Assess intial functional capacity & safety risk and Other See below 30-day Reassessments 30 day Reassessments:: Progressing Reassessment Notes & Comments:: warm up encouraged Nutrition - 30-Day Assessment Program Goals Nutrition Program Goals Patient has diagnosis of Hyperlipidemia (ICD E78)?: Yes Visit Date of Eval: 10/21/23 Session #:: 5 Cholesterol/Lipids (Other Core Measures) Determine presence & major risk factors that modify LDL goal: Cigarette smoking, Hypertension or hypertensive medication, Low HDL cholesterol <40 mg/dL*, Family history of premature CHD in Male < 55 years: female <65 yearsFa and Age men > 45 years; women >/= 55 years Outcomes/Goals: Pt IDs own risk factors & lifestyle modifications by Session 10, Verbalizes symptoms of angina & response by session 3., Pt independently manages and Other Additional Outcomes/Goals: Intervention/Plan: Advocate for lipid panel cholesterol medication if applicable, Instruct on personal lipid levels & lipid goals/NCEP guidelines, Instruct on cholesterol and Other additional plan/int Referral to dietitian:: No 30-day Reassessments:: Progressing Reassessment Notes & Comments:: pt to attend nutrition class Diabetes (Other Core Measures) Diabetes Type: Not Applicable Weight Mgt (Other Care) Height: 6 ft 1 in Weight:: 294 lb 8 oz BMI: 38.8 Diagnosis Overweight/Obesity BMI> 30% ICD-10 E66: Yes Diagnosis High BMI/Morbid Obesity BMI> 35% ICD-10 Z68: Yes Outcomes/Goals: Pt sets, maintains & shows weight loss goal & trend during rehab and Other additional outcomes/goals Intervention/Plan: Instruct on ideal BMI & set weight loss goal w/patient, Assist pt to ID & incorporate diet changes for weight loss by S9, Refer to Structured Weight Loss program as appropriate, Encourage goal of using 250- 300dcal per session for weight loss and Other additional plan/interventions 30 day Reassessments:: Progressing Reassessment Notes & Comments:: pt to attend nutrition class Healthy Eating Habits Will attend diet classes:: Yes Outcomes/Goals:: Consume diet rich in vegs,fruits,whole grain/high fiber,fish,lean meat, Limit sat/trans fats,cholesterol & added salts & sugars and Other additional outcome/goals: Intervention/Plan:: Assess current eating habits and Other Additional plan/interventions 30-day Reassessments:: Progressing Reassessment Notes & Comments:: pt to attend nutrition class Education Gave educational materials for:: Signs & symptoms of hypoglycemia, Signs & symptoms of hyperglycemia, Relate diabetes to coronary artery disease and Healthy eating Nutrition - 60-Day Assessment Weight Mgt (Other Care) Height: 6 ft 1 in Weight:: 294 lb 8 oz BMI: 38.8 Core - 30-Day Assessment Visit Date of Eval: 10/21/23 Session #:: 5 Medication Compliance Preventative Medication(s):: Aspirin, Ticagrelor/P2Y12 inhibitor, Statin/lipid and Beta tamera H/O mental health issues: depression, anxiety, or addiction?: No Doesn?t believe in the benefits of treatment?: No Believes medications are unnecessary or harmful?: No Has a concern about medication side effects?: No Expresses concern over the cost of medications?: No Outcomes/Goals: Verbalizes medications,desired effect & common side effects @ DC, Pt self-reports following medication regimen, Keeps card in wallet w/medications listed by DC and Other additional outcome/goals: Interventions/plans: Instruct on medication effects & side effects, Review medication list w/patient every two weeks, Instruct importance of taking meds as ordered & assist problem solving and Other additional 30-day Reassessments:: Progressing Reassessment Notes & Comments:: pt taken off his lasix due to dizziness Tobacco Use Tobacco Use: Non-smoker Hypertension Hypertension Diagnosis:: Hypertension ICD-10 I10 Resting Blood Pressure:: 112/76 Citizen Of [place] Heart Association Hypertension Guidelines Peak Exercise Blood Pressure:: 138/84 Outcomes/Goals: Able to verbalize/achieve optimal blood pressure <130/80, Incorporates diet changes & exercise for blood pressure control by DC and Other additional outcomes/goals Interventions/plan: Instruct on optimal blood pressure, hypertension & medications, Instruct on effects of sodium, alcohol, stress, exercise &hypertension and Other additional plan/interventions 30 day Reassessments:: Progressing Reassessment Notes & Comments:: Pt taken off his lasix due to dizziness Tobacco Cessation Referral Smoking Cessation Referral:: No Individual Education/Counseling:: No Education Schedule Given:: Yes Psychosocial - 30-Day Assess VIsit Date of Eval: 10/21/23 Session #:: 5 History of previous Mental disease:: No Target Goals Target Goals Outcomes/Goals: See list Psychosocial Outcomes/Goals:: ID's personal stressors & 2 strategies to manage stress by discharge and Other Additional outcome/goals: Intervention/Plan: See List Interventions/Plan:: Assess stressors,coping strategies & signs of derpression on admission, Instruct/assist pt to develop coping & personal stress Mgt strategies, Refer to Behavioral Health if appropriate, Refer to Physician if appropriate, Instruct patient to recognize signs & symptoms of depression, Instruct patient to recog and Other additional plan/intervention 30-day Reassessments: 30 day Reassessments:: Met Psychosocial - 60-Day Assess Target Goals Target Goals Outcomes/Goals: See list Psychosocial Outcomes/Goals:: ID's personal stressors & 2 strategies to manage stress by discharge and Other Additional outcome/goals: Psychosocial - 90-Day Assess Target Goals Target Goals Psychosocial - Final Assessmen Target Goals Target Goals Nutrition - 90-Day Assessment Weight Mgt (Other Care) Height: 6 ft 1 in Weight:: 294 lb 8 oz BMI: 38.8 Nutrition - Final Assessment Weight Mgt (Other Care) Height: 6 ft 1 in Weight:: 294 lb 8 oz BMI: 38.8
[2023-10-21 09:49] VITALS: BP 112/76; BMI 38.8
== END 2023-11-12 23:59 ==
LOC: CR 09:15
PROVIDERS: PCP Internal Medicine; Referring Provider Internal Medicine Cardiovascular Disease; Visit Provider Internal Medicine Cardiovascular Disease
DX: Z95.5 Presence of coronary angioplasty implant and graft (principal); I25.10 Atherosclerotic heart disease of native coronary artery without angina pectoris
CPT/HCPCS: 93798

== ENCOUNTER → 2023-11-18 | Outpatient (CLI) | payer MEDICARE, SELFPAY ==
[2023-11-18 08:03] VITALS: BMI 38.6
[2023-11-18 11:02] LABS: Anion Gap 9 (5-15); BUN 40 mg/dL (7-18); Chloride 106 mmol/L (98-107); Creatinine, Serum 1.74 mg/dL (0.70-1.30); EST Glomerular Filtration Rate 41 mL/min (>60); Est Glom Filt Rate - Afr Amer 50 mL/min (>60); Glucose 139 mg/dL (74-106); Potassium 3.8 mmol/L (3.5-5.1); Sodium Level 138 mmol/L (136-145)
== END | disposition home or self-care (01) ==
LOC: LAB 09:45
PROVIDERS: PCP Internal Medicine; Referring Provider Physician Assistant Medical; Visit Provider Physician Assistant Medical
DX: N28.9 Disorder of kidney and ureter, unspecified (principal); I10 Essential (primary) hypertension
CPT/HCPCS: 36415; 80048

== ENCOUNTER → 2023-11-29 | Outpatient (CLI) | payer MEDICARE, SELFPAY ==
[2023-11-18 08:03] VITALS: BMI 38.6
[2023-11-22 10:03] VITALS: BMI 38.6
== END | disposition home or self-care (01) ==
LOC: PSN 08:20
PROVIDERS: PCP Internal Medicine; Referring Provider Physician Assistant Medical; Visit Provider Physician Assistant Medical
DX: I48.91 Unspecified atrial fibrillation (principal); I25.10 Atherosclerotic heart disease of native coronary artery without angina pectoris; R06.09 Other forms of dyspnea; M79.89 Other specified soft tissue disorders; N28.9 Disorder of kidney and ureter, unspecified; Z95.1 Presence of aortocoronary bypass graft
CPT/HCPCS: 93225; 93226

== ENCOUNTER → 2023-12-02 | Outpatient (CLI) | payer MEDICARE, SELFPAY ==
[2023-11-18 08:03] VITALS: BMI 38.6
[2023-11-22 10:03] VITALS: BMI 38.6
--- NOTE | 2023-12-02 07:49 | ECHOCS_ITS ---
Reason For Study: NEW ONSET AFIB Procedure This was a 2D Doppler, Color Flow transthoracic echocardiogram. The study was technically difficult. Exam performed in department. Left Ventricle Normal LV size. The estimated ejection fraction is 70 %. No evidence for diastolic dysfunction. No regional wall motion abnormalities noted. Right Ventricle Normal RV size. Normal systolic function. Atria The left and right atria are normal. No doppler evidence for ASD. Mitral Valve There is no mitral valve stenosis. No mitral valve insufficiency. Tricuspid Valve There is no tricuspid stenosis. No tricuspid valve insufficiency. Aortic Valve Trisinus/trileaflet aortic valve. There is no aortic stenosis. No aortic valve insufficiency. Pulmonic Valve There is no pulmonic valvular stenosis. No pulmonic valve insufficiency. Great Vessels Normal aortic root. Pericardium/Pleural No pericardial effusion. Medication 22 gauge I.V. with prn adaptor inserted into right arm. Diluted definity 2ml given slow IV push to enhance endocardial definition. MMode/2D Measurements & Calculations LVIDd: 5.1 cm IVSd: 1.2 cm Ao root diam: 3.4 cm LVIDs: 3.4 cm LVPWd: 1.2 cm RVDd: 4.5 cm FS: 31.9 % LAV(MOD-bp): 54.4 ml LVAd ap4: 32.8 cm2 SV(MOD-sp4): 66.8 ml LAV(MOD-bp) Indexed: 21.8 ml/m2 LVLd ap4: 8.4 cm LAV(MOD-sp2): 54.2 ml EDV(MOD-sp4): 103.7 ml LAV(MOD-sp4): 57.2 ml EDV(sp4-el): 109.0 ml LVAs ap4: 17.7 cm2 LVLs ap4: 7.0 cm ESV(MOD-sp4): 37.0 ml ESV(sp4-el): 37.9 ml EF(MOD-sp4): 64.4 % EF(sp4-el): 65.2 % SV(sp4-el): 71.1 ml LA A4 area: 20.8 cm2 LA dimension(2D): 4.1 cm RA A4 area: 19.0 cm2 TAPSE: 2.1 cm Time Measurements MV dec time: 0.15 sec Doppler Measurements & Calculations MV E max darren: 95.3 cm/sec Lat Peak E' Darren: 8.2 cm/sec Med Peak E' Darren: 10.0 cm/sec MV A max darren: 85.7 cm/sec E/E' lat: 11.6 E/E' med: 9.5 MV E/A: 1.1 Ao V2 max: 153.7 cm/sec LV V1 max: 111.1 cm/sec PA V2 max: 105.0 cm/sec Ao max P.5 mmHg LV V1 max P.9 mmHg TR max darren: 286.7 cm/sec TR max P.9 mmHg ECHO/Echo Complete W/ Contrast Interpretation Summary The estimated ejection fraction is 70 %. No evidence for diastolic dysfunction. Ordering Physician: Shaina Nguyen Referring Physician: LUCINA VALDES Performed By: Maria Isabel Mcbride, SILKE
== END | disposition home or self-care (01) ==
LOC: CVS 07:48
PROVIDERS: PCP Internal Medicine; Referring Provider Physician Assistant Medical; Visit Provider Physician Assistant Medical
DX: R06.09 Other forms of dyspnea (principal); I48.91 Unspecified atrial fibrillation
CPT/HCPCS: 93306; Q9957; A4216; C8929

== ENCOUNTER 2023-12-13 09:30 | Outpatient (RCR) | payer MEDICARE, SELFPAY ==
[2023-10-21 09:49] VITALS: BMI 38.8
[2023-11-13 00:28] VITALS: BP 112/76
--- NOTE | 2023-11-18 07:54 | CR.ITP_ITS ---
Nutrition - Initial Assessment Weight Mgt (Other Care) Height: 6 ft 1 in Weight:: 293 lb BMI: 38.6 Core - Initial Assessment Hypertension Resting Blood Pressure:: 134/80 [place] [employer] Hypertension Guidelines Psychosocial - Initial Assess Target Goals Target Goals Referral to Behavioral Health PS - Interventions: Yes: Attend Stress Management Classes and No: Referral to Behavioral Health if PHQ-9 score >9:, No: Referral to [facility] and No: Referral to Physician if PHQ-9 if score is 5-9: Patient Health Questionnaire PHQ-9 Screening 60-Day Re-eval Assessment: 1. Little interest or pleasure in doing things: Not at all 2. Feeling down, depressed, or hopeless: Not at all 3. Trouble falling or staying asleep, or sleeping too much: Not at all 4. Feeling tired or having little energy: Not at all 5. Poor appetite or overeating: Not at all 6. Feeling bad about yourself -- or that you are a failure or have let yourself or your family down: Not at all 7. Trouble concentrating on things, such as reading the newspaper or watching television: Not at all 8. Moving or speaking so slowly that other people could have noticed. Or the opposite - being so fidgety or restless that you have been moving around a lot more than usual: Not at all 9. Thoughts that you would be better off , or of hurting yourself in some way: Not at all How difficult have these problems made it for you to do your work, take care of things at home, or get along with other people?: Not difficult at all Total Score: 0 Self-Efficacy 6-Item Scale 60-Day Re-eval Assessment: We would like to know how confident you are in doing certain activities. Please select your confidence level for: Fatigue Select Number: 9 Physical Discomfort or Pain Select Number: 9 Emotional Distress Select Number: 9 Other Symptoms or Health Problems Select Number: 9 Different Tasks and Activities Select Number: 8 Medication Select Number: 9 Total Score:: 8 Nutrition Survey Nutrition Survey Instructions Scoring Instructions Exercise - 60-day Assessment Visit Date of Eval: 11/18/23 Session #:: 17 Physician Prescribed Exercise Modalities: Treadmill, Airdyne and NuStep Frequency: 3x/week for 12 weeks [36 sessions] Intensity: 60-80% of age predicted maximum heart rate reserve Duration: 30 - 45 minutes Current METSs:: 4.5 Target Heart Rate:: 87-102 Current RPE:: 12-13 Maximum Excercise HR:: 110 Resting Blood Pressure: 114/80 Maximum Exercise Blood Pressure: 134/80 EKG Type: NSR to sinus tach, AVB freq. PACs, rare PVC Current Physical Activity or Exercising minutes: 35:48 Outcomes & Goals Goals:: Verbalizes understanding of THR, RPE & goal METS by session 6, Documents in home exercise log/reports 30 min aerobic 5 day/wk by DC and Demonstrates accurate pulse taking by DC Intervention & Plan Exercise Program Goals: Instruct on personal THR & RPE, Instruct on MET level & personal MET goal, Show patient to take own pulse /validate performance until accurate and Instruct on home exercise 30-day Reassessments 30 day Reassessments:: Met Physical Activity Home Exercise Physical Activity - Home Exercise: Safe Exercise, Warm-up, Self-monitoring, Cool-Down, Home Exercise > 30 min Daily and Sitting Time <3 hours/daily Outcomes & Goals Outcomes/Goals: Demonstrates correct Warm-up/exercise Cool-Down (S3) if = 2.5 METs, Verbalizes symptoms of exercise intolerance by Session 3 (S3) and Demonstrate safe equipment use (S3) & follows exercise prescrition (6) Intervention & Plan Plan/Intervention: Instruct warm-up & cool-down if exercising at > 2 METs, Instruct on symptoms of exercise intolerance & actions to take, Instruct & monitor on saf and Assess intial functional capacity & safety risk 30-day Reassessments 30 day Reassessments:: Met Nutrition - 30-Day Assessment Weight Mgt (Other Care) Height: 6 ft 1 in Weight:: 293 lb BMI: 38.6 Nutrition - 60-Day Assessment Program Goals Nutrition Program Goals Patient has diagnosis of Hyperlipidemia (ICD E78)?: Yes Visit Date of Eval: 11/18/23 Session #:: 17 Cholesterol/Lipids (Other Core Measures) Determine presence & major risk factors that modify LDL goal: Hypertension or hypertensive medication and Age men > 45 years; women >/= 55 years Outcomes/Goals: Pt IDs own risk factors & lifestyle modifications by Session 10, Verbalizes symptoms of angina & response by session 3. and Pt independently manages Intervention/Plan: Instruct on personal lipid levels & lipid goals/NCEP guidelines and Instruct on cholesterol Referral to dietitian:: Yes 30-day Reassessments:: Progressing Diabetes (Other Core Measures) Diabetes Type: Not Applicable Weight Mgt (Other Care) Not Applicable: Yes Height: 6 ft 1 in Weight:: 293 lb BMI: 38.6 Diagnosis Overweight/Obesity BMI> 30% ICD-10 E66: Yes Diagnosis High BMI/Morbid Obesity BMI> 35% ICD-10 Z68: Yes Outcomes/Goals: Pt sets, maintains & shows weight loss goal & trend during rehab Intervention/Plan: Instruct on ideal BMI & set weight loss goal w/patient, Assist pt to ID & incorporate diet changes for weight loss by S9, Refer to Structured Weight Loss program as appropriate and Encourage goal of using 250- 300dcal per session for weight loss 30 day Reassessments:: Progressing Reassessment Notes & Comments:: Referral to Why Weight structured weight loss Healthy Eating Habits Will attend diet classes:: Yes Outcomes/Goals:: Consume diet rich in vegs,fruits,whole grain/high fiber,fish,lean meat and Limit sat/trans fats,cholesterol & added salts & sugars Intervention/Plan:: Assess current eating habits 30-day Reassessments:: Progressing Core - Final Assessment Hypertension Resting Blood Pressure:: 134/80 [place] [employer] Hypertension Guidelines Core - 60-Day Assessment Visit Date of Eval: 11/18/23 Session #:: 17 Medication Compliance Preventative Medication(s):: Aspirin, Ticagrelor/P2Y12 inhibitor, Statin/lipid and Beta tamera H/O mental health issues: depression, anxiety, or addiction?: No Doesn?t believe in the benefits of treatment?: No Believes medications are unnecessary or harmful?: No Has a concern about medication side effects?: No Expresses concern over the cost of medications?: No Outcomes/Goals: Verbalizes medications,desired effect & common side effects @ DC, Pt self-reports following medication regimen and Keeps card in wallet w/medications listed by DC Interventions/plans: Instruct on medication effects & side effects, Review medication list w/patient every two weeks and Instruct importance of taking meds as ordered & assist problem solving 30-day Reassessments:: Progressing Tobacco Use Tobacco Use: Non-smoker Hypertension Hypertension Diagnosis:: Hypertension ICD-10 I10 Resting Blood Pressure:: 114/80 (controlled with medication) Resting Blood Pressure:: 134/80 [place] [employer] Hypertension Guidelines Outcomes/Goals: Able to verbalize/achieve optimal blood pressure <130/80 and Incorporates diet changes & exercise for blood pressure control by DC Interventions/plan: Instruct on optimal blood pressure, hypertension & medications and Instruct on effects of sodium, alcohol, stress, exercise &hypertension 30 day Reassessments:: Met Tobacco Cessation Referral Smoking Cessation Referral:: No Individual Education/Counseling:: No Education Schedule Given:: Yes Psychosocial - 30-Day Assess Target Goals Target Goals Referral to Behavioral Health PS - Interventions: Yes: Attend Stress Management Classes and No: Referral to Behavioral Health if PHQ-9 score >9:, No: Referral to [facility] and No: Referral to Physician if PHQ-9 if score is 5-9: Outcomes/Goals: See list Psychosocial Outcomes/Goals:: ID's personal stressors & 2 strategies to manage stress by discharge Psychosocial - 60-Day Assess VIsit Date of Eval: 11/18/23 Session #:: 17 Not Applicable: Yes History of previous Mental disease:: No Target Goals Target Goals Psychosocial Test Tool Used:: PHQ-9 Questionnaire phq-9 Severity Referral to Behavioral Health PS - Interventions: Yes: Attend Stress Management Classes and No: Referral to Behavioral Health if PHQ-9 score >9:, No: Referral to [facility] and No: Referral to Physician if PHQ-9 if score is 5-9: Outcomes/Goals: See list Psychosocial Outcomes/Goals:: ID's personal stressors & 2 strategies to manage stress by discharge Intervention/Plan: See List Interventions/Plan:: Assess stressors,coping strategies & signs of derpression on admission, Instruct/assist pt to develop coping & personal stress Mgt strategies, Instruct patient to recognize signs & symptoms of depression and Instruct patient to recog 30-day Reassessments: 30 day Reassessments:: Met Psychosocial - 90-Day Assess Target Goals Target Goals Referral to Behavioral Health PS - Interventions: Yes: Attend Stress Management Classes and No: Referral to Behavioral Health if PHQ-9 score >9:, No: Referral to [facility] and No: Referral to Physician if PHQ-9 if score is 5-9: Psychosocial - Final Assessmen Target Goals Target Goals Referral to Behavioral Health PS - Interventions: Yes: Attend Stress Management Classes and No: Referral to Behavioral Health if PHQ-9 score >9:, No: Referral to [facility] and No: Referral to Physician if PHQ-9 if score is 5-9: Nutrition - 90-Day Assessment Weight Mgt (Other Care) Height: 6 ft 1 in Weight:: 293 lb BMI: 38.6 Nutrition - Final Assessment Weight Mgt (Other Care) Height: 6 ft 1 in Weight:: 293 lb BMI: 38.6
[2023-11-18 08:03] VITALS: BP 114/80; BP 134/80; BMI 38.6
== END 2023-12-13 23:59 ==
LOC: CR 09:30
PROVIDERS: PCP Internal Medicine; Referring Provider Internal Medicine Cardiovascular Disease; Visit Provider Internal Medicine Cardiovascular Disease
DX: Z95.5 Presence of coronary angioplasty implant and graft (principal); I25.10 Atherosclerotic heart disease of native coronary artery without angina pectoris
CPT/HCPCS: 93798

== ENCOUNTER 2023-12-30 09:30 | Outpatient (RCR) | payer MEDICARE, SELFPAY ==
[2023-12-14 00:47] VITALS: BP 112/76; BP 114/80; BP 134/80; BMI 38.8
--- NOTE | 2023-12-16 10:52 | CR.ITP_ITS ---
Exercise - Initial Assessment Physician Prescribed Exercise Modalities: Treadmill, Schwinn Airdyne AD-7 and SciFit Stepper Nutrition - Initial Assessment Program Goals Nutrition Program Goals Patient has diagnosis of Hyperlipidemia (ICD E78)?: Yes Weight Mgt (Other Care) Height: 6 ft 1 in Weight:: 290 lb BMI: 38.2 Core - Initial Assessment Hypertension Resting Blood Pressure:: 128/78 [place] [employer] Hypertension Guidelines Psychosocial - Initial Assess Target Goals Target Goals Patient Health Questionnaire PHQ-9 Screening Discharge Assessment: 2. Feeling down, depressed, or hopeless: Not at all 3. Trouble falling or staying asleep, or sleeping too much: Not at all 4. Feeling tired or having little energy: Not at all 5. Poor appetite or overeating: Not at all 6. Feeling bad about yourself -- or that you are a failure or have let yourself or your family down: Not at all 7. Trouble concentrating on things, such as reading the newspaper or watching television: Not at all 8. Moving or speaking so slowly that other people could have noticed. Or the opposite - being so fidgety or restless that you have been moving around a lot more than usual: Not at all 9. Thoughts that you would be better off , or of hurting yourself in some way: Not at all How difficult have these problems made it for you to do your work, take care of things at home, or get along with other people?: Not difficult at all Total Score: 0 Self-Efficacy 6-Item Scale Discharge Assessment: We would like to know how confident you are in doing certain activities. Please select your confidence level for: Fatigue Select Number: 9 Physical Discomfort or Pain Select Number: 9 Emotional Distress Select Number: 9 Other Symptoms or Health Problems Select Number: 9 Different Tasks and Activities Select Number: 9 Medication Select Number: 9 Total Score:: 9 Nutrition Survey Nutrition Survey Instructions Scoring Instructions Exercise - 30-day Assessment Physician Prescribed Exercise Modalities: Treadmill, Schwinn Airdyne AD-7 and SciFit Stepper Exercise - 60-day Assessment Physician Prescribed Exercise Modalities: Treadmill, Schwinn Airdyne AD-7 and SciFit Stepper Exercise - 90-day Assessment Physician Prescribed Exercise Modalities: Treadmill, Schwinn Airdyne AD-7 and SciFit Stepper Exercise - Final/Discharge Visit Date of Eval: 12/16/23 Session #:: 28 Physician Prescribed Exercise Modalities: Treadmill, Schwinn Airdyne AD-7 and SciFit Stepper Frequency: 3x/week for 12 weeks [36 sessions] Intensity: 60-80% of age predicted maximum heart rate reserve Duration: 30 - 45 minutes Current METSs:: 4.5 Target Heart Rate:: 87-102 Current RPE:: 12 Maximum Heart Rate:: 98 Resting Blood Pressure: 128/78 Maximum Exercise Blood Pressure: 146/82 EKG Type: SR with rare pac, pvc Outcomes & Goals Goals:: Verbalizes understanding of THR, RPE & goal METS by session 6, Documents in home exercise log/reports 30 min aerobic 5 day/wk by DC, Demonstrates accurate pulse taking by DC and Other additional outcome/goals: see below Intervention & Plan Exercise Program Goals: Instruct on personal THR & RPE, Instruct on MET level & personal MET goal, Show patient to take own pulse /validate performance until accurate, Instruct on home exercise and Other additional plan/int 30-day Reassessments 30 day Reassessments:: Met Physical Activity Home Exercise Physical Activity - Home Exercise: Safe Exercise, Warm-up, Self-monitoring, Cool-Down, Home Exercise > 30 min Daily and Sitting Time <3 hours/daily Outcomes & Goals Outcomes/Goals: Demonstrates correct Warm-up/exercise Cool-Down (S3) if = 2.5 METs, Verbalizes symptoms of exercise intolerance by Session 3 (S3), Demonstrate safe equipment use (S3) & follows exercise prescrition (6) and Other: See below Intervention & Plan Plan/Intervention: Instruct warm-up & cool-down if exercising at > 2 METs, Instruct on symptoms of exercise intolerance & actions to take, Instruct & monitor on saf, Assess intial functional capacity & safety risk and Other See below 30-day Reassessments 30 day Reassessments:: Met Nutrition - 30-Day Assessment Weight Mgt (Other Care) Height: 6 ft 1 in Weight:: 290 lb BMI: 38.2 Nutrition - 60-Day Assessment Weight Mgt (Other Care) Height: 6 ft 1 in Weight:: 290 lb BMI: 38.2 Core - Final Assessment Visit Date of Eval: 12/16/23 Session #:: 26 Medication Compliance Preventative Medication(s):: Aspirin, Ticagrelor/P2Y12 inhibitor, Statin/lipid and Beta tamera H/O mental health issues: depression, anxiety, or addiction?: No Doesn?t believe in the benefits of treatment?: No Believes medications are unnecessary or harmful?: No Has a concern about medication side effects?: No Expresses concern over the cost of medications?: No Outcomes/Goals: Verbalizes medications,desired effect & common side effects @ DC, Pt self-reports following medication regimen, Keeps card in wallet w/medications listed by DC and Other additional outcome/goals: Interventions/plans: Instruct on medication effects & side effects, Review medication list w/patient every two weeks, Instruct importance of taking meds as ordered & assist problem solving and Other additional 30-day Reassessments:: Progressing Reassessment Notes & Comments:: 11/21 DC ASA, Elequis 5 mg QD, continue Plavix Tobacco Use Tobacco Use: Non-smoker Hypertension Hypertension Diagnosis:: Hypertension ICD-10 I10 Resting Blood Pressure:: 128/78 [place] [employer] Hypertension Guidelines Peak Exercise Blood Pressure:: 146/82 Outcomes/Goals: Able to verbalize/achieve optimal blood pressure <130/80, Incorporates diet changes & exercise for blood pressure control by DC and Other additional outcomes/goals Interventions/plan: Instruct on optimal blood pressure, hypertension & medications, Instruct on effects of sodium, alcohol, stress, exercise &hypertension and Other additional plan/interventions 30 day Reassessments:: Met Tobacco Cessation Referral Smoking Cessation Referral:: No Individual Education/Counseling:: No Education Schedule Given:: Yes Core - 60-Day Assessment Hypertension Resting Blood Pressure:: 128/78 [place] [employer] Hypertension Guidelines Psychosocial - 30-Day Assess Target Goals Target Goals Psychosocial - 60-Day Assess Target Goals Target Goals Psychosocial - 90-Day Assess Target Goals Target Goals Psychosocial - Final Assessmen VIsit Date of Eval: 12/16/23 Session #:: 26 History of previous Mental disease:: No Target Goals Target Goals Outcomes/Goals: See list Psychosocial Outcomes/Goals:: ID's personal stressors & 2 strategies to manage stress by discharge and Other Additional outcome/goals: Intervention/Plan: See List Interventions/Plan:: Assess stressors,coping strategies & signs of derpression on admission, Instruct/assist pt to develop coping & personal stress Mgt strategies, Refer to Behavioral Health if appropriate, Refer to Physician if appropriate, Instruct patient to recognize signs & symptoms of depression, Instruct patient to recog and Other additional plan/intervention 30-day Reassessments: 30 day Reassessments:: Met Nutrition - 90-Day Assessment Weight Mgt (Other Care) Height: 6 ft 1 in Weight:: 290 lb BMI: 38.2 Nutrition - Final Assessment Program Goals Patient has diagnosis of Hyperlipidemia (ICD E78)?: Yes Visit Date of Assessment:: 12/16/23 Session #:: 26 Cholesterol/Lipids (Other Core Measures) Determine presence & major risk factors that modify LDL goal: Hypertension or hypertensive medication, Low HDL cholesterol <40 mg/dL*, Family history of premature CHD in Male < 55 years: female <65 yearsFa and Age men > 45 years; women >/= 55 years Outcomes/Goals: Pt IDs own risk factors & lifestyle modifications by Session 10, Verbalizes symptoms of angina & response by session 3., Pt independently manages and Other Additional Outcomes/Goals: Intervention/Plan: Advocate for lipid panel cholesterol medication if applicable, Instruct on personal lipid levels & lipid goals/NCEP guidelines, Instruct on cholesterol and Other additional plan/int 30-day Reassessments:: Met Diabetes (Other Core Measures) Diabetes Type: Not Applicable Weight Mgt (Other Care) Height: 6 ft 1 in Weight:: 290 lb BMI: 38.2 Diagnosis Overweight/Obesity BMI> 30% ICD-10 E66: Yes Diagnosis High BMI/Morbid Obesity BMI> 35% ICD-10 Z68: Yes Outcomes/Goals: Pt sets, maintains & shows weight loss goal & trend during rehab and Other additional outcomes/goals Intervention/Plan: Instruct on ideal BMI & set weight loss goal w/patient, Assist pt to ID & incorporate diet changes for weight loss by S9, Refer to Structured Weight Loss program as appropriate, Encourage goal of using 250-300dc al per session for weight loss and Other additional plan/interventions 30 day Reassessments:: Progressing Reassessment Notes & Comments:: pt attending nutrition class Healthy Eating Habits Will attend diet classes:: Yes Outcomes/Goals:: Consume diet rich in vegs,fruits,whole grain/high fiber,fish,lean meat, Limit sat/trans fats,cholesterol & added salts & sugars and Other additional outcome/goals: Intervention/Plan:: Assess current eating habits and Other Additional plan/interventions 30-day Reassessments:: Met Education Gave educational materials for:: Signs & symptoms of hypoglycemia, Signs & symptoms of hyperglycemia, Relate diabetes to coronary artery disease and Healthy eating
[2023-12-16 11:08] VITALS: BP 128/78; BMI 38.2
== END 2024-01-12 23:59 ==
LOC: CR 09:30
PROVIDERS: PCP Internal Medicine; Referring Provider Internal Medicine Cardiovascular Disease; Visit Provider Internal Medicine Cardiovascular Disease
DX: Z95.5 Presence of coronary angioplasty implant and graft (principal); I25.10 Atherosclerotic heart disease of native coronary artery without angina pectoris
CPT/HCPCS: 93798

== ENCOUNTER → 2024-01-20 | Outpatient (CLI) | payer MEDICARE, SELFPAY ==
[2024-01-15 15:54] VITALS: BMI 38.2
[2024-01-20 11:15] LABS: Absolute Lymphocyte Count 1.52 X10^3/uL (0.83-4.51); Basophil# 0.06 X10^3/uL; Basophil% 0.8 % (0-1); Eosinophil# 0.25 X10^3/uL; Eosinophils% 3.3 % (0-5); Hematocrit 38.6 % (40-54); Hemoglobin 12.9 g/dL (13.0-16.5); Lymphocyte # 1.52 X10^3/ul (0.83-4.51); Lymphocyte % 20.1 % (19-41); Mean Corp Hgb Conc 33.4 g/dL (32-36); Mean Corpuscular Hgb 34.3 pg (27.0-32.0); Mean Corpuscular Volume 102.7 fL (80-94); Mean Platelet Vol. 8.9 fl (6.2-12.0); Monocyte# 0.72 X10^3/uL; Monocyte% 9.5 % (0-10); NRBC Flagged by Analyzer 0 % (0-5); Neutrophil # 4.98 X10^3/uL (2.7-7.7); Neutrophil % 65.6 % (47-70); Platelet Count 249 K/mm3 (150-450); RBC Distribution Width SD 52.6 fl (35.1-43.9); Red Blood Count 3.76 M/mm3 (4.6-6.2); White Blood Count 7.6 K/mm3 (4.4-11.0)
[2024-01-20 11:24] LABS: International Normalized Ratio 1.6; Prothrombin Time (Protime)PT. 18.9 SECONDS (11.7-14.9)
[2024-01-20 11:25] LABS: Partial Thromboplast Time 35.1 Seconds (24.1-36.2)
[2024-01-20 11:46] LABS: Anion Gap 10 (5-15); BUN 24 mg/dL (7-18); BUN/Creat Ratio 15.2 RATIO (10-20); Calcium,Total 8.4 mg/dL (8.5-10.1); Chloride 105 mmol/L (98-107); Creatinine, Serum 1.58 mg/dL (0.70-1.30); EST Glomerular Filtration Rate 46 mL/min (>60); Est Glom Filt Rate - Afr Amer 55 mL/min (>60); Glucose 165 mg/dL (74-106); Potassium 3.2 mmol/L (3.5-5.1); Sodium Level 140 mmol/L (136-145)
== END | disposition home or self-care (01) ==
LOC: LAB 10:29
PROVIDERS: PCP Internal Medicine; Referring Provider Physician Assistant Medical; Visit Provider Physician Assistant Medical
DX: R07.9 Chest pain, unspecified (principal); R06.09 Other forms of dyspnea; I25.10 Atherosclerotic heart disease of native coronary artery without angina pectoris; Z95.5 Presence of coronary angioplasty implant and graft
CPT/HCPCS: 36415; 80048; 85025; 85610; 85730

== ENCOUNTER 2024-02-03 06:50 | Day surgery (SDC) | payer MEDICARE, SELFPAY ==
[2024-01-15 15:54] VITALS: BMI 38.2
[2024-01-22 15:54] LABS: BNP,B-Type NATRIURETIC PEPTIDE 64.4 pg/mL (0-100)
--- NOTE | 2024-01-28 14:54 | HP.PCM_ITS ---
History and Physical Date of Admission: 02/03/24 Pleasant 73-year-old man who presents to the office today for a cardiovascular follow up visit. He has a history of hypertension and peripheral edema who presents for a cardiovascular follow up. He recently established with his for chest tightness usually with exercise and climbing stairs and occasional palpitations and has had shortness of breath with activity. He is also had bilateral pedal edema. Echocardiogram in 05/2023 demonstrated an ejection fraction of 57% ?5 and normal right ventricular size and function. He also underwent an echo and stress test which did not demonstrate any evidence of ischemia. He continued to have the discomfort in his chest. He has not had to take any nitroglycerin. In July of 2023, he underwent a diagnostic heart cath which demonstrated an 80% Mid LAD lesion, this was stented. Circumflex and RCA were angiographically normal. He was noted to be in atrial fibrillation during cardiac rehab, and was started on Eliquis 5mg twice daily. He did wear a Holter monitor-we are awaiting those results. From a cardiac standpoint, the patient is doing well. He denies any palpitations, chest pain, pressure or heaviness. He denies SOB, Orthopnea, and PND. He does not have bleeding issues; no blood in urine, stool or nosebleeds. He denies any decrease in energy level, myalgias, or claudication. He does acknowledge bilateral lower extremity edema. He denies sudden weight gain. He denies dizziness, lightheadedness, syncopal or near syncopal episodes, and headaches. He is currently in cardiac rehab.
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
[2024-02-03 07:06] VITALS: BMI 38.6
--- NOTE | 2024-02-03 08:28 | CL.D_ITS ---
Patient Name: KIMBERLY CHAN Study Date: 02/03/2024 Performing: Doug Hines MD Ht: 73 inches 185.42 cm : 1950 Wt: lbs kg Age: 73 Gender: male BSA: PROCEDURE(S) PERFORMED [id number])LHC/COR CLINICAL PROFILE AND INDICATIONS Indications: Other Heart Failure: None Stress/Imaging Stress/Image Study Performed: No CAD Presentations: Other: sob CONCLUSIONS Non obstructive coronary arteries Previously placed stent in the LAD noted to be patent RECOMMENDATIONS Medical therapy. Consider weight loss management. DESCRIPTION OF PROCEDURE The patient arrived to the procedure lab. The risks and benefits of the procedure as well as a full description of our services here and current unavailability of surgical backup were fully explained to the patient and/or their significant other prior to the catheterization. The Timeout was completed, verifying the correct patient and procedure. The patient's procedural site was prepped and draped in the usual fashion. Local anesthetic was given subcutaneously to right radial region with Lidocaine 2%. Using a modified Seldinger technique, arterial access was obtained via the right radial artery, a 6Fr sheath was inserted. Left Coronary Artery selective angiography was performed in multiple views using a 5 Fr. 4.0 [place] catheter. Right Coronary Artery selective angiography was then performed in multiple views using a 5 Fr. 4.0 [place] catheter.The arterial sheath was pulled and a TR Band was applied for hemostasis 12 ml of air CORONARY ANGIOGRAPHY DOMINANCE: Right Dominant LEFT HEART ASSESSMENT Left Ventricular Ejection Fraction: by Echo 70 % Normal LV wall motion Normal Left Ventricular systolic function LEFT MAIN: Angiographically normal LEFT ANTERIOR DESCENDING ARTERY: Previously stented vessel in the midsegment which appears to be patent. There is a smooth 30% stenosis noted in the midsegment prior to the stent. The first diagonal vessel bifurcates and has mild disease. CIRCUMFLEX ARTERY: Angiographically normal RIGHT CORONARY ARTERY: Angiographically normal COMPLICATIONS No Complications PROCEDURE MEDICATIONS Versed 1 mg IV Fentanyl 50 mcg IV Versed 1 mg IV Oxygen: 2 L/min via nasal cannula Heparin given IA 02/03/2024 08:08:07 Verapamil 2.5mg, Ntg 100mcgs, 3000 units of Heparin given IA 02/03/2024 08:08:07 SUMMARY OF HEMODYNAMIC DATA Time AIR REST ECG 07:07:51 AO 110/69 (89) SA 08:14:55 AO 108/66 (86) 08:16:15 Signed By Doug Hines MD On 02/03/2024 08:27:40 Doug Hines MD
== END 2024-02-03 10:05 | disposition home or self-care (01) ==
PROVIDERS: Nurse Practitioner Gerontology; PCP Internal Medicine; Referring Provider Internal Medicine Cardiovascular Disease; Visit Provider Internal Medicine Cardiovascular Disease
DX: R06.09 Other forms of dyspnea (principal); I48.0 Paroxysmal atrial fibrillation; I25.10 Atherosclerotic heart disease of native coronary artery without angina pectoris; G47.33 Obstructive sleep apnea (adult) (pediatric); I10 Essential (primary) hypertension; E78.5 Hyperlipidemia, unspecified; Z95.5 Presence of coronary angioplasty implant and graft; Z79.01 Long term (current) use of anticoagulants
CPT/HCPCS: 36415; 83880; 93454; 99152; 99153; J7040; Q9967; C1769; C1894

== ENCOUNTER 2024-08-11 12:30 | Outpatient (RCR) | payer MEDICARE, SELFPAY ==
[2024-01-15 15:54] VITALS: BMI 38.2
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
--- NOTE | 2025-01-11 19:01 | HP.OT.NRP ---
Patient Information Patient Information: KIMBERLY CHAN was seen in my office for initial evaluation on 07/20/24. The following Plan of Care was established for this patient: POC Established Initial Frequency: Every Other Week Plan: apt. to wound center Anticipated Interventions Anticipated Interventions: Education re Diagnosis, Education re Life-long lymphedema Management, Education re Self-Bandaging Techniques, Education re Skin Care and Precautions, Education re Self Massage Techniques, Education re Correct Donning Tech,Care&Wearing Sched Comp Garments, Caregiver Training and Home Program Last Seen Last Seen: This patient was last seen in our office 08/11/24. Pertinent comments regarding their Occupational therapy will appear below: pt was seen for 3 OT sessions- was seen at wound center- no further apts were scheduled and due to time lapse in services pt is d/c at this time. At this point I will be discontinuing this patient from occupational therapy. I would be happy to see this patient again in the future if found appropriate by the physician. Thank you! Shaina Long, OTR/L, CHT
== END 2024-08-11 19:00 | disposition home or self-care (01) ==
LOC: OT 12:30
PROVIDERS: PCP Internal Medicine; Referring Provider Nurse Practitioner Family; Visit Provider Nurse Practitioner Family
DX: I89.0 Lymphedema, not elsewhere classified (principal)
CPT/HCPCS: 97166; 97530

== ENCOUNTER 2024-08-12 08:57 | Outpatient (RCR) | payer MEDICARE, SELFPAY ==
[2024-01-15 15:54] VITALS: BMI 38.2
[2024-08-12 09:02] VITALS: BP 146/90; PULSE 90; RESP 20; TEMP 36.6; BMI 39.4
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
--- NOTE | 2024-08-12 13:46 | WC ---
PHOTO 08/12/24 LEFT DUDLEY CLUSTER
--- NOTE | 2024-08-13 09:06 | WC ---
PHOTO 08/12/24 LEFT DUDLEY CLUSTER
== END 2024-08-14 23:59 | disposition home or self-care (01) ==
LOC: WC 08:57
PROVIDERS: PCP Internal Medicine; Referring Provider Internal Medicine; Visit Provider Nurse Practitioner
DX: I70.249 Atherosclerosis of native arteries of left leg with ulceration of unspecified site (principal); L97.922 Non-pressure chronic ulcer of unspecified part of left lower leg with fat layer exposed; G40.909 Epilepsy, unspecified, not intractable, without status epilepticus; I25.10 Atherosclerotic heart disease of native coronary artery without angina pectoris; R60.0 Localized edema; M79.89 Other specified soft tissue disorders; I10 Essential (primary) hypertension; E78.5 Hyperlipidemia, unspecified; G47.33 Obstructive sleep apnea (adult) (pediatric); Z79.01 Long term (current) use of anticoagulants; Z79.02 Long term (current) use of antithrombotics/antiplatelets; Z79.899 Other long term (current) drug therapy
CPT/HCPCS: 11042; 11045; 99213; G0463

== ENCOUNTER 2024-09-02 09:15 | Outpatient (RCR) | payer MEDICARE, SELFPAY ==
[2024-01-15 15:54] VITALS: BMI 38.2
[2024-08-15 02:45] VITALS: BP 146/90; PULSE 90; RESP 20; TEMP 36.6; BMI 39.4
[2024-08-19 09:15] VITALS: BP 129/81; PULSE 101; RESP 18; TEMP 36.2; BMI 39.4
--- NOTE | 2024-08-19 09:43 | PCM.WC.PN ---
History of Present Illness Date of Service: 08/19/24 Chief Complaint: Left lower leg wounds from 6 months ago History of Wound: 74-year-old white male who came to us with left lower leg edema and open wounds on his left lower leg. It is a started as blisters about 6 months ago he has been dealing with them on and off for the last 6 months using different castor oil to get the scabs off but then they come right back. He is seen at the lymphedema clinic at [facility] and they did wraps for a couple of days but Dr. Jay who is his vascular doctor felt that there was something wrong with his heart first and she refused to work on his legs till his heart was taking care of. Since then he has had cardiac cath and stents done so now it is time for his legs to be worked on and he has an appoint with Dr. Jay on September 01. In the meantime he is on Eliquis and blood pressure medications and he still has the edema in the lower extremities at this time with some discoloration in certain areas that probably has blockages in his connectors of the veins. Progress of Wound: This week his wounds are almost healed except 1 small little spot that is a little bit deeper in the area I think 1 more week on the Xeroform we will do it with the compression. No sign of infection patient is very happy with outcomes. He also has an appoint with Dr. Jay this week to discuss surgery on his connector problems in his veins. Subjective Subjective Patient is very happy with outcome so far Objective Data Objective Data No sign of infection in the area that were used doing the Xeroform is very small now it went down from 15 cm down to like 2 cm and it is superficial but he is doing well he is got some venous insufficiency still has a lot of discoloration on his lower legs but that is due to the insufficiency and that has to be fixed by Dr. Jay. Vital Signs: Vital Signs Temp Pulse Resp BP 97.1 F L 101 H 18 129/81 H 08/19/24 09:15 08/19/24 09:15 08/19/24 09:15 08/19/24 09:15 Weight: 290 lb 5.448 oz Body Mass Index (BMI) 39.4 Lab / Micro Data Attestation: I reviewed the patient's lab results. Lab results narrative: Went over patient's evaluation of his vascular studies with patient and discussed that he both legs have areas that need to be faxed and he needs to wear compression stockings to heal him. Physical Exam Const oriented x3 General Appearance: cooperative Exam Limitations: no limitations HEENT normocephalic Head and Scalp: normal to inspection Face and Sinus: normal facial exam Nose: external nose normal General Ear: hearing grossly impaired External Ear: external ears normal Mouth: oral and palatal mucosa normal Eyes PERRL General Eye: normal appearance of both eyes Neck full ROM General: normal visual inspection Resp normal respiratory effort Effort and Inspection: able to speak in complete sentences Auscultation: clear to auscultation bilaterally Cardio regular rate and regular rhythm Palpation: normal PMI Rate: regular rate Rhythm: regular rhythm GI Auscultation: normoactive bowel sounds Palpation: soft and no hepatosplenomegaly external exam normal Back/Spine Cervical Spine: cervical ROM normal Thoracic Spine / Upper Back: normal to inspection Lumbar Spine / Lower Back: normal to inspection Extremity normal to inspection General Extremity: normal exam except as noted Skin no rashes or lesions noted Neuro oriented x3 Psych Appearance: grossly normal Speech: normal speech Thought Content: normal thought content Judgement: judgement good Debridement Note Debridement Note Wound debrided: Left lower leg cluster Laterality: Left Anesthesia Used: 5% Lidocaine Gel Depth: Down to and including healthy tissue and in the subcutaneous layer Percentage of wound debrided: 100 Instrument Used: 5mm curette Tissue Removed: fibrin Severity: Limited To Skin Breakdown Amount of bleeding with debridement: Mild Bleeding Controlled with: Compression and gauze Patient tolerated procedure: Patient tolerated procedure well Post-Debridement Measurements and Additional Note: Post-Debridement Measurements/Treatment - Nurse 1 - General Ulcer Assessment Start: 08/19/24 09:15 Freq: Status: Active Protocol: EBER.LOWTHAIST Activity Type Activity Date Activity User E-sign Co-sign Detail Recorded Client Recorded Date Recorded By Document 08/19/24 09:15 DL [id number] 08/19/24 09:19 DL 08/19/24 09:15 - Today's Visit Information Type of service Follow-up Visit (Physician/EXPERIMENTAL MECHANIC ELECTRICAL ) Arrival Mode Ambulatory Transfer Assistance None Patient Identification Verified (Name & Yes ) Patient Requires Transmission-Based No Precautions Height and Weight Body Mass Index (BMI) 39.4 BMI Classification Obese Vital Signs Temperature (97.8 F-99.1 F) 97.1 F L Temperature Source Temporal Pulse Rate (60-100) 101 H Pulse Location Monitor Respiratory Rate (12-18) 18 Respiratory rate source Observation Blood Pressure (90/60-120/80) 129/81 H Blood Pressure Mean (mm Hg) 97 Source Monitor History Since Last Visit- (Skip if this is Patient's initial visit) Have you changed medications since your No last visit? Any new allergies or adverse reactions No Had a fall/change in ADL's that may No increase risk of falls Signs or symptoms of abuse and/or No neglect since last visit Have you been in the hospital since your No last visit? Has dressing in place as prescribed Yes Has compression in place as prescribed Yes Has offloadiing in place as prescribed N/A Experienced any changes in pain level or No management Left Footwear Regular Shoe Right Footwear Regular Shoe Pain Scale: 0-10 Numeric Is Patient Pain Free? Yes WC - Nurse 1 - General Ulcer Measurement Start: 08/19/24 09:15 Freq: Status: Active Protocol: Activity Type Activity Date Activity User E-sign Co-sign Detail Recorded Client Recorded Date Recorded By Document 08/19/24 09:15 DL [id number] 08/19/24 09:19 DL 08/19/24 09:15 Wound Center Nurse 1 #1 L Bahena Cluster -Current Size (cm) - Length 2.4 -Current Size (cm) - Width 2.5 -Current Size (cm) - Depth 0.1 -Total Square Cm 6.00 -Photo Taken Yes -Exudate Amt Small -Exudate Type Serosanguineous -Wound Margin Distinct, Outline Attached -Granulation Amt Large (67-100%) -Granulation Quality [place] -Necrosis Amt None Present (0 %) -Structure Exposed N/A -Texture (Sandra-wound Skin Appearance) Scarring -Moisture (Sandra-wound Skin Appearance) No Abnormality -Color (Sandra-wound Skin Appearance) No Abnormality -Temperature (Sandra-wound Skin No Abnormality Appearance) (Pt Warm) -Ulcer Cleansing Soap and Water -Foul Odor after Cleansing No -Anesthetic Used 4% Lidocaine Solution Left Calf (cm) 23.9 Left Ankle (cm) 29.4 WC - Nurse 2 - General Ulcer CM Notes Start: 08/19/24 09:15 Freq: Status: Active Protocol: Activity Type Activity Date Activity User E-sign Co-sign Detail Recorded Client Recorded Date Recorded By Document 08/19/24 09:22 [facility] [id number] 08/19/24 09:27 [facility] 08/19/24 09:22 Wound Center Nurse 2 #1 L Bahena Cluster -Time 09:22 -Correct Patient Yes -Correct Side, Site, Position Yes -Correct Procedure Yes -Procedure Performed Yes -Type of Procedure Debridement -Clinical Debridement Subcutaneous -Tissue Removed Subcutaneous -Post Debridement (cm) - Length 1.8 -Post Debridement (cm) - Width 2 -Post Debridement (cm) - Depth 0.1 -Total Square (Post) (cm) 3.6 -Area of Debridement (cm) - Length 1.8 -Area of Debridement (cm) - Width 2 -Total Square (Area) (cm) 3.6 -Tunneling No -Undermining/Tunneling No -Circular Undermining No -Wound/Ulcer Outcome Not Healed -Ulcer Cleansing Rinsed/ Irrigated with Saline -Foul Odor after Cleansing No -Bioengineered Tissue No -Bleeding Controlled with Pressure -Treatment Response Procedure Tolerated Well -Debridement - Subq, 1st 20sq cm Yes Pain Scale: 0-10 Numeric Is Patient Pain Free? Yes - Nurse 3 - General Ulcer D/C NN Start: 08/19/24 09:15 Freq: Status: Active Protocol: Activity Type Activity Date Activity User E-sign Co-sign Detail Recorded Client Recorded Date Recorded By Document 08/19/24 09:30 [facility] [id number] 08/19/24 09:32 [facility] 08/19/24 09:30 Wound Care Center Nurse 3 #1 L Bahena Cluster -Ulcer Cleansing Rinsed/ Irrigated with Saline -Foul Odor after Cleansing No -Primary Dressing Applied NonAdherent Contact Layer -Other Dressing xeroform, adaptic, per dl shop lead -Primary Dressing Covered/Secured with Dry Gauze & Roll Gauze, Secured with Tape -Other Covering abd Left -Tubular Bandage Double Layer -Size of Tubigrip Used Size E -Size E ($) 2 Treatment Response Procedure Tolerated Well Pain Scale: 0-10 Numeric Is Patient Pain Free? Yes - Visit Discharge Discharge Condition Stable Ambulatory Status Ambulatory Transportation Private Auto Assessment/Plan Assessment/Plan (1) Leg swelling: CODE(S): M79.89 - Other specified soft tissue disorders PLAN: Continue wearing compression stocking on the right lower leg (2) Arteriosclerotic cardiovascular disease: CODE(S): I25.10 - Atherosclerotic heart disease of [place] coronary artery without angina pectoris (3) Nonhealing ulcer of lower extremity with fat layer exposed: CODE(S): L97.902 - Non-pressure chronic ulcer of unspecified part of unspecified lower leg with fat layer exposed QUALIFIERS: Laterality: left Qualified Code(s): L97.922 - Non-pressure chronic ulcer of unspecified part of left lower leg with fat layer exposed PLAN: Wash left leg with antibacterial soap and water apply Xeroform to wound bases cover with Adaptic ABDs and Nia Double layer Tubigrip to legs and Emanuel wrap over top follow-up in 2 weeks (4) Peripheral vascular disease of lower extremity with ulceration: CODE(S): I73.9 - Peripheral vascular disease, unspecified; L97.909 - Non-pressure chronic ulcer of unspecified part of unspecified lower leg with unspecified severity PLAN: Appoint with Dr. Jay for leg studies September 01 We went over the vascular studies with the patient and discussed with Dr. Jay needs to do. Follow-up in 2 weeks
[2024-09-02 09:04] VITALS: BP 154/91; PULSE 88; TEMP 36.3; BMI 39.4
--- NOTE | 2024-09-02 12:29 | PCM.WC.PN ---
History of Present Illness Date of Service: 09/02/24 Chief Complaint: Left lower leg wounds from 6 months ago History of Wound: 74-year-old white male who came to us with left lower leg edema and open wounds on his left lower leg. It is a started as blisters about 6 months ago he has been dealing with them on and off for the last 6 months using different castor oil to get the scabs off but then they come right back. He is seen at the lymphedema clinic at [facility] and they did wraps for a couple of days but Dr. Jay who is his vascular doctor felt that there was something wrong with his heart first and she refused to work on his legs till his heart was taking care of. Since then he has had cardiac cath and stents done so now it is time for his legs to be worked on and he has an appoint with Dr. Jay on September 01. In the meantime he is on Eliquis and blood pressure medications and he still has the edema in the lower extremities at this time with some discoloration in certain areas that probably has blockages in his connectors of the veins. Progress of Wound: This week his wounds are healed and patient be discharged from the wound center. He saw Dr. Jay yesterday and she wants us to order the CircAid compression stockings for him. We will measure today and then he and his can decide if they want to buy them since he has no wounds they will cost him frankel for the CircAid's. Insurance probably will not pay for Subjective Subjective Patient wants to take this home to his and decide otherwise at home he will have to wear compression stockings with a second pair on top to get the 20 to 30 mmHg compression. Objective Data Objective Data Leg looks smooth and healed it looks good no swelling at this point he is just does not want this sores and I told him it is all about getting the surgery done that will stop the sores. Vital Signs: Vital Signs Temp Pulse Resp BP 97.4 F L 88 18 154/91 H 09/02/24 09:04 09/02/24 09:04 08/19/24 09:15 09/02/24 09:04 Weight: 290 lb 5.448 oz Body Mass Index (BMI) 39.4 Physical Exam Const oriented x3 General Appearance: cooperative Exam Limitations: no limitations HEENT normocephalic Head and Scalp: normal to inspection Face and Sinus: normal facial exam Nose: external nose normal General Ear: hearing grossly impaired External Ear: external ears normal Mouth: oral and palatal mucosa normal Eyes PERRL General Eye: normal appearance of both eyes Neck full ROM General: normal visual inspection Resp normal respiratory effort Effort and Inspection: able to speak in complete sentences Auscultation: clear to auscultation bilaterally Cardio regular rate and regular rhythm Palpation: normal PMI Rate: regular rate Rhythm: regular rhythm GI Auscultation: normoactive bowel sounds Palpation: soft and no hepatosplenomegaly external exam normal Back/Spine Cervical Spine: cervical ROM normal Thoracic Spine / Upper Back: normal to inspection Lumbar Spine / Lower Back: normal to inspection Extremity normal to inspection General Extremity: normal exam except as noted Skin no rashes or lesions noted Neuro oriented x3 Psych Appearance: grossly normal Speech: normal speech Thought Content: normal thought content Judgement: judgement good Debridement Note Debridement Note No debridement was completed: No debridement was completed today Post-Debridement Measurements and Additional Note: Post-Debridement Measurements/Treatment - Nurse 1 - General Ulcer Assessment Start: 08/19/24 09:15 Freq: Status: Active Protocol: WC.LOWEXT Activity Type Activity Date Activity User E-sign Co-sign Detail Recorded Client Recorded Date Recorded By Document 08/19/24 09:15 DL [id number] 08/19/24 09:19 DL Document 09/02/24 09:04 IL [id number] 09/02/24 09:09 IL 08/19/24 09/02/24 09:15 09:04 - Today's Visit Information Type of service Follow-up Visit Follow-up Visit (Physician/AUTOMATIC VULCANIZING OPERATOR (Physician/AUTOMATIC VULCANIZING OPERATOR ) ) Arrival Mode Ambulatory Ambulatory Transfer Assistance None Accompanied by self Patient Identification Verified (Name & Yes Yes ) Patient Requires Transmission-Based No Precautions Safety Precautions Fall Prevention Height and Weight Body Mass Index (BMI) 39.4 39.4 BMI Classification Obese Obese Vital Signs Temperature (97.8 F-99.1 F) 97.1 F L 97.4 F L Temperature Source Temporal Temporal Pulse Rate (60-100) 101 H 88 Pulse Location Monitor Monitor Respiratory Rate (12-18) 18 Respiratory rate source Observation Observation Blood Pressure (90/60-120/80) 129/81 H 154/91 H Blood Pressure Mean (mm Hg) 97 112 Source Monitor Monitor Position Sitting Blood Pressure Location Left Arm History Since Last Visit- (Skip if this is Patient's initial visit) Have you changed medications since your No last visit? Any new allergies or adverse reactions No Had a fall/change in ADL's that may No increase risk of falls Signs or symptoms of abuse and/or No neglect since last visit Have you been in the hospital since your No last visit? Has dressing in place as prescribed Yes Yes Has compression in place as prescribed Yes Yes Has offloadiing in place as prescribed N/A Yes Experienced any changes in pain level or No Yes management Left Footwear Regular Shoe Regular Shoe Right Footwear Regular Shoe Regular Shoe Pain Scale: 0-10 Numeric Is Patient Pain Free? Yes Yes WC - Nurse 1 - General Ulcer Measurement Start: 08/19/24 09:15 Freq: Status: Active Protocol: Activity Type Activity Date Activity User E-sign Co-sign Detail Recorded Client Recorded Date Recorded By Document 08/19/24 09:15 DL [id number] 08/19/24 09:19 DL Document 09/02/24 09:04 IL [id number] 09/02/24 09:09 [place] 08/19/24 09/02/24 09:15 09:04 Wound Center Nurse 1 #1 L Ba[place] Cluster -Combined with other wound No -Current Size (cm) - Length 2.4 0.1 -Current Size (cm) - Width 2.5 0.1 -Current Size (cm) - Depth 0.1 0.1 -Total Square Cm 6.00 0.01 -Photo Taken Yes No -Tunneling No -Undermining/Tunneling No -Circular Undermining No -Change in Wound Grade/Stage No -Exudate Amt Small Small -Exudate Type Serosanguineous -Wound Margin Distinct, Flat & Intact Outline Attached -Granulation Amt Large (67-100%) Large (67-100%) -Granulation Quality [place] Pale,[place] -Necrosis Amt None Present (0 Large (67-100%) %) -Structure Exposed N/A -Texture (Sandra-wound Skin Appearance) Scarring Assessed, Localized Edema -Moisture (Sandra-wound Skin Appearance) No Abnormality Assessed, Maceration, Weeping,Dry/ Scaly -Color (Sandra-wound Skin Appearance) No Abnormality Assessed -Temperature (Sandra-wound Skin No Abnormality No Abnormality Appearance) (Pt Warm) (Pt Warm) -Tenderness on Palpation (Sandra-wound No Skin Appearance) -Ulcer Cleansing Soap and Water Soap and Water -Foul Odor after Cleansing No No -Anesthetic Used 4% Lidocaine 5% Lidocaine Solution Gel Right Calf (cm) 46.5 Right Ankle (cm) 31.5 Left Calf (cm) 23.9 45.5 Left Ankle (cm) 29.4 30.2 WC - Nurse 2 - General Ulcer CM Notes Start: 08/19/24 09:15 Freq: Status: Active Protocol: Activity Type Activity Date Activity User E-sign Co-sign Detail Recorded Client Recorded Date Recorded By Document 08/19/24 09:22 [facility] [id number] 08/19/24 09:27 [facility] Document 09/02/24 09:18 [facility] [id number] 09/02/24 09:28 [facility] 08/19/24 09/02/24 09:22 09:18 Wound Center Nurse 2 #1 L Ba[place]a Cluster -Time 09:22 09:19 -Correct Patient Yes -Correct Side, Site, Position Yes -Correct Procedure Yes -Procedure Performed Yes No -Type of Procedure Debridement -Clinical Debridement Subcutaneous -Tissue Removed Subcutaneous -Post Debridement (cm) - Length 1.8 0 -Post Debridement (cm) - Width 2 0 -Post Debridement (cm) - Depth 0.1 0 -Total Square (Post) (cm) 3.6 0 -Area of Debridement (cm) - Length 1.8 0 -Area of Debridement (cm) - Width 2 0 -Total Square (Area) (cm) 3.6 0 -Tunneling No No -Undermining/Tunneling No No -Circular Undermining No No -Wound/Ulcer Outcome Not Healed Healed- Epithelialized -Ulcer Cleansing Rinsed/ Irrigated with Saline -Foul Odor after Cleansing No -Bioengineered Tissue No -Bleeding Controlled with Pressure NA -Treatment Response Procedure Tolerated Well -Debridement - Subq, 1st 20sq cm Yes Pain Scale: 0-10 Numeric Is Patient Pain Free? Yes Yes - Nurse 3 - General Ulcer D/C NN Start: 08/19/24 09:15 Freq: Status: Active Protocol: Activity Type Activity Date Activity User E-sign Co-sign Detail Recorded Client Recorded Date Recorded By Document 08/19/24 09:30 [facility] [id number] 08/19/24 09:32 [facility] Document 09/02/24 09:37 [facility] [id number] 09/02/24 09:38 [facility] 08/19/24 09/02/24 09:30 09:37 Wound Care Center Nurse 3 #1 L [place] Cluster -Ulcer Cleansing Rinsed/ Irrigated with Saline -Foul Odor after Cleansing No -Primary Dressing Applied NonAdherent Contact Layer -Other Dressing xeroform, adaptic, per dl medical records coder -Primary Dressing Covered/Secured with Dry Gauze & Roll Gauze, Secured with Tape -Other Covering abd Left -Tubular Bandage Double Layer Double Layer -Size of Tubigrip Used Size E Size E -Size E ($) 2 2 Treatment Response Procedure Procedure Tolerated Well Tolerated Well Pain Scale: 0-10 Numeric Is Patient Pain Free? Yes Yes WC - Visit Discharge Discharge Condition Stable Stable Ambulatory Status Ambulatory Ambulatory Transportation Private Auto Private Auto Notes: healed. measured ble for circaids Assessment/Plan Assessment/Plan (1) Leg swelling: CODE(S): M79.89 - Other specified soft tissue disorders PLAN: Continue wearing compression stocking on the right lower leg (2) Arteriosclerotic cardiovascular disease: CODE(S): I25.10 - Atherosclerotic heart disease of lime coronary artery without angina pectoris (3) Nonhealing ulcer of lower extremity with fat layer exposed: CODE(S): L97.902 - Non-pressure chronic ulcer of unspecified part of unspecified lower leg with fat layer exposed QUALIFIERS: Laterality: left Qualified Code(s): L97.922 - Non-pressure chronic ulcer of unspecified part of left lower leg with fat layer exposed PLAN: Wounds all healed patient is discharged from the wound center follow-up as needed will measure for CircAid's at this point (4) Peripheral vascular disease of lower extremity with ulceration: CODE(S): I73.9 - Peripheral vascular disease, unspecified; L97.909 - Non-pressure chronic ulcer of unspecified part of unspecified lower leg with unspecified severity PLAN: Appoint with Dr. Jay for leg studies September 01 We went over the vascular studies with the patient and discussed with Dr. Jay needs to do. Measured patient's for CircAid's and will give patient his measurements and he can call if he wants them ordered and sent. Follow-up as needed otherwise he is just to follow-up with Dr. Jay
== END 2024-09-11 11:02 | disposition home or self-care (01) ==
LOC: WC 09:15
PROVIDERS: PCP Internal Medicine; Referring Provider Internal Medicine; Visit Provider Nurse Practitioner
DX: I70.249 Atherosclerosis of native arteries of left leg with ulceration of unspecified site (principal); L97.922 Non-pressure chronic ulcer of unspecified part of left lower leg with fat layer exposed; M79.89 Other specified soft tissue disorders; R60.0 Localized edema; I25.10 Atherosclerotic heart disease of native coronary artery without angina pectoris; Z79.01 Long term (current) use of anticoagulants; Z79.02 Long term (current) use of antithrombotics/antiplatelets; Z79.899 Other long term (current) drug therapy; Z95.5 Presence of coronary angioplasty implant and graft
CPT/HCPCS: 11042; 99213; G0463

== ENCOUNTER 2024-12-15 13:46 | Inpatient (IN) | payer MEDICARE, SELFPAY ==
[2024-01-15 15:54] VITALS: BMI 38.2
[2024-12-15] VITALS (20 sets, daily range): BP systolic 139–181; BP diastolic 90–114; PULSE 65–106; RESP 16–30; TEMP 36.6–36.8; O2SAT 85–100; BMI 40.1
--- NOTE | 2024-12-15 14:28 | EKG12_ITS ---
Test Reason : SOB Blood Pressure : */* mmHG Vent. Rate : 99 BPM Atrial Rate : * BPM P-R Int : * ms QRS Dur : 76 ms QT Int : 368 ms P-R-T Axes : * 52 -5 degrees QTcB Int : 472 ms Atrial fibrillation with premature ventricular or aberrantly conducted complexes Septal infarct , age undetermined Abnormal ECG Confirmed by KANDIS AGUILERA, JOHN ([id number]), editor newspaper ALAN STUART ([id number]) on 12/21/2024 7:07:57 AM Referred By: Confirmed By: JOHN MARQUIS MD
[2024-12-15 14:37] LABS: Absolute Lymphocyte Count 1.35 X10^3/uL (0.83-4.51); Absolute Neutrophil Count 5.3 X10^3/uL (2.0-7.7); Basophil# 0.07 X10^3/uL; Basophil% 0.9 % (0-1); Eosinophil# 0.18 X10^3/uL; Eosinophils% 2.3 % (0-5); Hematocrit 39.7 % (40-54); Hemoglobin 13.5 g/dL (13.0-16.5); Lymphocyte # 1.35 X10^3/ul (0.83-4.51); Lymphocyte % 16.9 % (19-41); Mean Corpuscular Hgb 33.8 pg (27.0-32.0); Mean Corpuscular Volume 99.3 fL (80-94); Mean Platelet Vol. 8.8 fl (6.2-12.0); Monocyte# 1.02 X10^3/uL; Monocyte% 12.8 % (0-10); NRBC Flagged by Analyzer 0 % (0-5); Neutrophil # 5.31 X10^3/uL (2.7-7.7); Neutrophil % 66.6 % (47-70); Platelet Count 214 K/mm3 (150-450); RBC Distribution Width SD 54.3 fl (35.1-43.9)
[2024-12-15 14:55] LABS: International Normalized Ratio 1.4; Prothrombin Time (Protime)PT. 16.9 SECONDS (11.7-14.9)
[2024-12-15 14:56] LABS: ALB/GLOB Ratio 1.2 RATIO (0.9-2.4); AST(SGOT) 58 U/L (<=37); Alanine Aminotransfer ALT/SGPT 42 U/L (<=46); Alkaline Phosphatase 117 U/L (40-129); BUN 14 mg/dL (4-19); BUN/Creat Ratio 12.3 RATIO (10-20); Calcium,Total 8.5 mg/dL (7.6-11.0); Carbon Dioxide 26.6 mmol/L (21.0-32.0); Chloride 95 mmol/L (98-108); Creatinine, Serum 1.15 mg/dL (0.70-1.20); EST Glomerular Filtration Rate 66 (>60); Estimated Creatinine Clearance 78.78 ml/min (50-250); Globulin 3.2 g/dL (2.2-4.2); Glucose 160 mg/dL (70-99); Partial Thromboplast Time 33.9 Seconds (24.1-36.2); Potassium 2.8 mmol/L (3.3-5.1); Protein, Total 7.2 g/dL (5.9-8.4); Sodium Level 138 mmol/L (133-145); Total Bilirubin 1.67 mg/dL (0.00-1.30); Troponin T High Sensitivity 29 ng/L (<=22)
[2024-12-15 14:57] LABS: Anion Gap 16 (5-15)
[2024-12-15] MEDS: predniSONE 20 MG Tablet 60 MG PO (14:57)
[2024-12-15] MEDS: Ipratropium/Albuterol Sulfate 3 ML AMPUL.NEB INHALATION ×3 (15:03→15:04)
[2024-12-15 15:10] LABS: Pro- Brain NATRIURETIC PEPTIDE 955 pg/mL (<=1800)
[2024-12-15 15:30] LABS: Lactic Acid 1.5 mmol/L (0.0-2.0)
[2024-12-15] MEDS: Potassium Chloride Oral Tablet 20 MEQ 60 MEQ PO (15:39)
[2024-12-15] MEDS: Potassium Chloride 10mEq/100mL 10 MEQ/100 ML IV.SOLN. 100 MEQ IV BOLUS ×4 (15:39→18:20)
--- NOTE | 2024-12-15 15:50 | RAD_ITS ---
PROCEDURE: CHEST PA AND LATERAL 12/15/2024 REASON FOR EXAM: SOB TECHNIQUE: Frontal and lateral views of the chest. COMPARISON: None. FINDINGS: The heart is enlarged. Right basilar linear opacity favoring atelectasis. Mild vascular indistinctness and peripheral septal thickening suggestive of mild edema. No pleural effusion or pneumothorax. RAD/Chest PA and Lateral IMPRESSION: Mild findings of edema in the setting of cardiomegaly. Reading Location: [place] [address]
[2024-12-15 16:35] LABS: Troponin T High Sens 2 HR 26 ng/L (<=22)
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
[2024-12-15 17:11] LABS: Magnesium 1.2 mg/dL (1.5-2.2)
[2024-12-15 17:11] LABS: Alcohol, Blood (Medical)-Serum < 10.1 mg/dL (<=10.0)
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
[2024-12-15] MEDS: Furosemide 100 MG/10 ML Vial 80 MG IV (17:52)
[2024-12-15] MEDS: Magnesium Sulfate 4gm/100mL 4 GM/100 ML IV.SOLN. IV (18:12)
[2024-12-15 18:26] LABS: Bacteria 0 SEEN /hpf (None Seen); Mucous, Urine 0 SEEN /hpf (<or=2+)
[2024-12-15 18:33] LABS: Color, Urine Yellow (Yellow); Glucose, Dipstick Normal (Normal); Ketone-Dipstick 5 mg/dl (Negative); Leukocyte Esterase-Dipstick 25 /ul (Negative); Nitrite-Dipstick Negative (Negative); Occult Blood-Urine 150 /ul (Negative); Protein-Dipstick 500 mg/dl (Negative); Urine Bilirubin Dipstick Negative (Negative); Urine Clarity Sl. Cloudy (Clear); Urine Urobilinogen 1 mg/dl (Normal); Urine pH 6.5 (5.0 - 8.0)
[2024-12-15 18:48] LABS: Troponin T High Sens 4 HR 26 ng/L (<=22)
--- NOTE | 2024-12-15 18:53 | CASEMGMT ---
Care Management Face to Face with patient for initial transition planning/care coordination assessment in the ED. This documentation writer introduced self and role at [facility]. Patient alert and oriented. Patient willing to participate in assessment and is able to answer all questions appropriately. Patient's , Latesha, at bedside. Care providers, pharmacy, and demographics verified. Admitting Diagnosis: Dyspnea on exertion, Acute hypoxemic respiratory failure, Hypokalemia, Hypomagnesemia, Elevated troponin Other diagnosis history: ALEX, alcohol abuse, hypertension, hyperlipidemia, CAD, atrial fibrillation on Eliquis PCP: [facility] Specialists: Flora, cardiology. Also has a vascular surgeon from the [facility], but could not recall the name. [facility]erred Pharmacy: [facility] Insurance: [facility] Medicare Prescription Benefit: yes Living Will/HPOA: on file with , Latesha, as primary. Patient would like to update as the two alternates are no longer desired. LNOK: , Latesha, and granddaughter, Minerva. Living Arrangements: lives with in a 1 story home with 2 steps to enter. Independent at baseline with all ADLs/IADLs. Transportation: patient drives self. DME: CPAP, blood pressure cuff HHC: none SNF/Rehab: none Community Resources: none Patient goals: Patient wishes to discharge home, denies need for home health care at this time. Patient denies any further needs or concerns at this time. Disposition Plan: admission to acute; RN CM/SW to follow for discharge planning needs that may arise. Lizbet Ashford, MAINTENANCE TRAINER, HOME ENERGY CONSULTANT
[2024-12-15 19:13] LABS: Red Blood Cells-Urine 5-10 SEEN /hpf (0-5); Squamous Epithelial Cells - UA 0-5 SEEN /hpf (0-5); White Blood Cells 0-5 SEEN /hpf (0-5)
[2024-12-15] MEDS: Furosemide 40 MG/4 ML Vial IV (21:55)
[2024-12-15] MEDS: Atorvastatin Calcium 20 MG Tablet PO (21:55)
[2024-12-15] MEDS: APIXABAN 5 MG TABLET PO (21:56)
[2024-12-15] MEDS: 0.9% Saline Lock 10 ML Syringe IV (21:57)
--- OUTSIDE RECORDS SUMMARY | 2024-12-15 22:14 | XMS RPT_ITS | CCD ---
Author Organization [facility] Care Team Providers Care Go Cart Mechanic Name Role Phone Logan Aquino MD Primary Care Provider [phone] Dr. Logan Aquino Primary Care Provider Older SUPERVISOR HOUSECLEANER, SUPERVISOR HOUSECLEANER-C Codi Referring Provider Older SUPERVISOR HOUSECLEANER, SUPERVISOR HOUSECLEANER-C Codi Other Provider Dr. Doug Hines Attending Provider GURVINDER Simon Attending Provider Unavail able Miguel SUPERVISOR HOUSECLEANER, SUPERVISOR HOUSECLEANER-C Codi Referring Provider Miguel SUPERVISOR HOUSECLEANER, SUPERVISOR HOUSECLEANER-C Codi Other Provider Dr. Lgoan Aquino Referring Provider Dr. Doug Hines Referring Provider Dr. Doug Hines Other Provider Dr. Adriano Bowling Attending Provider Dr. Abraham Villanueva Attending Provider Patrick FREITAS, FORTINO Bansal Attending Provider Logan Aquino MD Primary Care Provider [phone] Dr. Logan Aquino Primary Care Provider Miguel SUPERVISOR HOUSECLEANER, SUPERVISOR HOUSECLEANER-C Codi Referring Provider Miguel SUPERVISOR HOUSECLEANER, SUPERVISOR HOUSECLEANER-C Codi Other Provider Dr. Doug Hines Attending Provider GURVINDER Simon Attending Provider Unavail able Dr. Logan Aquino Referring Provider Flora, Dr. Camacho Referring Provider Flora, Dr. Camacho Other Provider Dr. Adriano Bowling Attending Provider Kay, Dr. Rosario Attending Provider Patrick PA, PA Shaina Bansal Attending Provider Dr. Logan Aquino Primary Care Provider Flora, Dr. Camacho Attending Provider Logan Aquino MD Primary Care Provider Miles, Dr. Ford Primary Care Provider Dr. Logan Aquino Referring Provider Group, [facility] Unavailable Doug Hines MD Unavailable FLORA DOUG S Referring Unavailable BO GEE Attending Unavailable MILES, MARIA L Primary Care Unavailable Group, [facility] Unavailable Unavailable Miguel BIOPROCESS DEVELOPMENT ENGINEER.PETROLEUM ENGINEERING TEACHER, Codi M Unavailable Miles, Logan Primary Care Unavailable Flora, Doug Attending Unavailable Flora, [place] Referring Unavailable Shaina Nguyen Referring Unavailabl e Aquino, Logan Primary Care Unavailable Shaina Nguyen Attending Unavailabl Shaina Garduno Referring Unavailabl e Aquino, Logan Primary Care Unavailable Shaina Nguyen Attending Unavailabl e Yamini Valderrama Attending Unavailabl e Aquino, Logan Primary Care Unavailable Aquino, Logan Primary Care Unavailable Flora, Doug Attending Unavailable Flora, Doug Referring Unavailable Aquino, Logan Primary Care Unavailable Flora, Doug Consulting Unavailable Flora, [place] Referring Unavailable Shaina Nguyen Attending Unavailabl e Aquino, Logan Referring Unavailable Aquino, Logan Primary Care Unavailable Servando DE LUNA, Rosi Attending Unavailable Aquino, Logan Primary Care Unavailable Aquino, Logan Referring Unavailable Servando DE LUNA, Rosi Attending Unavailable Aquino, Logan Referring Unavailable Aquino, Logan Primary Care Unavailable Servando DE LUNA, Rosi Attending Unavailable Aquino, Logan Referring Unavailable Shaina Nguyen Attending Unavailabl e Aquino, Logan Primary Care Unavailable Shaina Nguyen Attending Unavailabl e Aquino, Logan Primary Care Unavailable Shaina Nguyen Referring Unavailabl e Bhupinder SUPERVISOR HOUSECLEANER, Patti Attending Unavailable Aquino, Logan Referring Unavailable Aquino, Logan Primary Care Unavailable Bhupinder SUPERVISOR HOUSECLEANER, Patti Attending Unavailable Aquino, Logan Primary Care Unavailable Aquino, Logan Referring Unavailable Aquino, Logan Primary Care Unavailable Shaina Nguyen Referring Unavailabl e Shaina Nguyen Attending Unavailabl e Flora, Doug Attending Unavailable Flora, [place] Attending Unavailable Flora, Doug Referring Unavailable Aquino, Logan Primary Care Unavailable Flora, Doug Attending Unavailable Flora, Doug Referring Unavailable Aquino, Logan Primary Care Unavailable Aquino, Logan Primary Care Unavailable Flora, Doug Attending Unavailable Flora, [place] Referring Unavailable Kolton Jamison Referring Unavailable Kolton Jamison Attending Unavailable Aquino, Logan Primary Care Unavailable AQUINO, MARIA L Primary Care Unavailable CODI RIVERA Attending Unavailable AQUINO, MARIA L Primary Care Unavailable CODI RIVERA Referring Unavailable AQUINO, MARIA L Primary Care Unavailable AQUINO, MARIA L Attending Unavailable AQUINO, MARIA L Primary Care Unavailable TESTFOUZIA RAJAN Referring Unavailable TESTRAFOUZIA FERNANDEZ Attending Unavailable AQUINO, MARIA L Primary Care Unavailable MIGUELCODI Attending Unavailable QAUINO, MARIA L Primary Care Unavailable MIGUELCODI Attending Unavailable AQUINO, MARIA L Primary Care Unavailable KARYNA CORONA Referring Unavailable KARYNA CORONA Attending Unavailable AQUINO, MARIA L Primary Care Unavailable TESTFOUZIA RAJAN Referring Unavailable TESTRANARESH, FOUZIA Attending Unavailable AQUINO, MARIA L Primary Care Unavailable MIGUELCODI JEFF Referring Unavailable AQUINO, MARIA L Primary Care Unavailable KARYNA CORONA Referring Unavailable KARYNA CORONA Attending Unavailable AQUINO, MARIA L Primary Care Unavailable TESTSATINDER, FOUZIA Referring Unavailable TESTRAKE, FOUZIA Attending Unavailable AQUINO, MARIA L Primary Care Unavailable AQUINO, MARIA L Attending Unavailable AQUINO, MARIA L Primary Care Unavailable PARRISJOETIFFANYKOLTON Attending Unavailable AQUINO, MARIA L Primary Care Unavailable TESTRAKE, FOUZIA Referring Unavailable TESTRAKE, FOUZIA Attending Unavailable AQUINO, MARIA L Primary Care Unavailable KARYNA CORONA Referring Unavailable KARYNA CORONA Attending Unavailable AQUINO, MARIA L Primary Care Unavailable SELF Referring Unavailable MARY ARCE Attending Unavailable AQUINO, MARIA L Primary Care Unavailable KARYNA CORONA Referring Unavailable AQUINO, MARIA L Primary Care Unavailable KARYNA CORONA Referring Unavailable KARYNA CORONA Attending Unavailable AQUINO, MARIA L Primary Care Unavailable AQUINO, MARIA L Referring Unavailable AQUINO, MARIA L Attending Unavailable Medications Current Medications Medication Drug Class(es) Dates Sig (Normalized) Sig (Original) apixaban 5 mg oral tablet (20 sources) Factor Xa Inhibitor Start: 11-22-2023 take 1 tablet by mouth twice daily Apixaban (Eliquis) 5 mg tablet Active 5 MG PO TWICE A DAY 60 November 22, 2023 12:00am atorvastatin 20 mg oral tablet (20 sources) HMG-CoA Reductase Inhibitor Start: 08-08-2023 take 1 tablet by mouth once daily at bedtime for hyperlipidemia atorvastatin (LIPITOR) 20 mg tablet Indications: Hyperlipidemia, unspecified hyperlipidemia type Take 1 tablet by mouth daily at bedtime. For cholesterol. 90 tablet 3 08/08/2023 Active Start: 05-02-2021 End: 08-26-2023 take 10 mg by mouth once daily Atorvastatin Discontinu ed 10 MG PO DAILY June 20, 2023 1:00am August 26, 2023 10:13am Comment on above: Take 1 tablet by mimi th daily at bedtime. For cholesterol. carvedilol 12.5 mg oral tablet (20 sources) alpha-Adrenergic Jose Luis, beta-Adrenergic Jose Luis Start: take 1 tablet by mouth twice daily carvedilol (COREG) 12.5 mg tablet Take 1 tablet by mouth two times a day. 01/01/2024 Active Start: 11-12-2023 take 12.5 mg by mout h twice daily at mealtime Carvedilol Active 12.5 MG PO TWICE A DAY 180 November 12, 2023 12:00am must administer with a meal/food Start: 11-11-2023 End: 11-12-2023 take 12.5 mg by mouth twice daily Carvedilol Discontinued 12.5 MG PO TWICE A DAY November 11, 2023 6:47pm November 12, 2023 11:33am Start: 09-20-2021 End: 01-01-2024 take 1 tablet by mouth twice daily carvedilol (COREG) 25 mg tablet Indications: Essential hypertension with goal blood pressure less than 130/80 Take 1 tablet by mouth twice daily. 180 tablet 3 04/01/2023 01/01/2024 Discontinued Comment on above: [facility] cephalexin 500 mg oral capsule (1 source) Cephalosporin Antibacterial Start: 3 End: 3 take 1 capsule by mouth three times daily cephALEXin (KEFLEX) 500 mg capsule Take 1 capsule by mouth three times daily for 7 days. 21 capsule 0 11/07/2022 11/14/2022 Active Comment on above: Take 1 capsule by [facility] three times daily for 7 days. clindamycin 300 mg oral capsule (2 sources) Lincosamide Antibacterial Start: 2 End: 2 take 1 capsule by mouth three times daily clindamycin (CLEOCIN) 300 mg capsule Indications: Cellulitis of left lower extremity Take 1 capsule by mouth three times daily for 10 days. 30 capsule 0 01/26/2022 02/05/2022 Active Comment on above: Take 1 capsule by [facility] three times daily for 10 days. CPAP (20 sources) Start: 2 CPAP Pressure changed in office (6-13 cm H2O) Mask (per patient preference), send filters, optional chin strap (if indicated), filters, tubing / heated tubing, heated humidity and lifetime supplies. Dx. ALEX G47.33 327.23 DME [facility] [place] 1 Each 11 08/02/2021 Active Comment on above: Pressure changed in office (6-13 cm H2O) Mask (per patient preference), send filters, optional chin strap (if indicated), filters, tubing / heated tubing, heated humidity and lifetime supplies. Dx. ALEX G47.33 327.23 DME [facility] [place] furosemide 40 mg oral tablet (20 sources) Loop Diuretic Start: take 1 tablet by mouth twice daily furosemide (LASIX) 40 mg tablet Take 1 tablet by mouth two times a day. 01/01/2024 Active Start: 11-13-2023 take 40 mg by mouth twice sue y Furosemide Active 40 MG PO TWICE A DAY 180 November 13, 2023 6:03pm Start: 11-11-2023 End: 11-13-2023 take 40 mg by mouth once daily Furosemide Discontinued 40 MG PO DAILY November 11, 2023 6:47pm November 13, 2023 6:03pm Start: 10-18-2023 End: 11-11-2023 take 20 mg by mouth once daily Furosemide Discontinued 20 MG PO DAILY October 18, 2023 1:15pm November 11, 2023 6:48pm Start: 10-01-2023 End: 01-01-2024 take 0.5 tablet by mouth once furosemide (LASIX) 40 mg tablet Indications: Essential hypertension with goal blood pressure less than 130/80 Take 0.5 tablets by mouth every afternoon. 0 10/01/2023 01/01/2024 Discontinued Start: 09-23-2023 End: 10-16-2023 take 20 mg by mouth once daily Furosemide Discontinued 20 MG PO DAILY September 23, 2023 2:15pm October 16, 2023 5:14pm Start: 07-24-2023 End: 08-26-2023 take 40 mg by mouth twice daily Furosemide Discontinue d 40 MG PO TWICE A DAY 180 July 24, 2023 11:24am August 26, 2023 10:15am Start: 12-23-2020 End: 10-01-2023 take 1 tablet by mouth once furosemide (LASIX) 40 mg t ablet Indications: Essential hypertension with goal blood pressure less than 130/80 Take 1 tablet by mouth every afternoon. 09/20/2022 10/01/2023 Discontinued Comment on above: Take 1 tablet by mimi th once daily. Take 1 tablet by mimi th every afternoon. Take 0.5 tablets by mouth every afternoon. ibuprofen 600 mg oral tablet (20 sources) Nonsteroidal Anti-inflammatory Drug Start: 12-01-2021 End: 08-08-2023 take 600 mg by mouth every eight hours Ibuprofen Active 600 MG PO Q8H June 20, 2023 1:00am Start: 06-16-2021 End: 11-29-2021 take 1 tablet by mouth every eight hours as needed ibuprofen (MOTRIN) 600 mg tablet Take 1 tablet by mouth every 8 hours as needed for pain. 30 tablet 5 06/16/2021 11/29/2021 Discontinued Comment on above: Take 1 tablet by mimi th every 8 hours as needed for pain. ipratropium bromide 0.042 mg/actuat metered dose nasal spray (20 sources) Anticholinergic Start: 06-20-2023 Ipratropium Winston Active 2 SPRAY INTRANASAL THREE TIMES A DAY June 20, 2023 1:00am Start: 07-11-2022 End: 08-06-2023 ipratropium bromide (ATROVEN T) 42 mcg (0.06 %) nasal spray Use 2 Sprays in the nose three times a day as needed (nasal congestion). 15 mL 3 08/06/2023 Active Start: 07-25-2021 End: 07-09-2022 ipratropium bromide (ATROVEN T) 42 mcg (0.06 %) nasal spray Use 2 Sprays in the nose three times daily as needed (nasal congestion). 15 mL 3 11/28/2021 07/09/2022 Discontinued Comment on above: Use 2 Sprays in the nose three times daily as needed (nasal congestion). Use 2 Sprays in the nose three times a day as needed (nasal congestion). nitroglycerin 0.4 mg sublingual tablet (20 sources) Nitrate Vasodilator Start: 10-14-2023 nitroglycerin sublingual (NITROQUICK) 0.4 mg SL tablet Dissolve under the tongue. 10/14/2023 Active Start: 10-14-2023 Nitroglycerin (Nitrostat) 0.4 mg tablet, sublingual Active 0.4 MG SL every 5 to 15 minutes October 14, 2023 12:00am do not exceed 3 doses per episode polyethylene glycol 3350 513395 mg / potassium chloride 2970 mg / sodium bicarbonate 6740 mg / sodium chloride 5860 mg / sodium sulfate 35964 mg powder for oral solution (2 sources) Osmotic Laxative Start: 09-24-2024 End: 09-24-2024 peg 3350-Electrolytes (GOLYTELY) 236-22.74-6.74 -5.86 gram suspension Take 4,000 mL by mouth one time only for 1 dose. 1 Each 09/24/2024 09/24/2024 Active Start: 04-11-2022 End: 04-11-2022 peg 3350-Electrolytes (GOLYT MEDARDO) 236-22.74-6.74 -5.86 gram suspension Take 4,000 mL by mouth one time only for 1 dose. 1 Each 0 04/11/2022 04/11/2022 Comment on above: Take 4,000 mL by mimi th one time only for 1 dose. sod sulf-pot chloride-mag sulf (SUTAB) 1.479-0.188- 0.225 gram tab (2 sources) Start: 09-23-19 End: 09-25-19 sod sulf-pot chloride-mag sulf (SUTAB) 1.479-0.188- 0.225 gram tab Indications: Screen for colon cancer , History of colonic polyps Take 12 tablets by mouth as directed for 2 days. Follow instructions that have been given to you by your provider's office. (Part 1, take 12 tablets. Part 2, take 12 tablets). 24 tablet 09/22/2024 09/24/2024 Active spironolactone 25 mg oral tablet (20 sources) Aldosterone Antagonist Start: 09-02-19 End: 01-10-20 spironolactone (ALDACTONE) 25 mg tablet once daily. 09/02/2023 Active Comment on above: Take 1 tablet by mimi th once daily. ticagrelor 90 mg oral tablet (16 sources) Start: 08-02-19 End: 01-01-20 take 1 tablet by mouth twice daily ticagrelor (BRILINTA) 90 mg tablet Take 90 mg by mouth two times a day. 0 08/02/2023 01/01/2024 Discontinued Comment on above: Take 90 mg by mouth two times a day. Completed/Discontinued Medications Medication Drug Class(es) Dates Sig (Normalized) Sig (Original) amoxicillin 875 mg / clavulanate 125 mg oral tablet (13 sources) Penicillin-class Antibacterial Start: 12-19-2021 End: 06-20-2023 take 1 tablet by mouth twice daily Amoxicillin-Pot Clavulanate Discontinued 1 TABLET PO TWICE A DAY December 19, 2021 12:00am June 20, 2023 12:48pm aspirin 81 mg delayed release oral tablet (17 sources) Platelet Aggregation Inhibitor, Nonsteroidal Anti-inflammatory Drug Start: 07-24-2023 End: 11-22-2023 take 1 tablet by mouth once daily Aspirin (Adult Aspirin Regimen) 81 mg tablet,delayed release (DR/EC) Discontinued 81 MG PO DAILY July 24, 2023 1:00am November 22, 2023 9:49am End: 01-01-2024 take 81 mg by mouth once daily ASPIRIN ORAL Take 81 mg by mouth once daily. 0 01/01/2024 Discontinued Comment on above: Take 81 mg by mouth once daily. clopidogrel 75 mg oral tablet (20 sources) P2Y12 Platelet Inhibitor Start: End: take 1 tablet by mouth once daily clopidogrel (PLAVIX) 75 mg tablet Take 75 mg by mouth once daily. 10/14/2023 11/03/2024 Discontinued (Other) COMPOUNDED PRESCRIPTION (20 sources) Start: 8 End: 3 COMPOUNDED PRESCRIPTION Indications: Edema, unspecified type KNEE HIGH COMPRESSION STOCKINGS 20-30 MM Hg. DX: EDEMA 1 Each 0 06/09/2018 10/31/2022 Discontinued (Discontinued by Patient) Start: 06-09-2018 COMPOUNDED PRE SCRIPTION Indications: Edema, unspecified type KNEE HIGH COMPRESSION STOCKINGS 20-30 MM Hg. DX: EDEMA 1 Each 0 06/09/2018 Active Comment on above: KNEE HIGH COMPRESSIO N STOCKINGS 20-30 MM Hg. DX: EDEMA dapagliflozin 10 mg oral tablet (4 sources) Sodium-Glucose Cotransporter 2 Inhibitor Start: 02-03-20 End: 07-09-20 dapagliflozin propanediol (FARXIGA) 10 mg tablet once daily. 02/03/2024 07/09/2024 Discontinued (Cost of medication) losartan potassium 100 mg oral tablet (20 sources) Angiotensin 2 Receptor Jose Luis Start: 10-01-19 End: 01-01-20 take 0.5 tablet by mouth once daily losartan (COZAAR) 100 mg tablet Indications: Essential hypertension with goal blood pressure less than 130/80 Take 0.5 tablets by mouth once daily. 0 10/01/2023 01/01/2024 Discontinued (Discontinued by another Health Care Provider) Start: 09-23-2023 take 50 mg by mouth once daily Losartan Active 50 MG PO DAILY September 23, 2023 2:15pm On Hold: rdecreased renal function Start: 12-23-2020 End: 01-10-2024 losartan (COZAAR) 100 mg tab let once daily. 09/23/2023 Active Comment on above: Take 1 tablet by mimi once daily. Take 0.5 tablets by mouth once daily. mupirocin 0.02 mg/mg topical ointment (9 sources) RNA Synthetase Inhibitor Antibacterial Start: 01-21-2024 End: 05-05-2024 mupirocin (BACTROBAN) 2 % ointment Apply to affected area three times a day. 30 g 01/21/2024 05/05/2024 Discontinued Start: 10-31-2022 End: 11-14-2022 mupirocin (BACTROBAN) 2 % oi ntment Apply to affected area once daily for 14 days. 15 g 0 10/31/2022 11/14/2022 Active Start: 01-26-2022 End: 02-05-2022 mupirocin (BACTROBAN) 2 % oi ntment Apply to affected area three times daily for 10 days. 22 g 0 01/26/2022 02/05/2022 Active Start: 01-26-2022 End: 01-26-2022 mupirocin (BACTROBAN) 2 % cr eam Indications: Cellulitis of left lower extremity Apply 1 application to affected area three times daily for 10 days. Location: Left [facility] 15 g 0 01/26/2022 01/26/2022 Discontinued Comment on above: Apply 1 application to affected area three times daily for 10 days. Location: Left [facility] Apply to affected ar ea three times daily for 10 days. Apply to affected ar ea once daily for 14 days. microencapsulated potassium chloride 20 meq extended release oral tablet (17 sources) Start: 08-03-19 End: 01-10-20 take 1 tablet by mouth once potassium chloride ER (KLOR-CON) 20 mEq tablet Take 1 tablet by mouth every afternoon. 0 08/03/2023 01/10/2024 Discontinued (Other) Start: 08-03-2023 End: 08-26-2023 take 20 mEq by mouth once daily Potassium Chloride Discontinued 20 MEQ PO DAILY August 03, 2023 1:00am August 26, 2023 10:26am Comment on above: Take 1 tablet by mimi th every afternoon. Problems Active Problems Problem Classification Problem Date Documented Date Episodic/Chronic Alcohol-related disorders (20 sources) Alcohol abuse; Translations: [Alcohol abuse, uncomplicated] Onset: 04-03-2012 04-03-2012 Chronic Cardiac dysrhythmias (20 sources) Atrial fibrillation; Translations: [Unspecified atrial fibrillation] Onset: 11-22-2023 Resolved: 05-05-2024 11-22-2023 Chronic Chronic kidney disease (15 sources) Chronic kidney disease stage 3B ; Translations: [Stage 3b chronic kidney disease (HCC)] Onset: 05-05-2024 05-05-2024 Chronic Chronic kidney disease (1 source) Chronic kidney disease; Translations: [Stage 3b chronic kidney disease (HCC)] Onset: 05-05-2024 Chronic ulcer of skin (1 source) Non-pressure chronic ulcer of unspecified part of left lower leg with unspecified severity; Translations: [Non-pressure chronic ulcer of unspecified part of left lower leg with unspecified severity] Onset: 09-14-2024 Chronic Coronary atherosclerosis and other heart disease (20 sources) Arteriosclerotic vascular disease; Translations: [Atherosclerotic heart disease of [place] coronary artery without angina pectoris] Onset: 08-02-2023 08-02-2023 Chronic Disorders of lipid metabolism (20 sources) Hyperlipidemia; Translations: [Hyperlipidemia, unspecified] Onset: 07-21-2015 Resolved: 11-03-2015 06-03-2017 Chronic E Codes: Natural/environment (13 sources) Dog bite - wound; Translations: [Bitten by dog, initial encounter] 12-27-2021 Episodic Epilepsy; convulsions (12 sources) Epilepsy; Translations: [Epilepsy, unspecified, not intractable, without status epilepticus] 06-20-2023 Chronic Essential hypertension (20 sources) Essential hypertension; Translations: [Essential (primary) hypertension] Onset: 08-01-2010 Resolved: 08-27-2016 11-24-2018 Chronic Heart valve disorders (1 source) Irregular heart beat 09-22-2024 Episodic Immunizations and screening for infectious disease (1 source) Needs influenza immunization; Translations: [Encounter for immunization] 04-01-2023 Episodic Malaise and fatigue (13 sources) Fatigue; Translations: [Other fatigue] 05-24-2023 Episodic Mycoses (10 sources) Onychomycosis; Translations: [Tinea unguium] Episodic Open wounds of extremities (16 sources) Laceration of hand; Translations: [Laceration without foreign body of right hand, initial encounter] Episodic Osteoarthritis (2 sources) Osteoarthritis of left knee joint; Translations: [Unilateral primary osteoarthritis, left knee] Onset: 11-10-2024 11-10-2024 Chronic Other aftercare (1 source) Removal of sutures done; Translations: [Encounter for removal of sutures] Episodic Other aftercare (1 source) 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) use of anticoagulants; Translations: [Anticoagulant long-term use] Onset: 01-09-2024 Episodic Other and unspecified benign neoplasm (7 sources) History of polyp of colon; Translations: [...] systems] 01-29-2023 Episodic Other connective tissue disease (10 sources) Pain of toe of left foot; Translations: [Pain in left toe(s)] Episodic Other connective tissue disease (10 sources) Pain of toe of right foot; Translations: [Pain in right toe(s)] Episodic Other connective tissue disease (2 sources) Swelling of lower limb; Translations: [Other specified soft tissue disorders] 11-12-2023 Episodic Other connective tissue disease (5 sources) Pain of left lower leg; Translations: [Pain in left lower leg] 11-10-2024 Episodic Other connective tissue disease (2 sources) Synovial cyst of popliteal space [Goldberg], left knee; Translations: [Synovial cyst of popliteal space] Onset: 11-10-2024 11-10-2024 Episodic Other connective tissue disease (1 source) Pain in left lower leg; Translations: [Pain in left lower leg] Onset: 11-10-2024 Episodic Other diseases of kidney and ureters (7 sources) Renal impairment; Translations: [Disorder of kidney and ureter, unspecified] 09-23-2023 Episodic Other diseases of veins and lymphatics (20 sources) Chronic peripheral venous hypertension; Translations: [Chronic venous hypertension (idiopathic) with ulcer of unspecified lower extremity] Onset: 11-30-2022 Resolved: 01-01-2024 Chronic Other diseases of veins and lymphatics (20 sources) Chronic acquired lymphedema; Translations: [Lymphedema, not elsewhere classified] Onset: 08-27-2016 Resolved: 01-01-2024 01-29-2023 Chronic Other diseases of veins and lymphatics (1 source) Lymphedema, not elsewhere classified; Translations: [Secondary lymphedema] Onset: 05-05-2024 Chronic Other diseases of veins and lymphatics (4 sources) Vascular insufficiency; Translations: [Venous insufficiency (chronic) (peripheral)] Episodic Other diseases of veins and lymphatics (3 sources) Ulcer of lower extremity; Translations: [Venous insufficiency (chronic) (peripheral)] Episodic Other diseases of veins and lymphatics (2 sources) Venous insufficiency (chronic) (peripheral); Translations: [Venous (peripheral) insufficiency, unspecified] Onset: 10-06-2024 01-29-2023 Episodic Other diseases of veins and lymphatics (6 sources) Peripheral venous insufficiency; Translations: [Venous insufficiency (chronic) (peripheral)] 05-23-2023 Episodic Other ear and sense organ disorders (1 source) Impacted cerumen of bilateral ears; Translations: [Impacted cerumen, bilateral] Episodic Other lower respiratory disease (15 sources) Dyspnea; Translations: [Shortness of breath] 05-24-2023 Episodic Other non-traumatic joint disorders (3 sources) Pain in left knee; Translations: [Pain in joint, lower leg] Onset: 11-10-2024 11-10-2024 Episodic Other nutritional; endocrine; and metabolic disorders (20 sources) Body mass index 40+ - severely obese; Translations: [Morbid (severe) obesity due to excess calories] Onset: 08-01-2010 Resolved: 01-12-2024 11-13-2017 Chronic Other nutritional; endocrine; and metabolic disorders (2 sources) Weight gain; Translations: [Abnormal weight gain] 11-12-2023 Episodic Other screening for suspected conditions (not mental disorders or infectious disease) (5 sources) Patient encounter status; Translations: [Encounter for [...] Onset: 08-01-2010 08-02-2021 Chronic Residual codes; unclassified (2 sources) Obstructive sleep apnea (adult) (pediatric); Translations: [Obstructive sleep apnea (adult) (pediatric)] Onset: 08-02-2021 Chronic Residual codes; unclassified (20 sources) Edema; Translations: [Edema,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 accident) 1969 low back pain Nasal sinus congestion, nocturnal 07/09/2018 Obesity ALEX (obstructive sleep apnea) 1998 [facility] [employer] for autopap Stented coronary artery 08/02/2023 mid LAD Tubular adenoma of colon 07/02/2022 multiple PAST SURGICAL HISTORY Procedure Laterality Date CC CORONARY STENT 08/02/2023 PCI mid LAD, [facility] COLONOSCOPY FLX DX W/COLLJ SPEC WHEN [...] Substance Use Topics Alcohol use: Not Currently Drug use: No MEDICATIONS: clopidogrel (PLAVIX) 75 mg tablet furosemide (LASIX) 40 mg tablet Take 0.5 tablets by mouth every afternoon. (Patient taking differently: Take 40 mg by mouth every afternoon. Taking 40 mg twice a day) ASPIRIN ORAL Take 81 mg by mouth once daily. atorvastatin (LIPITOR) 20 mg tablet Take 1 tablet by mouth daily at bedtime. For cholesterol. ipratropium bromide (ATROVENT) 42 mcg (0.06 %) nasal spray Use 2 Sprays in the nose three times a day as needed (nasal congestion). carvedilol (COREG) 25 mg tablet Take 1 tablet by mouth twice daily. (Patient taking differently: Take 25 mg by mouth two times a day. Taking 12.5mg twice a day) CPAP Pressure changed in office (6-13 cm H2O) Mask (per patient preference), send filters, optional chin strap (if indicated), filters, tubing / heated tubing, heated humidity and lifetime supplies. Dx. ALEX G47.33 327.23 [facility] [employer] [place] losartan (COZAAR) 100 mg tablet Take 0.5 tablets by mouth once daily. (Patient not taking: Reported on 11/19/2023) spironolactone (ALDACTONE) 25 mg tablet Take 1 tablet by mouth once daily. (Patient not taking: Reported on 11/19/2023) potassium chloride ER (KLOR-CON) 20 mEq tablet Take 1 tablet by mouth every afternoon. ticagrelor (BRILINTA) 90 mg tablet Take 90 mg by mouth two times a day. (Patient not taking: Reported on 11/19/2023) ALLERGIES: ALLERGIES No Known Allergies PHYSICAL EXAM: BP 130/80 (BP Site: Left Arm, BP Position: Sitting, BP Cuff Size: Extra Large Adult) Pulse 78 SpO2 100% Gen- no distress Ext- bilateral lower extremity edema, mild hyperpigmentation Diagnostic tests reviewed for today's visit: Most recent labs Most recent imaging 02/2023 RIGHT SIDE - DEEP VEINS Negative for acute deep vein thrombosis in vessels visualized. RIGHT SIDE - SUPERFICIAL VEINS Positive for valvular incompetency in the great saphenous vein. Varicosities proximal calf. Incompetent airborne electronics analyst noted mid calf from a varicosity to the posterior tibial vein. Positive for valvular incompetency in the small saphenous vein. LEFT SIDE - DEEP VEINS Negative for acute deep vein thrombosis in vessels visualized. LEFT SIDE - SUPERFICIAL VEINS Positive for valvular incompetency in the great saphenous vein. Varicosities give rise to a cluster of varicosities mid to distal medial thigh. Varicosities medial knee crease/proximal calf. A large airborne electronics analyst is noted mid/distal calf from a varicosity to the posterior tibial vein. Appears competent. Negative for valvular incompetency in the small saphenous vein. IMPRESSION: Mr. Chan is a 73 year o (more content not included)... Normal [facility] Basic Metabolic Profile (BMP )on 11-18-2023 BUN/CRE 23.0 RATIO High 10-20 [facility] Comment on above: Performed By: #### L 500.2500 #### [facility] [address] [place], [address] CA,Total 9.0 mg/dL Normal 8.5-10.1 [facility] Comment on above: Performed By: #### L [id number] #### [facility] [address] [facility] [address] Chloride [Moles/Vol] 106 mmol/L Normal 98-107 [facility] Comment on above: Performed By: #### L [id number] #### [facility] [address] [facility] [address] CO2 [Moles/Vol] 23.0 mmol/L Normal 21.0-32.0 [facility] Comment on above: Performed By: #### L 500.2500 #### [facility] [address] [place], [address] Creatinine [Mass/Vol] 1.74 mg/dL High 0.70-1.30 [facility] Comment on above: Result Comment: The validity of the calculated GFR GFRAA in patients over 70 years has not been determined. Clinical correlation is essential. Performed By: #### L 500.2500 #### [facility] [address] [place], [address] EST GFR - AA 50 mL/min Low >60 [facility] Comment on above: Result Comment: Afri can [place]oc[place] GFR Calc Performed By: #### L 500.2500 #### [facility] [address] [place], [address] GAP 9 Normal 5-15 [facility] Comment on above: Performed By: #### L 500.2500 #### [facility] [address] [place], [address] GFR/1.73 sq M.predicted among non-blacks MDRD (S/P/Bld) [Vol rate/Area] 41 mL/min/{1.73_m2} Low >60 [facility] Comment on above: Result Comment: Non- GFR Calc Performed By: #### L 500.2500 #### [facility] [address] [place], [address] Glucose [Mass/Vol] 139 mg/dL High 74-106 [facility] Comment on above: Result Comment: Fast ing Glucose result greater than or equal to 126 mg/dL suggests DIABETES MELLITUS per A.D.A. criteria. Performed By: #### L 500.2500 #### [facility] [address], [address] Potassium [Moles/Vol] 3.8 mmol/L Normal 3.5-5.1 [facility] Comment on above: Performed By: #### L [id number] #### [facility] [address] [place], [address] Sodium [Moles/Vol] 138 mmol/L Normal 136-145 [facility] Comment on above: Performed By: #### L [id number] #### [facility] [address] [place], [address] Urea nitrogen [Mass/Vol] 40 mg/dL High 7-18 [facility] Comment on above: Performed By: #### L 500.2500 #### [facility] [address] [place], [address] Basophil percentageOrdered B y: Shaina Nguyen on 11-18-2023 Chloride [Moles/Vol] 106 mmol/L 98-107 [facility] Glucose [Mass/Vol] 139 mg/dL 74-106 [facility] Comment on above: Fasting Glucose resu lt greater than or equal to 126 mg/dL suggests DIABETES MELLITUS per A.D.A. criteria. Potassium [Moles/Vol] 3.8 mmol/L 3.5-5.1 [facility] Sodium [Moles/Vol] 138 mmol/L 136-145 [facility] - Chemistry and C hemistry - challengeOrdered By: Shaina Nguyen on 11-18-2023 CO2 [Moles/Vol] 23.0 mmol/L 21.0-32.0 [facility] Urea nitrogen/Creatinine [Mass ratio] 23.0 mg/mg 10-20 [facility] No Panel InformationOrdered By: Shaina Nguyen on 11-18-2023 Estimated GFR (MDRD) Amer 50 mL/min >60 [facility] Comment on above: GFR Calc Estimated GFR (MDRD) Non-Af Amer 41 mL/min >60 [facility] Comment on above: Non- GFR Calc Serum or plasma calcium robert urement (mass/volume)Ordered By: Shaina Nguyen on 11-18-2023 Calcium [Mass/Vol] 9.0 mg/dL 8.5-10.1 [facility] Serum or plasma creatinine m easurement (mass/volume)Ordered By: Shaina Nguyen on 11-18-2023 Creatinine [Mass/Vol] 1.74 mg/dL 0.70-1.30 [facility] Comment on above: The validity of the calculated GFR & GFRAA in patients over 70 years has not been determined. Clinical correlation is essential. Serum or plasma urea nitroge n measurement (mass/volume)Ordered By: Shaina Nguyen on 11-18-2023 Urea nitrogen [Mass/Vol] 40 mg/dL 7-18 [facility] Thin prep Papanicolaou smear with manual screeningOrdered By: Shaina Nguyen on 11-18-2023 Thin prep Papanicolaou smear with manual screening 9 5-15 [facility] Basophil percentageOrdered B y: Shaina Nguyen on 10-30-2023 Chloride [Moles/Vol] 109 mmol/L 98-107 [facility] Glucose [Mass/Vol] 112 mg/dL 74-106 [facility] Comment on above: Fasting Glucose resu lt from 100 to 125 mg/dL suggests IMPAIRED HOMEOSTASIS per A.D.A. criteria. Potassium [Moles/Vol] 4.5 mmol/L 3.5-5.1 [facility] Sodium [Moles/Vol] 137 mmol/L 136-145 [facility] - Chemistry and C hemistry - challengeOrdered By: Shaina Nguyen on 10-30-2023 CO2 [Moles/Vol] 20.0 mmol/L 21.0-32.0 [facility] Urea nitrogen/Creatinine [Mass ratio] 19.5 mg/mg 10-20 [facility] No Panel InformationOrdered By: Shaina Nguyen on 10-30-2023 Estimated GFR (MDRD) Amer 46 mL/min >60 [facility] Comment on above: GFR Calc Estimated GFR (MDRD) Non-Af Amer 38 mL/min >60 [facility] Comment on above: Non- GFR Calc Serum or plasma calcium robert urement (mass/volume)Ordered By: Shaina Nguyen on 10-30-2023 Calcium [Mass/Vol] 9.4 mg/dL 8.5-10.1 [facility] Serum or plasma creatinine m easurement (mass/volume)Ordered By: Shaina Nguyen on 10-30-2023 Creatinine [Mass/Vol] 1.85 mg/dL 0.70-1.30 [facility] Comment on above: The validity of the calculated GFR & GFRAA in patients over 70 years has not been determined. Clinical correlation is essential. Serum or plasma urea nitroge n measurement (mass/volume)Ordered By: Shaina Nguyen on 10-30-2023 Urea nitrogen [Mass/Vol] 36 mg/dL 7-18 [facility] Thin prep Papanicolaou smear with manual screeningOrdered By: Shaina Nguyen on 10-30-2023 Thin prep Papanicolaou smear with manual screening 8 5-15 [facility] Basophil percentageOrdered B y: Shaina Nguyen on 10-23-2023 Chloride [Moles/Vol] 111 mmol/L 98-107 [facility] Glucose [Mass/Vol] 116 mg/dL 74-106 [facility] Comment on above: Fasting Glucose resu lt from 100 to 125 mg/dL suggests IMPAIRED HOMEOSTASIS per A.D.A. criteria. Potassium [Moles/Vol] 4.6 mmol/L 3.5-5.1 [facility] Sodium [Moles/Vol] 137 mmol/L 136-145 [facility] - Chemistry and C hemistry - challengeOrdered By: Shaina Nguyen on 10-23-2023 CO2 [Moles/Vol] 19.0 mmol/L 21.0-32.0 [facility] Urea nitrogen/Creatinine [Mass ratio] 28.6 mg/mg 10- [facility] No Panel InformationOrdered By: Shaina Nguyen on 10-23-2023 Estimated GFR (MDRD) Amer 35 mL/min >60 [facility] Comment on above: GFR Calc Estimated GFR (MDRD) Non-Af Amer 29 mL/min >60 [facility] Comment on above: Non- GFR Calc Serum or plasma calcium robert urement (mass/volume)Ordered By: Shaina Nguyen on 10-23-2023 Calcium [Mass/Vol] 8.6 mg/dL 8.5-10.1 [facility] Serum or plasma creatinine m easurement (mass/volume)Ordered By: Shaina Nguyen on 10-23-2023 Creatinine [Mass/Vol] 2.34 mg/dL 0.70-1.30 [facility] Comment on above: The validity of the calculated GFR & GFRAA in patients over 70 years has not been determined. Clinical correlation is essential. Serum or plasma urea nitroge n measurement (mass/volume)Ordered By: Shaina Nguyen on 10-23-2023 Urea nitrogen [Mass/Vol] 67 mg/dL 01-29 [facility] Thin prep Papanicolaou smear with manual screeningOrdered By: Shaina Nguyen on 10-23-2023 Thin prep Papanicolaou smear with manual screening 7 - [facility] HEMOGLOBIN A1C (POC)on 09-30 HbA1c (Bld) [Mass fraction] 6.4 % Abnormal 4.3 - 5.6 % [facility] percentageOrdered B y: Shaina Nguyen on 09-30-2023 Chloride [Moles/Vol] 107 mmol/L 98-107 [facility] Glucose [Mass/Vol] 153 mg/dL 74-106 [facility] Comment on above: Fasting Glucose resu lt greater than or equal to 126 mg/dL suggests DIABETES MELLITUS per A.D.A. criteria. Potassium [Moles/Vol] 3.9 mmol/L 3.5-5.1 [facility] Sodium [Moles/Vol] 140 mmol/L 136-145 [facility] - Chemistry and C hemistry - challengeOrdered By: Shaina Nguyen on 09-30-2023 CO2 [Moles/Vol] 26.0 mmol/L 21.0-32.0 [facility] Urea nitrogen/Creatinine [Mass ratio] 22.2 mg/mg 10-20 [facility] No Panel InformationOrdered By: Shaina Nguyen on 09-30-2023 Estimated GFR (MDRD) Amer 48 mL/min >60 [facility] Comment on above: GFR Calc Estimated GFR (MDRD) Non-Af Amer 39 mL/min >60 [facility] Comment on above: Non- GFR Calc Serum or plasma calcium robert urement (mass/volume)Ordered By: Shaina Nguyen on 09-30-2023 Calcium [Mass/Vol] 9.1 mg/dL 8.5-10.1 [facility] Serum or plasma creatinine m easurement (mass/volume)Ordered By: Shaina Nguyen on 09-30-2023 Creatinine [Mass/Vol] 1.80 mg/dL 0.70-1.30 [facility] Comment on above: The validity of the calculated GFR & GFRAA in patients over 70 years has not been determined. Clinical correlation is essential. Serum or plasma urea nitroge n measurement (mass/volume)Ordered By: Shaina Nguyen on 09-30-2023 Urea nitrogen [Mass/Vol] 40 mg/dL 01-29 [facility] Thin prep Papanicolaou smear with manual screeningOrdered By: Shaina Nguyen on 09-30-2023 Thin prep Papanicolaou smear with manual screening 7 5-15 [facility] Basophil percentageOrdered B y: Shaina Nguyen on 09-23-2023 Chloride [Moles/Vol] 107 mmol/L 98-107 [facility] Glucose [Mass/Vol] 139 mg/dL 74-106 [facility] Comment on above: Fasting Glucose resu lt greater than or equal to 126 mg/dL suggests DIABETES MELLITUS per A.D.A. criteria. Potassium [Moles/Vol] 3.7 mmol/L 3.5-5.1 [facility] Sodium [Moles/Vol] 139 mmol/L 136-145 [facility] - Chemistry and C hemistry - challengeOrdered By: Shaina Nguyen on 09-23-2023 CO2 [Moles/Vol] 24.0 mmol/L 21.0-32.0 [facility] Urea nitrogen/Creatinine [Mass ratio] 16.3 mg/mg 10-20 [facility] No Panel InformationOrdered By: Shaina Nguyen on 09-23-2023 Estimated GFR (MDRD) Amer 31 mL/min >60 [facility] Comment on above: GFR Calc Estimated GFR (MDRD) Non-Af Amer 25 mL/min >60 [facility] Comment on above: Non- GFR Calc Serum or plasma calcium robert urement (mass/volume)Ordered By: Shaina Nguyen on 09-23-2023 Calcium [Mass/Vol] 8.7 mg/dL 8.5-10.1 [facility] Serum or plasma creatinine m easurement (mass/volume)Ordered By: Shaina Nguyen on 09-23-2023 Creatinine [Mass/Vol] 2.63 mg/dL 0.70-1.30 [facility] Comment on above: The validity of the calculated GFR & GFRAA in patients over 70 years has not been determined. Clinical correlation is essential. Serum or plasma urea nitroge n measurement (mass/volume)Ordered By: Shaina Nguyen on 09-23-2023 Urea nitrogen [Mass/Vol] 43 mg/dL 7-18 [facility] Thin prep Papanicolaou smear with manual screeningOrdered By: Shaina Nguyen on 09-23-2023 Thin prep Papanicolaou smear with manual screening 8 5-15 [facility] Basophil percentageOrdered B y: Shaina Nguyen on 08-26-2023 Chloride [Moles/Vol] 109 mmol/L 98-107 [facility] Glucose [Mass/Vol] 129 mg/dL 74-106 [facility] Comment on above: Fasting Glucose resu lt greater than or equal to 126 mg/dL suggests DIABETES MELLITUS per A.D.A. criteria. Potassium [Moles/Vol] 4.6 mmol/L 3.5-5.1 [facility] Sodium [Moles/Vol] 140 mmol/L 136-145 [facility] - Chemistry and C hemistry - challengeOrdered By: Shaina Nguyen on 08-26-2023 CO2 [Moles/Vol] 25.0 mmol/L 21.0-32.0 [facility] Urea nitrogen/Creatinine [Mass ratio] 27.7 mg/mg 05-03 [facility] No Panel InformationOrdered By: Shaina Nguyen on 08-26-2023 Estimated GFR (MDRD) Amer 49 mL/min >60 [facility] Comment on above: GFR Calc Estimated GFR (MDRD) Non-Af Amer 40 mL/min >60 [facility] Comment on above: Non- GFR Calc Serum or plasma calcium robert urement (mass/volume)Ordered By: Shaina Nguyen on 08-26-2023 Calcium [Mass/Vol] 9.3 mg/dL 8.5-10.1 [facility] Serum or plasma creatinine m easurement (mass/volume)Ordered By: Shaina Nguyen on 08-26-2023 Creatinine [Mass/Vol] 1.77 mg/dL 0.70-1.30 [facility] Comment on above: The validity of the calculated GFR & GFRAA in patients over 70 years has not been determined. Clinical correlation is essential. Serum or plasma urea nitroge n measurement (mass/volume)Ordered By: Shaina Nguyen on 08-26-2023 Urea nitrogen [Mass/Vol] 49 mg/dL 7-18 [facility] Thin prep Papanicolaou smear with manual screeningOrdered By: Shaina Nguyen on 08-26-2023 Thin prep Papanicolaou smear with manual screening 6 5-15 [facility] Basophil percentageOrdered B y: Adriano Bowling on 01-20-2024 Bilirubin [Mass/Vol] 1.20 mg/dL 0.20-1.00 [facility] Comment on above: For patients on eltr ombopag therapy, use of Dimension [place] TBIL is not recommended. Chloride [Moles/Vol] 106 mmol/L 98-107 [facility] Glucose [Mass/Vol] 138 mg/dL 74-106 [facility] Comment on above: Fasting Glucose resu lt greater than or equal to 126 mg/dL suggests DIABETES MELLITUS per A.D.A. criteria. Hemoglobin (Bld) [Mass/Vol] 13.9 g/dL 13.0-16.5 [facility] Potassium [Moles/Vol] 3.1 mmol/L 3.5-5.1 [facility] Protein [Mass/Vol] 7.2 g/dL 6.4-8.2 [facility] Sodium [Moles/Vol] 139 mmol/L 136-145 [facility] WBC (Bld) [#/Vol] 8.4 10*3/uL 4.4-11.0 [facility] Determination of erythrocyte mean corpuscular volume (MCV)Ordered By: [facility] on 08-03-2023 MCV (RBC) [Entitic vol] 97.4 fL 80-94 [facility] Erythrocyte distribution wid th ratioOrdered By: [facility] on 08-03-2023 Erythrocyte distribution width (RBC) [Ratio] 13.1 % 11.6-14.6 [facility] Erythrocyte distribution wid th standard deviationOrdered By: [facility] on 08-03-2023 Erythrocyte distribution width (RBC) [Entitic vol] 47.0 fL 35.1-43.9 [facility] Hematocrit Auto (Bld) [Volum e fraction]Ordered By: [facility] on 08-03-2023 Hematocrit (Bld) [Volume fraction] 41.7 % 40-54 [facility] - Chemistry and C hemistry - challengeOrdered By: [facility] on 08-03-2023 Albumin/Globulin [Mass ratio] 0.8 {ratio} 0.9-2.4 [facility] ALP [Catalytic activity/Vol] 93 U/L 45-117 [facility] ALT [Catalytic activity/Vol] 25 U/L 16-61 [facility] CO2 [Moles/Vol] 26.0 mmol/L 21.0-32.0 [facility] Globulin (S) [Mass/Vol] 3.9 g/dL 2.2-4.2 [facility] [facility] Urea nitrogen/Creatinine [Mass ratio] 16.8 mg/mg 10-20 [facility] Laboratory - Hematology and Cell countsOrdered By: Adriano Bowling on 08-03-2023 MCH (RBC) [Entitic mass] 32.5 pg 27.0-32.0 [facility] MCHC (RBC) [Mass/Vol] 33.3 g/dL 32-36 [facility] Platelets (Bld) [#/Vol] 215 10*3/uL 150-450 [facility] No Panel InformationOrdered By: Adriano Bowling on 08-03-2023 Estimated Creatinine Clearance Calc 73.03 ml/min [facility] Estimated GFR (MDRD) Amer 69 mL/min >60 [facility] Comment on above: GFR Calc Estimated GFR (MDRD) Non-Af Amer 57 mL/min >60 [facility] Comment on above: Non- GFR Calc Platelet mean volume Franko-Ec ker (Bld) [Entitic vol]Ordered By: Adriano Bowling on 08-03-2023 Platelet mean volume (Bld) [Entitic vol] 9.2 fL 6.2-12.0 [facility] RBC Auto (Bld) [#/Vol]Ordere d By: Adriano Bowling on 08-03-2023 RBC (Bld) [#/Vol] 4.28 10*6/uL 4.6-6.2 [facility] Serum or plasma calcium robert urement (mass/volume)Ordered By: Adriano Bowling on 08-03-2023 Calcium [Mass/Vol] 9.3 mg/dL 8.5-10.1 [facility] Serum or plasma creatinine m easurement (mass/volume)Ordered By: Adriano Bowling on 08-03-2023 Creatinine [Mass/Vol] 1.31 mg/dL 0.70-1.30 [facility] Comment on above: The validity of the calculated GFR & GFRAA in patients over 70 years has not been determined. Clinical correlation is essential. Serum or plasma urea nitroge n measurement (mass/volume)Or[facility] By: [facility] Bowling on 08-03-2023 Urea nitrogen [Mass/Vol] 22 mg/dL 7-18 [facility] Thin prep Papanicolaou smear with manual screeningOrdered By: [facility] on 08-03-2023 Thin prep Papanicolaou smear with manual screening 3.3 g/dL 3.2-5.0 [facility] Thin prep Papanicolaou smear with manual screening 25 U/L 15-37 [facility] Thin prep Papanicolaou smear with manual screening 7 5-15 [facility] No Panel InformationOrdered By: Doug Hines on 08-02-2023 Activated Clotting Time 282 sec 74-137 [facility] Absolute lymphocyte countOrd ered By: Doug Flora on 07-24-2023 Lymphocytes Auto (Unsp spec) [#/Vol] 1.80 10*3/uL 0.83-4.51 [facility] Basophil percentageOrdered B y: Doug Hines on 07-24-2023 Basophils/100 WBC (Bld) 1.0 % 0-1 [facility] Chloride [Moles/Vol] 110 mmol/L 98-107 [facility] Eosinophils/100 WBC (Bld) 3.7 % 0-5 [facility] Glucose [Mass/Vol] 116 mg/dL 74-106 [facility] Comment on above: Fasting Glucose resu lt from 100 to 125 mg/dL suggests IMPAIRED HOMEOSTASIS per A.D.A. criteria. Neutrophils (Bld) [#/Vol] 4.7 10*3/uL 2.0-7.7 [facility] Neutrophils/100 WBC (Bld) 59.6 % 47-70 [facility] Potassium [Moles/Vol] 3.9 mmol/L 3.5-5.1 [facility] Sodium [Moles/Vol] 141 mmol/L 136-145 [facility] WBC (Bld) [#/Vol] 7.9 10*3/uL 4.4-11.0 [facility] Blood erythrocytes count (nu mber/volume)Ordered By: Doug Hines on 07-24-2023 RBC (Bld) [#/Vol] 4.50 10*6/uL 4.6-6.2 [facility] Blood hemoglobin measurement (mass/volume)Ordered By: Doug Hines on 07-24-2023 Hemoglobin (Bld) [Mass/Vol] 14.9 g/dL 13.0-16.5 [facility] Blood lymphocytes/100 leukoc ytesOrdered By: Doug Hines on 07-24-2023 Lymphocytes/100 WBC (Bld) 22.8 % 19-41 [facility] Blood monocytes/100 leukocyt esOrdered By: Doug Hines on 07-24-2023 Monocytes/100 WBC (Bld) 12.5 % 0-10 [facility] Blood platelet mean volumeOr dered By: Doug Hines on 07-24-2023 Platelet mean volume (Bld) [Entitic vol] 9.1 fL 6.2-12.0 [facility] Determination of erythrocyte mean corpuscular volume (MCV)Ordered By: Doug Hines on 07-24-2023 MCV (RBC) [Entitic vol] 100.0 fL 80-94 [facility] Hematocrit Auto (Bld) [Volum e fraction]Ordered By: Doug Hines on 07-24-2023 Hematocrit (Bld) [Volume fraction] 45.0 % 40-54 [facility] Laboratory - Chemistry and C hemistry - challengeOrdered By: Doug Hines on 07-24-2023 CO2 [Moles/Vol] 28.0 mmol/L 21.0-32.0 [facility] Urea nitrogen/Creatinine [Mass ratio] 10.7 mg/mg 10-20 [facility] Laboratory - Hematology and Cell countsOrdered By: Doug Hines on 07-24-2023 Erythrocyte distribution width (RBC) [Entitic vol] 50.2 fL 35.1-43.9 [facility] Erythrocyte distribution width (RBC) [Ratio] 13.7 % 11.6-14.6 [facility] Immature granulocytes/100 WBC (Bld) 0.400 % 0.0-0.9 [facility] Comment on above: IG% - Immature Granu locytes (promyelocytes, myelocytes and metamyelocytes) > 1% indicates that a LEFT SHIFT is Present. MCH (RBC) [Entitic mass] 33.1 pg 27.0-32.0 [facility] Nucleated RBC/100 WBC (Bld) [Ratio] 0 % 0-5 [facility] MCHC Auto (RBC) [Mass/Vol]Or dered By: Doug Hines on 07-24-2023 MCHC (RBC) [Mass/Vol] 33.1 g/dL 32-36 [facility] No Panel InformationOrdered By: Doug Hines on 07-24-2023 Estimated GFR (MDRD) Amer 75 mL/min >60 [facility] Comment on above: GFR Calc Estimated GFR (MDRD) Non-Af Amer 62 mL/min >60 [facility] Comment on above: Non- GFR Calc Platelets bldOrdered By: Jessika Hines on 07-24-2023 Platelets (Bld) [#/Vol] 233 10*3/uL 150-450 [facility] Serum or plasma calcium robert urement (mass/volume)Ordered By: Doug Hines on 07-24-2023 Calcium [Mass/Vol] 9.1 mg/dL 8.5-10.1 [facility] Serum or plasma creatinine m easurement (mass/volume)Ordered By: Doug Hines on 07-24-2023 Creatinine [Mass/Vol] 1.21 mg/dL 0.70-1.30 [facility] Comment on above: The validity of the calculated GFR & GFRAA in patients over 70 years has not been determined. Clinical correlation is essential. Serum or plasma urea nitroge n measurement (mass/volume)Ordered By: Doug Hines on 07-24-2023 Urea nitrogen [Mass/Vol] 13 mg/dL 7-18 [facility] Thin prep Papanicolaou smear with manual screeningOrdered By: Doug Hines on 07-24-2023 Thin prep Papanicolaou smear with manual screening 3 5-15 [facility] XR Chest PA and Lateralon IMPRESSION: Stable exam with no acute radiographic abnormality. Huc Ob: PURNIMA Transcribe Date/Time: May 26 2023 9:04A Dictated by : ROSIE SANCHEZ MD This examination was interpreted and the report reviewed and electronically signed by: ROSIE SANCHEZ MD on May 26 2023 9:05AM [facility] DIVISION OF RADIOLOGY * * *Final Report* * * DATE OF EXAM: May 24 2023 9:26AM WOX 5291 - XR CHEST 2V FRONTAL/LAT / PROCEDURE REASON: multiple diagnoses * * * * Physician Interpretation * * * * EXAMINATION: CHEST RADIOGRAPH (2 VIEW FRONTAL & LATERAL) CLINICAL HISTORY: Chest pain, unspecified type Shortness of breath MQ: XC2_6 EXAM DATE/TIME: 05/24/2023 9:26 AM COMPARISON: 03/14/2021. RESULT: Lines, tubes, and devices: None. Lungs and pleura: There is poor inflation of the lungs with crowded lung markings in both lung bases. No consolidation. No lung mass. There is mild left chest pleural thickening with no pleural effusion. No pneumothorax. Cardiomediastinal silhouette: Stable cardiomediastinal silhouette with prominent bilateral cardiophrenic fat pads. Bones and soft tissues: Unremarkable. DIVISION OF RADIOLOGY Provider, [facility] - 05/26/2023 * * *Final Report* * * DATE OF EXAM: May 24 2023 9:26AM WOX 5291 - XR CHEST 2V FRONTAL/LAT / PROCEDURE REASON: multiple diagnoses * * * * Physician Interpretation * * * * EXAMINATION: CHEST RADIOGRAPH (2 VIEW FRONTAL & LATERAL) CLINICAL HISTORY: Chest pain, unspecified type Shortness of breath MQ: XC2_6 EXAM DATE/TIME: 05/24/2023 9:26 AM COMPARISON: 03/14/2021. RESULT: Lines, tubes, and devices: None. Lungs and pleura: There is poor inflation of the lungs with crowded lung markings in both lung bases. No consolidation. No lung mass. There is mild left chest pleural thickening with no pleural effusion. No pneumothorax. Cardiomediastinal silhouette: Stable cardiomediastinal silhouette with prominent bilateral cardiophrenic fat pads. Bones and soft tissues: Unremarkable. IMPRESSION IMPRESSION: Stable exam with no acute radiographic abnormality. Huc Ob: PURNIMA Transcribe Date/Time: May 26 2023 9:04A Dictated by : ROSIE SANCHEZ MD This examination was interpreted and the report reviewed and electronically signed by: ROSIE SANCHEZ MD on May 26 2023 9:05AM EST [facility] XR Chest PA and LateralOrder ed By: [facility] Provider on 05-26-[address] [facility] XR Chest PA and Lateralon Radiology Study observation (narrative) [facility] SURGICAL PATHOLOGYon Case Report Surgical Pathology Report Case: [id number] Authorizing Provider: Jl Hart MD Collected: 07/02/2022 10:04 AM Ordering Location: Ambulatory Surgery Received: 07/02/2022 04:11 PM Pathologist: Karen Linton MD Specimens: A) - CECUM POLYP, cecum polyps x2 B) - TRANSVERSE COLON POLYP C) - SIGMOID COLON POLYP, Sigmoid colon polyps x 3 D) - RECTO-SIGMOID BIOPSY, Recto Sigmoid Polyps x [address] [facility] FINAL DIAGNOSIS A. Colon, cecum, polyp x2, biopsy: - Tubular adenoma x2. B. Colon, transverse, polyp, biopsy: - Tubular adenoma. C. Colon, sigmoid, polyp x3, biopsy: - Tubular adenoma x2 with cautery artifact. - Hyperplastic polyp x1 with cautery artifact. D. Colon, recto-sigmoid, polyp x2, biopsy: - Fragments of tubular adenoma. - Fragments of hyperplastic polyp with cautery artifact. SE/MM 07/04/[address] [facility] Gross Description A. CECUM POLYP Received in formalin are two pieces of marti, soft tissue aggregating to 0.9 x 0.3 x 0.2 cm. Totally submitted in one cassette. B. TRANSVERSE COLON POLYP Received in formalin is one segment of marti-pink polypoid tissue measuring 0.7 x 0.5 x 0.4 cm. No stalk is noted. The line of resection is noted. The specimen is bisected and totally submitted in formalin in one cassette. C. SIGMOID COLON POLYP Received in formalin are multiple pieces of marti, soft tissue aggregating to 0.9 x 0.3 x 0.2 cm. Totally submitted in one cassette. D. RECTO-SIGMOID BIOPSY Received in formalin are multiple segments of marti polypoid tissue ranging in size from 0.8 x 0.4 x 0.3 cm to 0.4 x 0.3 x 0.2 cm. No stalks are noted. The lines of resection are noted. The specimens are bisected and totally submitted in formalin in one cassette. Gross examination performed at [facility], [address] [place] [address] TTN 07/02/2022 11:[address] [facility] Performing Lab Diagnostic interpretation performed at [facility], [address] [facility] [address] CLIA# [id number] Youth Counselor: Arthur Rowan M.D. [facility] COLONOSCOPY SCREENINGon 06-[address] [facility] PROGRESSon 05-09-2020 PROGRESS HNO ID: [id number] Author: Vicky (Ct) RAMIRO Marroquin Service: Radiology Author Type: Clinical Belt Notcher Type: Progress Notes Filed: 05/09/2020 9:33 AM Note Text: Radiology Service Progress Note PATIENT NAME: Kimberly Chan DATE OF SERVICE: May 09, 2020 TIME: 9:32 AM PATIENT IDENTITY VERIFICATION COMPLETED USING TWO (2) IDENTIFIERS: Name and Date of confirmed by patient verbally. FALL SCREENING: Has the patient had 2 falls in the last year or 1 fall with injury or currently using an Ambulatory Assistive Device (Walker, Cane, Wheelchair, Crutches, etc.)? No PATIENT GENDER DATA: Male PATIENT RELEVANT IMPLANT DATA REVIEWED: Not Applicable RADIOLOGY DEPARTMENT: General X-ray: Exam(s) Completed: Lower Extremity X-Ray(s): Knee, AP / Lat / Tunne / Merchant Left and Wt. Bearing: PERIPHERAL IV DATA: Not applicable SIGNED BY: RAMIRO HOWARD May 09, 2020 9:32 AM [facility] XR KNEE 4V AP/PA BOTH+LAT/ME R LTon 05-09-2020 XR KNEE 4V AP/PA BOTH+LAT/JIMMY LT * * *Final Report* * * DATE OF EXAM: May 09 2020 9:31AM ELADIO 5202 - XR KNEE 4V AP/PA BOTH+LAT/JIMMY LT / PROCEDURE REASON: M25.569-Knee pain, unspecified chronicity, unspecified laterality * * * * Physician Interpretation * * * * LEFT knee EXAM DATE/TIME: 05/09/2020 9:31 AM HISTORY: 70 years old Clinical information: Knee pain, unspecified chronicity, unspecified laterality LEFT KNEE PAIN TECHNIQUE: Images: XR KNEE 4V AP/PA BOTH+LAT/JIMMY LT Comparison: None. RESULT: Findings: Bilateral findings: There is moderate narrowing of the medial compartment of each knee. Right :No fractures or dislocations are seen. Left :No fractures or dislocations are seen. Curvilinear calcification or ossific density adjacent to the medial aspect of the proximal tibia. Question of a small joint effusion IMPRESSION: 1. Question small joint effusion of the LEFT knee 2. Degenerative changes Huc Ob: PSCB Transcribe Date/Time: May 09 2020 10:16A Dictated by : WHIT STONER DO This examination was interpreted and the report reviewed and electronically signed by: WHIT STONER DO on May 09 2020 10:20AM EST [id number] N [facility] Vital Signs Date Time Vital Sign Value Performing Clinician Regulo alcala 11-10-2024 13:16-0400 Body mass index (BMI) [Ratio] 40.56 kg/m2 Codi Rivera APRN.MELINDA Work Phone: [facility] 11-10-2024 13:16-0400 Body weight 131.9 kg Codi Rivera APRN.PETROLEUM 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 11-10-2024 13:16-0400 Diastolic blood pressure 80 mm[Hg] Codi Rivera APRN.PETROLEUM 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 11-10-2024 13:16-0400 Heart rate 68 /min Codi Rivera APRN.PETROLEUM 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 11-10-2024 13:16-0400 Respiratory rate 16 /min Codi Rivera APRN.PETROLEUM 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 11-10-2024 13:16-0400 SaO2% (BldA) [Mass fraction] 97 % Codi Rivera APRN.PETROLEUM 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 11-10-2024 13:16-0400 Systolic blood pressure 130 mm[Hg] Codi Rivera APRN.PETROLEUM 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 11-03-2024 08:18-0400 Body height 180.3 cm Logan Aquino MD Work Phone: [facility] 11-03-2024 08:18-0400 Body mass index (BMI) [Ratio] 40.43 kg/m2 Logan Aquino MD Work Phone: [facility] 11-03-2024 08:18-0400 Body weight 131.5 kg Logan Aquino MD Work Phone: [facility] 11-03-2024 08:18-0400 Diastolic blood pressure 72 mm[Hg] Logan Aquino MD Work Phone: [facility] 11-03-2024 08:18-0400 Heart rate 107 /min Logan Aquino MD Work Phone: [facility] 11-03-2024 08:18-0400 SaO2% (BldA) [Mass fraction] 99 % Logan Aquino MD Work Phone: [facility] 11-03-2024 08:18-0400 Systolic blood pressure 130 mm[Hg] Logan Aquino MD Work Phone: [facility] 09-22-2024 08:38-0400 Body height 180.3 cm Mary Benjamin BIOPROCESS DEVELOPMENT ENGINEER.PETROLEUM 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 09-22-2024 08:38-0400 Body mass index (BMI) [Ratio] 42.68 kg/m2 Mary Benjamin BIOPROCESS DEVELOPMENT ENGINEER.PETROLEUM 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 09-22-2024 08:38-0400 Body weight 138.8 kg Mary Benjamin BIOPROCESS DEVELOPMENT ENGINEER.PETROLEUM 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 09-22-2024 08:38-0400 Diastolic blood pressure 98 mm[Hg] Mary Benjamin BIOPROCESS DEVELOPMENT ENGINEER.PETROLEUM 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 09-22-2024 08:38-0400 Heart rate 91 /min Mary Benjamin BIOPROCESS DEVELOPMENT ENGINEER.PETROLEUM 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 09-22-2024 08:38-0400 SaO2% (BldA) [Mass fraction] 100 % Mary Arce BIOPROCESS DEVELOPMENT ENGINEER.PETROLEUM 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 09-22-2024 08:38-0400 Systolic blood pressure 141 mm[Hg] Mary Patelir BIOPROCESS DEVELOPMENT ENGINEER.PETROLEUM 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 09-01-2024 09:15-0500 Diastolic blood pressure 84 mm[Hg] Karyna Corona DO Work Phone: [facility] 09-01-2024 09:15-0500 Heart rate 94 /min Karyna Corona DO Work Phone: [facility] 09-01-2024 09:15-0500 SaO2% (BldA) [Mass fraction] 99 % Karyna Fontainele DO Work Phone: [facility] 09-01-2024 09:15-0500 Systolic blood pressure 126 mm[Hg] Karyna Corona DO Work Phone: [facility] 07-09-2024 16:20-0500 Body mass index (BMI) [Ratio] 44.21 kg/m2 Kolton Jamison APRN.PETROLEUM 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 07-09-2024 16:20-0500 Body weight 143.79 kg Kolton Jamison APRN.PETROLEUM 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 07-09-2024 16:20-0500 Diastolic blood pressure 84 mm[Hg] Kolton Jamison APRN.PETROLEUM 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 07-09-2024 16:20-0500 Heart rate 79 /min Kolton Jamison APRN.PETROLEUM 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 07-09-2024 16:20-0500 Respiratory rate 14 /min Kolton Jamison APRN.PETROLEUM 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 07-09-2024 16:20-0500 SaO2% (BldA) [Mass fraction] 98 % Kolton Jamison APRN.PETROLEUM 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 07-09-2024 16:20-0500 Systolic blood pressure 132 mm[Hg] Kolton Candelario CALLAHAN.PETROLEUM 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 05-05-2024 09:09-0400 Diastolic blood pressure 87 mm[Hg] Logan Aquino MD Work Phone: [facility] 05-05-2024 09:09-0400 Heart rate 73 /min Logan Aquino MD Work Phone: [facility] 05-05-2024 09:09-0400 Systolic blood pressure 138 mm[Hg] Logan Aquino MD Work Phone: [facility] 05-05-2024 09:07-0400 Body height 180.3 cm Logan Aquino MD Work Phone: [facility] 05-05-2024 09:07-0400 Body mass index (BMI) [Ratio] 41.33 kg/m2 Logan Aquino MD Work Phone: [facility] 05-05-2024 09:07-0400 Body temperature 98.2 [degF] Logan Aquino MD Work Phone: [facility] 05-05-2024 09:07-0400 Body weight 134.4 kg Logan Aquino MD Work Phone: [facility] 05-05-2024 09:07-0400 Respiratory rate 16 /min Logan Aquino MD Work Phone: [facility] 02-25-2024 09:24-0400 Diastolic blood pressure 76 mm[Hg] Karyna Corona DO Work Phone: [facility] 02-25-2024 09:24-0400 Heart rate 74 /min Karyna Corona DO Work Phone: [facility] 02-25-2024 09:24-0400 SaO2% (BldA) [Mass fraction] 100 % Karyna Corona DO Work Phone: [facility] 02-25-2024 09:24-0400 Systolic blood pressure 125 mm[Hg] Karyna Corona DO Work Phone: [facility] 01-24-2024 07:45-0400 Body mass index (BMI) [Ratio] 40.01 kg/m2 Codi Miguel BIOPROCESS DEVELOPMENT ENGINEER.PETROLEUM 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 01-24-2024 07:45-0400 Body temperature 97.59 [degF] Codi Miguel BIOPROCESS DEVELOPMENT ENGINEER.PETROLEUM 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 01-24-2024 07:45-0400 Body weight 133.81 kg Codi Miguel BIOPROCESS DEVELOPMENT ENGINEER.PETROLEUM 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 01-24-2024 07:45-0400 Diastolic blood pressure 74 mm[Hg] Codi Miguel BIOPROCESS DEVELOPMENT ENGINEER.PETROLEUM 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 01-24-2024 07:45-0400 Heart rate 72 /min Codi Miguel BIOPROCESS DEVELOPMENT ENGINEER.PETROLEUM 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 01-24-2024 07:45-0400 SaO2% (BldA) [Mass fraction] 99 % Codi Miguel BIOPROCESS DEVELOPMENT ENGINEER.PETROLEUM 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 01-24-2024 07:45-0400 Systolic blood pressure 128 mm[Hg] Codi Miguel BIOPROCESS DEVELOPMENT ENGINEER.PETROLEUM 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 01-21-2024 11:33-0400 Body mass index (BMI) [Ratio] 40.01 kg/m2 Codi Miguel BIOPROCESS DEVELOPMENT ENGINEER.PETROLEUM 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 01-21-2024 11:33-0400 Body temperature 97.81 [degF] Codi Miguel BIOPROCESS DEVELOPMENT ENGINEER.PETROLEUM 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 01-21-2024 11:33-0400 Body weight 133.81 kg Codi Miguel BIOPROCESS DEVELOPMENT ENGINEER.PETROLEUM 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 01-21-2024 11:33-0400 Diastolic blood pressure 86 mm[Hg] Codi Miguel BIOPROCESS DEVELOPMENT ENGINEER.PETROLEUM 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 01-21-2024 11:33-0400 Heart rate 75 /min Codi Miguel BIOPROCESS DEVELOPMENT ENGINEER.PETROLEUM 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 01-21-2024 11:33-0400 Respiratory rate 18 /min Codi Miguel BIOPROCESS DEVELOPMENT ENGINEER.PETROLEUM 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 01-21-2024 11:33-0400 SaO2% (BldA) [Mass fraction] 99 % Codi Miguel BIOPROCESS DEVELOPMENT ENGINEER.PETROLEUM 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 01-21-2024 11:33-0400 Systolic blood pressure 134 mm[Hg] Codi Miguel BIOPROCESS DEVELOPMENT ENGINEER.PETROLEUM 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 01-10-2024 08:13-0400 Body height 182.9 cm Bo Gee MD Work Phone: [facility] 01-10-2024 08:13-0400 Body mass index (BMI) [Ratio] 39.74 kg/m2 Bo Gee MD Work Phone: [facility] 01-10-2024 08:13-0400 Body weight 132.9 kg Bo Gee MD Work Phone: [facility] 01-10-2024 08:13-0400 Diastolic blood pressure 64 mm[Hg] Bo Gee MD Work Phone: [facility] 01-10-2024 08:13-0400 Heart rate 68 /min Bo Gee MD Work Phone: [facility] 01-10-2024 08:13-0400 Respiratory rate 18 /min Bo Gee MD Work Phone: [facility] 01-10-2024 08:13-0400 SaO2% (BldA) [Mass fraction] 99 % Bo Gee MD Work Phone: [facility] 01-10-2024 08:13-0400 Systolic blood pressure 128 mm[Hg] Bo Gee MD Work Phone: [facility] 01-01-2024 08:04-0400 Body mass index (BMI) [Ratio] 38.79 kg/m2 Logan Aquino MD Work Phone: [facility] 01-01-2024 08:04-0400 Body temperature 98.29 [degF] Logan Aquino MD Work Phone: [facility] 01-01-2024 08:04-0400 Body weight 129.73 kg Logan Aquino MD Work Phone: [facility] 01-01-2024 08:04-0400 Diastolic blood pressure 76 mm[Hg] Logan Aquino MD Work Phone: [facility] 01-01-2024 08:04-0400 Heart rate 92 /min Loagn Aquino MD Work Phone: [facility] 01-01-2024 08:04-0400 Systolic blood pressure 114 mm[Hg] Logan Aquino MD Work Phone: [facility] 11-22-2023 10:38-0400 Body weight 132.[address] Logan Aquino Work Phone: [facility] 11-22-2023 10:38-0400 Diastolic blood pressure 62 mm[Hg] Dr. Logan Aquino Work Phone: [facility] 11-22-2023 10:38-0400 Heart rate 98 /min Dr. Logan Aquino Work Phone: [facility] 11-22-2023 10:38-0400 Respiratory rate 20 /min Dr. Logan Aquino Work Phone: [facility] 11-22-2023 10:38-0400 Systolic blood pressure 122 mm[Hg] Dr. Logan Aquino Work Phone: [facility] 11-22-2023 10:03-0400 Body height 185.[address] Logan Aquino Work Phone: [facility] 11-19-2023 10:56-0400 Diastolic blood pressure 80 mm[Hg] Karyna Corona DO Work Phone: [facility] 11-19-2023 10:56-0400 Heart rate 78 /min Karyna Corona DO Work Phone: [facility] 11-19-2023 10:56-0400 SaO2% (BldA) [Mass fraction] 100 % Karyna Corona DO Work Phone: [facility] 11-19-2023 10:56-0400 Systolic blood pressure 130 mm[Hg] Karyna Corona DO Work Phone: [facility] 11-18-2023 08:03-0400 Body weight 132.[address] Logan Aquino Work Phone: [facility] 10-21-2023 09:49-0400 Body height 185.[address] Logan Aquino Work Phone: [facility] 10-21-2023 09:49-0400 Body weight 133.[address] Logan Aquino Work Phone: [facility] 10-14-2023 09:01-0400 Body mass index (BMI) [Ratio] 38.2 kg/m2 Dr. Logan Aquino Work Phone: [facility] 10-14-2023 09:01-0400 Body weight 131.[address] Logan Aquino Work Phone: [facility] 10-14-2023 09:01-0400 Diastolic blood pressure 68 mm[Hg] Dr. Logan Aquino Work Phone: [facility] 10-14-2023 09:01-0400 Heart rate 65 /min Dr. Logan Aquino Work Phone: [facility] 10-14-2023 09:01-0400 Respiratory rate 18 /min Dr. Logan Aquino Work Phone: [facility] 10-14-2023 09:01-0400 SaO2% (BldA) [Mass fraction] 98 % Dr. Logan Aquino Work Phone: [facility] 10-14-2023 09:01-0400 Systolic blood pressure 105 mm[Hg] Dr. Logan Aquino Work Phone: [facility] 10-01-2023 08:52-0400 Body weight 132 kg Logan Aquino MD Work Phone: [facility] 10-01-2023 08:52-0400 Diastolic blood pressure 72 mm[Hg] Logan Aquino MD Work Phone: [facility] 10-01-2023 08:52-0400 Heart rate 80 /min Logan Aquino MD Work Phone: [facility] 10-01-2023 08:52-0400 Respiratory rate 16 /min Logan Aquino MD Work Phone: [facility] 10-01-2023 08:52-0400 Systolic blood pressure 110 mm[Hg] Logan Aquino MD Work Phone: [facility] 08-26-2023 08:57-0500 Body height 185.[address] Logan Aquino Work Phone: [facility] 08-26-2023 08:57-0500 Body mass index (BMI) [Ratio] 38.7 kg/m2 Dr. Logan Aquino Work Phone: [facility] 08-26-2023 08:57-0500 Body weight 133.[address] Logan Aquino Work Phone: [facility] 08-26-2023 08:57-0500 Diastolic blood pressure 69 mm[Hg] Dr. Logan Aquino Work Phone: [facility] 08-26-2023 08:57-0500 Heart rate 61 /min Dr. Logan Aquino Work Phone: 8(483)458-615045 [address] 08-26-2023 08:57-0500 Respiratory rate 18 /min Dr. Logan Aquino Work Phone: 9(585)926-452026 [place] [address] 08-26-2023 08:57-0500 SaO2% (BldA) [Mass fraction] 98 % Dr. Logan Aquino Work Phone: 7(500)893-384826 [place] [address] 08-26-2023 08:57-0500 Systolic blood pressure 108 mm[Hg] Dr. Logan Aquino Work Phone: 8(427)636-232726 [place] [address] 08-21-2023 13:51-0500 Body mass index (BMI) [Ratio] 38.4 kg/m2 Dr. Logan Aquino Work Phone: 7(263)637-132826 [place] [address] 08-21-2023 13:24-0500 Diastolic blood pressure 74 mm[Hg] Dr. Logan Aquino Work Phone: 2(315)198-866126 [place] [address] 08-21-2023 13:24-0500 Systolic blood pressure 114 mm[Hg] Dr. Logan Aquino Work Phone: 6(682)767-638526 [place] [address] 08-21-2023 13:20-0500 Heart rate 68 /min Dr. Logan Aquino Work Phone: 6(884)446-793626 [place] [address] 08-21-2023 13:20-0500 SaO2% (BldA) [Mass fraction] 96 % Dr. Logan Aquino Work Phone: 0(381)989-730826 [place] [address] 08-21-2023 13:10-0500 Body weight 131.[address] Logan Aquino Work Phone: 6(656)410-715726 [place] [address] 08-03-2023 14:59-0500 Body temperature 97.9 [degF] Dr. Logan Aquino Work Phone: 9(996)824-283526 [place] [address] 08-03-2023 14:59-0500 Diastolic blood pressure 65 mm[Hg] Dr. Logan Aquino Work Phone: 9(161)458-112526 [place] [address] 08-03-2023 14:59-0500 Heart rate 65 /min Dr. Logan Aquino Work Phone: 5(365)524-386626 [place] [address] 08-03-2023 14:59-0500 Respiratory rate 18 /min Dr. Logan Aquino Work Phone: 1(150)755-287326 [place] [address] 08-03-2023 14:59-0500 SaO2% (BldA) [Mass fraction] 98 % Dr. Logan Aquino Work Phone: 5(974)840-529026 [place] [address] 08-03-2023 14:59-0500 Systolic blood pressure 110 mm[Hg] Dr. Logan Aquino Work Phone: 9(079)436-443826 [place] [address] 08-02-2023 09:29-0500 Body height 185.[address] Logan Aquino Work Phone: 7(606)676-446026 [place] [address] 08-02-2023 09:29-0500 Body weight 141.[address] Logan Aquino Work Phone: 2(608)642-886326 [place] [address] 08-01-2023 09:13-0500 Body mass index (BMI) [Ratio] 41 kg/m2 Dr. Logan Aquino Work Phone: 3(707)856-561926 [place] [address] 07-24-2023 09:26-0500 Body height 185.[address] Logan Aquino Work Phone: 2(243)802-165926 [place] [address] 07-24-2023 09:26-0500 Body mass index (BMI) [Ratio] 41 kg/m2 Dr. Logan Aquino Work Phone: 8(496)404-115526 [place] [address] 07-24-2023 09:26-0500 Body weight 141.[address] Logan Aquino Work Phone: 8(887)416-876926 [place] [address] 07-24-2023 09:26-0500 Diastolic blood pressure 84 mm[Hg] Dr. Logan Aquino Work Phone: 6(983)243-116226 [place] [address] 07-24-2023 09:26-0500 Heart rate 70 /min Dr. Logan Aquino Work Phone: 6(043)534-763826 [place] [address] 07-24-2023 09:26-0500 Respiratory rate 16 /min Dr. Logan Aquino Work Phone: [facility] 07-24-2023 09:26-0500 Systolic blood pressure 141 mm[Hg] Dr. Logan Aquino Work Phone: [facility] 05-24-2023 08:35-0500 Body temperature 98.2 [degF] Coid Older BIOPROCESS DEVELOPMENT ENGINEER.PETROLEUM 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 05-24-2023 08:35-0500 Body weight 141.52 kg Codi Older BIOPROCESS DEVELOPMENT ENGINEER.PETROLEUM 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 05-24-2023 08:35-0500 Diastolic blood pressure 82 mm[Hg] Codi Older BIOPROCESS DEVELOPMENT ENGINEER.PETROLEUM 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 05-24-2023 08:35-0500 Heart rate 126 /min Codi Older BIOPROCESS DEVELOPMENT ENGINEER.PETROLEUM 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 05-24-2023 08:35-0500 Respiratory rate 18 /min Codi Older BIOPROCESS DEVELOPMENT ENGINEER.PETROLEUM 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 05-24-2023 08:35-0500 SaO2% (BldA) [Mass fraction] 97 % Codi Older BIOPROCESS DEVELOPMENT ENGINEER.PETROLEUM 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 05-24-2023 08:35-0500 Systolic blood pressure 158 mm[Hg] Codi Older BIOPROCESS DEVELOPMENT ENGINEER.PETROLEUM 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 05-21-2023 10:18-0500 Diastolic blood pressure 98 mm[Hg] Karyna Corona DO Work Phone: [facility] 05-21-2023 10:18-0500 Heart rate 77 /min Karyna Corona DO Work Phone: [facility] 05-21-2023 10:18-0500 SaO2% (BldA) [Mass fraction] 97 % Karyna Corona DO Work Phone: [facility] 05-21-2023 10:18-0500 Systolic blood pressure 152 mm[Hg] Karyna Corona DO Work Phone: [facility] 04-01-2023 12:36-0400 Body height 182.9 cm Codi Older BIOPROCESS DEVELOPMENT ENGINEER.PETROLEUM 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 04-01-2023 12:36-0400 Body temperature 97.7 [degF] Codi Older BIOPROCESS DEVELOPMENT ENGINEER.PETROLEUM 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 04-01-2023 12:36-0400 Body weight 136.94 kg Codi Older BIOPROCESS DEVELOPMENT ENGINEER.PETROLEUM 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 04-01-2023 12:36-0400 Diastolic blood pressure 84 mm[Hg] Codi Older BIOPROCESS DEVELOPMENT ENGINEER.PETROLEUM 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 04-01-2023 12:36-0400 Heart rate 76 /min Codi Older BIOPROCESS DEVELOPMENT ENGINEER.PETROLEUM 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 04-01-2023 12:36-0400 SaO2% (BldA) [Mass fraction] 99 % Codi Older BIOPROCESS DEVELOPMENT ENGINEER.PETROLEUM 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 04-01-2023 12:36-0400 Systolic blood pressure 124 mm[Hg] Codi Older BIOPROCESS DEVELOPMENT ENGINEER.PETROLEUM 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 01-29-2023 08:36-0400 Diastolic blood pressure 78 mm[Hg] Karyna Corona DO Work Phone: [facility] 01-29-2023 08:36-0400 Heart rate 68 /min Karyna Corona DO Work Phone: [facility] 01-29-2023 08:36-0400 SaO2% (BldA) [Mass fraction] 97 % Karyna Corona DO Work Phone: [facility] 01-29-2023 08:36-0400 Systolic blood pressure 120 mm[Hg] Karyna Corona DO Work Phone: [facility] 12-12-2022 10:03-0400 Body weight 137.44 kg Thais Ricardo BIOPROCESS DEVELOPMENT ENGINEER.PETROLEUM 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 12-12-2022 10:03-0400 Diastolic blood pressure 72 mm[Hg] Thais Ricardo BIOPROCESS DEVELOPMENT ENGINEER.PETROLEUM 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 12-12-2022 10:03-0400 Heart rate 71 /min Thais Ricardo BIOPROCESS DEVELOPMENT ENGINEER.PETROLEUM 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 12-12-2022 10:03-0400 SaO2% (BldA) [Mass fraction] 98 % Thais Ricardo BIOPROCESS DEVELOPMENT ENGINEER.PETROLEUM 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 12-12-2022 10:03-0400 Systolic blood pressure 108 mm[Hg] Thais Ricardo BIOPROCESS DEVELOPMENT ENGINEER.PETROLEUM 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 11-07-2022 07:51-0400 Body weight 137.89 kg Codi Older BIOPROCESS DEVELOPMENT ENGINEER.PETROLEUM 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 11-07-2022 07:51-0400 Diastolic blood pressure 85 mm[Hg] Codi Older BIOPROCESS DEVELOPMENT ENGINEER.PETROLEUM 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 11-07-2022 07:51-0400 Heart rate 68 /min Codi Older BIOPROCESS DEVELOPMENT ENGINEER.PETROLEUM 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 11-07-2022 07:51-0400 Respiratory rate 18 /min Codi Older BIOPROCESS DEVELOPMENT ENGINEER.PETROLEUM 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 11-07-2022 07:51-0400 Systolic blood pressure 142 mm[Hg] Codi Older BIOPROCESS DEVELOPMENT ENGINEER.PETROLEUM 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 10-31-2022 09:03-0400 Body temperature 97.59 [degF] Codi Older BIOPROCESS DEVELOPMENT ENGINEER.PETROLEUM 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 10-31-2022 09:03-0400 Body weight 137.44 kg Codi Older BIOPROCESS DEVELOPMENT ENGINEER.PETROLEUM 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 10-31-2022 09:03-0400 Diastolic blood pressure 72 mm[Hg] Codi Older BIOPROCESS DEVELOPMENT ENGINEER.PETROLEUM 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 10-31-2022 09:03-0400 Heart rate 82 /min Codi Older BIOPROCESS DEVELOPMENT ENGINEER.PETROLEUM 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 10-31-2022 09:03-0400 Respiratory rate 20 /min Codi Older BIOPROCESS DEVELOPMENT ENGINEER.PETROLEUM 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 10-31-2022 09:03-0400 SaO2% (BldA) [Mass fraction] 96 % Codi Older BIOPROCESS DEVELOPMENT ENGINEER.PETROLEUM 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 10-31-2022 09:03-0400 Systolic blood pressure 132 mm[Hg] Codi Older BIOPROCESS DEVELOPMENT ENGINEER.PETROLEUM 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 09-20-2022 08:34-0500 Diastolic blood pressure 77 mm[Hg] Logan Aquino MD Work Phone: [facility] 09-20-2022 08:34-0500 Heart rate 73 /min Logan Aquino MD Work Phone: [facility] 09-20-2022 08:34-0500 Systolic blood pressure 136 mm[Hg] Logan Aquino MD Work Phone: [facility] 09-20-2022 08:30-0500 Body weight 140.62 kg Logan Aquino MD Work Phone: [facility] 09-20-2022 08:30-0500 Respiratory rate 24 /min Logan Aquino MD Work Phone: [facility] 07-02-2022 11:00-0500 Diastolic blood pressure 90 mm[Hg] Jl Hart MD Work Phone: [facility] 07-02-2022 11:00-0500 Heart rate 63 /min Jl Hart MD Work Phone: [facility] 07-02-2022 11:00-0500 SaO2% (BldA) [Mass fraction] 96 % lJ Hart MD Work Phone: [facility] 07-02-2022 11:00-0500 Systolic blood pressure 188 mm[Hg] Jl Hart MD Work Phone: [facility] 07-02-2022 10:50-0500 Respiratory rate 16 /min Jl Hart MD Work Phone: [facility] 07-02-2022 09:20-0500 Body temperature 98.1 [degF] Jl Hart MD Work Phone: [facility] 04-11-2022 08:32-0400 Body height 185.4 cm Layne Barnes PA-C Work Phone: [facility] 04-11-2022 08:32-0400 Body temperature 97.81 [degF] Layne Barnes PA-C Work Phone: [facility] 04-11-2022 08:32-0400 Body weight 137.98 kg Layne Barnes PA-C Work Phone: [facility] 04-11-2022 08:32-0400 Diastolic blood pressure 82 mm[Hg] Layne Ricardo PA-C Work Phone: [facility] 04-11-2022 08:32-0400 Heart rate 78 /min Layne Barnes PA-C Work Phone: [facility] 04-11-2022 08:32-0400 SaO2% (BldA) [Mass fraction] 100 % Layne Ricardo PA-C Work Phone: [facility] 04-11-2022 08:32-0400 Systolic blood pressure 134 mm[Hg] Layne Barnes PA-C Work Phone: [facility] 03-23-2022 09:09-0400 Diastolic blood pressure 80 mm[Hg] Logan Aquino MD Work Phone: [facility] 03-23-2022 09:09-0400 Systolic blood pressure 132 mm[Hg] Logan Aquino MD Work Phone: [facility] 03-23-2022 08:37-0400 Body weight 140.16 kg Logan Aquino MD Work Phone: [facility] 03-23-2022 08:37-0400 Heart rate 64 /min Logan Aquino MD Work Phone: [facility] 03-23-2022 08:37-0400 Respiratory rate 18 /min Logan Aquino MD Work Phone: [facility] 03-23-2022 08:37-0400 SaO2% (BldA) [Mass fraction] 97 % Logan Aquino MD Work Phone: [facility] 01-26-2022 09:36-0400 Body weight 139.25 kg La Tannhof BIOPROCESS DEVELOPMENT ENGINEER.PETROLEUM 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 01-26-2022 09:36-0400 Diastolic blood pressure 92 mm[Hg] La Tannhof BIOPROCESS DEVELOPMENT ENGINEER.PETROLEUM 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 01-26-2022 09:36-0400 Heart rate 60 /min La [place]hof BIOPROCESS DEVELOPMENT ENGINEER.PETROLEUM 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 01-26-2022 09:36-0400 Respiratory rate 20 /min La [place]hof BIOPROCESS DEVELOPMENT ENGINEER.PETROLEUM 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 01-26-2022 09:36-0400 SaO2% (BldA) [Mass fraction] 100 % [place] BIOPROCESS DEVELOPMENT ENGINEER.PETROLEUM 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 01-26-2022 09:36-0400 Systolic blood pressure 132 mm[Hg] La Tannhof BIOPROCESS DEVELOPMENT ENGINEER.PETROLEUM 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 12-27-2021 08:19-0400 Body weight 135.63 kg Codi Older BIOPROCESS DEVELOPMENT ENGINEER.PETROLEUM 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 12-27-2021 08:19-0400 Diastolic blood pressure 72 mm[Hg] Codi Older BIOPROCESS DEVELOPMENT ENGINEER.PETROLEUM 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 12-27-2021 08:19-0400 Heart rate 88 /min Codi Older BIOPROCESS DEVELOPMENT ENGINEER.PETROLEUM 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 12-27-2021 08:19-0400 Respiratory rate 20 /min Codi Older BIOPROCESS DEVELOPMENT ENGINEER.PETROLEUM 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 12-27-2021 08:19-0400 Systolic blood pressure 108 mm[Hg] Codi Older BIOPROCESS DEVELOPMENT ENGINEER.PETROLEUM 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 12-19-2021 10:14-0400 Body height 185.42 cm [facility] Work Phone: 12-19-2021 10:14-0400 Body mass index (BMI) [Ratio] 36.9 kg/m2 [facility] Work Phone: 12-19-2021 10:14-0400 Body temperature 97.1 [degF] [facility] Work Phone: 12-19-2021 10:14-0400 Body weight 127 kg [facility] Work Phone: 12-19-2021 10:14-0400 Diastolic blood pressure 104 mm[Hg] [facility] Work Phone: 12-19-2021 10:14-0400 Heart rate 63 /min [facility] Work Phone: 12-19-2021 10:14-0400 Respiratory rate 18 /min [facility] Work Phone: 12-19-2021 10:14-0400 SaO2% (BldA) [Mass fraction] 100 % [facility] Work Phone: 12-19-2021 10:14-0400 Systolic blood pressure 177 mm[Hg] [facility] Work Phone: Encounters Encounter Date Encounter Type Care Provider Facility Start: 11-12-2024 ambulatory LOGAN Rajput lity:[facility] Start: 11-12-2024 End: 11-12-2024 Subsequent hospital visit by physician [facility] Work Phone: Radiology Comment on above: Edema of left lower extremity [R60.0] Start: 11-10-2024 End: 11-10-2024 Subsequent hospital visit by physician [facility] Work Phone: Radiology Comment on above: Acute pain of left k nee [M25.562] Start: 11-10-2024 End: 11-10-2024 Office outpatient visit 25 minutes Codi Rivera APRN.CNP Work Phone: [facility] [place] Comment on above: Acute pain of left k nee (Primary Dx); Edema of left lower extremity; Pain in left lower leg; Synovial cyst of popliteal space (Goldberg), left knee; Primary osteoarthritis of left knee Start: 11-10-2024 End: 11-10-2024 ambulatory LOGAN AQUINO Facility:[facility] Start: 11-03-2024 End: 11-03-2024 Office outpatient visit 15 minutes Logan Aquino MD Work Phone: [facility] Comment on above: Essential hypertensi on with goal blood pressure less than 130/80 (Primary Dx); Coronary artery disease involving [place] coronary artery of [place] heart without angina pectoris; Stage 3b chronic kidney disease (HCC); Obesity, Class III, BMI >= 40; ALEX (obstructive sleep apnea) not using CPAP Start: 11-03-2024 End: 11-03-2024 ambulatory LOGAN AQUINO Facility:[facility] Start: 11-02-2024 End: 11-02-2024 ambulatory Logan Aquino [place] Start: 10-19-2024 End: 10-19-2024 ambulatory LOGAN AQUINO Facility:[facility] Start: 10-19-2024 End: 10-19-2024 Patient encounter procedure Fouzia Smith Work Phone: Podiatry Comment on above: Onychomycosis (Prima ry Dx); Pain in toe of left foot; Pain in toe of right foot Start: 10-06-2024 End: 10-06-2024 Patient encounter procedure Karyna Corona DO Work Phone: Vascular Surgery Comment on above: Secondary lymphedema (Primary Dx); Venous (peripheral) insufficiency Start: 10-06-2024 End: 10-06-2024 ambulatory LOGAN AQUINO Facility:[facility] Start: 09-24-2024 End: 10-19-2024 Telephone encounter Anamaria Valerio MD Work Phone: General Surgery Comment on above: surgical clearance Start: 09-22-2024 End: 09-24-2024 Telephone encounter Mary Arce APRN.CNP Work Phone: General Surgery Comment on above: 11-11-2024 Start: 09-22-2024 End: 09-22-2024 ambulatory LOGAN AQUINO Facility:[facility] Start: 09-22-2024 End: 09-22-2024 Patient encounter procedure Mary Arce APRN.PETROLEUM ENGINEERING TEACHER Work Phone: General Surgery Comment on above: Screen for colon can cer (Primary Dx); History of colonic polyps; Family history of colon cancer; Irregular heart rhythm Start: 09-02-2024 End: 09-11-2024 ambulatory Patti Roe NP Facility:[facility] Start: 09-01-2024 End: 09-01-2024 ambulatory LOGAN AQUINO Facility:[facility] Start: 09-01-2024 End: 09-01-2024 Patient encounter procedure Karyna Corona DO Work Phone: Vascular Surgery Comment on above: Secondary lymphedema (Primary Dx); Venous (peripheral) insufficiency; Varicose veins of both lower extremities, unspecified whether complicated Start: 08-12-2024 End: 08-14-2024 ambulatory Patti Roe NP Facility:[facility] Start: 08-11-2024 ambulatory Kolton Jamison Facilit y:[facility] Start: 07-20-2024 End: 07-20-2024 ambulatory LOGAN AQUINO Facility:[facility] Start: 07-20-2024 End: 07-20-2024 Patient encounter procedure Fouzia Smith Work Phone: Podiatry Comment on above: Onychomycosis (Prima ry Dx); Pain in toe of left foot; Pain in toe of right foot Start: 07-09-2024 End: 07-09-2024 ambulatory LOGAN AQUINO Facility:[facility] Start: 07-09-2024 End: 07-09-2024 Patient encounter procedure Kolton Jamison APRN.PETROLEUM ENGINEERING TEACHER Work Phone: [facility] [place] Comment on above: Secondary lymphedema (Primary Dx) Start: 05-05-2024 End: 05-05-2024 ambulatory LOGAN AQUINO Facility:[facility] Start: 05-05-2024 End: 05-05-2024 Patient encounter procedure Logan Aquino MD Work Phone: [facility] Comment on above: Medicare annual well ness visit, subsequent (Primary Dx); Impaired fasting glucose; Edema, unspecified type; Essential hypertension with goal blood pressure less than 130/80; ALEX (obstructive sleep apnea) not using CPAP; Screening for depression; Encounter for screening examination for other mental health and behavioral disorders; Obesity, Class III, BMI >= 40; Paroxysmal atrial fibrillation (HCC); Stage 3b chronic kidney disease (HCC) Start: 04-03-2024 End: 04-03-2024 ambulatory LOGAN AQUINO Facility:[facility] Start: 04-03-2024 End: 04-03-2024 Patient encounter procedure Fouzia Smith Work Phone: Podiatry Comment on above: Onychomycosis (Prima ry Dx); Pain in toe of left foot; Pain in toe of right foot Start: 03-10-2024 End: 03-10-2024 ambulatory Logan Aquino Facility[place] Start: 02-25-2024 End: 02-25-2024 ambulatory LOGAN AQUINO Facility:[facility] Start: 02-25-2024 End: 02-25-2024 Patient encounter procedure Karyna Corona DO Work Phone: Vascular Surgery Comment on above: Secondary lymphedema (Primary Dx); Venous (peripheral) insufficiency Start: 02-03-2024 End: 02-03-2024 ambulatory Logan Aquino Facility[place] Start: 01-28-2024 ambulatory Logan Aquino Facili ty:[facility] Start: 01-24-2024 End: 01-24-2024 ambulatory LOGAN AQUINO Facility:[facility] Start: 01-24-2024 End: 01-24-2024 Patient encounter procedure Codi Rivera APRN.PETROLEUM ENGINEERING TEACHER Work Phone: [facility] Comment on above: Open wound of right lower extremity, initial encounter (Primary Dx) Start: 01-23-2024 ambulatory Logan Joseph ty:[facility] Start: 01-21-2024 End: 01-21-2024 ambulatory Logan Aquino MD Work Phone: [facility] Comment on above: Derm Problem Start: 01-21-2024 End: 01-21-2024 Patient encounter procedure Codi Rivera APRN.PETROLEUM ENGINEERING TEACHER Work Phone: [facility] Comment on above: Open wound of right lower extremity, initial encounter (Primary Dx) Start: 01-20-2024 End: 01-20-2024 ambulatory Logan Aquino Facility:[facility] Start: 01-10-2024 End: 01-10-2024 Patient encounter procedure Bo Gee MD Work Phone: [facility] Comment on above: Paroxysmal atrial fi brillation (HCC) (Primary Dx); At risk for stroke; Anticoagulant long-term use; Coronary artery disease involving [place] coronary artery of [place] heart without angina pectoris; History of percutaneous coronary intervention; ALEX (obstructive sleep apnea) not using CPAP; Class 2 obesity due to excess calories without serious comorbidity with body mass index (BMI) of 39.0 to 39.9 in adult; Exertional dyspnea Start: 01-10-2024 End: 01-10-2024 ambulatory DOUG HINES Facility:[facility] Start: 01-01-2024 End: 01-01-2024 ambulatory LOGAN AQUINO Facility:[facility] Start: 01-01-2024 End: 01-01-2024 Patient encounter procedure Logan Aquino MD Work Phone: [facility] Comment on above: Coronary artery dise ase involving [place] coronary artery of [place] heart without angina pectoris (Primary Dx); Stented coronary artery; Chronic atrial fibrillation (HCC); Edema, unspecified type; Impaired fasting glucose Start: 12-30-2023 End: 01-12-2024 ambulatory Logan Aquino Facility:[facility] Start: 12-24-2023 End: 12-24-2023 ambulatory LOGAN AQUINO Facility:[facility] Start: 12-24-2023 End: 12-24-2023 Patient encounter procedure Fouzia Smith Work Phone: Podiatry Comment on above: Onychomycosis (Prima ry Dx); Pain in toe of left foot; Pain in toe of right foot Start: 12-13-2023 End: 12-13-2023 ambulatory Doug Hines Facility:[facility] Start: 12-10-2023 End: 12-10-2023 ambulatory Logan Aquino [place] Start: 12-02-2023 ambulatory Weston[facility]ane[facility]autista [facility] Start: 12-02-2023 End: 12-02-2023 ambulatory Shaina Nguyen Facility:[facility] Start: 11-29-2023 End: 11-29-2023 ambulatory Shaina Nguyen Facility:[facility] Start: 11-22-2023 End: 11-22-[address] Logan Aquino Work Phone: [facility] Work Phone: Start: 11-22-2023 End: 11-22-2023 ambulatory Logan Aquino [place] [place] Start: 11-22-[address] Anshul Aquino Work Phone: [facility]Cardiac Rehab Work Phone: Start: 11-19-2023 End: 11-19-2023 ambulatory LOGAN AQUINO Facility:[facility] Start: 11-19-2023 End: 11-19-2023 Patient encounter procedure Karyna Corona DO Work Phone: Vascular Surgery Comment on above: Secondary lymphedema (Primary Dx); Venous (peripheral) insufficiency Start: 11-18-2023 End: 11-18-[address] Logan Aquino Work Phone: [facility] Work Phone: Start: 11-18-2023 End: 11-18-[address] Logan Aquino Work Phone: [facility]Laboratory Work Phone: Start: 11-18-2023 End: 11-18-2023 ambulatory Shaina Bansal Nguyen Facility:[facility] Start: 11-08-2023 End: 11-12-[address] Logan Aquino Work Phone: [facility] Work Phone: Start: 11-08-2023 End: 11-12-[address] Logan Aquino Work Phone: [facility] Work Phone: Start: 11-08-[address] Anshul Aquino Work Phone: [facility] Work Phone: Start: 10-30-2023 End: 10-30-[address] Logan Aquino Work Phone: [facility] Work Phone: Start: 10-30-2023 End: 10-30-[address] Logan Aquino Work Phone: [facility] Work Phone: Start: 10-30-[address] Anshul Aquino Work Phone: [facility] Work Phone: Start: 10-23-2023 End: 10-23-[address] Logan Aquino Work Phone: [facility] Work Phone: Start: 10-23-2023 End: 10-23-[address] Logan Aquino Work Phone: [facility] Work Phone: Start: 10-21-2023 Admission to [facility] Logan Aquino MD Work Phone: Ambulatory Surgery Comment on above: colorectal cancer sc reening Start: 10-21-2023 ambulatory Logan santamaria MD Work Phone: Ambulatory Surgery Start: 10-14-2023 End: 10-14-[address] Logan Aquino Work Phone: [facility] Work Phone: Start: 10-11-2023 End: 10-13-[address] Logan Aquino Work Phone: [facility] Work Phone: Start: 10-11-2023 End: 10-13-[address] Logan Aquino Work Phone: [facility] Work Phone: Start: 10-01-2023 End: 10-01-2023 Patient encounter procedure Logan Aquino MD Work Phone: [facility] Comment on above: Coronary artery dise ase involving [place] coronary artery of [place] heart without angina pectoris (Primary Dx); Essential hypertension with goal blood pressure less than 130/80; Stented coronary artery; Impaired fasting glucose Start: 09-30-2023 End: 09-30-[address] Logan Aquino Work Phone: [facility] Work Phone: Start: 09-30-2023 End: 09-30-[address] Logna Aquino Work Phone: [facility] Work Phone: Start: 09-23-2023 End: 09-23-[address] Logan Aquino Work Phone: [facility] Work Phone: Start: 09-23-2023 End: 09-23-[address] Logan Aquino Work Phone: [facility] Work Phone: Start: 09-16-2023 End: 09-16-2023 Patient encounter procedure Fouzia Smith Work Phone: Podiatry Comment on above: Onychomycosis (Prima ry Dx); Pain in toe of left foot; Pain in toe of right foot Start: 08-26-2023 End: 08-26-[address] Logan Aquino Work Phone: [facility] Work Phone: Start: 08-26-2023 End: 08-26-[address] Logan Aquino Work Phone: [facility] Work Phone: Start: 08-21-2023 End: 08-21-[address] Logan Aquino Work Phone: [facility] Work Phone: Start: 08-21-2023 End: 08-21-[address] Logan Aquino Work Phone: [facility] Work Phone: Start: 08-03-2023 End: 08-03-2023 Non-patient / Non-visit Dr. Logan Aquino Work Phone: [facility] Work Phone: Start: 08-02-2023 End: 08-03-2023 Evaluation and management of inpatient Dr. Logan Aquino Work Phone: [facility]-Progressive Care Unit Work Phone: Start: 08-02-2023 End: 08-03-[address] Logan Aquino Work Phone: [facility] Work Phone: Start: 08-02-2023 Non-patient / Non-visit Dr. Kaylin Aquino Work Phone: [facility] Start: 07-24-2023 End: 07-24-[address] Logan Aquino Work Phone: [facility] Work Phone: Start: 07-24-2023 End: 07-24-[address] Logan Aquino Work Phone: [facility]-Radiology, [facility] Work Phone: Start: 07-24-2023 End: 07-24-[address] Logan Aquino Work Phone: [facility] Work Phone: Start: 07-10-2023 Non-patient / Non-visit Dr. Kaylin Aquino Work Phone: [facility] Work Phone: Start: 07-05-2023 Non-patient / Non-visit Dr. Kaylin Aquino Work Phone: [facility] Start: 07-05-2023 End: 07-05-[address] Logan Aquino Work Phone: [facility] Work Phone: Start: 07-05-2023 End: 07-05-[address] Logan Aquino Work Phone: [facility]Cardiovascul [facility] Services Work Phone: Start: 06-11-2023 End: 06-11-2023 Patient encounter procedure Fouzia Smith Work Phone: Podiatry Comment on above: Onychomycosis (Prima ry Dx); Pain in toe of left foot; Pain in toe of right foot; Diminished pulses in lower extremity Start: 06-10-2023 ambulatory Codi FritzPETROLEUM ENGINEERING TEACHER Work Phone: [facility] Comment on above: echocardiogram resul ts Start: 06-10-2023 E-mail encounter fro m caregiver Codi Older BIOPROCESS DEVELOPMENT ENGINEER.PETROLEUM ENGINEERING TEACHER Work Phone: [facility] [place] Start: 05-30-2023 Telephone encounter Karyna Corona DO Work Phone: Vascular Surgery Comment on above: Forms (/) Start: 05-24-2023 End: 05-24-2023 Subsequent hospital visit by physician Lilo [facility] Work Phone: Radiology Comment on above: Chest pain, unspecif ied type [R07.9] Start: 05-24-2023 End: 05-24-2023 Patient encounter procedure Codi Larkin APRN.PETROLEUM ENGINEERING TEACHER Work Phone: [facility] Comment on above: Shortness of breath (Primary Dx); Chest pain, unspecified type; Fatigue, unspecified type Start: 05-23-2023 Telephone encounter Karyna Corona DO Work Phone: Vascular Surgery Comment on above: Orders (Medical solu tions (lymphedema pumps)) Start: 05-21-2023 End: 05-21-2023 Patient encounter procedure Karyna Corona DO Work Phone: Vascular Surgery Comment on above: Secondary lymphedema (Primary Dx); Venous (peripheral) insufficiency Start: 04-01-2023 End: 04-01-2023 Patient encounter procedure Codi Larkin APRN.PETROLEUM ENGINEERING TEACHER Work Phone: [facility] Comment on above: Medicare annual well ness visit, subsequent (Primary Dx); Essential hypertension with goal blood pressure less than 130/80; Need for influenza vaccination Start: 03-20-2023 Refill Codi Larkin APRN .PETROLEUM ENGINEERING TEACHER Work Phone: [facility] Comment on above: Refill Request Start: 03-05-2023 End: 03-05-2023 Patient encounter procedure Fouzia Smith Work Phone: Podiatry Comment on above: Onychomycosis (Prima ry Dx); Pain in toe of left foot; Pain in toe of right foot Start: 01-29-2023 End: 01-29-2023 Patient encounter procedure Karyna Corona DO Work Phone: Vascular Surgery Comment on above: Secondary lymphedema (Primary Dx); Edema, unspecified type; Varicose veins of both lower extremities, unspecified whether complicated; Venous insufficiency; Venous stasis ulcer of other part of left lower leg limited to breakdown of skin without varicose veins (HCC); Diminished pulse; Chronic venous hypertension w ulceration (HCC); Obesity, Class III, BMI 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) (HCC) Start: 12-12-2022 End: 12-12-2022 Patient encounter procedure Thais Silva APRN.CNP Work Phone: [facility] Comment on above: Venous insufficiency (Primary Dx); PAD (peripheral artery disease) (HCC); Edema, unspecified type; Venous stasis ulcer of other part of left lower leg limited to breakdown of skin without varicose veins (HCC); Varicose veins of both lower extremities, unspecified whether complicated; Essential hypertension with goal blood pressure less than 130/80 Start: 11-07-2022 End: 11-07-2022 Patient encounter procedure Codi Larkin APRN.CNP Work Phone: [facility] Comment on above: Venous insufficiency (Primary Dx); Venous stasis ulcer of other part of left lower leg limited to breakdown of skin without varicose veins (HCC) Start: 10-31-2022 End: 10-31-2022 Patient encounter procedure Codi Larkin APRN.CNP Work Phone: [facility] [place] Comment on above: Venous stasis ulcer of other part of left lower leg limited to breakdown of skin without varicose veins (HCC) (Primary Dx) Start: 09-20-2022 End: 09-20-2022 Patient encounter procedure Logan Aquino MD Work Phone: [facility] Comment on above: BMI 39.0-39.9,adult (Primary Dx); Essential hypertension with goal blood pressure less than 130/80; Edema, unspecified type; Impaired fasting glucose; Hyperlipidemia, unspecified hyperlipidemia type; Bilateral impacted cerumen Start: 09-14-2022 Telephone encounter Logan mittal MD Work Phone: [facility] Comment on above: Orders Start: 07-11-2022 End: 07-11-2022 ambulatory Layne Ricardo MOISES Work Phone: General Surgery Comment on above: Tubular adenoma (Keila ayesha Dx); History of colonic polyps Start: 07-11-2022 End: 07-11-2022 Telemedicine consultation with patient Layne Silva MOISES Work Phone: [facility] [facility] Start: 07-09-2022 Refill Logan santamaria MD Work Phone: [facility] Comment on above: Refill Request Start: 07-02-2022 End: 07-02-2022 Subsequent hospital visit by physician Jl Hart MD Work Phone: Ambulatory Surgery Comment on above: History of colon mono yps [Z86.010] Start: 06-29-2022 Refill Logan santamaria MD Work Phone: [facility] Comment on above: Refill Request Start: 05-11-2022 End: 05-11-2022 Patient encounter procedure Fouzia Smith Work Phone: Podiatry Comment on above: Onychomycosis (Prima ry Dx); Pain in toe of left foot; Pain in toe of right foot; Diminished pulses in lower extremity Start: 04-17-2022 Refill Codi Larkin APRN, .CNP Work Phone: [facility] [place] Comment on above: Refill Request Start: 04-11-2022 Telephone encounter Layne Quintin west PA-C Work Phone: General Surgery Comment on above: 05-28-[address] Hart Start: 04-11-2022 End: 04-11-2022 Patient encounter procedure Layne Graf DE LEON Work Phone: General Surgery Comment on above: History of colonic p olyps (Primary Dx); Benign neoplasm of colon, unspecified part of colon; Encounter for screening for malignant neoplasm of colon Start: 04-02-2022 Telephone encounter Logan mittal MD Work Phone: [facility] Comment on above: Compression Stocking Order Compression stocking s Start: 03-29-2022 Telephone encounter Logan mittal MD Work Phone: [facility] Comment on above: Incorrect Phamacy Start: 03-23-2022 End: 03-23-2022 Patient encounter procedure Logan Aquino MD Work Phone: [facility] Comment on above: Essential hypertensi on with goal blood pressure less than 130/80 (Primary Dx); Edema, unspecified type; Hyperlipidemia, unspecified hyperlipidemia type; Impaired fasting glucose; ALEX (obstructive sleep apnea) not using CPAP; Benign neoplasm of colon, unspecified part of colon Start: 02-20-2022 End: 02-20-2022 Patient encounter procedure Fouzia Smith Work Phone: Podiatry Comment on above: Venous insufficiency (Primary Dx) Start: 02-06-2022 End: 02-06-2022 Patient encounter procedure Fouzia Smith Work Phone: Podiatry Comment on above: Onychomycosis (Prima ry Dx); Pain in toe of left foot; Pain in toe of right foot; Diminished pulses in lower extremity; Chronic venous hypertension w ulceration (HCC) Start: 01-31-2022 Refill Codi Older BIOPROCESS DEVELOPMENT ENGINEER .PETROLEUM ENGINEERING TEACHER Work Phone: [facility] Comment on above: Refill Request Start: 01-26-2022 End: 01-26-2022 Patient encounter procedure La Mcgee BIOPROCESS DEVELOPMENT ENGINEER.PETROLEUM ENGINEERING TEACHER Work Phone: [facility] Medicine [place] Comment on above: Cellulitis of left l ower extremity (Primary Dx); Other chest pain Start: 12-27-2021 End: 12-27-2021 Patient encounter procedure Codi Older BIOPROCESS DEVELOPMENT ENGINEER.PETROLEUM ENGINEERING TEACHER Work Phone: [facility] Comment on above: Dog bite of right [place], subsequent encounter (Primary Dx); Visit for suture removal Start: 12-19-2021 End: 12-19-2021 [facility] Start: 11-29-2021 Refill Codi Older BIOPROCESS DEVELOPMENT ENGINEER .PETROLEUM ENGINEERING TEACHER Work Phone: Internal Medicine [place] Comment on above: Refill Request Start: 11-27-2021 Refill Codi Older BIOPROCESS DEVELOPMENT ENGINEER .PETROLEUM ENGINEERING TEACHER Work Phone: [facility] Comment on above: Refill Request Start: 11-02-2021 End: 11-02-2021 Patient encounter procedure Fouzia Smith Work Phone: Podiatry Comment on above: Onychomycosis (Prima ry Dx); Pain in toe of left foot; Pain in toe of right foot Procedures Date Procedure Procedure Detail Performing Clinician Start: 11-12-2024 Dup-scan xtr veins unilateral/limited study Codi Bansal Miguel BIOPROCESS DEVELOPMENT ENGINEER.PETROLEUM ENGINEERING TEACHER Work Phone: Start: 09-22-2024 Ecg routine ecg w/le ast 12 lds i&r only [facility] Provider Start: 05-05-2024 Hemoglobin A1c/Hemoglobin.total in Blood Logan Aquino MD Work Phone: Start: 05-05-2024 Adult depression scr eening assessment Logan Aquino MD Work Phone: Start: 01-10-2024 Ecg routine ecg w/le ast 12 lds w/i&r Bo Gee MD Work Phone: Start: 10-01-2023 Hemoglobin A1c/Hemoglobin.total in Blood Logan Aquino MD Work Phone: Start: 07-24-2023 Plain chest X-ray Dr. Elizabeth Aquino Work Phone: Start: 07-05-2023 Cardiovascular stres s test using pharmacologic stress agent Dr. Logan Aquino Work Phone: Start: 05-24-2023 Radiologic exam ches t 2 views Codi SullivanMiguel BIOPROCESS DEVELOPMENT ENGINEER.PETROLEUM ENGINEERING TEACHER Work Phone: Start: 05-24-2023 Ecg routine ecg w/le ast 12 lds i&r only [facility] Provider Start: 04-01-2023 INFLUENZA VACCINE, P RSV FREE, AGE 65+ YR, HIGH DOSE, QUADRIVALENT (FLUZONE HIGH-DOSE) Codi Larkin BIOPROCESS DEVELOPMENT ENGINEER.PETROLEUM ENGINEERING TEACHER Work Phone: Start: 09-18-2022 Lipid 1996 panel - S mima or Plasma Codi Older BIOPROCESS DEVELOPMENT ENGINEER.PETROLEUM ENGINEERING TEACHER Work Phone: Start: 07-02-2022 Level iv surg pathol ogy gross&microscopic exam Jl Hart MD Work Phone: Start: 07-02-2022 Colonoscopy flx dx w /collj spec when pfrmd Layne Silva PA-C Work Phone: Start: 07-02-2022 Colonoscopy Logan Doe MD Work Phone: Start: 03-23-2022 Adult depression scr eening assessment Logan Aquino MD Work Phone: Start: 12-19-2021 Plain x-ray of hand Start: 12-22-2020 Adult depression scr eening assessment Fouzia Smith Work Phone: Start: 09-24-2016 Colonoscopy Fouzia Jack freirenaresh Work Phone: Plan of Treatment Date Care Activity Detail Author Start: 12-20-2031 Urine microalbumin profile [facility] Start: 09-19-2027 Lipid 1996 panel - S mima or Plasma Lipid Screening [facility] Start: 09-19-2027 Lipid panel Lipid Screening [facility] Start: 09-19-2027 LIPID SCREEN LIPID SCREEN [facility] Start: 05-05-2027 Diabetes Screening Diabetes Screenin g [facility] Start: 09-30-2026 Diabetes Screening Diabetes Screenin g [facility] Start: 05-24-2026 Diabetes Screening Diabetes Screenin g [facility] Start: 03-31-2026 LIPID SCREEN LIPID SCREEN [facility] Start: 11-10-2025 Annual PCP Team Patrol Community Service Officer richard Disease Visit Annual PCP Team Chronic Disease Visit [facility] Start: 11-03-2025 Annual PCP Team Patrol Community Service Officer richard Disease Visit Annual PCP Team Chronic Disease Visit [facility] Start: 09-18-2025 DIABETES SCREEN DIABETES SCREEN [facility] Start: 09-18-2025 Diabetes Screening Diabetes Screenin g [facility] Start: 07-09-2025 Annual PCP Team Patrol Community Service Officer richard Disease Visit Annual PCP Team Chronic Disease Visit [facility] Start: 07-02-2025 Colonoscopy COLONOSCOPY [facility] Start: 07-02-2025 COLORECTAL CANCER SCREENING COLORECTAL CANCER SCREENING [facility] Start: 05-05-2025 Annual PCP Team Patrol Community Service Officer richard Disease Visit Annual PCP Team Chronic Disease Visit [facility] Start: 05-05-2025 Anxiety Screening Anxiety Screening [facility] Start: 05-05-2025 Depression Screening Depression Scre ening [facility] Start: 05-05-2025 End: 05-05-2025 Patient encounter procedure 05/05/2025 10:00 AM EDT Office Visit [facility] [address] [place] [address] Codi Rivera, BIOPROCESS DEVELOPMENT ENGINEER.PETROLEUM ENGINEERING TEACHER [address] [place] [address] MEDICARE EXAM [facility] [place] Comment on above: MEDICARE EXAM Start: 03-15-2025 Influenza vaccination Influenz a Vaccine (Season Ended) [facility] Start: 02-24-2025 BP Controlled (<130/80) BP Controlle d (<130/80) [facility] Start: 01-23-2025 Annual PCP Team Patrol Community Service Officer richard Disease Visit Annual PCP Team Chronic Disease Visit [facility] Start: 01-23-2025 BP Controlled (<130/80) BP Controlle d (<130/80) [facility] Start: 01-20-2025 Annual PCP Team Patrol Community Service Officer richard Disease Visit Annual PCP Team Chronic Disease Visit [facility] Start: 01-18-2025 End: 01-18-2025 Patient encounter procedure 01/18/2025 8:30 AM EDT Office Visit Podiatry [address] [place] [address] Fouzia Smith [address] [address] 3 mo follow up Podiatry Comment on above: 3 mo follow up Start: 01-12-2025 End: 01-12-2025 Patient encounter procedure 01/12/2025 10:30 AM EDT Office Visit Vascular Surgery [address] [place] [address] Karyna Corona, DO [address] [place], [place] [id number] 3 month follow up Vascular Surgery Comment on above: 3 month follow up Start: 01-09-2025 BP Controlled (<130/80) BP Controlle d (<130/80) [facility] Start: 12-31-2024 Annual PCP Team Patrol Community Service Officer richard Disease Visit Annual PCP Team Chronic Disease Visit [facility] Start: 12-31-2024 BP Controlled (<130/80) BP Controlle d (<130/80) [facility] Start: 12-03-2024 End: 12-03-2024 Patient encounter procedure 12/03/2024 9:30 AM EDT Appointment Ambulatory Surgery [address] [place], [place] [id number] Jl Hart MD [address] [place] [address] Screen for colon cancer [Z12.11] Ambulatory Surgery Comment on above: Screen for colon can cer [Z12.11] Start: 11-12-2024 End: 11-12-2024 Patient encounter procedure 11/12/2024 11:30 AM EDT Appointment Radiology [address] [place], [place] [id number] Edema of left lower extremity [R60.0]; Pain in left lower leg [M79.662] Radiology Comment on above: Edema of left lower extremity [R60.0]; Pain in left lower leg [M79.662] Start: 11-11-2024 End: 11-11-2024 Patient encounter procedure 11/11/2024 7:30 AM EDT Appointment Ambulatory Surgery [address] [place], [place] [id number] Anamaria Valerio MD [address] [place], [place] [id number] Ambulatory Surgery Start: 11-03-2024 End: 02-02-2025 Basic metabolic 2000 panel - Serum or Plasma BASIC METABOLIC PANEL Lab Routine Impaired fasting glucose Expected: 11/03/2024, Expires: 02/02/2025 [facility] Work Phone: Comment on above: Expected: 11/03/2024 , Expires: 02/02/2025 Start: 11-03-2024 End: 02-02-2025 Hemoglobin A1c in Blood HEMOGLOBIN A1C Lab Routine Impaired fasting glucose Expected: 11/03/2024, Expires: 02/02/[address] [facility] Comment on above: Expected: 11/03/2024 , Expires: 02/02/2025 Start: 11-03-2024 End: 02-02-2025 Lipid 1996 panel - Serum or Plasma LIPID PANEL BASIC Lab Routine Essential hypertension with goal blood pressure less than 130/80 Expected: 11/03/2024, Expires: 02/02/[address] [facility] Comment on above: Expected: 11/03/2024 , Expires: 02/02/2025 Start: 11-03-2024 End: 11-03-2024 Patient encounter procedure 11/03/2024 8:40 AM EDT Office Visit [facility] [address] [place] [address] Logan Aquino MD [address] [place] [address] 6 month f/u [facility] Comment on above: 6 month f/u Start: 10-19-2024 End: 10-19-2024 Patient encounter procedure Podiatry Comment on above: 3 month follow up na il care Start: 10-06-2024 End: 10-06-2024 Patient encounter procedure Vasculary Surgery Comment on above: Secondary lymphedema [I89.0] follow up after test ing Start: 09-30-2024 Annual PCP Team Patrol Community Service Officer richard Disease Visit Annual PCP Team Chronic Disease Visit [facility] Start: 09-30-2024 BP Controlled (<130/80) BP Controlle d (<130/80) [facility] Start: 09-01-2024 End: 09-01-2024 Patient encounter procedure 09/01/2024 9:15 AM EST Office Visit Vascular Surgery [address] [place] [address] Karyna Corona, DO [address] [place] [address] 6 mo follow up Vascular Surgery Comment on above: 6 mo follow up Start: 08-08-2024 Annual PCP Team Patrol Community Service Officer richrad Disease Visit Annual PCP Team Chronic Disease Visit [facility] Start: 08-08-2024 BP Controlled (<130/80) BP Controlle d (<130/80) [facility] Start: 08-08-2024 Covid-19 Vaccine () Covid-19 Vaccine () [facility] Comment on above: Postponed from 03/15 (Declined at this time) Start: 07-20-2024 End: 07-20-2024 Patient encounter procedure Podiatry Comment on above: 3 month follow up na va care Start: 07-15-2024 Advance Directive Discussion Advance Directive Discussion [facility] Start: 06-19-2024 DIABETES SCREEN DIABETES SCREEN [facility] Start: 06-14-2024 Screening for malign ant neoplasm of colon Colorectal Cancer Screening [facility] Comment on above: Postponed from 03/18 (Declined at this time) Start: 05-24-2024 Annual PCP Team Patrol Community Service Officer richard Disease Visit Annual PCP Team Chronic Disease Visit [facility] Start: 05-24-2024 Creatinine measurement Serum Creatin ine [facility] Start: 05-05-2024 End: 05-05-2024 Patient encounter procedure 05/05/2024 9:20 AM EDT Office Visit [facility] [address] [place] [address] Logan Aquino MD [address] [place] [address] Annual Medicare Wellness w/4 month follow-up [facility] Comment on above: Annual Medicare Well ness w/4 month follow-up Start: 04-03-2024 End: 04-03-2024 Patient encounter procedure 04/03/2024 8:30 AM EDT Office Visit Podiatry [address] [place] [address] Fouzia mSith [address] [place] [address] 3 mo follow up Podiatry Comment on above: 3 mo follow up Start: 04-01-2024 Annual PCP Team Patrol Community Service Officer richard Disease Visit Annual PCP Team Chronic Disease Visit [facility] Start: 04-01-2024 Shingrix Vaccine (1 of 2) Harris grix Vaccine (1 of 2) [facility] Comment on above: Postponed from 03/18 (Declined at this time) Start: 2024 RSV Vaccine (1 - 1-d ose 75+ series) RSV Vaccine (1 - 1-dose 75+ series) [facility] Start: 03-15-2024 Covid-19 Vaccine ( season) Covid-19 Vaccine ( season) [facility] Start: 03-15-2024 Covid-19 Vaccine ( season) Covid-19 Vaccine ( season) [facility] Start: 03-15-2024 Influenza vaccination Influenza Vacc ine (#1) [facility] Start: 02-25-2024 End: 02-25-2024 Patient encounter procedure 02/25/2024 9:15 AM EDT Office Visit Vascular Surgery [address] [facility] [place] [address] Karyna Corona, DO [address] [place] [address] 3 mo follow up Vascular Surgery Comment on above: 3 mo follow up Start: 01-30-2024 BP CONTROLLED (<130/80) BP CONTROLLE D (<130/80) [facility] Start: 01-24-2024 End: 01-24-2024 Patient encounter procedure 01/24/2024 7:40 AM EDT Office Visit [facility] [address] [place], [place] [id number] Codi Rivera, BIOPROCESS DEVELOPMENT ENGINEER.PETROLEUM ENGINEERING TEACHER [address] [place] [address] Wound check [facility] Comment on above: Wound check Start: 01-10-2024 End: 01-10-2024 Patient encounter procedure 01/10/2024 8:20 AM EDT Office Visit [facility] [address] [place], [place] [address] Bo Gee MD [address] [place] [id number] Ref; [facility]G for unspec afibEKG/eo [facility] Comment on above: Ref; WHG for unspec afibEKG/eo Start: 01-01-2024 End: 04-01-2024 Comprehensive metabolic 2000 panel - Serum or Plasma COMP METABOLIC PANEL Lab Routine Impaired fasting glucose Expected: 01/01/2024, Expires: 04/01/2024 [facility] Work Phone: Comment on above: Expected: 01/01/2024 , Expires: 04/01/2024 Start: 01-01-2024 End: 04-01-2024 Hemoglobin A1c in Blood HGB A1C Lab Routine Impaired fasting glucose Expected: 01/01/2024, Expires: 04/01/2024 [facility] Work Phone: Comment on above: Expected: 01/01/2024 , Expires: 04/01/2024 Start: 01-01-2024 End: 04-01-2024 Lipid 1996 panel - Serum or Plasma LIPID PANEL BASIC Lab Routine Coronary artery disease involving [place] coronary artery of [place] heart without angina pectoris Expected: 01/01/2024, Expires: 04/01/2024 [facility] Work Phone: Comment on above: Expected: 01/01/2024 , Expires: 04/01/2024 Start: 01-01-2024 End: 01-01-2024 Patient encounter procedure 01/01/2024 8:00 AM EDT Office Visit Internal [facility] [address] [place] [address] Logan Aquino MD [address] [place], [place] [id number] 3 month follow-up [facility] Comment on above: 3 month follow-up Start: 12-24-2023 End: 12-24-2023 Patient encounter procedure 12/24/2023 8:45 AM EDT Office Visit Podiatry [address] [place] [address] Fouzia Smith [address] [place] [address] 3 month follow up nail care Podiatry Comment on above: 3 month follow up na il care Start: 12-13-2023 ANNUAL PCP TEAM DISTRIBUTOR CLEANER RICHARD DISEASE VISIT ANNUAL PCP TEAM CHRONIC DISEASE VISIT [facility] Start: 12-13-2023 BP CONTROLLED (<130/80) BP CONTROLLE D (<130/80) [facility] Start: 11-08-2023 ANNUAL PCP TEAM DISTRIBUTOR CLEANER RICHARD DISEASE VISIT ANNUAL PCP TEAM CHRONIC DISEASE VISIT [facility] Start: 11-01-2023 ANNUAL PCP TEAM DISTRIBUTOR CLEANER RICHARD DISEASE VISIT ANNUAL PCP TEAM CHRONIC DISEASE VISIT [facility] Start: 09-21-2023 ANNUAL PCP TEAM DISTRIBUTOR CLEANER RICHARD DISEASE VISIT ANNUAL PCP TEAM CHRONIC DISEASE VISIT [facility] Start: 09-19-2023 Hepatitis B surface antibody level LDL Cholesterol [facility] Start: 08-03-2023 Patient discharge [facility] Start: 08-02-2023 Following clinical p athway protocol [facility] Start: 08-02-2023 Patient referral [facility] Work Phone: Start: 08-02-2023 Admission procedure [facility] Start: 08-02-2023 Assessment of risk o f venous thromboembolism [facility] Start: 08-02-2023 Insertion of cathete r into peripheral vein [facility] Start: 08-02-2023 Measuring intake and output [facility] Start: 08-02-2023 Providing care accor ding to standard [facility] Start: 08-02-2023 End: 08-02-2023 [facility] Start: 08-02-2023 Notification of physician [facility] Start: 08-02-2023 Oxygen therapy [facility] Start: 08-02-2023 Taking patient vital signs [facility] Start: 08-02-2023 Vascular disease ris k assessment [facility] Start: 08-02-2023 Vital signs measurements [facility] Start: 08-02-2023 End: 08-02-2023 [facility] Start: 08-02-2023 Cardiac monitoring [facility] Start: 08-02-2023 Cardiac rehabilitati on - phase 1 [facility] Start: 08-02-2023 Patient discharge [facility] Start: 08-02-2023 Systemic arterial pr essure monitoring [facility] Start: 07-15-2023 Advance Directive Discussion Advance Directive Discussion [facility] Start: 07-15-2023 Behavioral Health Screening Behavioral Health Screening [facility] Start: 07-15-2023 Depression Assessment Depression Ass essment [facility] Start: 07-02-2023 Colonoscopy COLONOSCOPY [facility] Start: 07-02-2023 COLORECTAL CANCER SCREENING COLORECTAL CANCER SCREENING [facility] Start: 07-02-2023 Screening for malign ant neoplasm of colon [facility] Start: 05-24-2023 End: 08-23-2023 CBC W Auto Differential panel - Blood [facility] Work Phone: Comment on above: Expected: 05/24/2023 , Expires: 08/23/2023 Start: 05-24-2023 End: 08-23-2023 Comprehensive metabolic 2000 panel - Serum or Plasma [facility] Work Phone: Comment on above: Expected: 05/24/2023 , Expires: 08/23/2023 Start: 05-24-2023 End: 08-23-2023 Natriuretic peptide.B prohormone N-Terminal [Mass/volume] in Serum or Plasma [facility] Work Phone: Comment on above: Expected: 05/24/2023 , Expires: 08/23/2023 Start: 05-24-2023 End: 08-23-2023 Thyrotropin [Units/volume] in Serum or Plasma [facility] Work Phone: Comment on above: Expected: 05/24/2023 , Expires: 08/23/2023 Start: 03-23-2023 Adult depression scr eening assessment DEPRESSION SCREENING [facility] Start: 09-09-2023 ANNUAL PCP TEAM DISTRIBUTOR CLEANER RICHARD DISEASE VISIT ANNUAL PCP TEAM CHRONIC DISEASE VISIT [facility] Start: 03-23-2023 End: 05-23-2023 Basic metabolic 2000 panel - Serum or Plasma BASIC METABOLIC PNL Lab Routine Impaired fasting glucose Expected: 03/23/2023, Expires: 05/23/2023 [facility] Work Phone: Comment on above: Expected: 03/23/2023 , Expires: 05/23/2023 Start: 03-23-2023 End: 05-23-2023 Hemoglobin A1c in Blood HGB A1C Lab Routine Impaired fasting glucose Expected: 03/23/2023, Expires: 05/23/2023 [facility] Work Phone: Comment on above: Expected: 03/23/2023 , Expires: 05/23/2023 Start: 03-15-2023 Covid-19 Vaccine ( season) Covid-19 Vaccine () [facility] Start: 03-15-2023 Influenza vaccination INFLUENZA (#1) [facility] Start: 01-26-2023 ANNUAL PCP TEAM DISTRIBUTOR CLEANER RICHARD DISEASE VISIT ANNUAL PCP TEAM CHRONIC DISEASE VISIT [facility] Start: 01-11-2023 Influenza vaccination INFLUENZA (#1) [facility] Comment on above: Postponed from 03/15 (Declined at this time) Start: 12-27-2022 ANNUAL PCP TEAM DISTRIBUTOR CLEANER RICHARD DISEASE VISIT ANNUAL PCP TEAM CHRONIC DISEASE VISIT [facility] Start: 12-27-2022 BP CONTROLLED (<130/80) BP CONTROLLE D (<130/80) [facility] Start: 09-20-2022 ANNUAL PCP TEAM DISTRIBUTOR CLEANER RICHARD DISEASE VISIT ANNUAL PCP TEAM CHRONIC DISEASE VISIT [facility] Start: 09-20-2022 SHINGRIX VACCINE (1 of 2) HARRIS GRIX VACCINE (1 of 2) [facility] Comment on above: Postponed from 03/18 (Declined at this time) Start: 09-20-2022 Urine microalbumin profile DTA P,TDAP,TD (2 - Td or Tdap) [facility] Comment on above: Postponed from 08/01 (Declined at this time) Start: 09-17-2022 End: 11-17-2022 Comprehensive metabolic 2000 panel - Serum or Plasma COMP METABOLIC PANEL Lab Routine Hyperlipidemia, unspecified hyperlipidemia type Expected: 09/17/2022, Expires: 11/17/2022 [facility] Work Phone: Comment on above: Expected: 09/17/2022 , Expires: 11/17/2022 Start: 09-17-2022 End: 11-17-2022 Hemoglobin A1c in Blood HGB A1C Lab Routine Impaired fasting glucose Expected: 09/17/2022, Expires: 11/17/2022 [facility] Work Phone: Comment on above: Expected: 09/17/2022 , Expires: 11/17/2022 Start: 09-17-2022 End: 11-17-2022 Lipid 1996 panel - Serum or Plasma LIPID PANEL BASIC Lab Routine Hyperlipidemia, unspecified hyperlipidemia type Expected: 09/17/2022, Expires: 11/17/2022 [facility] Work Phone: Comment on above: Expected: 09/17/2022 , Expires: 11/17/2022 Start: 08-28-2022 COVID-19 VACCINE (6 - Moderna series) COVID-19 VACCINE (6 - Moderna series) [facility] Start: 07-15-2022 ADVANCE DIRECTIVE DISCUSSION ADVANCE DIRECTIVE DISCUSSION [facility] Start: 07-15-2022 DEPRESSION ASSESSMENT DEPRESSION ASS ESSMENT [facility] Start: 03-23-2022 End: 05-23-2022 CBC panel - Blood by Automated count CBC Lab Routine Essential hypertension with goal blood pressure less than 130/80 Expected: 03/23/2022, Expires: 05/23/2022 [facility] Work Phone: Comment on above: Expected: 03/23/2022 , Expires: 05/23/2022 Start: 03-23-2022 End: 05-23-2022 Comprehensive metabolic 2000 panel - Serum or Plasma COMP METABOLIC PANEL Lab Routine Hyperlipidemia, unspecified hyperlipidemia type Expected: 03/23/2022, Expires: 05/23/2022 [facility] Work Phone: Comment on above: Expected: 03/23/2022 , Expires: 05/23/2022 Start: 03-23-2022 End: 05-23-2022 Hemoglobin A1c in Blood HGB A1C Lab Routine Impaired fasting glucose Expected: 03/23/2022, Expires: 05/23/2022 [facility] Work Phone: Comment on above: Expected: 03/23/2022 , Expires: 05/23/2022 Start: 03-23-2022 End: 05-23-2022 Lipid 1996 panel - Serum or Plasma LIPID PANEL BASIC Lab Routine Hyperlipidemia, unspecified hyperlipidemia type Expected: 03/23/2022, Expires: 05/23/2022 [facility] Work Phone: Comment on above: Expected: 03/23/2022 , Expires: 05/23/2022 Start: 03-15-2022 Influenza vaccination INFLUENZA (#1) [facility] Start: 03-08-2022 COVID-19 VACCINE (5 - Booster for Moderna series) COVID-19 VACCINE (5 - Booster for Moderna series) [facility] Start: 12-22-2021 Adult depression scr eening assessment DEPRESSION SCREENING [facility] Start: 09-11-2021 COVID-19 VACCINE (4 - Booster for Moderna series) COVID-19 VACCINE (4 - Booster for Moderna series) [facility] Start: 07-15-2021 DEPRESSION ASSESSMENT DEPRESSION ASS ESSMENT [facility] Start: 04-25-2021 BP CONTROLLED (<130/80) BP CONTROLLE D (<130/80) [facility] Start: 09-25-2019 Colonoscopy COLONOSCOPY [facility] Start: 09-25-2019 COLORECTAL CANCER SCREENING COLORECTAL CANCER SCREENING [facility] Start: 2009 RSV Vaccine (1 - 1-d ose 60+ series) RSV Vaccine (1 - 1-dose 60+ series) [facility] Start: 1999 SHINGRIX VACCINE (1 of 2) HARRIS GRIX VACCINE (1 of 2) [facility] Start: 1994 COLOGUARD (FIT-DNA) COLOGUARD (FIT-D NA) [facility] Start: [address] COLONOGRAPHY [facility] Start: 1994 FECAL OCCULT BLOOD FECAL OCCULT BLOO D [facility] Start: 1994 Screening for malign ant neoplasm of colon [facility] Start: 1994 SIGMOIDOSCOPY SIGMOIDOSCOPY [facility] Start: 1967 Anxiety Screening Anxiety Screening [facility] Start: 1967 Depression Screening Depression Scre ening [facility] Catheterization of l eft heart [facility] ECG COMPLETE [facility] Work Phone: Comment on above: Ordered: 05/24/2023 ECG COMPLETE [facility] Comment on above: Ordered: 09/22/2024 End: 05-24-2024 Echocardiography ECHO Cardiology Routine Chest pain, unspecified type Shortness of breath 1 Occurrences starting 05/24/2023 until 05/24/2024 [facility] Work Phone: Comment on above: 1 Occurrences starti ng 05/24/2023 until 05/24/2024 End: 06-22-2024 NM CARDIAC PERF STRESS/EXERCISE NM CARDIAC PERF STRESS/EXERCISE Radiology Routine Chest pain, unspecified type Shortness of breath 1 Occurrences starting 05/24/2023 until 06/22/2024 [facility] Work Phone: Comment on above: 1 Occurrences starti ng 05/24/2023 until 06/22/2024 End: 07-09-2024 NM CARDIAC PERF STRESS/PHARM NM CARDIAC PERF STRESS/PHARM Radiology Routine Chest pain, unspecified type Shortness of breath Abnormal EKG 1 Occurrences starting 06/10/2023 until 07/09/2024 [facility] Work Phone: Comment on above: 1 Occurrences starti ng 06/10/2023 until 07/09/2024 Patient Education ED Dog Bite ED Laceration, Hand: All Closures [facility] Work Phone: Patient referral [facility] Work Phone: End: 01-30-2024 PVR ANK PRESS [facility] PVR ANK PRESS [facility] Vascular Lab Routine Diminished pulse 1 Occurrences starting 01/29/2023 until 01/30/2024 [facility] Work Phone: Comment on above: 1 Occurrences starti ng 01/29/2023 until 01/30/2024 End: 06-22-2024 Radiologic exam chest 2 views XR CHEST 2V FRONTAL/LAT Radiology Routine Chest pain, unspecified type Shortness of breath 1 Occurrences starting 05/24/2023 until 06/22/2024 [facility] Work Phone: Comment on above: 1 Occurrences starti ng 05/24/2023 until 06/22/2024 Radiologic exam ches t 2 views XR CHEST 2V FRONTAL/LAT Radiology Routine Chest pain, unspecified type Shortness of breath 05/24/2023 9:26 AM EST [facility] Work Phone: Removal impacted cer umen irrigation/lvg unilat AMBULATORY EAR LAVAGE/IRRIGATION Procedures Routine Bilateral impacted cerumen Ordered: 09/20/2022 [facility] Work Phone: Comment on above: Ordered: 09/20/2022 End: 04-11-2023 Screening colonoscopy COLONOSCOPY SCREENING Endoscopy Routine History of colon polyps 1 Occurrences starting 04/11/2022 until 04/11/2023 [facility] Work Phone: Comment on above: 1 Occurrences starti ng 04/11/2022 until 04/11/2023 End: 09-22-2025 Screening colonoscopy COLONOSCOPY SCREENING Endoscopy Routine Screen for colon cancer History of colonic polyps 1 Occurrences starting 09/22/2024 until 09/22/2025 [facility] Work Phone: Comment on above: 1 Occurrences starti ng 09/22/2024 until 09/22/2025 End: 11-10-2025 US Lower extremity vein US LEG VEIN DVT [facility] Vascular Lab STAT Edema of left lower extremity Pain in left lower leg 1 Occurrences starting 11/10/2024 until 11/10/[address] [facility] Comment on above: 1 Occurrences starti ng 11/10/2024 until 11/10/2025 End: 12-10-2025 US Lower extremity vein - left US DVT LOWER LEFT Radiology STAT Edema of left lower extremity Pain in left lower leg 1 Occurrences starting 11/10/2024 until 12/10/[address] [facility] Comment on above: 1 Occurrences starti ng 11/10/2024 until 12/10/2025 End: 09-01-2025 US Vein - bilateral US VENOUS INCOMPETENCY [facility] Vascular Lab Routine Secondary lymphedema Venous (peripheral) insufficiency Varicose veins of both lower extremities, unspecified whether complicated 1 Occurrences starting 09/01/2024 until 09/01/2025 [facility] Work Phone: Comment on above: 1 Occurrences starti ng 09/01/2024 until 09/01/2025 End: 01-30-2024 US VENOUS INCOMPETENCY [facility] US VENOUS INCOMPETENCY [facility] Vascular Lab Routine Varicose veins of both lower extremities, unspecified whether complicated 1 Occurrences starting 01/29/2023 until 01/30/2024 [facility] Work Phone: Comment on above: 1 Occurrences starti ng 01/29/2023 until 01/30/2024 End: 12-10-2025 XR Knee - left 4 Views XR KNEE GENERAL 4V AP BOTH/PA BOTH/LAT/MERC LEFT Radiology Routine Acute pain of left knee 1 Occurrences starting 11/10/2024 until 12/10/2025 [facility] Work Phone: Comment on above: 1 Occurrences starti ng 11/10/2024 until 12/10/2025 XR Knee - left 4 Views XR KNEE G ENERAL 4V AP BOTH/PA BOTH/LAT/MERC LEFT Radiology Routine Acute pain of left knee 11/10/2024 2:09 PM EDT [facility] Immunizations Immunization Date Immunization Notes Care Provider Sara baeza 04-01-2023 influenza (HD-IIV4) vaccine, age 65+ yr, high dose, quadrivalent, PF (FLUZONE HIGH-DOSE) Codi Older BIOPROCESS DEVELOPMENT ENGINEER.PETROLEUM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 difficulty urinating and dysuria. 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) Benign Neoplasm of Colon Alcohol Abuse, in Remission Essential Hypertension With Goal Blood Pressure Less Than 130/80 Bmi 39.0-39.9,Adult Edema Hyperlipidemia Impaired Fasting Glucose Numbness and Tingling of Both Feet Toenail Deformity Chronic Venous Hypertension W Ulceration (Hcc) Secondary Lymphedema Stented Coronary Artery Coronary Artery Disease Involving [place] Coronary Artery of [place] Heart Without Angina Pectoris Social History Tobacco Use Smoking status: Never Smokeless tobacco: Never Vaping Use Vaping Use: Never used Substance Use Topics Alcohol use: Not Currently Drug use: No Current Outpatient Medications Medication Sig spironolactone (ALDACTONE) 25 mg tablet Take 1 tablet by mouth once daily. ASPIRIN ORAL Take 81 mg by mouth once daily. potassium chloride ER (KLOR-CON) 20 mEq tablet Take 1 tablet by mouth every afternoon. ticagrelor (BRILINTA) 90 mg tablet Take 90 mg by mouth two times a day. atorvastatin (LIPITOR) 20 mg tablet Take 1 tablet by mouth daily at bedtime. For cholesterol. ipratropium bromide (ATROVENT) 42 mcg (0.06 %) nasal spray Use 2 Sprays in the nose three times a day as needed (nasal congestion). carvedilol (COREG) 25 mg tablet Take 1 tablet by mouth twice daily. losartan (COZAAR) 100 mg tablet Take 1 tablet by mouth once daily. (Patient taking differently: Take 50 mg by mouth once daily.) furosemide (LASIX) 40 mg tablet Take 1 tablet by mouth every afternoon. (Patient taking differently: Take 20 mg by mouth every afternoon.) CPAP Pressure changed in office (6-13 cm H2O) Mask (per patient preference), send filters, optional chin strap (if indicated), filters, tubing / heated tubing, heated humidity and lifetime supplies. Dx. ALEX G47.33 327.23 [facility] [employer] [facility] No current facility-administered medications for this visit. Objective Blood Pressure 110/72 (BP Site: Left Arm, BP Position: Sitting, BP Cuff Size: Large Adult) Pulse 80 Respiration 16 Weight 132 kg (291 lb) Body Mass Index 39.47 kg/m Physical Exam Constitutional: General: He is not in acute distress. Appearance: He is not ill-appearing or diaphoretic. HENT: Head: Normocephalic. Eyes: Conjunctiva/sclera: Conjunctivae normal. Cardiovascular: Rate and Rhythm: Normal rate and regular rhythm. Heart sounds: No murmur heard. No gallop. Pulmonary: Effort: No respiratory distress. Breath sounds: No wheezing or rales. Musculoskeletal: Right lower le+ Pitting Edema present. Left lower le+ Pitting Edema present. Skin: Comments: No venous ulcers. Neurological: Mental Status: He is alert. Latest Ref Rng 10/01/2023 Hemoglobin A1C (POCT) 4.3 - 5.6 % 6.4 ! Legend: ! Abnormal Assessment and Plan 1. Coronary artery disease involving [place] coronary artery of [place] heart without angina pectoris - ICD9: 414.01, ICD10: I25.10 (primary diagnosis) - Continue cardiac rehab. - LIPID PANEL BASIC 2. Essential hypertension with goal blood pressure less than 130/80 - ICD9: 401.9, ICD10: I10 - Controlled - LOSARTAN 100 MG TABLET - FUROSEMIDE 40 MG TABLET 3. Stented coronary artery - ICD9: V45.82, ICD10: Z95.5 Stablel 4. Impaired fasting glucose - ICD9: 790.21, ICD10: R73.01 Closer to diabetes mellitus. Low carb diet. Recheck in 3 months. - HEMOGLOBIN A1C (POC) - COMP METABOLIC PANEL - HGB A1C Logan Aquino MD documented in this encounter [facility] 09-16-2023 History of Presen t illness Narrative Subjective: Patient presents to clinic c/o painful toenails. They state that the nails are especially painful with shoe gear and pressure. Patient states that nails b/l hallux are painful. No other pedal complaints at this time. Patient states no change in medications or medical history since last visit. Objective: Patient presents to clinic ambulating in [facility] Vasc: DP and PT pulses [...] Debridement of Nail documented in this encounter [facility] 08-02-2023 Evaluation note Diagnosis Onset Date Hypertension chronic Chest pain resolved SOB (shortness of breath) re solved Hyperlipidemia acute Stented coronary artery August 02, 2023 acute Hypertension [facility] Work Phone: 1(192) 785-963401-19-2024 Evaluation note* Diagnosis Onset Date Resolution Status Hypertension chronic Chest pain resolved SOB (shortness of breath) re solved Hyperlipidemia acute Stented coronary artery August 02, 2023 acute Hypertension chronic Hyperlipidemia acute Stented coronary artery August 02, 2023 acute Hypertension [facility] Work Phone: 1(802) 541-732001-19-2024 Evaluation note* Diagnosis Onset Date Resolution Status Hyperlipidemia acute Stented coronary artery August 02, 2023 acute Hypertension chronic Hyperlipidemia acute Stented coronary artery August 02, 2023 acute Hypertension [facility] Work Phone: 1(966) 187-224511-28-2023 History of Present illness Narrative* Fouzia Smith - 06/11/2023 8:10 AM EST Subjective: Patient presents to clinic c/o painful [...] toes when tested with the 5.07 SWM bilateral.Vibratory sensation is decreased at the hallux IPJ [...] is to RTC in 3-4 months. Fouzia Simth DPM * Marguerite Geronimo LPN - 06/11/2023 8:07 AM EST AMB ROOMING INTAKE FLOWSHEET DATA Pain Pain Level: 4 Pain Location: Toe Description: Aching Duration Amount of Time: 1 Duration Units: Weeks Frequency: Intermittent Intervention/Comfort measure: Reposition, Relaxation Patient presents with: Left Foot - Established Patient, nail care Right Foot - nail care , Established Patient Marguerite Geronimo LPN documented [facility] Miscellaneous Notes* Telephone Encounter - Jose Miguel Hernandez Ma - 06/10/2023 1:45 PM EST Faxed to [facility] as requested. External referral placed. * Telephone Encounter - Codi Larkin APRN.CNP - 06/10/2023 1:11 PM EST Please fax orders for stress test to [facility]. Will hold off on canceling stress test with [facility] until he is scheduled at [facility]. Codi Larkin APRN.MELINDA documented in this encounterMer[facility]23 Miscellaneous Notes* Telephone Encounter - Rea Paez OCCA - 05/30/2023 11:43 AM EST Forms signed and faxed to Daksha at [employer] at [phone]. Transmission complete. Encounter closed. GARY Dubon * Telephone Encounter - Rea Paez OCCA - 05/30/2023 10:44 AM EST Type of form: [employer] Prescription Form received via fax When form is completed, Fax form to [employer] at [phone] Form has been forwarded to GARY Mendoza documented in this encounterMer[facility] History of Present illness Narrative* Dia Tran RT(R) - 05/24/2023 9:50 AM EST Radiology Service Progress Note PATIENT NAME: Kimberly Chan DATE OF SERVICE: May 24, 2023 TIME: 9:17 AM PATIENT IDENTITY VERIFICATION COMPLETED USING TWO (2) IDENTIFIERS: Name and Date of confirmedby patient verbally. FALL SCREENING: Has the patient [...] RT Fartun(R) May 24, 2023 9:17 AM documented in this encounterMer[facility] History of Present illness Narrative* Codi Larkin APRN.[employer]LE[employer] ENGINEERING TEACHER - 05/24/2023 8:38 AM EST CC: Patient presents with: Shortness of Breath [...] Negative for chills, diaphoresis, fever and unexpected weightchange. HENT: Negative. Respiratory: Negative for cough and [...] H2O) Mask (per patient preference), send filters, optionalchin strap (if indicated), filters, tubing / heated [...] NM CARDIAC PERF STRESS/EXERCISE - INSERT IV (ME,MD) - IV DISCONTINUE - COMP METABOLIC PANEL [...] NM CARDIAC PERF STRESS/EXERCISE - INSERT IV (ME,MD) - IV DISCONTINUE - COMP METABOLIC PANEL [...] Patient agreeable to treatment plan. Codi Larkin APRN.PETROLEUM ENGINEERING TEACHER documented in this encounterMer[facility]11-[facility]-2023 Miscellaneous Notes* Telephone Encounter - Analia Parry - 05/23/2023 10:02 AM EST Orders with clinical documents faxed to [employer] Transmission completed documented in this encounterMer[facility]11-07-[facility] History of Present illness Narrative* Karyna Corona, DO - 05/21/2023 10:49 AM EST Images from the original note were not included. [facility] [place] DEPARTMENT OF VASCULAR SURGERY OUTPATIENT VISIT DATE May 21, 2023 OUTPATIENT VISIT TYPE ESTABLISHED SERVICE DATE: 05/21/2023 SERVICE TIME: 10:56 AM PRIMARY CARE PHYSICIAN: Logan Aquino MD HISTORY OF PRESENT ILLNESS: Mr. Chan [...] H2O) Mask (per patient preference), send filters, optionalchin strap (if indicated), filters, tubing / heated [...] 2023 TIME: 10:56 AM documented in this encounterMer[facility]09[facility]23 Instructions* Patient Instructions* Codi Larkin APRN.PETROLE[employer] ENGINEERING TEACHER - 04/01/2023 12:44 PM EDT Screening schedule [...] review all the medicines you take, even [id number] medicines. As you get older, the way medicines work in your body can change. Some medicines, or combinations of medicines, can make you sleepy or dizzy andcan cause you to fall. 3. Have your [...] have certain medical conditions. documented in this encounterCleveland [id number] History of Present illness Narrative* Older, Codi, [place].PETROLEUM ENGINEERING TEACHER - 04/01/2023 12:42 PM EDT Kimberly Chan is a 73 year old male here for a Medicare wellness visit. Health Risk Assessment In general, health is: Very good Concerns with balance:rarely Concerns with teeth or dentures:Not at all Concerns with sexual function:Not at all [place] anxious, stressed, angry, irritable, lonely, isolated, or [...] Current care team: Patient Care Team: Logan Aquino MD as PCP - General (Internal Medicine) Vascular- Dr. Corona Podiatry- Dr. Smith Outside specialists seen: [facility] Medical/Family history review Reviewed and [...] with patient, and I recommended no further interventionat this time. Cognitive screening Mini Cog Score: [...] screening Codi Larkin APRN.MELINDA documented in this encounterMer[facility]09-[facility]-2023 Miscellaneous Notes* Telephone Encounter - Lilli Vickers LPN - 03/20/2023 2:23 PM EDT Last office visit: 12/12/22 Next appointment scheduled: 04/01/23 Last labs: 09/18/22 Patient phones requesting refills as follows: Requested Prescriptions Pending Prescriptions Disp Refills losartan (COZAAR) 100 mg tablet 90 tablet 3 Sig: Take 1 tablet by mouth once daily. Please review and advise. Lilli Vickers LPN documented in this encounterMer[facility]09-06-2023 Miscellaneous Notes* Telephone Encounter - Lilli Vickers LPN - 03/20/2023 2:22 PM EDT Last office visit: 12/12/22 Next appointment scheduled: 04/01/23 Last labs: 09/18/22 Patient phones requesting refills as follows: Requested Prescriptions Pending Prescriptions Disp Refills ibuprofen (MOTRIN) 600 mg tablet 30 tablet 5 Sig: Take 1 tablet by mouth every 8 hours as needed for pain. Lilli Vickers LPN documented in this encounterMer[facility]08-22-[facility]23 History of Present illness Narrative* Fouzia Smith - 03/05/2023 8:02 AM EDT Subjective: Patient presents to clinic c/o painful toenails. They state that the nails are especially painful with shoe gear and pressure. Patient states that nails 1-5 b/l are painful. No other pedal complaints at this time. Patient states no change in medications or medical history since last visit. Objective: [facility] Vasc: DP and PT pulses are palpable bilateral. CFT is less than 5 seconds bilateral. Skin temperature is warm to cool proximal to distal bilateral. There is mild edema or varicosities noted. Neuro: Protective sensation is intact to the foot and toes when tested with the 5.07 SWM bilateral.Vibratory sensation is intact at the hallux IPJ bilateral. The hallux is downgoing bilateral. Derm: Nails 1-5 b/l are incurvated, painful, discolored-yellow, thick, crumbly, dystrophic and withsubungal debris. Skin is of normal turgor, texture [...] RTC in 3-4 months. Fouzia Smith DPM * Daksha Feliciano - 03/05/2023 7:58 AM EDT Patient presents with: Left Foot - Established Patient: Nail care Right Foot - Established Patient: Nail care Patient reports no pain at this time. He states his feet are still swelling. documented in this encounterMer[facility]07-18-2023 History of Present illness Narrative* Karyna Corona Nicko, DO - 01/29/2023 8:28 AM EDT Images from the original note were not included. [facility] [place] DEPARTMENT OF VASCULAR SURGERY OUTPATIENT VISIT DATE January 29, 2023 OUTPATIENT VISIT TYPE CONSULTATION SERVICE DATE: 01/29/2023 SERVICE TIME: 8:36 AM PRIMARY CARE PHYSICIAN: Logan Aquino MD REFERRING PROVIDER: Thais Silva [address] [place] [address] Consult requested for an opinion regarding the [...] H2O) Mask (per patient preference), send filters, optionalchin strap (if indicated), filters, tubing / heated [...] 2023 TIME: 8:36 AM documented in this encounterMer[facility]. [facility]05-31-[facility]23 History of Present illness Narrative* Thais Silva APRN.PETROLE[employer] ENGINEERING TEACHER - 12/12/2022 10:06 AM EDT SUBJECTIVE Kimberly Chan is a 72 year old male here today for acute concern. Chief Complaint Patient presents with: Edema: bilateral leg swelling on going for awhile with itching lower legs are red but not warm to touch HPI Kimberly Chan is a 72 year old male established patient of Logan Aquino MD who presents today acutely for concerns of noticing increased edema in both legs, has been on going. Swelling has been on going for years but lately worse. Lower legs are red but not warm to touch. Taking lasix daily, some days it helps but others it is not as helpful. Has tried compression but having issues with s uperficial skin ulcers and compression makes it hard [...] H2O) Mask (per patient preference), send filters, optionalchin strap (if indicated), filters, tubing / heated tubing, heated humidity and lifetime supplies. Dx. ALEX G47.33 327.23 HAI Acosta No current facility-administered medications for this visit. ALLERGIES No Known Allergies ACTIVE PROBLEM LIST Chronic Venous Hypertension W Ulceration ([facility]) - 11/30/2022 Numbness and Tingling of Both Feet - 06/22/2021 Toenail Deformity - 06/22/2021 Nasal sinus congestion, nocturnal - 07/09/2018 Alcohol-Induced Insomnia ([facility]) - 05/15/2018 Impaired Fasting Glucose - 12/03/2017 Hyperlipidemia - 06/03/2017 Edema - 08/27/2016 Essential Hypertension With Goal Blood Pressure Less Than 130/80 - 11/03/2015 Bmi 39.0-39.9,Adult - 11/03/2015 Alcohol Abuse - 04/03/2012 Benign Neoplasm of Colon - 10/25/2010 ALEX (obstructive sleep apnea) not using CPAP - 08/01/2010 Comment: CLAUDIA Muir # [phone]------FAX# [phone] Chronic Rhinitis - 08/01/2010 Obesity, Class Iii, Bmi 40-49.9 (Morbid Obesity) ([facility]) - 08/01/2010 Social History Tobacco Use Smoking [...] given his persistent edema and developing venous stasisdermatitis and discoloration. He tries to avoid salt, limit alcohol and elevates lower extremities.Tried compression but caused issues. On lasix, will [...] from today's visit and in agreement with treatmentplan. Questions answered. Agrees to call the office if questions, concerns of issues with acute symptoms not improving or if they worsen. Return if symptoms worsen or fail to improve, for Keep next scheduled appointment.. KRISTAL Dumont documented in this encounterMer[facility]. [facility]04-26-2023 Instructions* Patient Instructions* Codi Larkin APRN.CNP - 11/07/2022 8:05 AM EDT Follow-up in 1-2 weeks if no improvement or sooner if there is any worsening documented in this encounterMercy Health St. [facility]04-26-2023 History of Present illness Narrative* Codi Larkin APRN.CNP - 11/07/2022 7:58 AM EDT CC: Patient presents with: 1 week follow up HPI Kimberly Chan is a 72 year old male who presents today for above. Patient was seen last week for ulcers to left calf and concerns for possible cellulitis. He was treated for venous stasis ulcer with Bactroban and venous stasis dermatitis. Today patient reports ulcers are healing, starting to scabover however still painful. Redness to bilateral lower [...] H2O) Mask (per patient preference), send filters, optionalchin strap (if indicated), filters, tubing / heated [...] plan. Codi Larkin APRN.CNP documented in this encounterMer[facility]. [facility]04-19-2023 Instructions* Patient Instructions* Codi Larkin APRN.CNP - 10/31/2022 9:21 AM EDT Wash with soap and water followed by SMALL AMOUNT antibiotic ointment and a clean dry gauze dressing Recheck wound as scheduled with office. If any unusual pain, swelling, red streaks, pus, fever or other signs of worsening infection, call immediately. documented in this encounterMercy Health St. [facility]04-19-2023 History of Present illness Narrative* Codi Larkin APRN.CNP - 10/31/2022 9:08 AM EDT Images from the original note were not included. CC: Patient presents with: sore on left leg x 10 days HPI Kimberly Chan is a 72 year old male who presents today for above. Patient reports redness to bothlower legs and small ulcers on the left lower leg x 10 days. Associated with mild discomfort and clear drainage. He has chronic edema and venous insufficiency, no worse than usual. He has not been able to wear compression hose on the left because it is too painful with the wound. He is feeling welloverall and denies fever, chills, body aches, malaise, [...] H2O) Mask (per patient preference), send filters, optionalchin strap (if indicated), filters, tubing / heated tubing, heated humidity and lifetime supplies. Dx. ALEX G47.33 327.23 [facility] [employer] [place] COMPOUNDED PRESCRIPTION KNEE HIGH COMPRESSION STOCKINGS 20-30 MM Hg. DX: EDEMA (Patient not taking:Reported on 09/20/2022) FAMILY HISTORY Problem Relation Age [...] plan. Codi Larkin APRN.CNP documented in this encounterMercy [facility]. [facility]03-[facility]23 History of Present illness Narrative* Dipti Ascencio LPN - 09/20/2022 9:19 AM EST Ambulatory Ear Lavage Pre-treatment: Warm water Treatment: Both ears Equipment and Irrigation solution and Volume used: Single use syringe with single use irrigation tip Return flow appearance: Brown, large amount Patient tolerated procedure: yes Post-treatment: Post Irrigation Post-treatment: Ear Canal/Tympanic membrane assessed by LIP Dr. Aquino * Logan Aquino MD - 09/20/2022 8:53 AM EST This note was created using PeopleJamriter. Subjective Kimbrely Chan is a 72 year old male. He was doing well. His hypertension was not at goal, but he took furosemide less often due to urgency. He often left early for work and returned home around noon. We reviewed his labs. He needed his ears flushed. He had fatigue with prolonged ambulation due tohis conditions and needed his handicap parking renewed. [...] H2O) Mask (per patient preference), send filters, optionalchin strap (if indicated), filters, tubing / heated tubing, heated humidity and lifetime supplies. Dx. ALEX G47.33 327.23 [employer] [place] furosemide (LASIX) 40 mg tablet Take 1 tablet by mouth once daily. (Patient taking differently: Take 40 mg by mouth once daily. Patient only taking as needed.) COMPOUNDED PRESCRIPTION KNEE HIGH COMPRESSION STOCKINGS 20-30 MM Hg. DX: EDEMA (Patient not taking:Reported on 09/20/2022) No current facility-administered medications for [...] with patient, and I recommended no further interventionat this time. Logan Aquino MD documented in this encounterMer[facility]03-09-2023 Instructions* Patient Instructions* Logan Aquino MD - 09/20/2022 9:05 AM EST Fasting blood work in 6 months. documented in [address] encounterMer[facility]. [facility]03-06-2023 Miscellaneous Notes* Telephone Encounter - Jose Miguel Hernandez Ma - 09/17/2022 9:44 AM EST Detailed message left for patient advising of fasting labs. * Telephone Encounter - Logan Aquino MD - 09/15/2022 12:38 PM EST Ordered, fasting. * Telephone Encounter - Peri Anna RN - 09/14/2022 8:14 AM EST Patient calls to report that he was going to have blood work done prior to appointment on 09/20/2022 but orders have . Patient reports orders were from appointment in March and in May 2022. Pended orders in OV note from 03/23/2022 with diagnosis. Patient requests a call back at [phone] once orders are placed. Please review and advise, Peri Anna RN documented in this encounterMer[facility]12-28-2022 History of Present illness Narrative* Layne Silva PA-C - 07/11/2022 11:32 AM EST In lieu of an in-person visit due to COVID-19 concerns, a distance visit was performed on the patient. Patient is aware that I am not fully able to assess symptoms and do a full physical examination including vital signs assessment at this time. Patient consents to this encounter. FOLLOW UP VISIT - ENDOSCOPY NAME: Kimberly Chan [facility] NO.: [id number] DATE OF SERVICE: 07/11/2022 : 1950 REFERRING PHYSICIAN: Logan Aquino MD Kimberly is a patient I am [...] with the patient, and the patient has hadthe opportunity to ask questions and have questions [...] the patient/family/caregiver, independently interpreting results (not separately r eported), and communicating results to the patient/family/caregiver. Layne Silva PA-C documented in this encounterMercy [facility]12-27-2022 Miscellaneous Notes* Telephone Encounter - Dipti Ascencio LPN - 07/10/2022 3:59 PM EST Patient has been identified by name and [...] you. Dipti Ascencio LPN documented in this encounterMercy [facility]. [facility]12-19-2022 Nurse Note* Nicole Cooney RN - 07/02/2022 11:07 AM EST Return from restroom, not a lot of air passed per patient report but denies abdominal pain. Pain quynh 2 or pain scale. Ambulated back to cot, will have snack. Reports pain is intermittent only. * Nicole Cooney RN - 07/02/2022 10:57 AM EST Ambulated patient to restroom with assist of one, will sit on toilet, elbows on knees and try to pass air rectally, abdomen remains firmly distended, no air has passed yet. * Nicole Cooney RN - 07/02/2022 10:30 AM EST Arrived in phase II via cart left lateral position, eyes open, skin warm and dry, respirations regular and unlabored. Abdomen is rounded and distended, patient reports is a 4-5 on pain scale, warm blanket applied to abdomen, continues to lay on left side, encouraged to pass air rectally as able. documented in this encounterMer[facility]12[facility] History and physical note * Jl Hart MD - 07/02/2022 10:15 AM EST Images from the original note were not included. HISTORY AND PHYSICAL Kimberly Chan 1950 REFERRING PHYSICIAN: Logan Aquino MD CHIEF COMPLAINT: Consult (Colonoscopy consult) HPI: The patient is a 72 year old male referred for endoscopy. Kimberly notes no colon complaints. Patient denies any change in bowel habits, weight changes, blood in stools, black tarry stools or abdominal pain. The patient notes no upper GI complaints. Kimberly has undergone prior endoscopy. Most recent colonoscopy 09/24/[address] Nobles with removal ofmultiple adenomatous polyps. Patient denies chest pain, shortness [...] H2O) Mask (per patient preference), send filters, optionalchin strap (if indicated), filters, tubing / heated [...] entered by the nurse and reviewed by ca Nursing Notes: Yuko Meraz RN 04/11/2022 8:44 AM Signed REVIEW OF SYSTEMS: General: The patient NOTES fatigue, denies weight loss, denies weight gain, denies feeling hot, anddenies feelings of cold. Eyes: The patient denies [...] failure, other cardiac issues, denies claudication, denies coldfeet, denies peripheral arterial stent. Respiratory: The patient [...] back pain/injury, denies back problems, denies sciatica, deniesknee/foot trouble, denies arthritis, or denies gout. When was patient's last Mammogram screening? N/A Last Colonoscopy: 09/28/2016 Yuko Meraz RN PHYSICAL EXAMINATION: General: The patient is 72 year old male, well nourished, well hydrated in no acute distress. The patient is oriented to time, place, and person. VITALS: Blood pressure 134/82, pulse 78, temperature 36.6 C (97.8 F), height 185.4 cm (6' 1), weight (!) 138 kg (304 lb 3.2 oz), SpO2 100 %. Body mass index is 40.13 kg/m . HEENT: Normal cephalic, ataumatic, pupils are equally round, sclera are anicteric, mucous membranesare moist, oropharynx is clear. Neck has no [...] Will plan for lower endoscopy. We discussed therisks and benefits of the planned endoscopy. I have informed the patient that complications can occur including failure to complete the endoscopy and perforation. The patient had the opportunity to ask questions concerning the planned endoscopy. My staff has also explained the procedure to the patient in understandable terms and has given the patient printed material concerning the procedure. Thepatient freely consents to surgery. The patient was offered a surgery/procedure at a [facility]. I have counseled the patient regarding [...] wishes. I have explained that with IV conscioussedation there is no anesthesia provider available and therefore there is a limitation of the amount of IV medications that can be given and that the patient may wake up in the middle of the procedure and/or experience pain/discomfort during the procedure. Further discussion was done and the patient was given the opportunity to ask questions and all questions were answered. The patient chooses IVconscious sedation- tolerated well previously Diagnoses: (Z86.010) History of colonic polyps (primary encounter diagnosis) (D12.6) Benign neoplasm of colon, unspecified part of colon (Z12.11) Encounter for screening for malignant neoplasm of colon Consultation requested by Dr. Aquino for an opinion regarding surveillance colonoscopy dye to personal history of polyps. My final recommendations will be communicated back to the requesting physician by way of shared Medical record or letter to requesting physician via US mail. aLyne Silva PA-C UPDATED HISTORY AND PHYSICAL EXAMINATION SERVICE DATE: 07/02/2022 SERVICE TIME: 10:00 AM PHYSICAL EXAM MUST BE COMPLETED ON ADMISSION The History and Physical (completed in the past 30 days) has been reviewed and the patient has beenexamined. The contents accurately reflect the patient's condition with the following additions or revisions since the H&P was completed. Examination indicates no changes. This H&P can be found in the attached. SIGNATURE: Jl Hart III, MD PATIENT NAME: Kimberly Chan DATE: July 02, 2022 TIME: 10:29 AM documented in this encounterMer[facility]12-16-2022 Miscellaneous Notes* Telephone Encounter - Lilli Vickers LPN - 06/29/2022 8:24 AM EST Last office visit: 03/23/22 Next appointment scheduled: 09/20/22 Last labs: 03/31/21 Patient phones requesting refills as follows: Requested Prescriptions Pending Prescriptions Disp Refills atorvastatin (LIPITOR) 10 mg tablet 90 tablet 3 Sig: Take 1 tablet by mouth daily at bedtime. For cholesterol. Please review and advise. Lilli Vickers LPN documented in this encounterMer[facility]11-07-2022 Miscellaneous Notes* Telephone Encounter - Steff Acosta - 05/21/2022 1:23 PM EST Per patient called and would like procedure moved from 05/28 to 07/02. Denied anything sooner * Telephone Encounter - Steff Acosta - 05/21/2022 1:12 PM EST Patient called in to reschedule procedure with Dr. Hart in [facility] on 05/28. Left voicemail to contact me directly at [phone] if wishes to proceed. Steff Acosta Library Information Technician * Telephone Encounter - Sue Simpson - 04/11/2022 9:14 AM EDT 05-28-[address] Hart AEC documented in this encounterMer[facility]10-28-2022 History of Present illness Narrative* Fouzia Smith - 05/11/2022 2:44 PM EDT Subjective: Patient presents to clinic c/o painful [...] toes when tested with the 5.07 SWM bilateral.The hallux is downgoing bilateral. Derm: Nails 1-5 [...] months. Fouzia Smith DPM documented in this encounterMercy [facility] St. [facility]10-04-2022 Miscellaneous Notes* Telephone Encounter - Paulo Dean LPN - 04/17/2022 10:28 AM EDT Patient has been identified by name and [...] Readings: Date: BP: 04/11/2022 134/82 Thank you. Paulo Dean LPN documented in this encounterMercy [facility] St. [facility]09-28-2022 History of Present illness Narrative* Layne Silva PA-C - 04/11/2022 8:42 AM EDT HISTORY AND PHYSICAL Kimberly Chan 1950 REFERRING PHYSICIAN: Logan Aquino MD CHIEF COMPLAINT: Consult (Colonoscopy consult) HPI: The patient is a 72 year old male referred for endoscopy. Kimberly notes no colon complaints. Patient denies any change in bowel habits, weight changes, blood in stools, black tarry stools or abdominal pain. The patient notes no upper GI complaints. Kimberly has undergone prior endoscopy. Most recent colonoscopy 09/24/[address] Nobles with removal ofmultiple adenomatous polyps. Patient denies chest pain, shortness [...] H2O) Mask (per patient preference), send filters, optionalchin strap (if indicated), filters, tubing / heated [...] entered by the nurse and reviewed by ca Nursing Notes: Yuko Meraz RN 04/11/2022 8:44 AM Signed REVIEW OF SYSTEMS: General: The patient NOTES fatigue, denies weight loss, denies weight gain, denies feeling hot, anddenies feelings of cold. Eyes: The patient denies [...] failure, other cardiac issues, denies claudication, denies coldfeet, denies peripheral arterial stent. Respiratory: The patient [...] back pain/injury, denies back problems, denies sciatica, deniesknee/foot trouble, denies arthritis, or denies gout. When was patient's last Mammogram screening? N/A Last Colonoscopy: 09/28/2016 Yuko Meraz RN PHYSICAL EXAMINATION: General: The patient is 72 year old male, well nourished, well hydrated in no acute distress. The patient is oriented to time, place, and person. VITALS: Blood pressure 134/82, pulse 78, temperature 36.6 C (97.8 F), height 185.4 cm (6' 1), weight (!) 138 kg (304 lb 3.2 oz), SpO2 100 %. Body mass index is 40.13 kg/m . HEENT: Normal cephalic, ataumatic, pupils are equally round, sclera are anicteric, mucous membranesare moist, oropharynx is clear. Neck has no [...] Will plan for lower endoscopy. We discussed therisks and benefits of the planned endoscopy. I have informed the patient that complications can occur including failure to complete the endoscopy and perforation. The patient had the opportunity to ask questions concerning the planned endoscopy. My staff has also explained the procedure to the patient in understandable terms and has given the patient printed material concerning the procedure. Thepatient freely consents to surgery. The patient was offered a surgery/procedure [facility]. I have counseled the patient regarding [...] wishes. I have explained that with IV conscioussedation there is no anesthesia provider available and therefore there is a limitation of the amount of IV medications that can be given and that the patient may wake up in the middle of the procedure and/or experience pain/discomfort during the procedure. Further discussion was done and the patient was given the opportunity to ask questions and all questions were answered. The patient chooses IVconscious sedation- tolerated well previously Diagnoses: (Z86.010) History of colonic polyps (primary encounter diagnosis) (D12.6) Benign neoplasm of colon, unspecified part of colon (Z12.11) Encounter for screening for malignant neoplasm of colon Consultation requested by Dr. Aquino for an opinion regarding surveillance colonoscopy dye to personal history of polyps. My final recommendations will be communicated back to the requesting physician by way of shared Medical record or letter to requesting physician via US mail. Layne Silva PA-C documented in this encounterMercy Health St. [facility]09-28-2022 Nurse Note* Yuko Meraz RN - 04/11/2022 8:41 AM EDT REVIEW OF SYSTEMS: General: The patient NOTES fatigue, denies weight loss, denies weight gain, denies feeling hot, anddenies feelings of cold. Eyes: The patient denies [...] failure, other cardiac issues, denies claudication, denies coldfeet, denies peripheral arterial stent. Respiratory: The patient [...] back pain/injury, denies back problems, denies sciatica, deniesknee/foot trouble, denies arthritis, or denies gout. When was patient's last Mammogram screening? N/A Last Colonoscopy: 09/28/2016 Yuko Meraz RN documented in this encounterMercy [facility]. [facility]09-20-2022 Miscellaneous Notes* Telephone Encounter - Dipti Ascencio LPN - 04/03/2022 4:16 PM EDT Order faxed to below number. Dipti Ascencio LPN * Telephone Encounter - Nimisha Sage RN - 04/02/2022 4:46 PM EDT DD reports they received order for the additional information on the compression stockings, but itwas not signed. Asking provider to sign and fax to them [phone] documented in [address]Mer[facility] [address]09-19-2022 Miscellaneous Notes* Telephone Encounter - Ynes Yuan RN - 04/02/2022 3:34 PM EDT [facility] calling to state they received compression stocking order for patient and they need additional information: Specify knee high, thigh high, or leggings. Specify what compression. Demographic info This information was faxed as requested tp FAX #: [phone]. Ynes Yuan RN documented in this encounterMercy Health St. [facility]09-19-2022 Miscellaneous Notes* Telephone Encounter - Rosalinda Atsudillo Cma - 04/02/2022 2:30 PM EDT Printed and faxed. Pt notified Rosalinda Astudillo Cma * Telephone Encounter - Codi Larkin APRN.CNP - 04/02/2022 7:47 AM EDT Print order from 03/23 and fax please, does not need signature Codi Larkin APRN.MELINDA * Telephone Encounter - Gwen Edmonds LPN - 03/29/2022 9:31 AM EDT [facility], they don't carry this type of supply. Pt asking for new Rx to go to [facility]. Pt asking to be called when Rx has been sent to pharm. Gwen Edmonds LPN documented in this encounterMercy Health St. [facility]09-09-2022 History of Present illness Narrative* Logan Aquino MD - 03/23/2022 9:00 AM EDT This note was created using NoteWriter. Subjective Kimberly Chan is a 72 year old male. Edema was slightly worse. He saw podiatry and there was skinirritation from too tight compression stockings. Furosemide was [...] H2O) Mask (per patient preference), send filters, optionalchin strap (if indicated), filters, tubing / heated tubing, heated humidity and lifetime supplies. Dx. ALEX G47.33 327.23 DME [facility] [employer] atorvastatin (LIPITOR) 10 mg tablet Take 1 tablet by mouth daily at bedtime. For cholesterol. furosemide (LASIX) 40 mg tablet Take 1 tablet by mouth once daily. COMPOUNDED PRESCRIPTION KNEE HIGH COMPRESSION STOCKINGS 20-30 MM Hg. DX: EDEMA (Patient not taking:Reported on 02/20/2022) No current facility-administered medications for [...] overdue. - CONSULT TO GENERAL SURGERY Logan Aquino MD documented in this encounterMercy Health St. [facility]08-09-2022 Instructions* Patient Instructions* Fouzia Smith - 02/20/2022 8:15 AM EDT Your ulceration is healed Continue with compression stocking Follow-up as scheduled documented in this encounterMercy Health St. [facility]08-09-2022 History of Present illness Narrative* Fouzia Smith - 02/20/2022 8:12 AM EDT FOLLOW UP PODIATRIC OFFICE VISIT Chief Complaint: [...] (H) 4.3 - 5.6 % Final Comment: [place] [employer] guidelines indicate that patients with HgbA1c in the range 5.7-6.4% are at increased risk for development of diabetes, and intervention by lifestyle modification may be beneficial. HgbA1c greater or equal to 6.5% is considered diagnostic of diabetes. PCP: Logan Aquino MD PAST MEDICAL HISTORY Diagnosis Date Alcohol [...] H2O) Mask (per patient preference), send filters, optionalchin strap (if indicated), filters, tubing / heated tubing, heated humidity and lifetime supplies. Dx. ALEX G47.33 327.23 DME [employer] atorvastatin (LIPITOR) 10 mg tablet Take 1 tablet by mouth daily at bedtime. For cholesterol. furosemide (LASIX) 40 mg tablet Take 1 tablet by mouth once daily. COMPOUNDED PRESCRIPTION KNEE HIGH COMPRESSION STOCKINGS 20-30 MM Hg. DX: EDEMA (Patient not taking:Reported on 02/20/2022) No current facility-administered medications for [...] ulceration. Offered debridement but he chose to leavealone. 3. If he has issues in future, call office. He will benefit from continued use of compression stockings which he owns. Fouzia Smith DPM * Marguerite Geronimo LPN - 02/20/2022 8:06 AM EDT AMB ROOMING INTAKE FLOWSHEET DATA Risk Screening Do you have concerns about personal safety or safety in the home?: No Patient presents with: Left Ankle - Established Patient, Follow Up, Ulcer Pt states he could not find what was prescribed for leg at drug store or [facility]. Marguerite Geronimo LPN documented in this encounterMercy Health St. [facility]07-26-2022 Instructions* Patient Instructions* Fouzia Smith - 02/06/2022 9:25 AM EDT Recommend aquacel to left leg daily. When wound becomes very tiny, you can switch to topical antibiotic. Recommend bill compression from toes to knee during the day. Can remove at night. documented in this encounterMercy Health St. [facility]07-26-2022 History of Present illness Narrative* Fouzia Smith - 02/06/2022 9:15 AM EDT Subjective: Patient presents to clinic c/o painful toenails. They state that the nails are especially painful with shoe gear and pressure. Patient states that nails 1-5 b; are painful. Patient reports wound to left anterior leg. Was recently seen by family medicine and is applying topical cream buthe does not feel it is getting any better. No other pedal complaints at this time. Patient states no change in medications or medical history since last visit. Objective: Patient presents to clinic ambulating in [employer] [facility] [employer] Vasc: DP and PT pulses are palpable bilateral. CFT is less than 5 seconds bilateral. Skin temperature is warm to cool proximal to distal bilateral. There is moderate edema or varicosities noted. Neuro: Protective sensation is intact to the foot and toes when tested with the 5.07 SWM bilateral.Vibratory sensation is decreased at the hallux IPJ [...] with aquacel and compression. Compression is gutierrez toreducing swelling. F/u in 2 weeks Fouzia Smith DPM documented in this encounterMer[facility]. [facility]07-20-2022 Miscellaneous Notes* Telephone Encounter - Dipti Ascencio LPN - 01/31/2022 8:32 AM EDT Patient has been identified by name and [...] you. Dipti Ascencio LPN documented in this encounterMercy Health St. [facility]07-15-2022 Instructions* Patient Instructions* La Mcgee APRN.CNP - 01/26/2022 10:02 AM EDT 1.) Start Clindamycin, take with food. 2.) Elevate the legs, continue to take Lasix. 3.) Watch for worsening symptoms, increased redness, warm, fever, or chills, go to ER. 4.) If you develop any chest pain go to ER. 5.) Follow up as needed. Apply Bactroban cream to wound documented in this encounterMercy Health St. [facility]07-15-2022 History of Present illness Narrative* La Mcgee APRN.CNP - 01/26/2022 9:40 AM EDT This is a 71 year old male who presents today with: Patient presents with: Acute Visit: swelling, sores HISTORY OF PRESENT ILLNESS: Kimberly Chan is a 71 year old male. Patient presents with: Acute Visit: swelling, sores Patient of Dr. Aquino here in the office for concerns for cellulitis of left lower leg. Has beenon going for a couple weeks but seem [...] H2O) Mask (per patient preference), send filters, optionalchin strap (if indicated), filters, tubing / heated [...] APRN.MELINDA This note was partially generated using [employer] ([employer]) voice recognition system. Note was reviewed for accuracy. There may be minor misspellings or grammar miscues with [employer] ([employer]) voice recognition. documented in this encounterMercy Health St. [facility]06-15-2022 History of Present illness Narrative* Codi Larkin APRN.CNP - 12/27/2021 9:23 AM EDT Images from the original note were not [...] H2O) Mask (per patient preference), send filters, optionalchin strap (if indicated), filters, tubing / heated [...] all digits DATA REVIEWED: Outside chart from [facility] ER reviewed. ASSESSMENT/PLAN: 1. Dog bite [...] plan. Codi Larkin APRN.CNP documented in this encounterMercy Health St. [facility]06-15-2022 Instructions* Patient Instructions* Codi Larkin APRN.CNP - 12/27/2021 8:42 AM EDT If any unusual pain, swelling, red streaks, pus, fever or other signs of worsening infection, call immediately. documented in this encounterMer[facility] St. [facility]05-18-2022 Miscellaneous Notes* Telephone Encounter - Dipti Ascencio LPN - 11/29/2021 8:37 AM EDT Patient has been identified by name and [...] you. Dipti Ascencio LPN documented in this encounterMer[facility]. [facility]05-16-2022 Miscellaneous Notes* Telephone Encounter - Dipti Ascencio LPN - 11/27/2021 3:19 PM EDT Patient has been identified by name and [...] you. Dipti Ascencio LPN documented in this encounterMer[facility]04-21-2022 History of Present illness Narrative* Fouzia Smith - 11/02/2021 8:07 AM EDT Last saw Codi Older 09/20/21 Subjective: Patient presents to clinic c/o painful toenails. They state that the nails are especially painful with shoe gear and pressure. Patient continues to report numbness in both feet. He stateshe has been trying to move his feet around more and the numbness is not as bad. No other pedal complaints at this time. Patient states no change in medications or medical history since last visit. Objective: [facility] Vasc: DP and PT pulses [...] hallux IPJ bilateral. The hallux is downgoing bilateral.+ burning in both feet Derm: Nails 1-5 b/l are incurvated, painful, discolored-yellow, thick, crumbly, dystrophic and withsubungal debris. Skin is of normal turgor, texture [...] Patient is to RTC in 3-4 months. oFuzia Smith DPM documented in this encounterMercy [facility] St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 History of Past illness Narrative* Problem Noted Date Resolved Date Mild cognitive impairment 11/03/20152017 Hyperlipidemia 07/21/2015 11/03/2015 BMI 40.0-44.9, adult 04/05/2014 11/03/2015 Diverticulosis of colon (without mention of hemo rrhage) 10/25/2010 05/24/2016 Hypertension 09/08/2010 08/27/2016 BP (high blood pressure) 08/01/2010 016 documented as of this encounter (statuses as of 11/02/2021) [facility] History of Past illness Narrative* Problem Noted Date Resolved Date Mild cognitive impairment 11/03/20152017 Hyperlipidemia 07/21/2015 11/03/2015 BMI 40.0-44.9, adult 04/05/2014 11/03/2015 Diverticulosis of colon (without mention of hemo rrhage) 10/25/2010 05/24/2016 Hypertension 09/08/2010 08/27/2016 BP (high blood pressure) 08/01/2010 016 documented as of this encounter (statuses as of 11/28/2021) [facility] History of Past illness Narrative* Problem Noted Date Resolved Date Mild cognitive impairment 11/03/20152017 Hyperlipidemia 07/21/2015 11/03/2015 BMI 40.0-44.9, adult 04/05/2014 11/03/2015 Diverticulosis of colon (without mention of hemo rrhage) 10/25/2010 05/24/2016 Hypertension 09/08/2010 08/27/2016 BP (high blood pressure) 08/01/2010 016 documented as of this encounter (statuses as of 12/01/2021) [facility] of Past illness Narrative* Problem Noted Date Resolved Date Mild cognitive impairment 11/03/20152017 Hyperlipidemia 07/21/2015 11/03/2015 BMI 40.0-44.9, adult 04/05/2014 11/03/2015 Diverticulosis of colon (without mention of hemo rrhage) 10/25/2010 05/24/2016 Hypertension 09/08/2010 08/27/2016 BP (high blood pressure) 08/01/2010 016 documented as of this encounter (statuses as of 12/27/2021) [place] [address]-21-2016 History of Past illness Narrative* Problem Noted Date Resolved Date Mild cognitive impairment 11/03/20152017 Hyperlipidemia 07/21/2015 11/03/2015 BMI 40.0-44.9, adult 04/05/2014 11/03/2015 Diverticulosis of colon (without mention of hemo rrhage) 10/25/2010 05/24/2016 Hypertension 09/08/2010 08/27/2016 BP (high blood pressure) 08/01/2010 016 documented as of this encounter (statuses as of 01/26/2022) [address]21-2016 History of Past illness Narrative* Problem Noted Date Resolved Date Mild cognitive impairment 11/03/20152017 Hyperlipidemia 07/21/2015 11/03/2015 BMI 40.0-44.9, adult 04/05/2014 11/03/2015 Diverticulosis of colon (without mention of hemo rrhage) 10/25/2010 05/24/2016 Hypertension 09/08/2010 08/27/2016 BP (high blood pressure) 08/01/2010 016 documented as of this encounter (statuses as of 01/31/2022) [address]21-2016 History of Past illness Narrative* Problem Noted Date Resolved Date Mild cognitive impairment 11/03/20152017 Hyperlipidemia 07/21/2015 11/03/2015 BMI 40.0-44.9, adult 04/05/2014 11/03/2015 Diverticulosis of colon (without mention of hemo rrhage) 10/25/2010 05/24/2016 Hypertension 09/08/2010 08/27/2016 BP (high blood pressure) 08/01/2010 016 documented as of this encounter (statuses as of 02/06/2022) [address] [address] History of Past illness Narrative* Problem Noted Date Resolved Date Mild cognitive impairment 11/03/20152017 Hyperlipidemia 07/21/2015 11/03/2015 BMI 40.0-44.9, adult 04/05/2014 11/03/2015 Diverticulosis of colon (without mention of hemo rrhage) 10/25/2010 05/24/2016 Hypertension 09/08/2010 08/27/2016 BP (high blood pressure) 08/01/2010 016 documented as of this encounter (statuses as of 02/20/2022) [place] [address]2016 History of Past illness Narrative* Problem Noted Date Resolved Date Mild cognitive impairment 11/03/20152017 Hyperlipidemia 07/21/2015 11/03/2015 BMI 40.0-44.9, adult 04/05/2014 11/03/2015 Diverticulosis of colon (without mention of hemo rrhage) 10/25/2010 05/24/2016 Hypertension 09/08/2010 08/27/2016 BP (high blood pressure) 08/01/2010 016 documented as of this encounter (statuses as of 03/23/2022) [place] [address]2016 History of Past illness Narrative* Problem Noted Date Resolved Date Mild cognitive impairment 11/03/20152017 Hyperlipidemia 07/21/2015 11/03/2015 BMI 40.0-44.9, adult 04/05/2014 11/03/2015 Diverticulosis of colon (without mention of hemo rrhage) 10/25/2010 05/24/2016 Hypertension 09/08/2010 08/27/2016 BP (high blood pressure) 08/01/2010 016 documented as of this encounter (statuses as of 04/02/2022) [address]2016 History of Past illness Narrative* Problem Noted Date Resolved Date Mild cognitive impairment 11/03/20152017 Hyperlipidemia 07/21/2015 11/03/2015 BMI 40.0-44.9, adult 04/05/2014 11/03/2015 Diverticulosis of colon (without mention of hemo rrhage) 10/25/2010 05/24/2016 Hypertension 09/08/2010 08/27/2016 BP (high blood pressure) 08/01/2010 016 documented as of this encounter (statuses as of 04/02/2022) [place] [address]2016 History of Past illness Narrative* Problem Noted Date Resolved Date Mild cognitive impairment 11/03/20152017 Hyperlipidemia 07/21/2015 11/03/2015 BMI 40.0-44.9, adult 04/05/2014 11/03/2015 Diverticulosis of colon (without mention of hemo rrhage) 10/25/2010 05/24/2016 Hypertension 09/08/2010 08/27/2016 BP (high blood pressure) 08/01/2010 016 documented as of this encounter (statuses as of 04/03/2022) [place] [address]2016 History of Past illness Narrative* Problem Noted Date Resolved Date Mild cognitive impairment 11/03/20152017 Hyperlipidemia 07/21/2015 11/03/2015 BMI 40.0-44.9, adult 04/05/2014 11/03/2015 Diverticulosis of colon (without mention of hemo rrhage) 10/25/2010 05/24/2016 Hypertension 09/08/2010 08/27/2016 BP (high blood pressure) 08/01/2010 016 documented as of this encounter (statuses as of 04/17/2022) [address]2016 History of Past illness Narrative* Problem Noted Date Resolved Date Mild cognitive impairment 11/03/20152017 Hyperlipidemia 07/21/2015 11/03/2015 BMI 40.0-44.9, adult 04/05/2014 11/03/2015 Diverticulosis of colon (without mention of hemo rrhage) 10/25/2010 05/24/2016 Hypertension 09/08/2010 08/27/2016 BP (high blood pressure) 08/01/2010 016 documented as of this encounter (statuses as of 04/17/2022) [address]2016 History of Past illness Narrative* Problem Noted Date Resolved Date Mild cognitive impairment 11/03/20152017 Hyperlipidemia 07/21/2015 11/03/2015 BMI 40.0-44.9, adult 04/05/2014 11/03/2015 Diverticulosis of colon (without mention of hemo rrhage) 10/25/2010 05/24/2016 Hypertension 09/08/2010 08/27/2016 BP (high blood pressure) 08/01/2010 016 documented as of this encounter (statuses as of 05/11/2022) [place] [address]2016 History of Past illness Narrative* Problem Noted Date Resolved Date Mild cognitive impairment 11/03/20152017 Hyperlipidemia 07/21/2015 11/03/2015 BMI 40.0-44.9, adult 04/05/2014 11/03/2015 Diverticulosis of colon (without mention of hemo rrhage) 10/25/2010 05/24/2016 Hypertension 09/08/2010 08/27/2016 BP (high blood pressure) 08/01/2010 016 documented as of this encounter (statuses as of 06/11/2022) [address]2016 History of Past illness Narrative* Problem Noted Date Resolved Date Mild cognitive impairment 11/03/20152017 Hyperlipidemia 07/21/2015 11/03/2015 BMI 40.0-44.9, adult 04/05/2014 11/03/2015 Diverticulosis of colon (without mention of hemo rrhage) 10/25/2010 05/24/2016 Hypertension 09/08/2010 08/27/2016 BP (high blood pressure) 08/01/2010 016 documented as of this encounter (statuses as of 06/29/2022) [place] [address]2016 History of Past illness Narrative* Problem Noted Date Resolved Date Mild cognitive impairment 11/03/20152017 Hyperlipidemia 07/21/2015 11/03/2015 BMI 40.0-44.9, adult 04/05/2014 11/03/2015 Diverticulosis of colon (without mention of hemo rrhage) 10/25/2010 05/24/2016 Hypertension 09/08/2010 08/27/2016 BP (high blood pressure) 08/01/2010 016 documented as of this encounter (statuses as of 07/17/2022) [address] History of Past illness Narrative* Problem Noted Date Resolved Date Mild cognitive impairment 11/03/20152017 Hyperlipidemia 07/21/2015 11/03/2015 BMI 40.0-44.9, adult 04/05/2014 11/03/2015 Diverticulosis of colon (without mention of hemo rrhage) 10/25/2010 05/24/2016 Hypertension 09/08/2010 08/27/2016 BP (high blood pressure) 08/01/2010 016 documented as of this encounter (statuses as of 07/23/2022) [address]2016 History of Past illness Narrative* Problem Noted Date Resolved Date Mild cognitive impairment 11/03/20152017 Hyperlipidemia 07/21/2015 11/03/2015 BMI 40.0-44.9, adult 04/05/2014 11/03/2015 Diverticulosis of colon (without mention of hemo rrhage) 10/25/2010 05/24/2016 Hypertension 09/08/2010 08/27/2016 BP (high blood pressure) 08/01/2010 016 documented as of this encounter (statuses as of 09/17/2022) [facility]04-21-2016 History of Past illness Narrative* Problem Noted Date Resolved Date Mild cognitive impairment 11/03/20152017 Hyperlipidemia 07/21/2015 11/03/2015 BMI 40.0-44.9, adult 04/05/2014 11/03/2015 Diverticulosis of colon (without mention of hemo rrhage) 10/25/2010 05/24/2016 Hypertension 09/08/2010 08/27/2016 BP (high blood pressure) 08/01/2010 016 documented as of this encounter (statuses as of 09/20/2022) [facility]04-21-2016 History of Past illness Narrative* Problem Noted Date Resolved Date Mild cognitive impairment 11/03/20152017 Hyperlipidemia 07/21/2015 11/03/2015 BMI 40.0-44.9, adult 04/05/2014 11/03/2015 Diverticulosis of colon (without mention of hemo rrhage) 10/25/2010 05/24/2016 Hypertension 09/08/2010 08/27/2016 BP (high blood pressure) 08/01/2010 016 documented as of this encounter (statuses as of 10/31/2022) [facility]04-21-2016 History of Past illness Narrative* Problem Noted Date Resolved Date Mild cognitive impairment 11/03/20152017 Hyperlipidemia 07/21/2015 11/03/2015 BMI 40.0-44.9, adult 04/05/2014 11/03/2015 Diverticulosis of colon (without mention of hemo rrhage) 10/25/2010 05/24/2016 Hypertension 09/08/2010 08/27/2016 BP (high blood pressure) 08/01/2010 016 documented as of this encounter (statuses as of 11/07/2022) [facility]04[facility]21-2016 History of Past illness Narrative* Problem Noted Date Resolved Date Mild cognitive impairment 11/03/20152017 Hyperlipidemia 07/21/2015 11/03/2015 BMI 40.0-44.9, adult 04/05/2014 11/03/2015 Diverticulosis of colon (without mention of hemo rrhage) 10/25/2010 05/24/2016 Hypertension 09/08/2010 08/27/2016 BP (high blood pressure) 08/01/2010 016 documented as of this encounter (statuses as of 12/12/2022) [facility]2016 History of Past illness Narrative* Problem Noted Date Diagnosed Date Resolved Date Mild cognitive impairment 11/03/2015 Hyperlipidemia 07/21/2015 11/03/2015 BMI 40.0-44.9, adult 04/05/2014 016 Diverticulosis of colon (wit hout mention of hemorrhage) 10/25/2010 05/24/2016 Hypertension 09/08/2010 08/27/2016 BP (high blood pressure) 08/01/2010 documented as of this encounter (statuses as of 02/26/2023) [address] History of Past illness Narrative* Problem Noted Date Diagnosed Date Resolved Date Mild cognitive impairment 11/03/2015 Hyperlipidemia 07/21/2015 11/03/2015 BMI 40.0-44.9, adult 04/05/2014 016 Diverticulosis of colon (wit hout mention of hemorrhage) 10/25/2010 05/24/2016 Hypertension 09/08/2010 08/27/2016 BP (high blood pressure) 08/01/2010 documented as of this encounter (statuses as of 03/05/2023) [place] [address]2016 History of Past illness Narrative* Problem Noted Date Diagnosed Date Resolved Date Mild cognitive impairment 11/03/2015 Hyperlipidemia 07/21/2015 11/03/2015 BMI 40.0-44.9, adult 04/05/2014 016 Diverticulosis of colon (wit hout mention of hemorrhage) 10/25/2010 05/24/2016 Hypertension 09/08/2010 08/27/2016 BP (high blood pressure) 08/01/2010 documented as of this encounter (statuses as of 03/21/2023) [place] [address]2016 History of Past illness Narrative* Problem Noted Date Diagnosed Date Resolved Date Mild cognitive impairment 11/03/2015 Hyperlipidemia 07/21/2015 11/03/2015 BMI 40.0-44.9, adult 04/05/2014 016 Diverticulosis of colon (wit hout mention of hemorrhage) 10/25/2010 05/24/2016 Hypertension 09/08/2010 08/27/2016 BP (high blood pressure) 08/01/2010 documented as of this encounter (statuses as of 03/21/2023) [facility]04-21-2016 History of Past illness Narrative* Problem Noted Date Diagnosed Date Resolved Date Mild cognitive impairment 11/03/2015 Hyperlipidemia 07/21/2015 11/03/2015 BMI 40.0-44.9, adult 04/05/2014 016 Diverticulosis of colon (wit hout mention of hemorrhage) 10/25/2010 05/24/2016 Hypertension 09/08/2010 08/27/2016 BP (high blood pressure) 08/01/2010 documented as of this encounter (statuses as of 04/01/2023) [place] [address] History of Past illness Narrative* Problem Noted Date Diagnosed Date Resolved Date Mild cognitive impairment 11/03/2015 Hyperlipidemia 07/21/2015 11/03/2015 BMI 40.0-44.9, adult 04/05/2014 016 Diverticulosis of colon (wit hout mention of hemorrhage) 10/25/2010 05/24/2016 Hypertension 09/08/2010 08/27/2016 BP (high blood pressure) 08/01/2010 documented as of this encounter (statuses as of 05/19/2023) [facility]04-21-2016 History of Past illness Narrative* Problem Noted Date Diagnosed Date Resolved Date Mild cognitive impairment 11/03/2015 Hyperlipidemia 07/21/2015 11/03/2015 BMI 40.0-44.9, adult 04/05/2014 016 Diverticulosis of colon (wit hout mention of hemorrhage) 10/25/2010 05/24/2016 Hypertension 09/08/2010 08/27/2016 BP (high blood pressure) 08/01/2010 documented as of this encounter (statuses as of 05/23/2023) [facility]04-21-2016 History of Past illness Narrative* Problem Noted Date Diagnosed Date Resolved Date Mild cognitive impairment 11/03/2015 Hyperlipidemia 07/21/2015 11/03/2015 BMI 40.0-44.9, adult 04/05/2014 016 Diverticulosis of colon (wit hout mention of hemorrhage) 10/25/2010 05/24/2016 Hypertension 09/08/2010 08/27/2016 BP (high blood pressure) 08/01/2010 documented as of this encounter (statuses as of 05/24/2023) [address]2016 History of Past illness Narrative* Problem Noted Date Diagnosed Date Resolved Date Mild cognitive impairment 11/03/2015 Hyperlipidemia 07/21/2015 11/03/2015 BMI 40.0-44.9, adult 04/05/2014 016 Diverticulosis of colon (wit hout mention of hemorrhage) 10/25/2010 05/24/2016 Hypertension 09/08/2010 08/27/2016 BP (high blood pressure) 08/01/2010 documented as of this encounter (statuses as of 05/24/2023) [address]-2016 History of Past illness Narrative* Problem Noted Date Diagnosed Date Resolved Date Mild cognitive impairment 11/03/2015 Hyperlipidemia 07/21/2015 11/03/2015 BMI 40.0-44.9, adult 04/05/2014 016 Diverticulosis of colon (wit hout mention of hemorrhage) 10/25/2010 05/24/2016 Hypertension 09/08/2010 08/27/2016 BP (high blood pressure) 08/01/2010 documented as of this encounter (statuses as of 05/30/2023) [address]-2016 History of Past illness Narrative* Problem Noted Date Diagnosed Date Resolved Date Mild cognitive impairment 11/03/2015 Hyperlipidemia 07/21/2015 11/03/2015 BMI 40.0-44.9, adult 04/05/2014 016 Diverticulosis of colon (wit hout mention of hemorrhage) 10/25/2010 05/24/2016 Hypertension 09/08/2010 08/27/2016 BP (high blood pressure) 08/01/2010 documented as of this encounter (statuses as of 06/11/2023) [facility]-21-2016 History of Past illness Narrative* Problem Noted Date Diagnosed Date Resolved Date Mild cognitive impairment 11/03/2015 Hyperlipidemia 07/21/2015 11/03/2015 BMI 40.0-44.9, adult 04/05/2014 016 Diverticulosis of colon (wit hout mention of hemorrhage) 10/25/2010 05/24/2016 Hypertension 09/08/2010 08/27/2016 BP (high blood pressure) 08/01/2010 documented as of this encounter (statuses as of 06/11/2023) [facility]04[facility]21-2016 History of Past illness Narrative* Problem Noted Date Diagnosed Date Resolved Date Mild cognitive impairment 11/03/2015 Hyperlipidemia 07/21/2015 11/03/2015 BMI 40.0-44.9, adult 04/05/2014 016 Diverticulosis of colon (wit hout mention of hemorrhage) 10/25/2010 05/24/2016 Hypertension 09/08/2010 08/27/2016 BP (high blood pressure) 08/01/2010 documented as of this encounter (statuses as of 09/16/2023) [facility] Diagnosis Onychomycosis- Primary Dermatophytosis of nail Pain in toe of left foot Pain in limb Pain in toe of right foot Pain in limb documented [facility] this encounter [facility] noteNo assessment information availableWChildren[facility] Work Phone: Evaluation note* Diagnosis Dog bite of right hand, subsequent encounter- Primary Visit for suture removal [facility]counter for [facility] of [facility]ures [facility] Diagnosis Cellulitis of left lower extremity- Primary Cellulitis and abscess of leg, except foot Other chest pain [facility] Diagnosis Essential hypertension with goal blood pressure less than 130/80 [facility] Diagnosis Onychomycosis- Primary Dermatophytosis of nail Pain in toe of left foot Pain in limb Pain in toe of right foot Pain in limb Diminished pulses in lower extremity Other symptoms involving cardiovascular system Chronic venous hypertension w ulceration (HCC) Chronic venous hypertension with ulcer [facility] Diagnosis Venous insufficiency- Primary Unspecified venous (peripheral) insufficiency [facility] Diagnosis Essential hypertension with goal blood pressure less than 130/80- Primary Edema, unspecified type Hyperlipidemia, unspecified hyperlipidemia type Impaired fasting glucose ALEX (obstructive sleep apnea) not using CPAP Obstructive sleep apnea (adult) (pediatric) Benign neoplasm of colon, unspecified part of colon [facility]* Diagnosis Generalized edema- Primary Edema [facility]* Diagnosis History of colonic polyps- Primary Personal history of colonic polyps Benign neoplasm of colon, unspecified part of colon Encounter for screening for malignant neoplasm of colon Special screening for malignant neoplasms, colon [facility]* Diagnosis Essential hypertension with goal blood pressure less than 130/80 [facility]* Diagnosis Onychomycosis- Primary Dermatophytosis of nail Pain in toe of left foot Pain in limb Pain in toe of right foot Pain in limb Diminished pulses in lower extremity Other symptoms involving cardiovascular system [facility]* Diagnosis History of colon polyps- Primary Personal history of colonic polyps documented [facility] this [facility]* Diagnosis Hyperlipidemia, unspecified hyperlipidemia type [facility]* Diagnosis Tubular adenoma- Primary Benign neoplasm of unspecified site History of colonic polyps Personal history of colonic polyps [facility]* Diagnosis Impaired fasting glucose- Primary Hyperlipidemia, unspecified hyperlipidemia type [facility]* Diagnosis BMI 39.0-39.9,adult- Primary Body Mass Index 39.0-39.9, adult Essential hypertension with goal blood pressure less than 130/80 Edema, unspecified type Impaired fasting glucose Hyperlipidemia, unspecified hyperlipidemia type Bilateral impacted cerumen Impacted cerumen [facility]* Diagnosis Venous stasis ulcer of other part of left lower leg limited to breakdown of skin without varicose veins (HCC)- Primary [facility] Diagnosis Venous insufficiency- Primary Unspecified venous (peripheral) insufficiency Venous stasis ulcer of other part of left lower leg limited to breakdown of skin without varicose veins (HCC) documented [facility]* Diagnosis Venous insufficiency- Primary [...] less than 130/80 [facility] Diagnosis Secondary lymphedema- Primary Other lymphedema [...] (HCC) Morbid obesity [facility] Diagnosis Onychomycosis- Primary Dermatophytosis of nail Pain in toe of left foot Pain in limb Pain in toe of right foot Pain in limb [facility]* Diagnosis Essential hypertension with goal blood pressure less than 130/80 [facility] Diagnosis Medicare annual wellness visit, subsequent- Primary Routine general medical examination at a health care facility Essential hypertension with goal blood pressure less than 130/80 Need for influenza vaccination Need for prophylactic vaccination and inoculation against influenza [facility] Diagnosis Personal history of colonic polyps- Primary History of colon polyps Personal history of colonic polyps documented [facility]* Diagnosis Secondary lymphedema- Primary Other lymphedema Venous (peripheral) insufficiency Unspecified venous (peripheral) insufficiency [facility] Shortness of breath- Primary Chest pain, unspecified type Fatigue, unspecified type [facility] Diagnosis Chest pain, unspecified type- Primary Shortness of breath Abnormal EKG Nonspecific abnormal electrocardiogram (ECG) (EKG) documented [facility] Diagnosis Onychomycosis- Primary Dermatophytosis of nail Pain in toe of left foot Pain in limb Pain in toe of right foot Pain in limb Diminished pulses in lower extremity Other symptoms involving cardiovascular system [facility]* Diagnosis Onset Date Resolution Status Chest pain acute SOB (shortness of breath) ac sahil Hypertension chronic [facility] Work Phone: Evaluation note* Diagnosis Onychomycosis- Primary Dermatophytosis of nail Pain in toe of left foot Pain in limb Pain in toe of right foot Pain in limb [facility] Diagnosis Coronary artery disease involving [place] coronary artery of [place] heart without angina pectoris- Primary Essential hypertension with goal blood pressure less than 130/80 Stented coronary artery Postsurgical percutaneous transluminal coronary angioplasty status Impaired fasting glucose [facility] Diagnosis Secondary lymphedema- Primary Other lymphedema Venous (peripheral) insufficiency Unspecified venous (peripheral) insufficiency [facility]* Diagnosis Onychomycosis- Primary Dermatophytosis of nail Pain in toe of left foot Pain in limb Pain in toe of right foot Pain in limb [facility] Diagnosis Coronary artery disease involving [place] coronary artery of [place] heart without angina pectoris- Primary Stented coronary artery Postsurgical percutaneous transluminal coronary angioplasty status Chronic atrial fibrillation (HCC) Atrial fibrillation Edema, unspecified type Impaired fasting glucose [facility]* Diagnosis Paroxysmal atrial fibrillation (HCC)- Primary Atrial fibrillation At risk for stroke Other specified personal history presenting hazards to health Anticoagulant long-term use Long-term (current) use of anticoagulants Coronary artery disease involving [place] coronary artery of [place] heart without angina pectoris History of percutaneous coronary intervention Personal history of surgery to heart and great vessels, presenting hazards to health ALEX (obstructive sleep apnea) not using CPAP Obstructive sleep apnea (adult) (pediatric) Class 2 obesity due to excess calories without serious comorbidity with body mass index (BMI) of 39.0 to 39.9 in adult Exertional dyspnea Other dyspnea and respiratory abnormality documented [facility] Diagnosis Open wound of right lower extremity, initial encounter- Primary documented [facility] this [facility]* Diagnosis Open wound of right lower extremity, initial encounter- Primary [facility] Diagnosis Secondary lymphedema- Primary Other lymphedema Venous (peripheral) insufficiency Unspecified venous (peripheral) insufficiency [facility] Diagnosis Left foot pain- Primary Pain in limb Essential hypertension with goal blood pressure less than 130/80 Edema, unspecified type Numbness and tingling of both feet ALEX (obstructive sleep apnea) not using CPAP Obstructive sleep apnea (adult) (pediatric) Obesity, Class III, BMI 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) (HCC) Morbid obesity Chest pain, unspecified type Shortness of breath [facility]* Diagnosis Left foot pain- Primary Pain in limb Essential hypertension with goal blood pressure less than 130/80 Edema, unspecified type Numbness and tingling of both feet ALEX (obstructive sleep apnea) not using CPAP Obstructive sleep apnea (adult) (pediatric) Obesity, Class III, BMI 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) (HCC) Morbid obesity Onychomycosis- Primary Dermatophytosis of nail Pain in toe of left foot Pain in limb Pain in toe of right foot Pain in limb [facility]* Diagnosis Left foot pain- Primary Pain in limb Essential hypertension with goal blood pressure less than 130/80 Edema, unspecified type Numbness and tingling of both feet ALEX (obstructive sleep apnea) not using CPAP Obstructive sleep apnea (adult) (pediatric) Obesity, Class III, BMI 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) (HCC) Morbid obesity Medicare annual wellness visit, subsequent- Primary Routine general medical examination at a health care facility Impaired fasting glucose Edema, unspecified type Essential hypertension with goal blood pressure less than 130/80 ALEX (obstructive sleep apnea) not using CPAP Obstructive sleep apnea (adult) (pediatric) Screening for depression Encounter for screening examination for other mental health and behavioral disorders Obesity, Class III, BMI >= 40 Morbid obesity Paroxysmal atrial fibrillation (HCC) Atrial fibrillation Stage 3b chronic kidney disease (HCC) [facility] Diagnosis Left foot pain- Primary Pain in limb Essential hypertension with goal blood pressure less than 130/80 Edema, unspecified type Numbness and tingling of both feet ALEX (obstructive sleep apnea) not using CPAP Obstructive sleep apnea (adult) (pediatric) Obesity, Class III, BMI 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) (HCC) Morbid obesity Secondary lymphedema- Primary Other lymphedema documented in this [facility] Diagnosis Left foot pain- Primary Pain in limb Essential hypertension with goal blood pressure less than 130/80 Edema, unspecified type Numbness and tingling of both feet ALEX (obstructive sleep apnea) not using CPAP Obstructive sleep apnea (adult) (pediatric) Obesity, Class III, BMI 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) (HCC) Morbid obesity Onychomycosis- Primary Dermatophytosis of nail Pain in toe of left foot Pain in limb Pain in toe of right foot Pain in limb [facility] Diagnosis Left foot pain- Primary Pain in limb Essential hypertension with goal blood pressure less than 130/80 Edema, unspecified type Numbness and tingling of both feet ALEX (obstructive sleep apnea) not using CPAP Obstructive sleep apnea (adult) (pediatric) Obesity, Class III, BMI 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) (HCC) Morbid obesity Secondary lymphedema- Primary Other lymphedema Venous (peripheral) insufficiency Unspecified venous (peripheral) insufficiency Varicose veins of both lower extremities, unspecified whether complicated [facility] Diagnosis Left foot pain- Primary Pain in limb Essential hypertension with goal blood pressure less than 130/80 Edema, unspecified type Numbness and tingling of both feet ALEX (obstructive sleep apnea) not using CPAP Obstructive sleep apnea (adult) (pediatric) Obesity, Class III, BMI 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) (HCC) Morbid obesity Screen for colon cancer- Primary Special screening for malignant neoplasms, colon History of colonic polyps Personal history of colonic polyps Family history of colon cancer Family history of malignant neoplasm of gastrointestinal tract Irregular heart rhythm Cardiac dysrhythmia, unspecified documented [facility] Diagnosis Left foot pain- Primary Pain in limb Essential hypertension with goal blood pressure less than 130/80 Edema, unspecified type Numbness and tingling of both feet ALEX (obstructive sleep apnea) not using CPAP Obstructive sleep apnea (adult) (pediatric) Obesity, Class III, BMI 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) (HCC) Morbid obesity Secondary lymphedema- Primary Other lymphedema Venous (peripheral) insufficiency Unspecified venous (peripheral) insufficiency [facility] Diagnosis Left foot pain- Primary Pain in limb Essential hypertension with goal blood pressure less than 130/80 Edema, unspecified type Numbness and tingling of both feet ALEX (obstructive sleep apnea) not using CPAP Obstructive sleep apnea (adult) (pediatric) Obesity, Class III, BMI 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) (HCC) Morbid obesity Onychomycosis- Primary Dermatophytosis of nail Pain in toe of left foot Pain in limb Pain in toe of right foot Pain in limb documented [facility] Diagnosis Left foot pain- Primary Pain in limb Essential hypertension with goal blood pressure less than 130/80 Edema, unspecified type Numbness and tingling of both feet ALEX (obstructive sleep apnea) not using CPAP Obstructive sleep apnea (adult) (pediatric) Obesity, Class III, BMI 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) Morbid obesity Essential hypertension with goal blood pressure less than 130/80- Primary Coronary artery disease involving [place] coronary artery of [place] heart without angina pectoris Stage 3b chronic kidney disease (HCC) Obesity, Class III, BMI >= 40 Morbid obesity ALEX (obstructive sleep apnea) not using CPAP Obstructive sleep apnea (adult) (pediatric) documented [facility] Diagnosis Left foot pain- Primary Pain in limb Essential hypertension with goal blood pressure less than 130/80 Edema, unspecified type Numbness and tingling of both feet ALEX (obstructive sleep apnea) not using CPAP Obstructive sleep apnea (adult) (pediatric) Obesity, Class III, BMI 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) Morbid obesity Acute pain of left knee- Primary Edema of left lower extremity Edema Pain in left lower leg Synovial cyst of popliteal space (Goldberg), left knee Primary osteoarthritis of left knee Primary localized osteoarthrosis, lower leg documented [facility] Diagnosis Left foot pain- Primary Pain in limb Essential hypertension with goal blood pressure less than 130/80 Edema, unspecified type Numbness and tingling of both feet ALEX (obstructive sleep apnea) not using CPAP Obstructive sleep apnea (adult) (pediatric) Obesity, Class III, BMI 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) Morbid obesity Acute pain of left knee documented [facility] Diagnosis Left foot pain- Primary Pain in limb Essential hypertension with goal blood pressure less than 130/80 Edema, unspecified type Numbness and tingling of both feet ALEX (obstructive sleep apnea) not using CPAP Obstructive sleep apnea (adult) (pediatric) Obesity, Class III, BMI 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) Morbid obesity Edema of left lower extremity Edema Pain in left lower leg [facility] Additional Instructions do not lift anything greater than 10 pounds for 3 days. You will be referred to cardiac rehab. You were started on Brilinta. This is an antiplatelet to keep your stent open. You cannot stop this for any reason for at least 1 year. If Brilinta is too expensive please call our office and let us know before your Brilinta prescription runs out. We then can consider a different prescription. You should be able to use a 30-day free card for the Brilinta this time. Our office will be calling you for a follow-up appointment next week your appointment will be scheduled within a month.[facility] Work Phone: [facility] Outpatient Procedure (Routine) - Authorized Specialty Diagnoses / Procedures Referred By Contac t Referred To Contact [facility] Diagnoses History of colon polyps Procedures COLONOSCOPY SCREENING COLONOSCOPY FLX DX W/COLLJ SPEC WHEN PFRMD Layne Silva PA-C [address] [place] [address] [facility] [place] [id number] Referral ID Status Reason Start Date Expiration Date Visits Requested Visits Authorized [id number] Authorized Auto-Generat ed Referral 04/11/2022 04/11/2023 1 1 [facility] for referral (narrative)* Outpatient Procedure (Routine) - Authorized Specialty Diagnoses / Procedures Referred By Contac t Referred To Contact [facility] Diagnoses Diminished pulse Procedures PVR ANK PRESS PAUL VAS LAB NON-INVAS PHYSIOLOGIC STD EXTREMITY ART 2 LEVEL Karyna Corona DO [address] [place] [address] [facility] [address] [address] Referral ID Status Reason Start Date Expiration Date Visits Requested Visits Authorized [id number] Authorized Auto-Generat ed Referral 01/29/2023 01/29/2024 1 1 * Outpatient Procedure (Routine) - Authorized Specialty Diagnoses / Procedures Referred By Contac t Referred To Contact [facility] Diagnoses Varicose veins of both lower extremities, unspecified whether complicated Procedures US VENOUS INCOMPETENCY PAUL VAS LAB DUP-SCAN XTR VEINS COMPLETE BILATERAL STUDY Karyna Corona DO [address] [place] [address] [facility] [place] [address] [place] [id number] Referral ID Status Reason Start Date Expiration Date Visits Requested Visits Authorized [id number] Authorized Auto-Generat ed Referral 01/29/2023 01/29/2024 1 1 [facility] for referral (narrative)* Outpatient Procedure (Routine) - Closed Specialty Diagnoses / Procedures Referred By Contac t Referred To Contact [facility] Diagnoses History of colon polyps Procedures COLONOSCOPY SCREENING COLONOSCOPY FLX DX W/COLLJ SPEC WHEN PFRMD Layne Silva PA-C [address] [facility] [place] [address] [facility] [address] [place], [place] [id number] Referral ID Status Reason Start Date Expiration Date V isits Requested Visits Authorized [id number] Closed Auto-Generate d Referral 04/11/2022 04/11/2023 1 1 [facility] for referral (narrative)* Diagnostic Procedure Only (Routine) - Pending Review Specialty Diagnoses / Procedures Referred By Contrinku t Referred To Contact [facility] Diagnoses Chest pain, unspecified type Shortness of breath Procedures NM CARDIAC PERF STRESS/EXERCISE MYOCARDIAL SPECT MULTIPLE STUDIES Codi Larkin APRN.CNP [address] [place] [address] [facility] [address] [place] [id number] Referral ID Status Reason Start Date Expiration Date Visits Requested Visits Authorized [id number] Pending Review Auto-Generat ed Referral 06/22/2024 1 1 * Outpatient Procedure (Routine) - Authorized Specialty Diagnoses / Procedures Referred By Contac t Referred To Contact [facility] Diagnoses Chest pain, unspecified type Shortness of breath Procedures ECHO ECHO TTHRC R-T 2D W/WOM-MODE COMPL SPEC&COLR D Codi Larkin APRN.PETROLEUM ENGINEERING TEACHER [address] [place] [address] [facility] [place] [address] [place] [address] Referral ID Status Reason Start Date Expiration Date Visits Requested Visits Authorized [id number] Authorized Auto-Generat ed Referral 3 05/23/2024 1 1 * Outpatient Procedure (Routine) - Pending Review Specialty Diagnoses / Procedures [facility] To Contact [facility] Diagnoses Chest pain, unspecified type Shortness of breath Procedures ECG COMPLETE ECG ROUTINE ECG W/LEAST 12 LDS W/I&R Codi Larkin APRN.PETROLEUM ENGINEERING TEACHER [address] [place] [address] [facility] [address] [place] [address] Referral ID Status Reason Start Date Expiration Date Visits Requested Visits Authorized [id number] Pending Review Auto-Generat ed Referral 3 05/23/2024 1 1 [facility] for referral (narrative)* Diagnostic Procedure Only (Routine) - Pending Review Specialty Diagnoses / Procedures [facility] Ref[facility] To Contact [facility] Diagnoses Chest pain, unspecified type Shortness of breath Abnormal EKG Procedures NM CARDIAC PERF STRESS/PHARM MYOCARDIAL SPECT MULTIPLE STUDIES Codi Larkin APRN.PETROLEUM ENGINEERING TEACHER [address] [place] [address] [facility] [address] [place] [id number] Referral ID Status Reason Start Date Expiration Date Visits Requested Visits Authorized [id number] Pending Review Auto-Generat ed Referral 3 07/09/2024 1 1 [facility] for visit Narrative* Outpatient Procedure (Routine) - Closed Specialty Diagnoses / Procedures Referred By Contrinku t Referred To Contact [facility] Diagnoses History of colon polyps Procedures COLONOSCOPY SCREENING COLONOSCOPY FLX DX W/COLLJ SPEC WHEN PFRMD Layne Silva PA-C [address] [place] [address] [facility] [address] [place] [address] Referral ID Status Reason Start Date Expiration Date V isits Requested Visits Authorized [id number] Closed Auto-Generate d Referral 04/11/2022 04/11/2023 1 1 [facility] for visit Narrative* Diagnostic Procedure Only (Routine) - Closed Specialty Diagnoses / Procedures Referred By Mookie contreras Referred To Contact [facility] Diagnoses Acute pain of left knee Procedures XR KNEE GENERAL 4V AP BOTH/PA BOTH/LAT/MERC LEFT RADIOLOGIC EXAM KNEE COMPLETE 4/MORE VIEWS Codi Rivera, PETROLEUM ENGINEERING TEACHER [address] [place] [address] Phone: tel: fax: [place] [id number] Referral ID Status Reason Start Date Expiration Date V isits Requested Visits Authorized [id number] Closed Auto-Generate d Referral 11/10/2024 12/10/2025 [address] 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 Advance Directive(s) 09/24/2016 7:59 AM Advance Directive Response Recorded Date/ Time Living Will No December 19, 2021 1 1:47am Power of Internet Cafe Manager No December 19, 2021 11:47am Advance Directive Response Recorded Date/ Time Living Will No December 19, 2021 1 0:47am Power of Internet Cafe Manager No December 19, 2021 10:47am Advance Directive Response Recorded Date/ Time Advance Directives on File Yes Victor Manuel alcaraz 2023 9:29am Name of Medical Power of Internet Cafe Manager JANY CHAN August 02, 2023 2:30pm Advance Directives Yes August 02, 2023 9:29am Living Will Yes August 02 2:30pm Power of Internet Cafe Manager Yes August 02, 2023 2:30pm Advance Directive Response Recorded Date/ Time Advance Directives on File Yes 2023 1:20pm Advance Directives Yes August 02, 2023 9:29am Living Will Yes August 21 1:20pm Power of Internet Cafe Manager Yes August 21, 2023 1:20pm Advance Directives on File Yes 2023 9:29am Name of Medical Power of Internet Cafe Manager JANY CHAN August 02, 2023 2:30pm Advance Directive Response Recorded Date/ Time Advance Directives on File Yes 2023 2:20pm Advance Directives Yes August 02, 2023 10:29am Living Will Yes August 21 2:20pm Power of Internet Cafe Manager Yes August 21, 2023 2:20pm Advance Directives on File Yes Jul 2023 10:29am Name of Medical Power of Internet Cafe Manager JANY CHAN August 02, 2023 3:30pm Advance Directive Response Recorded Date/ Time Advance Directives Yes November 21 10:03am Living Will Yes November 22, 2023 1 0:03am Power of Internet Cafe Manager Yes November 22, 2023 10:03am Advance Directives on File Yes 2023 2:20pm Advance Directives on File Yes 2023 10:29am Name of Medical Power of Internet Cafe Manager JANY CHAN August 02, 2023 3:30pm Chief Complaint and Reason for Visit Chief Complaint bite Chief Complaint CHEST PAIN, SOB CHEST PAIN, SOB Amb Documentation Amb Documentation Chief Complaint CHEST PAIN, SOB CHEST PAIN, SOB Amb Documentation Amb Documentation IRREGULAR HEART BEAT / FATIGUE (AQUINO) PRE CATH Reason for Visit Chest pain SOB (shortness of breath) Hypertension Chief Complaint CHEST PAIN, SOB CHEST PAIN, SOB Amb Documentation Amb Documentation IRREGULAR HEART BEAT / FATIGUE (AQUINO) PRE CATH CHEST PAIN CHEST PAIN Reason for Visit Chest pain SOB (shortness of breath) Hypertension Chief Complaint CHEST PAIN, SOB CHEST PAIN, SOB Amb Documentation Amb Documentation IRREGULAR HEART BEAT / FATIGUE (AQUINO) PRE CATH CHEST PAIN CHEST PAIN AM EKG PCI w/stent S/P [facility] 08/02 E ORDERS Reason for Visit Hypertension Chest pain SOB (shortness of breath) Hyperlipidemia Stented coronary artery Hypertension Chief Complaint CHEST PAIN, SOB CHEST PAIN, SOB Amb Documentation Amb Documentation IRREGULAR HEART BEAT / FATIGUE (AQUINO) PRE CATH CHEST PAIN CHEST PAIN AM EKG PCI w/stent S/P [facility] 08/02 E ORDERS INT LABS Reason for Visit Hypertension Chest pain SOB (shortness of breath) Hyperlipidemia Stented coronary artery Hypertension Chief Complaint CHEST PAIN, SOB CHEST PAIN, SOB Amb Documentation Amb Documentation IRREGULAR HEART BEAT / FATIGUE (AQUINO) PRE CATH CHEST PAIN CHEST PAIN AM EKG PCI w/stent S/P [facility] 08/02 E ORDERS INT LABS PCI with stenting Reason for Visit Hypertension Chest pain SOB (shortness of breath) Hyperlipidemia Stented coronary artery Hypertension Chief Complaint CHEST PAIN, SOB CHEST PAIN, SOB Amb Documentation Amb Documentation IRREGULAR HEART BEAT / FATIGUE (AQUINO) PRE CATH CHEST PAIN CHEST PAIN AM EKG PCI w/stent S/P [facility] 08/02 E ORDERS INT LABS PCI with stenting 6 WK FU PER MMM INT LABS PCI with stenting INT LABS Reason for Visit Hypertension Chest pain SOB (shortness of breath) Hyperlipidemia Stented coronary artery Hypertension Hyperlipidemia Stented coronary artery Hypertension Chief Complaint IRREGULAR HEART BEAT / FATIGUE (AQUINO) PRE CATH CHEST PAIN CHEST PAIN AM EKG PCI w/stent S/P [facility] 08/02 E ORDERS INT LABS PCI with stenting 6 WK FU PER MMM INT LABS INT LABS PCI with stenting Reason for Visit Hypertension Chest pain SOB (shortness of breath) Hyperlipidemia Stented coronary artery Hypertension Hyperlipidemia Stented coronary artery Hypertension Chief Complaint CHEST PAIN CHEST PAIN AM EKG PCI w/stent S/P [facility] 08/02 E ORDERS INT LABS PCI with stenting 6 WK FU PER MMM INT LABS INT LABS PCI with stenting E ORDERS PCI with stenting new onset a-fib in [facility] Reason for Visit Hyperlipidemia Stented coronary artery Hypertension Hyperlipidemia Stented coronary artery Hypertension Reason for Referral Specialty Diagnoses / Procedures Referred By Mookie contreras Referred To Contact General Surgery Diagnoses Benign neoplasm of colon, unspecified part of colon Procedures CONSULT TO GENERAL SURGERY OFFICE/OUTPATIENT NEW HIGH MDM 60-74 MINUTES Logan Aquino MD [address] [place] [address] Referral ID Status Reason Start Date Expiration Date Visits Requested Visits Authorized [id number] Authorized PCP Requested Referral 03/23/2022 03/23/2023 1 1 Specialty Diagnoses / Procedures Referred By Contac t Referred To Contact [facility] Diagnoses Edema, unspecified type Varicose veins of both lower extremities, unspecified whether complicated Venous insufficiency Venous stasis ulcer of other part of left lower leg limited to breakdown of skin without varicose veins (HCC) Procedures CONSULT TO VASCULAR MEDICINE OFFICE/OUTPATIENT [facility] 60-74 MINUTES Thais Silva BIOPROCESS DEVELOPMENT ENGINEER.PETROLEUM ENGINEERING TEACHER [address] [place] [address] Referral ID Status Reason Start Date Expiration Date Visits Requested Visits Authorized [id number] Authorized PCP Requested Referral 12/12/2022 12/12/2023 1 1 Specialty Diagnoses / Procedures Referred By Contac t Referred To Contact [facility] Diagnoses Secondary lymphedema Procedures CONSULT TO LYMPHEDEMA THERAPY OFFICE/OUTPATIENT [facility] 60-74 MINUTES Karyna Corona DO [address] [place] [address] [facility] [place] [address] [place] [id number] Referral ID Status Reason Start Date Expiration Date Visits Requested Visits Authorized [id number] Authorized Auto-Generat ed Referral 05/21/2023 05/20/2024 1 1 Specialty Diagnoses / Procedures Referred By Contac t Referred To Contact [facility] Diagnoses Secondary lymphedema Procedures CONSULT TO LYMPHEDEMA THERAPY OFFICE/OUTPATIENT [facility] 60 MINUTES Kolton Jamison, BIOPROCESS DEVELOPMENT ENGINEER.PETROLEUM ENGINEERING TEACHER [address] [place] [address] [facility] [place] [address] [place] [address] Referral ID Status Reason Start Date Expiration Date Visits Requested Visits Authorized [id number] Authorized Auto-Generat ed Referral 07/09/2025 1 1 Medications Administered Section Inactive Administered [...] Given 07/02/2022 10:08 AM EST 50 mcg Given 07/02/2022 9:55 AM EST 50 mcg lactated ringers iv infusion 30 mL/hr, INTRAVENOUS, CONTINUOUS, Starting on Sat07/02/22 at 0930, Until Sat07/02/22 at 1038, Preprocedure New Bag/Syringe/Bottle 07/02/2022 9:25 AM EST 30 mL/hr 30 mL/hr midazolam (PF) 1-5 mg injection (VERSED) 1-5 mg, INTRAVENOUS, DIRECTED, Starting on Sat07/02/22 at 1000, Until Sat07/02/22 at 1359, DOSING DIRECTED BY PHYSICIAN FOR PROCEDURAL SEDATION ONLY, Intraprocedure Given 07/02/2022 10:00 AM EST 2 mg Given 07/02/2022 9:55 AM EST 3 mg Additional Source Comments (unrecognized sect ion and content) No Status Records FoundNo Status Records FoundNo Status Records FoundNo Status Records Found INFORMATION SOURCE (unrecogn ized section and content) DATE CREATED AUTHOR 05/09/2020 [facility] DATE CREATED AUTHOR AUTHOR'S ORGANIZ ATION 01/17/2024 [facility] DATE CREATED AUTHOR AUTHOR'S ORGANIZ ATION 11/05/2024 [facility] DATE CREATED AUTHOR AUTHOR'S ORGANIZ ATION 11/16/2024 [facility] Source Comments (unrecognize d section and content) In the event this informatio n is protected by the Federal Confidentiality of Alcohol and Drug Abuse Patient Records regulations: The Federal rules restrict any use of the information to criminally investigate or prosecute any alcohol or drug abuse patient.[facility] the event this information is protected by the Federal Confidentiality of Alcohol and Drug Abuse Patient Records regulations: The Federal rules restrict any use of the information to criminally investigate or prosecute any alcohol or drug abuse patient.[facility] the event this information is protected by the Federal Confidentiality of Alcohol and Drug Abuse Patient Records regulations: The Federal rules restrict any use of the information to criminally investigate or prosecute any alcohol or drug abuse patient.[facility] the event this information is protected by the Federal Confidentiality of Alcohol and Drug Abuse Patient Records regulations: The Federal rules restrict any use of the information to criminally investigate or prosecute any alcohol or drug abuse patient.[facility] the event this information is protected by the Federal Confidentiality of Alcohol and Drug Abuse Patient Records regulations: The Federal rules restrict any use of the information to criminally investigate or prosecute any alcohol or drug abuse patient.[facility] the event this information is protected by the Federal Confidentiality of Alcohol and Drug Abuse Patient Records regulations: The Federal rules restrict any use of the information to criminally investigate or prosecute any alcohol or drug abuse patient.[facility] the event this information is protected by the Federal Confidentiality of Alcohol and Drug Abuse Patient Records regulations: The Federal rules restrict any use of the information to criminally investigate or prosecute any alcohol or drug abuse patient.[facility] HospitalIn the event this information is protected by the Federal Confidentiality of Alcohol and Drug Abuse Patient Records regulations: The Federal rules restrict any use of the information to criminally investigate or prosecute any alcohol or drug abuse patient.[facility] HospitalIn the event this information is protected by the Federal Confidentiality of Alcohol and Drug Abuse Patient Records regulations: The Federal rules restrict any use of the information to criminally investigate or prosecute any alcohol or drug abuse patient.[facility] HospitalIn the event this information is protected by the Federal Confidentiality of Alcohol and Drug Abuse Patient Records regulations: The Federal rules restrict any use of the information to criminally investigate or prosecute any alcohol or drug abuse patient.[facility] HospitalIn the event this information is protected by the Federal Confidentiality of Alcohol and Drug Abuse Patient Records regulations: The Federal rules restrict any use of the information to criminally investigate or prosecute any alcohol or drug abuse patient.[facility] HospitalIn the event this information is protected by the Federal Confidentiality of Alcohol and Drug Abuse Patient Records regulations: The Federal rules restrict any use of the information to criminally investigate or prosecute any alcohol or drug abuse patient.[facility] HospitalIn the event this information is protected by the Federal Confidentiality of Alcohol and Drug Abuse Patient Records regulations: The Federal rules restrict any use of the information to criminally investigate or prosecute any alcohol or drug abuse patient.[facility] HospitalIn the event this information is protected by the Federal Confidentiality of Alcohol and Drug Abuse Patient Records regulations: The Federal rules restrict any use of the information to criminally investigate or prosecute any alcohol or drug abuse patient.[facility] HospitalIn the event this information is protected by the Federal Confidentiality of Alcohol and Drug Abuse Patient Records regulations: The Federal rules restrict any use of the information to criminally investigate or prosecute any alcohol or drug abuse patient.[facility] HospitalIn the event this information is protected by the Federal Confidentiality of Alcohol and Drug Abuse Patient Records regulations: The Federal rules restrict any use of the information to criminally investigate or prosecute any alcohol or drug abuse patient.[facility] HospitalIn the event this information is protected by the Federal Confidentiality of Alcohol and Drug Abuse Patient Records regulations: The Federal rules restrict any use of the information to criminally investigate or prosecute any alcohol or drug abuse patient.[facility] HospitalIn the event this information is protected by the Federal Confidentiality of Alcohol and Drug Abuse Patient Records regulations: The Federal rules restrict any use of the information to criminally investigate or prosecute any alcohol or drug abuse patient.[facility] HospitalIn the event this information is protected by the Federal Confidentiality of Alcohol and Drug Abuse Patient Records regulations: The Federal rules restrict any use of the information to criminally investigate or prosecute any alcohol or drug abuse patient.[facility] HospitalIn the event this information is protected by the Federal Confidentiality of Alcohol and Drug Abuse Patient Records regulations: The Federal rules restrict any use of the information to criminally investigate or prosecute any alcohol or drug abuse patient.[facility] HospitalIn the event this information is protected by the Federal Confidentiality of Alcohol and Drug Abuse Patient Records regulations: The Federal rules restrict any use of the information to criminally investigate or prosecute any alcohol or drug abuse patient.[facility] HospitalIn the event this information is protected by the Federal Confidentiality of Alcohol and Drug Abuse Patient Records regulations: The Federal rules restrict any use of the information to criminally investigate or prosecute any alcohol or drug abuse patient.[facility] HospitalIn the event this information is protected by the Federal Confidentiality of Alcohol and Drug Abuse Patient Records regulations: The Federal rules restrict any use of the information to criminally investigate or prosecute any alcohol or drug abuse patient.[facility] HospitalIn the event this information is protected by the Federal Confidentiality of Alcohol and Drug Abuse Patient Records regulations: The Federal rules restrict any use of the information to criminally investigate or prosecute any alcohol or drug abuse patient.[facility] HospitalIn the event this information is protected by the Federal Confidentiality of Alcohol and Drug Abuse Patient Records regulations: The Federal rules restrict any use of the information to criminally investigate or prosecute any alcohol or drug abuse patient.[facility] HospitalIn the event this information is protected by the Federal Confidentiality of Alcohol and Drug Abuse Patient Records regulations: The Federal rules restrict any use of the information to criminally investigate or prosecute any alcohol or drug abuse patient.[facility] HospitalIn the event this information is protected by the Federal Confidentiality of Alcohol and Drug Abuse Patient Records regulations: The Federal rules restrict any use of the information to criminally investigate or prosecute any alcohol or drug abuse patient.[facility] HospitalIn the event this information is protected by the Federal Confidentiality of Alcohol and Drug Abuse Patient Records regulations: The Federal rules restrict any use of the information to criminally investigate or prosecute any alcohol or drug abuse patient.[facility] HospitalIn the event this information is protected by the Federal Confidentiality of Alcohol and Drug Abuse Patient Records regulations: The Federal rules restrict any use of the information to criminally investigate or prosecute any alcohol or drug abuse patient.[facility] HospitalIn the event this information is protected by the Federal Confidentiality of Alcohol and Drug Abuse Patient Records regulations: The Federal rules restrict any use of the information to criminally investigate or prosecute any alcohol or drug abuse patient.[facility] HospitalIn the event this information is protected by the Federal Confidentiality of Alcohol and Drug Abuse Patient Records regulations: The Federal rules restrict any use of the information to criminally investigate or prosecute any alcohol or drug abuse patient.[facility] HospitalIn the event this information is protected by the Federal Confidentiality of Alcohol and Drug Abuse Patient Records regulations: The Federal rules restrict any use of the information to criminally investigate or prosecute any alcohol or drug abuse patient.[facility] HospitalIn the event this information is protected by the Federal Confidentiality of Alcohol and Drug Abuse Patient Records regulations: The Federal rules restrict any use of the information to criminally investigate or prosecute any alcohol or drug abuse patient.[facility] HospitalIn the event this information is protected by the Federal Confidentiality of Alcohol and Drug Abuse Patient Records regulations: The Federal rules restrict any use of the information to criminally investigate or prosecute any alcohol or drug abuse patient.[facility] HospitalIn the event this information is protected by the Federal Confidentiality of Alcohol and Drug Abuse Patient Records regulations: The Federal rules restrict any use of the information to criminally investigate or prosecute any alcohol or drug abuse patient.[facility] HospitalIn the event this information is protected by the Federal Confidentiality of Alcohol and Drug Abuse Patient Records regulations: The Federal rules restrict any use of the information to criminally investigate or prosecute any alcohol or drug abuse patient.[facility] HospitalIn the event this information is protected by the Federal Confidentiality of Alcohol and Drug Abuse Patient Records regulations: The Federal rules restrict any use of the information to criminally investigate or prosecute any alcohol or drug abuse patient.[facility] HospitalIn the event this information is protected by the Federal Confidentiality of Alcohol and Drug Abuse Patient Records regulations: The Federal rules restrict any use of the information to criminally investigate or prosecute any alcohol or drug abuse patient.[facility] HospitalIn the event this information is protected by the Federal Confidentiality of Alcohol and Drug Abuse Patient Records regulations: The Federal rules restrict any use of the information to criminally investigate or prosecute any alcohol or drug abuse patient.[facility] HospitalIn the event this information is protected by the Federal Confidentiality of Alcohol and Drug Abuse Patient Records regulations: The Federal rules restrict any use of the information to criminally investigate or prosecute any alcohol or drug abuse patient.[facility] HospitalIn the event this information is protected by the Federal Confidentiality of Alcohol and Drug Abuse Patient Records regulations: The Federal rules restrict any use of the information to criminally investigate or prosecute any alcohol or drug abuse patient.[facility] HospitalIn the event this information is protected by the Federal Confidentiality of Alcohol and Drug Abuse Patient Records regulations: The Federal rules restrict any use of the information to criminally investigate or prosecute any alcohol or drug abuse patient.[facility] HospitalIn the event this information is protected by the Federal Confidentiality of Alcohol and Drug Abuse Patient Records regulations: The Federal rules restrict any use of the information to criminally investigate or prosecute any alcohol or drug abuse patient.[facility] HospitalIn the event this information is protected by the Federal Confidentiality of Alcohol and Drug Abuse Patient Records regulations: The Federal rules restrict any use of the information to criminally investigate or prosecute any alcohol or drug abuse patient.[facility] HospitalIn the event this information is protected by the Federal Confidentiality of Alcohol and Drug Abuse Patient Records regulations: The Federal rules restrict any use of the information to criminally investigate or prosecute any alcohol or drug abuse patient.[facility] HospitalIn the event this information is protected by the Federal Confidentiality of Alcohol and Drug Abuse Patient Records regulations: The Federal rules restrict any use of the information to criminally investigate or prosecute any alcohol or drug abuse patient.[facility] HospitalIn the event this information is protected by the Federal Confidentiality of Alcohol and Drug Abuse Patient Records regulations: The Federal rules restrict any use of the information to criminally investigate or prosecute any alcohol or drug abuse patient.[facility] HospitalIn the event this information is protected by the Federal Confidentiality of Alcohol and Drug Abuse Patient Records regulations: The Federal rules restrict any use of the information to criminally investigate or prosecute any alcohol or drug abuse patient.[facility] HospitalIn the event this information is protected by the Federal Confidentiality of Alcohol and Drug Abuse Patient Records regulations: The Federal rules restrict any use of the information to criminally investigate or prosecute any alcohol or drug abuse patient.[facility] HospitalIn the event this information is protected by the Federal Confidentiality of Alcohol and Drug Abuse Patient Records regulations: The Federal rules restrict any use of the information to criminally investigate or prosecute any alcohol or drug abuse patient.[facility] HospitalIn the event this information is protected by the Federal Confidentiality of Alcohol and Drug Abuse Patient Records regulations: The Federal rules restrict any use of the information to criminally investigate or prosecute any alcohol or drug abuse patient.[facility] HospitalIn the event this information is protected by the Federal Confidentiality of Alcohol and Drug Abuse Patient Records regulations: The Federal rules restrict any use of the information to criminally investigate or prosecute any alcohol or drug abuse patient.[facility] HospitalIn the event this information is protected by the Federal Confidentiality of Alcohol and Drug Abuse Patient Records regulations: The Federal rules restrict any use of the information to criminally investigate or prosecute any alcohol or drug abuse patient.[facility] HospitalIn the event this information is protected by the Federal Confidentiality of Alcohol and Drug Abuse Patient Records regulations: The Federal rules restrict any use of the information to criminally investigate or prosecute any alcohol or drug abuse patient.[facility] HospitalIn the event this information is protected by the Federal Confidentiality of Alcohol and Drug Abuse Patient Records regulations: The Federal rules restrict any use of the information to criminally investigate or prosecute any alcohol or drug abuse patient.[facility] the event this information is protected by the Federal Confidentiality of Alcohol and Drug Abuse Patient Records regulations: The Federal rules restrict any use of the information to criminally investigate or prosecute any alcohol or drug abuse patient.[facility] HospitalIn the event this information is protected by the Federal Confidentiality of Alcohol and Drug Abuse Patient Records regulations: The Federal rules restrict any use of the information to criminally investigate or prosecute any alcohol or drug abuse patient.[facility] HospitalIn the event this information is protected by the Federal Confidentiality of Alcohol and Drug Abuse Patient Records regulations: The Federal rules restrict any use of the information to criminally investigate or prosecute any alcohol or drug abuse patient.[facility] HospitalIn the event this information is protected by the Federal Confidentiality of Alcohol and Drug Abuse Patient Records regulations: The Federal rules restrict any use of the information to criminally investigate or prosecute any alcohol or drug abuse patient.[facility] HospitalIn the event this information is protected by the Federal Confidentiality of Alcohol and Drug Abuse Patient Records regulations: The Federal rules restrict any use of the information to criminally investigate or prosecute any alcohol or drug abuse patient.[facility] HospitalIn the event this information is protected by the Federal Confidentiality of Alcohol and Drug Abuse Patient Records regulations: The Federal rules restrict any use of the information to criminally investigate or prosecute any alcohol or drug abuse patient.[facility] HospitalIn the event this information is protected by the Federal Confidentiality of Alcohol and Drug Abuse Patient Records regulations: The Federal rules restrict any use of the information to criminally investigate or prosecute any alcohol or drug abuse patient.[facility] Reason for Visit (unrecogniz ed section and content) Reason Comments nailcare Reason Onset Date Comments Refill Request 11/27/2021 [...] colon Procedures CONSULT TO GENERAL SURGERY OFFICE/OUTPATIENT [facility] 60-74 MINUTES Logan Aquino MD [facility] [place] [address] Referral ID Status Reason Start Date Expiration Date V isits Requested Visits Authorized [id number] Closed PCP Requested Referral 03/23/2022 03/23/2023 1 [...] Patient Specialty Diagnoses / Procedures Referred By Mookie t Referred To Contact Vascular Medicine Diagnoses Edema, unspecified type Varicose veins of both lower extremities, unspecified whether complicated Venous insufficiency Venous stasis ulcer of other part of left lower leg limited to breakdown of skin without varicose veins (HCC) Procedures CONSULT TO VASCULAR MEDICINE OFFICE/OUTPATIENT [facility] 60-74 MINUTES Thais Silva APRN.CNP [address] [place] [address] Referral ID Status Reason Start Date Expiration Date V isits Requested Visits Authorized [id number] Closed PCP Requested Referral 12/12/2022 12/12/2023 1 1 Reason Comments Established Patient Nail care Reason Onset Date Comments Refill Request 03/20/2023 Reason Onset Date Comments Medicare Wellness Exam F/U 6 months Immunizations 04/01/2023 Flu vaccination Reason Comments Established Patient Reason Comments Orders Medical [employer] (l ymphedema pumps) Reason Comments Shortness of Breath Fatigue Reason Comments Forms Reason Comments Established Patient nail care Reason Onset Date Comments colorectal cancer screening 10/21/2023 Reason Comments Established Patient Reason Comments Established Patient Follow Up nail care Reason Comments F/U 3 Month Reason Comments CARD New Patient Consult SUPERVISOR HOUSECLEANER REF FOR A-FI B Reason Comments Derm Problem Reason Comments skin abrasion Reason Comments Wound Check Reason Comments Medicare Wellness Exam Reason Comments Edema Bilat leg swelling/w ounds Reason Comments Colon Consult Reason Comments 11-11-2024 Reason Comments surgical clearance Reason Comments Knee Pain LT knee X 3 days Reason Comments Radiology US Specialty Diagnoses / Procedures Referred By Mookie contreras Referred To Contact [facility] Diagnoses Edema of left lower extremity Pain in left lower leg Procedures US DVT LOWER LEFT DUP-SCAN XTR VEINS UNILATERAL/LIMITED STUDY Codi Rivera M, BIOPROCESS DEVELOPMENT ENGINEER.PETROLEUM ENGINEERING TEACHER [address] [place] [address] Phone: tel: fax: [place] [phone] Referral ID Status Reason Start Date Expiration Date V isits Requested Visits Authorized [id number] Closed Auto-Generate d Referral 11/10/2024 12/10/2025 1 1 Care Teams (unrecognized sec tion and content) Go Cart Mechanic Relationship Specialty Start Date End Date Logan Aquino MD [address] [place], [place] [id number] PCP - General Internal Medicine 05/24/16 Go Cart Mechanic Relationship Specialty Start Date End Date Logan Aquino MD [address] [place], [place] [id number] PCP - General Internal Medicine 05/24/16 Go Cart Mechanic Relationship Specialty Start Date End Date Logan Aquino MD [address] [place], [place] [address] PCP - General Internal Medicine 05/24/16 Go Cart Mechanic Relationship Specialty Start Date End Date Logan Aquino MD [address] [facility] [place] [address] PCP - General Internal Medicine 05/24/16 Go Cart Mechanic Relationship Specialty Start Date End Date Logan Aquino MD [address] [facility] [place] [address] PCP - General Internal Medicine 05/24/16 Go Cart Mechanic Relationship Specialty Start Date End Date Logan Aquino MD [address] [facility] [place] [address] PCP - General Internal Medicine 05/24/16 Go Cart Mechanic Relationship Specialty Start Date End Date Logan Aquino MD [address] [facility] [place] [address] PCP - General Internal Medicine 05/24/16 Go Cart Mechanic Relationship Specialty Start Date End Date Logan Aquino MD [address] [facility] [place] [address] PCP - General Internal Medicine 05/24/16 Go Cart Mechanic Relationship Specialty Start Date End Date Logan Aquino MD [address] [facility] [place] [address] PCP - General Internal Medicine 05/24/16 Go Cart Mechanic Relationship Specialty Start Date End Date Logan Aquino MD [address] [facility] [place] [address] PCP - General Internal Medicine 05/24/16 Go Cart Mechanic Relationship Specialty Start Date End Date Logan Aquino MD [address] [facility] [place] [address] PCP - General Internal Medicine 05/24/16 Go Cart Mechanic Relationship Specialty Start Date End Date Logan Aquino MD [address] [facility] [place] [address] PCP - General Internal Medicine 05/24/16 Go Cart Mechanic Relationship Specialty Start Date End Date Logan Aquino MD [address] [facility] [place] [address] PCP - General Internal Medicine 05/24/16 Go Cart Mechanic Relationship Specialty Start Date End Date Logan Aquino MD [address] [facility] [place] [address] PCP - General Internal Medicine 05/24/16 Go Cart Mechanic Relationship Specialty Start Date End Date Logan Aquino MD [address] [facility] [place] [address] PCP - General Internal Medicine 05/24/16 Go Cart Mechanic Relationship Specialty Start Date End Date Logan Aquino MD [address] [place] [address] PCP - General Internal Medicine 05/24/16 Go Cart Mechanic Relationship Specialty Start Date End Date Logan Aquino MD [address] [facility] [place] [address] PCP - General Internal Medicine 05/24/16 Go Cart Mechanic Relationship Specialty Start Date End Date Logan Aquino MD [address] [facility] [place] [address] PCP - General Internal Medicine 05/24/16 Go Cart Mechanic Relationship Specialty Start Date End Date Logan Aquino MD [address] [facility] [place] [address] PCP - General Internal Medicine 05/24/16 Go Cart Mechanic Relationship Specialty Start Date End Date Logan Aquino MD [address] [facility] [place] [address] PCP - General Internal Medicine 05/24/16 Go Cart Mechanic Relationship Specialty Start Date End Date Logan Aquino MD [address] [facility] [place] [address] PCP - General Internal Medicine 05/24/16 Go Cart Mechanic Relationship Specialty Start Date End Date Logan Aquino MD [address] [facility] [place] [address] PCP - General Internal Medicine 05/24/16 Go Cart Mechanic Relationship Specialty Start Date End Date Logan Aquino MD [address] [facility] [place] [address] PCP - General Internal Medicine 05/24/16 Go Cart Mechanic Relationship Specialty Start Date End Date Logan Aquino MD [address] [facility] [place] [address] PCP - General Internal Medicine 05/24/16 Go Cart Mechanic Relationship Specialty Start Date End Date Logan Aquino MD [address] [facility] [place] [address] PCP - General Internal Medicine 05/24/16 Team Status: Active Member Role Status Dates Dr. Logan Aquino MD Family Provider Active Dr. Logan Aquino MD Primary Care Provider Active Team Status: Active Member Role Status Dates Dr. Logan Aquino MD Primary Care Provider Active Codi Older SUPERVISOR HOUSECLEANER, SUPERVISOR HOUSECLEANER-C Referring Provider, Other Provider Active Dr. Doug Hines MD Attending Provider Active Team Status: Active Member Role Status Dates Dr. Logan Aquino MD Primary Care Provider Active Lisha Simon RN Attending Provider Active Team Status: Inactive Member Role Status Dates Dr. Logan Aquino MD Primary Care Provider Active Codi Older SUPERVISOR HOUSECLEANER, SUPERVISOR HOUSECLEANER-C Attending Provider, Referring Provi curt Active Team Status: Inactive Member Role Status Dates Dr. Logan Aquino MD Primary Care Provider, Refer ring Provider Active Dr. Doug Hines MD Attending Provider Active Team Status: Active Member Role Status Dates Dr. Logan Aquino MD Primary Care Provider Active Codi Rivera SUPERVISOR HOUSECLEANER, SUPERVISOR HOUSECLEANER-C Referring Provider, Other Pro vider Active Dr. Doug Hines MD Attending Provider Active Team Status: Inactive Member Role Status Dates Dr. Logan Aquino MD Primary Care Provider Active Dr. Doug Hines MD Attending Provider, Referring Pro vider Active Team Status: Inactive Member Role Status Dates Dr. Logan Aquino MD Primary Care Provider Active Codi Rivera SUPERVISOR HOUSECLEANER, SUPERVISOR HOUSECLEANER-C Attending Provider, Referring Provider Active Team Status: Active Member Role Status Dates Dr. Logan Aquino MD Primary Care Provider Active Dr. Doug Hines MD Referring Provider, Other Provide r Active Dr. Adriano Bowling MD Attending Provider Active Team Status: Inactive Member Role Status Dates Dr. Logan Aquino MD Primary Care Provider Active Dr. Doug Hines MD Admit Provider, Att ending Provider, Referring Provider Active Team Status: Inactive Member Role Status Dates Dr. Logan Aquino MD Primary Care Provider, Refer ring Provider Active Shaina FREITAS PA Attending Provider Active Team Status: Active Member Role Status Dates Dr. Logan Aquino MD Primary Care Provider Active Dr. Abraham Villanueva MD Attending Provider Active Dr. Doug Hines MD Referring Provider Active Team Status: Active Member Role Status Dates Dr. Logan Aquino MD Primary Care Provider Active Shaina FREITAS PA Attending Provider, Referr ing Provider Active Team Status: Inactive Member Role Status Dates Dr. Logan Aquino MD Primary Care Provider Active Shaina FREITAS PA Attending Provider, Referr ing Provider Active Go Cart Mechanic Relationship Specialty Start Date End Date Logan Aquino MD [address] [place] [address] PCP - General Internal Medicine 05/24/16 Team Status: Inactive Member Role Status Dates Dr. Logan Aquino MD Primary Care Provider Active Shaina Nguyen PA, PA Attending Provider Active Go Cart Mechanic Relationship Specialty Start Date End Date Logan Aquino MD [address] [facility] [address] PCP - General Internal Medicine 05/24/16 Team Status: Active Member Role Status Dates Dr. Logan Aquino MD Primary Care Provider Active Dr. Doug Hines MD Attending Provider, Referring Pro vider Active Go Cart Mechanic Relationship Specialty Start Date End Date Logan Aquino MD [address] [facility] [place] [address] PCP - General Internal Medicine 05/24/16 Go Cart Mechanic Relationship Specialty Start Date End Date Logan Aquino MD [address] [facility] [place] [address] PCP - General Internal Medicine 05/24/16 Go Cart Mechanic Relationship Specialty Start Date End Date Logan Aquino MD [address] [facility] [place] [address] PCP - General Internal Medicine 05/24/16 Go Cart Mechanic Relationship Specialty Start Date End Date Logan Aquino MD [address] [facility] [place] [address] PCP - General Internal Medicine 05/24/16 Group, [facility] [address] [place] [address] Specialty Sales Order Clerk Cardiology 01/09/24 Doug Hines MD [address] [place] [address] Specialty Sales Order Clerk Cardiology 01/09/24 Go Cart Mechanic Relationship Specialty Start Date End Date Logan Aquino MD [address] [facility] [address] PCP - General Internal Medicine 05/24/16 Group, [facility] [address] [place] [address] Specialty Sales Order Clerk Cardiology 01/09/24 Doug Hines MD [address] [place] [address] Specialty Sales Order Clerk Cardiology 01/09/24 Go Cart Mechanic Relationship Specialty Start Date End Date Logan Aquino MD [address] [facility] [address] PCP - General Internal Medicine 05/24/16 Group, [facility] [address] [place] [address] Specialty Sales Order Clerk Cardiology 01/09/24 Duog Hines MD [address] [place] [address] Specialty Sales Order Clerk Cardiology 01/09/24 Go Cart Mechanic Relationship Specialty Start Date End Date Logan Aquino MD [address] [facility] [address] PCP - General Internal Medicine 05/24/16 Group, [facility] [address] [place] [address] Specialty Sales Order Clerk Cardiology 01/09/24 Doug Hines MD [address] [place] [address] Specialty Sales Order Clerk Cardiology 01/09/24 Go Cart Mechanic Relationship Specialty Start Date End Date Logan Aquino MD [address] [facility] [place] [address] PCP - General Internal Medicine 05/24/16 Group, [facility] [address] [facility] [place] [address] Specialty Sales Order Clerk Cardiology 01/09/24 Doug Hines MD [address] [place] [address] Specialty Sales Order Clerk Cardiology 01/09/24 Go Cart Mechanic Relationship Specialty Start Date End Date Logan Aquino MD [address] [facility] [place] [address] PCP - General Internal Medicine 05/24/16 Go Cart Mechanic Relationship Specialty Start Date End Date Logan Aquino MD [address] [facility] [place] [address] PCP - General Internal Medicine 05/24/16 Group, [facility] [address] [facility] [place] [address] Specialty Sales Order Clerk Cardiology 01/09/24 Doug Hines MD [address] [place] [address] Specialty Sales Order Clerk Cardiology 01/09/24 Go Cart Mechanic Relationship Specialty Start Date End Date Logan Aquino MD [address] [facility] [place] [address] PCP - General Internal Medicine 05/24/16 Group, [facility] [address] [facility] [place] [address] Specialty Sales Order Clerk Cardiology 01/09/24 Doug Hines MD [address] [place] [address] Specialty Sales Order Clerk Cardiology 01/09/24 Go Cart Mechanic Relationship Specialty Start Date End Date Logan Aquino MD [address] [place] [address] PCP - General Internal Medicine 05/24/16 Group, [facility] [address] [place] [address] Specialty Sales Order Clerk Cardiology 01/09/24 Doug Hines MD [address] [place] [address] Specialty Sales Order Clerk Cardiology 01/09/24 Codi Rivera, BIOPROCESS DEVELOPMENT ENGINEER.PETROLEUM ENGINEERING TEACHER [address] [place] [address] Emergency Dept Tech Internal Medicine 06/22/24 Go Cart Mechanic Relationship Specialty Start Date End Date Logan Aquino MD [address] [place] [address] PCP - General Internal Medicine 05/24/16 Group, [facility] [address] [place] [address] Specialty Sales Order Clerk Cardiology 01/09/24 Doug Hines MD [address] [place] [address] Specialty Sales Order Clerk Cardiology 01/09/24 Codi Rivera, BIOPROCESS DEVELOPMENT ENGINEER.PETROLEUM ENGINEERING TEACHER [address] [place] [address] Emergency Dept Tech Internal Medicine 06/22/24 Go Cart Mechanic Relationship Specialty Start Date End Date Logan Aquino MD [address] [place] [address] PCP - General Internal Medicine 05/24/16 Group, [facility] [address] [facility] [place] [address] Specialty Sales Order Clerk Cardiology 01/09/24 Doug Hines MD [address] [place] [address] Specialty Sales Order Clerk Cardiology 01/09/24 Codi Rivera, BIOPROCESS DEVELOPMENT ENGINEER.PETROLEUM ENGINEERING TEACHER [address] [facility] [place] [address] Emergency Dept Tech Internal Medicine 06/22/24 Go Cart Mechanic Relationship Specialty Start Date End Date Logan Aquino MD [address] [facility] [address] PCP - General Internal Medicine 05/24/16 Group, [facility] [address] [facility] [place] [address] Specialty Sales Order Clerk Cardiology 01/09/24 Doug Hines MD [address] [place] [address] Specialty Sales Order Clerk Cardiology 01/09/24 Codi Rivera, BIOPROCESS DEVELOPMENT ENGINEER.PETROLEUM ENGINEERING TEACHER [address] [facility] [address] Emergency Dept Tech Internal Medicine 06/22/24 Go Cart Mechanic Relationship Specialty Start Date End Date Logan Aquino MD [address] [facility] [address] PCP - General Internal Medicine 05/24/16 Group, [facility] [address] [facility] [place] [address] Specialty Sales Order Clerk Cardiology 01/09/24 Doug Hines MD [address] [place] [address] Specialty Sales Order Clerk Cardiology 01/09/24 Codi Rivera, BIOPROCESS DEVELOPMENT ENGINEER.PETROLEUM ENGINEERING TEACHER [address] [facility] [address] Emergency Dept Tech Internal Medicine 06/22/24 Go Cart Mechanic Relationship Specialty Start Date End Date Logan Aquino MD [address] [facility] [address] PCP - General Internal Medicine 05/24/16 Group, [facility] [address] [facility] [address] Specialty Sales Order Clerk Cardiology 01/09/24 Doug Hines MD [address] [place] [address] Specialty Sales Order Clerk Cardiology 01/09/24 Codi Rivera, BIOPROCESS DEVELOPMENT ENGINEER.PETROLEUM ENGINEERING TEACHER [address] [facility] [address] Emergency Dept Tech Internal Medicine 06/22/24 Go Cart Mechanic Relationship Specialty Start Date End Date Logan Aquino MD [address] [facility] [address] PCP - General Internal Medicine 05/24/16 Group, [facility] [address] [facility] [address] Specialty Sales Order Clerk Cardiology 01/09/24 Doug Hines MD [address] [place] [address] Specialty Sales Order Clerk Cardiology 01/09/24 Codi Rivera, BIOPROCESS DEVELOPMENT ENGINEER.PETROLEUM ENGINEERING TEACHER [address] [place] [address] Emergency Dept Tech Internal Medicine 06/22/24 Go Cart Mechanic Relationship Specialty Start Date End Date Logan Aquino MD [address] [place] [address] PCP - General Internal Medicine 05/24/16 Group, [facility] [address] [place] [address] Specialty Sales Order Clerk Cardiology 01/09/24 Doug Hines MD [address] [place] [address] Specialty Sales Order Clerk Cardiology 01/09/24 Codi Rivera, BIOPROCESS DEVELOPMENT ENGINEER.PETROLEUM ENGINEERING TEACHER [address] [place] [address] Emergency Dept Tech Internal Medicine 06/22/24 Go Cart Mechanic Relationship Specialty Start Date End Date Logan Aquino MD [address] [place] [address] PCP - General Internal Medicine 05/24/16 Group, [facility] [address] [place] [address] Specialty Sales Order Clerk Cardiology 01/09/24 Doug Hines MD [address] [place] [address] Specialty Sales Order Clerk Cardiology 01/09/24 Codi Rivera, BIOPROCESS DEVELOPMENT ENGINEER.PETROLEUM ENGINEERING TEACHER [address] [place] [address] Emergency Dept Tech Internal Medicine 06/22/24 Go Cart Mechanic Relationship Specialty Start Date End Date Logan Aquino MD [address] [place] [address] PCP - General Internal Medicine 05/24/16 Group, [facility] [address] [place] [address] Specialty Sales Order Clerk Cardiology 01/09/24 Doug Hines MD [address] [place] [address] Specialty Sales Order Clerk Cardiology 01/09/24 Codi Rivera, BIOPROCESS DEVELOPMENT ENGINEER.PETROLEUM ENGINEERING TEACHER [address] [facility] [place], [place] [address] [facility] Internal Medicine 06/22/24 Go Cart Mechanic Relationship Specialty Start Date End Date Logan Aquino MD [address] [facility] [address] PCP - General Internal Medicine 05/24/16 Group, [facility] [address] [facility] [place] [address] Specialty Sales Order Clerk Cardiology 01/09/24 Doug Hines MD [address] [place] [address] Specialty Sales Order Clerk Cardiology 01/09/24 Codi Rivera, BIOPROCESS DEVELOPMENT ENGINEER.PETROLEUM ENGINEERING TEACHER [address] [facility] [place] [address] [facility] Internal Medicine 06/22/24 Goals (unrecognized section and content) Goals may be documented in a n alternate sectionGoals may be documented in an alternate sectionGoals may be documented in an alternate section FOR RECORDS PERTAINING TO PATIENTS WHO ARE [...] BE BASED ON THE PRIMARY CLINICAL RECORDS. [facility]. provides no warranty or guarantee of the accuracy or completeness of information in this document.
--- NOTE | 2024-12-15 22:44 | CPS ---
RT checked on pt, family in room. Pt was sleeping with 3L nasal oxygen. Did not want our Cpap for tonight.
[2024-12-16] VITALS (10 sets, daily range): BP systolic 129–148; BP diastolic 84–104; PULSE 81–118; RESP 17–18; TEMP 35.9–37.1; O2SAT 94–100; BMI 39.7
--- NOTE | 2024-12-16 00:22 | PCM.HOSP.N ---
Hospitalist Note Respiratory panel per RN with + human metapneumovirus.
--- NOTE | 2024-12-16 05:55 | ECHOCS_ITS ---
Reason For Study Reason For Study: CHF Procedure This was a 2D Doppler, Color Flow transthoracic echocardiogram. The study was technically difficult. Contrast injection was performed. Exam performed portable in patient room. Left Ventricle Normal LV size. Mild concentric left ventricular hypertrophy. The LV systolic function is normal. EF is 65 %. At least stage I diastolic dysfunction. Right Ventricle Normal right ventricle. Atria There is moderate biatrial dilatation. Mitral Valve Trivial mitral valve insufficiency. Tricuspid Valve Trivial tricuspid valve insufficiency. Right ventricular systolic pressure estimated to be 37 mmHg. Aortic Valve Trisinus/trileaflet aortic valve. Pulmonic Valve The pulmonic valve is not well visualized. Great Vessels Normal sized aortic root. Pericardium/Pleural No pericardial effusion. Medication Diluted definity 1.5ml given slow IV push to enhance endocardial definition. MMode/2D Measurements & Calculations LVIDd: 4.6 cm IVSd: 1.1 cm Ao root diam: 3.5 cm LVIDs: 2.8 cm LVPWd: 1.0 cm LA dimension: 4.5 cm RVDd: 3.7 cm FS: 39.0 % LAV(MOD-bp): 67.3 ml LVAd ap4: 32.9 cm2 SV(MOD-sp4): 69.6 ml LAV(MOD-bp) Indexed: 26.8 ml/m2 LVLd ap4: 8.9 cm SI(MOD-sp4): 27.7 ml/m2 LAV(MOD-sp2): 65.9 ml EDV(MOD-sp4): 97.6 ml LAV(MOD-sp4): 64.0 ml EDV(sp4-el): 102.7 ml LVAs ap4: 14.4 cm2 LVLs ap4: 6.4 cm ESV(MOD-sp4): 28.0 ml ESV(sp4-el): 27.5 ml EF(MOD-sp4): 71.3 % EF(sp4-el): 73.2 % SV(sp4-el): 75.1 ml LA A4 area: 23.5 cm2 LA dimension(2D): 4.6 cm RA A4 area: 21.4 cm2 Doppler Measurements & Calculations MV E max ramana: 109.5 cm/sec MV V2 max: 125.2 cm/sec Ao V2 max: 130.0 cm/sec MV max P.3 mmHg Ao max P.8 mmHg MV V2 mean: 65.8 cm/sec Ao V2 mean: 101.6 cm/sec MV mean P.2 mmHg Ao mean P.6 mmHg MV V2 VTI: 23.5 cm Ao V2 VTI: 26.5 cm LV V1 max: 72.2 cm/sec TR max ramana: 261.7 cm/sec LV V1 max P.1 mmHg TR max P.4 mmHg ECHO/Echo Complete W/ Contrast Interpretation Summary The study was technically difficult. Mild concentric left ventricular hypertrophy. The LV systolic function is normal. EF is 65 %. At least stage I diastolic dysfunction. There is moderate biatrial dilatation. Ordering Physician: Amita Guillory Performed By: Willard Van RCS
[2024-12-16 06:22] LABS: Absolute Lymphocyte Count 0.63 X10^3/uL (0.83-4.51); Absolute Neutrophil Count 4.7 X10^3/uL (2.0-7.7); Basophil# 0.01 X10^3/uL; Basophil% 0.2 % (0-1); Hematocrit 39.6 % (40-54); Hemoglobin 13.6 g/dL (13.0-16.5); Lymphocyte # 0.63 X10^3/ul (0.83-4.51); Mean Corp Hgb Conc 34.3 g/dL (32-36); Mean Corpuscular Hgb 33.9 pg (27.0-32.0); Mean Corpuscular Volume 98.8 fL (80-94); Mean Platelet Vol. 8.5 fl (6.2-12.0); Monocyte# 0.27 X10^3/uL; Monocyte% 4.7 % (0-10); NRBC Flagged by Analyzer 0 % (0-5); Neutrophil # 4.74 X10^3/uL (2.7-7.7); Platelet Count 216 K/mm3 (150-450); RBC Distribution Width CV 14.6 % (11.6-14.6); RBC Distribution Width SD 53.3 fl (35.1-43.9); Red Blood Count 4.01 M/mm3 (4.6-6.2); White Blood Count 5.7 K/mm3 (4.4-11.0)
[2024-12-16 06:50] LABS: ALB/GLOB Ratio 1.1 RATIO (0.9-2.4); AST(SGOT) 42 U/L (<=37); Alanine Aminotransfer ALT/SGPT 37 U/L (<=46); Albumin, Serum 3.8 g/dL (3.4-4.8); Alkaline Phosphatase 109 U/L (40-129); Anion Gap 14 (5-15); BUN 16 mg/dL (4-19); BUN/Creat Ratio 14.6 RATIO (10-20); Calcium,Total 8.1 mg/dL (7.6-11.0); Carbon Dioxide 27.6 mmol/L (21.0-32.0); Chloride 97 mmol/L (98-108); Creatinine, Serum 1.07 mg/dL (0.70-1.20); EST Glomerular Filtration Rate 72 (>60); Estimated Creatinine Clearance 84.57 ml/min (50-250); Globulin 3.3 g/dL (2.2-4.2); Glucose 242 mg/dL (70-99); Magnesium 1.7 mg/dL (1.5-2.2); Phosphorus 2.4 mg/dL (2.7-4.5); Protein, Total 7.1 g/dL (5.9-8.4); Sodium Level 138 mmol/L (133-145); Total Bilirubin 1.13 mg/dL (0.00-1.30)
[2024-12-16] MEDS: Furosemide 40 MG/4 ML Vial IV ×2 (06:57→13:32)
[2024-12-16] MEDS: 0.9% Saline Lock 10 ML Syringe IV ×2 (06:57→13:32)
[2024-12-16] MEDS: guaiFENesin 10 ML UDC (200MG/10ML) 20 ML PO (06:59)
[2024-12-16] MEDS: APIXABAN 5 MG TABLET PO (08:01)
[2024-12-16] MEDS: Carvedilol 12.5 MG Tablet PO ×2 (08:01→16:25)
[2024-12-16] MEDS: Aspirin E.C. 81 MG Tablet PO (08:01)
[2024-12-16] MEDS: Multivitamins,Therapeutic Tablet 1 TABLET PO (08:01)
--- NOTE | 2024-12-16 08:43 | PN.HOSP_ITS ---
Reason for Visit Reason for Visit: Diagnoses Hypomagnesemia (12/15/24) Hypokalemia (12/15/24) Acute respiratory failure with hypoxia (12/15/24) Other forms of dyspnea (12/15/24) Other specified abnormal findings of blood chemistry (12/15/24) Subjective Subjective Breathing better today. Objective Data Objective Data Vital Signs: Vital Signs Temp Pulse Resp BP Pulse Ox O2 Del Method O2 Flow Rate 36.6 C 102 H 18 133/93 H 100 Nasal Cannula 3 12/16/24 07:59 12/16/24 07:59 12/16/24 07:59 12/16/24 07:59 12/16/24 07:59 12/16/24 07:59 12/16/24 07:59 Oxygen Flow Rate (L/min) 3 Oxygen Delivery Method Nasal Cannula Weight: 132.9 kg Body Mass Index (BMI) 39.7 Intake & Output: Intake and Output for Last 24 Hours 12/14/24 12/15/24 12/16/24 23:59 23:59 23:59 Intake Total 468.33 / 468.33 120 / 120 Output Total 950 / 950 Balance 468.33 / -481.67 -830 / -830 Lab / Micro Data 12/16/24 06:03 12/16/24 06:03 Labs: Laboratory Results - last 24 hr 12/15/24 13:59: WBC 8.0, RBC 4.00 L, Hgb 13.5, Hct 39.7 L, MCV 99.3 H, MCH 33.8 H, MCHC 34.0, RDW Std Deviation 54.3 H, RDW Coeff of Gentry 15.0 H, Plt Count 214, MPV 8.8, Immature Gran % (Auto) 0.500, Neut % (Auto) 66.6, Lymph % (Auto) 16.9 L , [place] % (Auto) 12.8 H, Eos % (Auto) 2.3, Baso % (Auto) 0.9, Absolute Neuts (auto) 5.3, Absolute Lymphs (auto) 1.35, Nucleated RBC % 0, PT 16.9 H, INR 1.4, APTT 33.9, Sodium 138, Potassium 2.8 L, Chloride 95 L, Carbon Dioxide 26.6, A nion Gap 16 H, BUN 14, Creatinine 1.15, Estim Creat Clear Calc 78.78, Est GFR (MDRD) Non-Af 66, BUN/Creatinine Ratio 12.3, Glucose 160 H, Calcium 8.5, Total Bilirubin 1.67 H, AST 58 H, ALT 42, Alkaline Phosphatase 117, Troponin T High Sens 29 H, NT pro BNP II 955, Total Protein 7.2, Albumin 4.0, Globulin 3.2, Albumin/Globulin Ratio 1.2 12/15/24 14:35: Lactic Acid 1.5 12/15/24 16:08: Magnesium 1.2 L, Troponin T Hi Sens 2 Hr 26 H 12/15/24 16:36: Ethyl Alcohol < 10.1 12/15/24 18:07: Troponin T Hi Sens 4Hr 26 H 12/15/24 18:08: Urine Color Yellow, Urine Clarity Sl. Cloudy, Urine pH 6.5, Ur Specific [place] 1.010, Urine Protein 500 H, Urine Glucose (UA) Normal, Urine Ketones 5 H, Urine Occult Blood 150 H, Urine Nitrite Negative, Urine Bilirubin Negative, Urine Urobilinogen 1 H, Ur Leukocyte Esterase 25 H, Urine RBC 5-10 SEEN, Urine WBC 0-5 SEEN, Ur Squamous Epith Cells 0-5 SEEN, Urine Bacteria 0 SEEN, Urine Mucus 0 SEEN 12/16/24 06:03: WBC 5.7, RBC 4.01 L, Hgb 13.6, Hct 39.6 L, MCV 98.8 H, MCH 33.9 H, MCHC 34.3, RDW Std Deviation 53.3 H, RDW Coeff of Gentry 14.6, Plt Count 216, MPV 8.5, Immature Gran % (Auto) 1.100 H, Neut % (Auto) 83.0 H, Lymph % (Auto) 11.0 L, Rosebud % (Auto) 4.7, Eos % (Auto) 0.0, Baso % (Auto) 0.2, Absolute Neuts (auto) 4.7, Absolute Lymphs (auto) 0.63 L, Nucleated RBC % 0, Sodium 138, P otassium 3.0 L, Chloride 97 L, Carbon Dioxide 27.6, Anion Gap 14, BUN 16, Creatinine 1.07, Estim Creat Clear Calc 84.57, Est GFR (MDRD) Non-Af 72, BUN/Creatinine Ratio 14.6, Glucose 242 H, Calcium 8.1, Phosphorus 2.4 L, Magnesium 1.7, Total Bilirubin 1.13, AST 42 H, ALT 37, Alkaline Phosphatase 109, Total Protein 7.1, Albumin 3.8, Globulin 3.3, Albumin/Globulin Ratio 1.1 Micro: Microbiology 12/15/24 18:40 Mucosa - Nasopharyngeal Respiratory Panel (PCR) - Final Human [place] 12/15/24 14:55 Mucosa - Nose SARS-CoV-2, Influenza & RSV (PCR) - Final Radiography Diagnostic Testing: Radiology Impression Chest X-Ray 12/15/24 15:50 IMPRESSION: Mild findings of edema in the setting of cardiomegaly. Reading Location: [place] [address] Physical Exam Const alert and no apparent distress HEENT head/scalp atraumatic and moist oral mucous membranes Resp normal respiratory effort Resp Narrative: expiratory wheeze. Cardio regular rate, regular rhythm, S1 normal heart sound and S2 normal heart sound GI normal to inspection, nondistended, normoactive bowel sounds, soft to palpation, non-tender and non-distended Neuro Sensorium / Orientation: awake, alert, oriented to person, oriented to place and oriented to time Assessment & Plan Assessment/Plan (1) Bronchitis: PLAN: No acute respiratory failure, but respiratory insufficiency present. positive for human meta pneumo virus. Change steroids to prednisone. (2) CHF (congestive heart failure): PLAN: acute HFpEF EF 65% on echo resolved. PLAN: Plan CAD: stable pafib: continue apixaban, carvedilol ALEX: CPAP Obesity class III: complicates care and recovery. VTE prophylaxis: LMWH. DW patient's at bedside. Charges/Coding Visit Charges Inpatient E&M: 20175 Subs Hosp L2
[2024-12-16] MEDS: Potassium Chloride Oral Tablet 20 MEQ 60 MEQ PO (12:06)
--- NOTE | 2024-12-16 16:33 | PCM.DC.SUM ---
Providers Date of Admission: 12/15/24 Primary Care Physician: Dr. Logan Aquino MD Reason For Visit: ACUTE HYPOXIC RESPIRATORY FAILURE Diagnosis Discharge Diagnosis (1) Bronchitis: Status: Acute Code(s): J40 - Bronchitis, not specified as acute or chronic Plan: No acute respiratory failure, but respiratory insufficiency present. positive for human meta pneumo virus. Change steroids to prednisone. (2) CHF (congestive heart failure): Status: Acute Code(s): I50.9 - Heart failure, unspecified Plan: acute HFpEF EF 65% on echo resolved. Plan CAD: stable pafib: continue apixaban, carvedilol ALEX: CPAP Obesity class III: complicates care and recovery. VTE prophylaxis: LMWH. DW patient's at bedside. Medications at Discharge Home Medications ipratropium bromide 42 mcg (0.06 %) nasal spray 2 spray intranasal TID PRN allergy symptoms 06/20/23 nitroglycerin 0.4 mg sublingual tablet (Nitrostat) 0.4 mg sublingual Q5-15M PRN chest pain #25 tabs 10/14/23 atorvastatin 20 mg tablet 20 mg PO DAILY cholesterol #90 tabs 08/27/24 carvedilol 12.5 mg tablet 12.5 mg PO BID blood pressure #180 tabs 08/27/24 furosemide 40 mg tablet 40 mg PO BID diuretic #180 tabs 08/27/24 apixaban 5 mg tablet (Eliquis) 5 mg PO BID blood thinner #180 tabs 08/31/24 aspirin 81 mg tablet,delayed release (Adult Aspirin Regimen) 81 mg PO QD heart [facility] #90 tabs 11/02/24 multivitamin (Daily Multi-Vitamin tablet) 1 tab PO DAILY vitamin 12/15/24 albuterol sulfate 90 mcg/actuation aerosol inhaler (Ventolin HFA) 2 puff inhalation Q6H PRN shortness of breath or wheezing #6.7 grams 12/16/24 codeine 10 mg-guaifenesin 100 mg/5 mL oral liquid (Guaifenesin AC) 10 ml PO Q4H PRN cough #120 mL 12/16/24 prednisone 20 mg tablet 40 mg (2 x 20 mg) PO DAILY #10 tabs 12/16/24 Hospital Course Operations None Procedures 2-D Echocardiogram Summary of Care Provided Minutes Spent on Discharge: 35 Hospital Course: Patient presents with shortness of breath. For the be viral but x-ray showed pulmonary vascular congestion consistent with CHF. BNP, however was unremarkable. Patient was positive for human metapneumovirus. Patient was started on steroids as well as IV Lasix and he was hypoxic upon arrival but improved with 2 L nasal cannula. Patient was started on IV furosemide as well as IV methylprednisolone. He is doing much better. Did have ambulatory pulse ox and he is maintaining in the 90s. Patient likely has an acute bronchitis due to the metapneumovirus. Patient will resume his home medications for his heart failure and will be on a short course of prednisone. Patient will also have prescription for Robitussin with codeine to help with his proximal-isms of cough related with his viral infection. Case discussed with his at bedside. Weight / BMI Weight Weight: 132.9 kg Body Mass Index (BMI) 39.7 ABG / Lab / Microbiology Data 12/16/24 06:03 12/16/24 06:03 Laboratory: Laboratory Results - last 24 hr 12/15/24 16:08: Magnesium 1.2 L, Troponin T Hi Sens 2 Hr 26 H 12/15/24 16:36: Ethyl Alcohol < 10.1 12/15/24 18:07: Troponin T Hi Sens 4Hr 26 H 12/15/24 18:08: Urine Color Yellow, Urine Clarity Sl. Cloudy, Urine pH 6.5, Ur Specific [place] 1.010, Urine Protein 500 H, Urine Glucose (UA) Normal, Urine Ketones 5 H, Urine Occult Blood 150 H, Urine Nitrite Negative, Urine Bilirubin Negative, Urine Urobilinogen 1 H, Ur Leukocyte Esterase 25 H, Urine RBC 5-10 SEEN, Urine WBC 0-5 SEEN, Ur Squamous Epith Cells 0-5 SEEN, Urine Bacteria 0 SEEN, Urine Mucus 0 SEEN 12/16/24 06:03: WBC 5.7, RBC 4.01 L, Hgb 13.6, Hct 39.6 L, MCV 98.8 H, MCH 33.9 H, MCHC 34.3, RDW Std Deviation 53.3 H, RDW Coeff of [place] 14.6, Plt Count 216, MPV 8.5, Immature Gran % (Auto) 1.100 H, Neut % (Auto) 83.0 H, Lymph % (Auto) 11.0 L, [place] % (Auto) 4.7, Eos % (Auto) 0.0, Baso % (Auto) 0.2, Absolute Neuts (auto) 4.7, Absolute Lymphs (auto) 0.63 L, Nucleated RBC % 0, Sodium 138, Potassium 3.0 L, Chloride 97 L, Carbon Dioxide 27.6, Anion Gap 14, BUN 16, Creatinine 1.07, Estim Creat Clear Calc 84.57, Est GFR (MDRD) Non-Af 72, BUN/Creatinine Ratio 14.6, Glucose 242 H, Calcium 8.1, Phosphorus 2.4 L, Magnesium 1.7, Total Bilirubin 1.13, AST 42 H, ALT 37, Alkaline Phosphatase 109, Total Protein 7.1, Albumin 3.8, Globulin 3.3, Albumin/Globulin Ratio 1.1 Microbiology: Microbiology 12/16/24 07:05 Sputum, Expectorated/Coughed Gram Stain - Final 12/15/24 18:40 Mucosa - Nasopharyngeal Respiratory Panel (PCR) - Final [facility] 12/15/24 14:55 Mucosa - Nose SARS-CoV-2, Influenza & RSV (PCR) - Final Radiography Diagnostic Testing: Radiology Impression Chest X-Ray 12/15/24 15:50 IMPRESSION: Mild findings of edema in the setting of cardiomegaly. Reading Location: [place] [id number] Echocardiogram 12/16/24 05:55 Interpretation Summary The study was technically difficult. Mild concentric left ventricular hypertrophy. The LV systolic function is normal. EF is 65 %. At least stage I diastolic dysfunction. There is moderate biatrial dilatation. Ordering Physician: Amita Guillory Performed By: Willard Van RCS D/C Instructions Discharge Diet: Low fat / Low cholesterol DC O2, CPAP, BIPAP Needs Home O2 Discharge instructions: No Meaningful Use Info Meaningful Use Meaningful Use Diagnoses (Choose all that apply): CHF CHF FRANK/ARB ordered at discharge?: No Reason FRANK/ARB not ordered?: Normal EF Documented LVEF (%): 65 Ischemic Stroke Statin Dosing Therapy Reference: STATIN DOSE THERAPY REFERENCE: * Patients > 75 years receive moderate or high dose statin therapy. * Patients 75 years or YOUNGER should receive HIGH intensity statin dose unless contraindicated. You will be required to document reason for non-treatment if statin daily dose does not meet guidelines. HIGH DOSE STATIN THERAPY DAILY Atorvastatin > than or = to 40 mg Rosuvastatin > than or = to 20 mg Amlodipine + Atorvastatin > than or = to 2.5/40 mg Ezetimibe + Simvastatin 10/80 mg Simvastatin 80mg Discharge Plan Admission Admit Date/Time: 12/15/24 18:22 Primary Reason for Your Visit: Bronchitis. heart failure exacerbation. Attending Provider: Ebenezer Sibley Primary Care Provider: Logan Aquino Consulting Providers: Amita Guillory Discharge Orders/Prescriptions Prescriptions: New prednisone 20 mg tablet 40 mg PO DAILY Qty: 10 0RF codeine-guaifenesin [Guaifenesin AC] 10-100 mg/5 mL liquid 10 ml PO Q4H PRN (Reason: cough) Qty: 120 0RF albuterol sulfate [Ventolin HFA] 90 mcg/actuation HFA aerosol inhaler 2 puff inhalation Q6H PRN (Reason: shortness of breath or wheezing) Qty: 6.7 0RF Continued ipratropium bromide 42 mcg (0.06 %) spray,non-aerosol 2 spray intranasal TID PRN (Reason: allergy symptoms) Patient Comments: instill 2 sprays three times a day if needed for nasal congestion nitroglycerin [Nitrostat] 0.4 mg tablet, sublingual 0.4 mg sublingual Q5-15M PRN (Reason: chest pain) Qty: 25 3RF Rx Instructions: do not exceed 3 doses per episode aspirin [Adult Aspirin Regimen] 81 mg tablet,delayed release (DR/EC) 81 mg PO QDAY Qty: 90 0RF multivitamin [Daily Multi-Vitamin] Tablet 1 tab PO DAILY atorvastatin 20 mg tablet 20 mg PO DAILY Qty: 90 3RF furosemide 40 mg tablet 40 mg PO BID Qty: 180 3RF carvedilol 12.5 mg tablet 12.5 mg PO BID Qty: 180 3RF Rx Instructions: must administer with a meal/food Eliquis 5 mg tablet 5 mg PO BID Qty: 180 3RF Referrals / Follow Up: Logan Aquino MD [Primary Care Provider] - Within 2 Weeks Disposition Disposition (needs filled in before D/C Order can be placed): Home, Self Care Charges/Coding Visit Charges Inpatient E&M: 89525 Disch Hosp >30min
== END 2024-12-16 17:47 | disposition home or self-care (01) | DRG 291 ==
LOC: ED 17:45 → PCU 18:42
PROVIDERS: Admitting Provider Internal Medicine; Emergency Provider Emergency Medicine; PCP Internal Medicine
DX: I11.0 Hypertensive heart disease with heart failure (principal); I50.31 Acute diastolic (congestive) heart failure; Z68.41 Body mass index [BMI] 40.0-44.9, adult; J21.1 Acute bronchiolitis due to human metapneumovirus; E66.01 Morbid (severe) obesity due to excess calories; Z79.01 Long term (current) use of anticoagulants; I48.0 Paroxysmal atrial fibrillation; I25.10 Atherosclerotic heart disease of native coronary artery without angina pectoris; E78.5 Hyperlipidemia, unspecified; G47.33 Obstructive sleep apnea (adult) (pediatric); E83.42 Hypomagnesemia; E87.6 Hypokalemia; E66.813 Obesity, class 3; Z79.82 Long term (current) use of aspirin; Z79.899 Other long term (current) drug therapy
CPT/HCPCS: 36415; 71046; 80053; 81001; 82077; 83605; 83735; 83880; 84100; 84484; 85025; 85610; 85730; 87040; 87070; 87086; 87088; 87205; 87631; 87633; 93005; 93306; 94640; 94668; 97802; 99252; 99284; Q9957; A4216; C8929; G0463; J1938